=== PATIENT | female | born 1930 | race Caucasian/White ===

== ENCOUNTER 2016-12-14 23:16 | Emergency (ER) | payer OTHER ==
[2016-12-14] MEDS ORDERED: traMADol HCL 50 MG TABLET PO ONE (23:25)
[2016-12-14 23:26] VITALS: TEMP 97.5; BMI 17.7
[2016-12-14] MEDS ORDERED: traMADol HCL 50 MG TABLET ONE (23:29)
--- NOTE | 2016-12-14 23:52 | PDOC ---
History of Present Illness - General Chief Complaint: Blood Pressure Problem Stated Complaint: HIGH BP/BACK PAIN Time Seen by Provider: 12/14/16 23:23 History Source: Patient Exam Limitations: No Limitations - History of Present Illness Initial Comments: 12/14/16 23:30 This is an 86 her old female who is brought in by her granddaughter for evaluation of high blood pressure. Patient said that she injured her back approximately 2 days ago and has been in a lot of pain. Patient said that earlier her blood pressure was high and she took one half of a tramadol which helped with the pain and her blood pressure improved within the tramadol were often she is now on pain in her blood pressure is high again. Patient denies any chest pain, shortness of breath, nausea, diaphoresis. Patient denies any palpitations or lightheaded. Patient is just concerned because her blood pressure is high. Patient did not want to take any more medication because it was even though it did help. Patient has a history of back pain and isn 't been doing well up until 2 days ago when she lifted something and the pain got worse. Patient is complaining of some mild urinary complaints however patient said she did have a bladder procedure done and is on antibiotics since last week. Patient said her urinary complaints or getting better rather than worse. She denied any fevers or chills. PAST MEDICAL HISTORY: Hypertension, high cholesterol, back pain PAST SURGICAL HISTORY: no significant history FAMILY HISTORY: no pertinant history SOCIAL HISTORY: Pt lives with family and is employed. MEDICATIONS: reviewed ALLERGIES: As per nursing notes Review of Systems General: No fevers or chills, no weakness, no weight loss HEENT: No change in vision. No sore throat,. No ear pain CardioVascular: No chest pain or shortness of breath Respiratory:No cough, or wheezing. Gastrointestinal: no nausea, vomitting, diarrhea or constipation, No rectal bleeding Genitourinary: No dysuria, hematuria, or frequency Musculoskeletal: Back pain Neurologic: No headache, vertigo, dizziness or loss of consciousness Psychiatric: nor depression Skin: No rashes or easy bruising Endocrine: no increased thirst or abnormal weight change Allergic: no skin or latex allergy All other systems reviewed and normal Exam: General: Well-nourished well-developed individual, no acute distress HEENT: Throat: Normal, tonsils normal, no erythema or exudate Neck: Supple, no meningeal signs, no lymphadenopathy Eyes::Pupils equal reactive and round, extraocular motion intact Chest: Nontender to palpation Cardiac: S1-S2 normal, regular rate and rhythm, no murmurs rubs or gallops Respiratory: Lungs clear to auscultation bilateral Back: There is no tenderness on palpation of the cervical thoracic lumbar or cervical spine. There is some pain on palpation with spasm of the left paraspinal area approximately mid back. she is on antibiotics she had already for urinary Abdomen: Soft, nondistended, normal bowel sounds, nontender to palpation diffusely Extremities: Warm, dry, no cyanosis, clubbing, or edema Skin: No rashes Neuro: Alert and oriented x3, nonfocal exam, grossly intact, normal gait Psych: Normal mood and affect 12/15/16 00:06 Patient feels much better after taking the tramadol. Patient said back pain is nearly resolved. Blood pressure is improved but still elevated patient has no other symptoms at this time suggestive of any end organ damage. So I am going to discharge her home and have her follow-up with her primary care doctor tomorrow. Past History - Past Medical History Allergies/Adverse Reactions: Allergies Allergy/AdvReac Type Severity Reaction Status Date / Time ciprofloxacin [From Cipro] Allergy Unknown Verified 12/14/16 23:18 ciprofloxacin HCl Allergy Unknown Verified 12/14/16 23:18 [From Cipro] Home Medications: Ambulatory Orders Amlodipine Besylate [Norvasc -] 2.5 mg PO DAILY 12/14/16 Atorvastatin Ca [Lipitor] 80 mg PO HS 12/14/16 Ramipril 5 mg PO BID 12/14/16 Tramadol HCl 50 mg PO DAILY 12/14/16 Anemia: No Asthma: No Cancer: Yes Cardiac Disorders: No CVA: Yes COPD: Yes CHF: No Dementia: No Diabetes: No GI Disorders: Yes Disorders: No HTN: Yes Hypercholesterolemia: Yes Liver Disease: No Seizures: No Thyroid Disease: No - Surgical History Abdominal Surgery: No Appendectomy: No Cardiac Surgery: No Cholecystectomy: Yes Lung Surgery: No Neurologic Surgery: Yes Orthopedic Surgery: Yes (left knee meiscus tear repair) - Psycho/Social/Smoking Cessation Hx Anxiety: No Suicidal Ideation: No Smoking History: Former smoker Have you smoked in the past 12 months: No Information on smoking cessation initiated: No Hx Alcohol Use: No Drug/Substance Use Hx: No Substance Use Type: None Hx Substance Use Treatment: No *Physical Exam - Vital Signs Last Vital Signs Temp Pulse Resp BP Pulse Ox 97.5 F L 88 18 202/92 96 12/14/16 23:23 12/14/16 23:23 12/14/16 23:23 12/14/16 23:23 12/14/16 23:23 *DC/Admit/Observation/Transfer Diagnosis at time of Disposition: Essential hypertension Back pain Qualifiers: Back pain location: thoracic back pain Chronicity: chronic Back pain laterality : left Qualified Code(s): M54.6 - Pain in thoracic spine; G89.29 - Other chronic pain - Discharge Dispostion Disposition: HOME Condition at time of disposition: Stable - Patient Instructions Printed Discharge Instructions: DI for High Blood Pressure Additional Instructions: Return to the emergency department immediately with ANY new, persistent or worsening symptoms. Continue any medications as previously prescribed by your physician. You should follow up with your primary doctor as soon as possible regarding today's emergency department visit. . Please make sure your doctor reviews the results of your emergency evaluation. Thank you for coming to the Emergency Department today for your care. It was a pleasure to see you today. Please note that your evaluation is INCOMPLETE until you follow-up with your doctor.
[2016-12-15 00:08] VITALS: BP 196/85; PULSE 82
== END 2016-12-15 00:28 | disposition home or self-care (01) ==
LOC: FER 23:16
DX: I10 Essential (primary) hypertension (principal); M54.6 Pain in thoracic spine; G89.29 Other chronic pain; E78.00 Pure hypercholesterolemia, unspecified; Z85.9 Personal history of malignant neoplasm, unspecified
CPT/HCPCS: 99281-25

== ENCOUNTER 2016-12-27 15:34 | Emergency (ER) | payer OTHER ==
[2016-12-27 15:39] VITALS: TEMP 98; BMI 19.1
[2016-12-27] MEDS ORDERED: SODIUM CHLORIDE 0.9% 1000 ML INFUS.BAG IV ONE (16:39)
--- NOTE | 2016-12-27 16:39 | PDOC ---
History of Present Illness - General Chief Complaint: Nausea/Vomiting Stated Complaint: VOMITING Time Seen by Provider: 12/27/16 15:58 History Source: Patient Exam Limitations: No Limitations - History of Present Illness Initial Comments: CC: Acute onset of vomiting Patient is an 86 y.o. female with a PMH of diverticulosis, HTN and cystitis who presents to our ED today c/o a 1 day h/o of non-bloody, non-bilous yellow colored vomiting which has resolved by her time of presentation. Patient notes she started Elmiron for her cystitis yesterday and believes this is the cause of her vomiting. Patient denies any chest pain or shortness of breath but does c/o diarrhea and dysuria (though no increased urgency/frequency or hematuria) on review of systems. Timing/Duration: 24 hours Past History - Past Medical History Allergies/Adverse Reactions: Allergies Allergy/AdvReac Type Severity Reaction Status Date / Time ciprofloxacin [From Cipro] Allergy Unknown Verified 12/27/16 15:39 ciprofloxacin HCl Allergy Unknown Verified 12/27/16 15:39 [From Cipro] Home Medications: Ambulatory Orders Alprazolam [Xanax Xr] 0.5 mg PO TID PRN 12/27/16 Amitriptyline HCl [Elavil -] 10 mg PO DAILY 12/27/16 Amlodipine Besylate [Norvasc -] 2.5 mg PO DAILY 12/27/16 Atorvastatin Ca [Lipitor] 80 mg PO DAILY 12/27/16 Clopidogrel Bisulfate [Plavix -] 75 mg PO DAILY 12/27/16 Dicyclomine HCl 10 mg PO QID PRN 12/27/16 Esomeprazole Mag Trihydrate [NexIUM for SUSP] 40 mg PO DAILY 12/27/16 Nitrofurantoin Macrocrystal [Nitrofurantoin] 100 mg PO DAILY 12/27/16 Pentosan Polysulfate Sodium [Elmiron] 100 mg PO TID 12/27/16 Ramipril [Altace] 5 mg PO BID 12/27/16 Sulfamethoxazole/Trimethoprim [Bactrim Ds -] 1 tab PO BID #20 tablet 12/27/16 Tramadol HCl [Ultram] 50 mg PO Q6H 12/27/16 Anemia: No Asthma: No Cancer: Yes Cardiac Disorders: No CVA: Yes COPD: Yes CHF: No Dementia: No Diabetes: No GI Disorders: Yes Disorders: No HTN: Yes Hypercholesterolemia: Yes Liver Disease: No Seizures: No Thyroid Disease: No - Surgical History Abdominal Surgery: No Appendectomy: No Cardiac Surgery: No Cholecystectomy: Yes Lung Surgery: No Neurologic Surgery: Yes Orthopedic Surgery: Yes (left knee meiscus tear repair) - Psycho/Social/Smoking Cessation Hx Anxiety: No Suicidal Ideation: No Smoking History: Former smoker Have you smoked in the past 12 months: No If you are a former smoker, when did you quit?: 4 YRS AGO Information on smoking cessation initiated: No Hx Alcohol Use: No Drug/Substance Use Hx: No Substance Use Type: None Hx Substance Use Treatment: No Review of Systems - Review of Systems Constitutional: No: Chills, Diaphoresis, Malaise, Weakness HEENTM: No: Blurred Vision, Tinnitus, Hearing Loss, Throat Pain Respiratory: No: Cough, Orthopnea, SOB with Exertion, SOB at Rest, Wheezing Cardiac (ROS): No: Chest Pain, Edema, Palpitations, Syncope ABD/GI: Yes: Constipated, Nausea, Vomiting : Yes: Dysuria. No: Burning, Frequency, Urgency Musculoskeletal: No: Back Pain, Joint Swelling, Muscle Pain, Muscle Weakness Integumentary: No: Dryness, Erythema, Pruritus, Rash Neurological: No: Seizure, Tingling, Tremors, Weakness Psychiatric: No: Anxiety, Depression All Other Systems: Reviewed and Negative *Physical Exam - Vital Signs Last Vital Signs Temp Pulse Resp BP Pulse Ox 98.0 F 100 H 16 149/78 92 L 12/27/16 15:35 12/27/16 15:35 12/27/16 15:35 12/27/16 15:35 12/27/16 15:35 - Physical Exam General Appearance: Yes: Appropriately Dressed, Thin HEENT: positive: EOMI, GREGORIO Neck: positive: Trachea midline, Supple Respiratory/Chest: positive: Lungs Clear, Normal Breath Sounds Cardiovascular: positive: Regular Rhythm, Regular Rate, S1, S2 Gastrointestinal/Abdominal: positive: Normal Bowel Sounds, Soft Musculoskeletal: positive: Normal Inspection Integumentary: positive: Normal Color, Dry, Warm Neurologic: positive: design cell engineer II-XII NML intact, Fully Oriented, Alert, Normal Mood/ Affect ED Treatment Course - LABORATORY CBC & Chemistry Diagram: 12/27/16 17:01 12/27/16 17:01 Medical Decision Making - Medical Decision Making Patient is an 86 y.o. female who presents with a 1 day h/o of vomiting. Differential diagnosis includes dehydration vs. diverticulitis (patient c/o diarrhea) vs. UTI. As patient's vomiting had resolved by the time she reached the ED, patient was given IVNS and electrolytes were checked for hypokalemia given patient's h/o emesis. During course of admission patient tolerated PO challenge and was eating solid food without any discomfort. As patient expressed a belief that her Elmiron (started immediately prior to onset of her emesis) was the cause of her vomiting, patient's urologist, Dr. Low was contacted and suggested patient hold the Elmiron and follow-up in his office. UA (to r/o UTI) and CT Abdomen (r/o diverticulitis) was pending at time of sign out to Dr. Barreto (resident) and Dr. Graves (attending). *DC/Admit/Observation/Transfer Diagnosis at time of Disposition: UTI (urinary tract infection) - Discharge Dispostion Disposition: HOME - Prescriptions Prescriptions: Sulfamethoxazole/Trimethoprim [Bactrim Ds -] 1 tab PO BID #20 tablet - Referrals Referrals: Ravi Diaz MD [Staff Physician] - Handy Wheeler MD [Primary Care Provider] - - Patient Instructions Additional Instructions: You were seen for nausea and abdominal pain. This is most likely due to a urinary tract infection that hasn't been treated appropriately. We are changing your antibiotic to Bactrim twice a day for 10 days. Please see your primary care physician for better control of your blood pressure as this is most likely the reason for the increased size of your aneurysm. Please return if you have worsening pain, nausea, or vomiting.
[2016-12-27] MEDS ORDERED: ONDANSETRON 4 MG/2 ML VIAL IVPUSH ONE (16:47)
[2016-12-27] MEDS ORDERED: ONDANSETRON 4 MG/2 ML VIAL ONE (17:16)
[2016-12-27 17:36] LABS: MCH 28.6 pg (25.7-33.7); MEAN CELL VOLUME 86.5 fl (80-96); MEAN PLT VOLUME 9.1 fl (7.5-11.1); PLATELET COUNT 273 K/MM3 (134-434); RDW 13.2 % (11.6-15.6); WHITE BLOOD COUNT 9.4 K/mm3 (4.0-10.0)
[2016-12-27 17:57] LABS: ANION GAP 7 (8-16); CO2 28 mmol/L (21-32); CREATININE 1.3 mg/dL (0.55-1.02); GLUCOSE,RANDOM 95 mg/dL (74-106)
[2016-12-27 19:03] LABS: URINE APPEARANCE CLEAR; URINE BILIRUBIN NEGATIVE (NEGATIVE); URINE COLOR YELLOW; URINE GLUCOSE (UA) NEGATIVE (NEGATIVE); URINE KETONE NEGATIVE (NEGATIVE); URINE NITRITE NEGATIVE (NEGATIVE); URINE PROTEIN NEGATIVE (NEGATIVE); URINE UROBILINOGEN NEGATIVE mg/dL (0.2-1.0)
--- NOTE | 2016-12-27 19:03 | PDOC ---
Attending Attestation - Resident Resident Name: Mary Nash - ED Attending Attestation I have performed the following: I have examined & evaluated the patient, The case was reviewed & discussed with the resident - HPI HPI: 12/27/16 19:01 86 yo F wit h/o diveritciulitis, recent cystoscopy 1 week ago, on nitrofurantion for one week, here with 24 hours n/v. started last pm. has been c/o left lower quad pain x 2 weeks. no f/c no change to bm. pain worse with eating. no flank pain. no f/c no new urinary complaints. - Physicial Exam PE: 12/27/16 19:02 on exam pt awake alert lungs clear heart rRR nomrg abd soft LLQ ttp, no rebound no guarding. no cva tenderness. ext wwp. - Medical Decision Making 12/27/16 19:03 86 yo recent bladder procedure on abx with n/v . llq ttp on exam. differential cystitis, uti, abx side effect diverticulitis. plan labs ua ct a/p antiemetics. iv hydration
[2016-12-27 19:18] LABS: URINE BLOOD 1+ (NEGATIVE); URINE LEUK ESTERASE 1+ (NEGATIVE)
[2016-12-27 19:19] LABS: URINE MUCUS RARE; URINE RBC 1 /hpf (0-3); URINE WBC 14 /hpf (3-5)
--- NOTE | 2016-12-27 19:43 | PDOC ---
*Physical Exam - Vital Signs Last Vital Signs Temp Pulse Resp BP Pulse Ox 98.0 F 100 H 16 149/78 92 L 12/27/16 15:35 12/27/16 15:35 12/27/16 15:35 12/27/16 15:35 12/27/16 15:35 ED Treatment Course - LABORATORY CBC & Chemistry Diagram: 12/27/16 17:01 12/27/16 17:01 - ADDITIONAL ORDERS Additional order review: Laboratory Results 12/27/16 12/27/16 17:01 17:01 Sodium 138 Potassium 4.3 Chloride 103 Carbon Dioxide 28 Anion Gap 7 L BUN 25 H Creatinine 1.3 H Random Glucose 95 D Calcium 9.0 Urine Color Yellow Urine Appearance Clear Urine pH 5.0 Urine Protein Negative Urine Glucose (UA) Negative Urine Ketones Negative Urine Blood 1+ H Urine Nitrite Negative Urine Bilirubin Negative Urine Urobilinogen Negative Ur Leukocyte Esterase 1+ H 12/27/16 17:01 RBC 4.63 MCV 86.5 MCHC 33.0 RDW 13.2 MPV 9.1 - Medications Given in the ED: ED Medications Discontinued Medications Generic Name Dose Route Start Last Admin Trade Name Freq PRN Reason Stop Dose Admin Ondansetron HCl 4 mg 12/27/16 16:47 12/27/16 17:28 Zofran Injection IVPUSH 12/27/16 16:48 4 mg ONCE ONE Administration Sodium Chloride 1,000 ml 12/27/16 16:39 12/27/16 17:38 Normal Saline - IV 12/27/16 16:40 1,000 ml ONCE ONE Administration Medical Decision Making - Medical Decision Making Ct Abdomen pelvis not demonstrating diverticulitis but is showing interval increase from 4.2 CM back in June to 4.7 CM today. Spoke with Dr. Recinos of Vascular surgery and the patient is OK to go home and follow up with CT surgery to follow the aneurism as long as she is HD stable. Will have her follow up with her PCP to have tighter control of BP (sits at 140s-150s at home). Will change patient's nitrofurantoin to Bactrim on discharge because of failure of treatment with current 14 WBC and 1+ leuk esterase. 12/27/16 21:05 12/27/16 21:19 *DC/Admit/Observation/Transfer Diagnosis at time of Disposition: UTI (urinary tract infection) - Discharge Dispostion Disposition: HOME Condition at time of disposition: Improved Admit: No - Prescriptions Prescriptions: Sulfamethoxazole/Trimethoprim [Bactrim Ds -] 1 tab PO BID #20 tablet - Referrals Referrals: Handy Wheeler MD [Primary Care Provider] - Ravi Diaz MD [Staff Physician] - - Patient Instructions Additional Instructions: You were seen for nausea and abdominal pain. This is most likely due to a urinary tract infection that hasn't been treated appropriately. We are changing your antibiotic to Bactrim twice a day for 10 days. Please see your primary care physician for better control of your blood pressure as this is most likely the reason for the increased size of your aneurysm. Please return if you have worsening pain, nausea, or vomiting. - Post Discharge Activity Activity Comments: 12/27/16 21:34 12/27/16 21:34 - Attestations Physician Attestion: I, Dr. Ely Barreto, attest that this document has been prepared under my direction and personally reviewed by me in its entirety. I further attest, that it accurately reflects all work, treatment, procedures and medical decision -making performed by me. 12/27/16 21:23 12/27/16 21:34
[2016-12-27 21:09] VITALS: BP 157/75; PULSE 75
--- NOTE | 2016-12-28 16:51 | EKG ---
Test Reason : Blood Pressure : / mmHG Vent. Rate : 081 BPM Atrial Rate : 081 BPM P-R Int : 270 ms QRS Dur : 078 ms QT Int : 396 ms P-R-T Axes : 080 097 066 degrees QTc Int : 460 ms SINUS RHYTHM WITH 1ST DEGREE A-V BLOCK WITH PREMATURE SUPRAVENTRICULAR COMPLEXES RIGHTWARD AXIS ANTEROSEPTAL INFARCT , AGE UNDETERMINED ABNORMAL ECG NO PREVIOUS ECGS AVAILABLE BASE LINE ARTIFACT, CORELATE CLINICALLY Confirmed by IGOR DILLON MD ([id number]) on 12/28/2016 4:50:58 PM Referred By: Confirmed By:IGOR DILLON MD
== END 2016-12-27 21:41 | disposition home or self-care (01) ==
LOC: JER 15:34
PROC: 3E033GC Introduction of Other Therapeutic Substance into Peripheral Vein, Percutaneous Approach (ICD-10-PCS; principal; 2016-12-27)
DX: R11.2 Nausea with vomiting, unspecified (principal); I10 Essential (primary) hypertension; J44.9 Chronic obstructive pulmonary disease, unspecified; E78.00 Pure hypercholesterolemia, unspecified; I71.2 Thoracic aortic aneurysm, without rupture; Z86.73 Personal history of transient ischemic attack (TIA), and cerebral infarction without residual deficits
CPT/HCPCS: 36415; 74176-TC; 80048; 81003; 81015; 85027; 93005; 93010; 96374; 99283-25

== ENCOUNTER 2017-03-14 10:31 | Inpatient (IN) | payer OTHER ==
[2017-03-14] MEDS ORDERED: SODIUM CHLORIDE 500 ML IV STA ×3 (11:10→15:43)
[2017-03-14] MEDS ORDERED: ONDANSETRON 4 MG/2 ML VIAL IVPB ONE (11:10)
[2017-03-14] MEDS ORDERED: MAG HYDROX/AL HYDROX/SIMETH 355 ML ORAL.SUSP PO ONE (11:12)
[2017-03-14] MEDS ORDERED: LOPERAMIDE HCL 2 MG CAPSULE PO ONE (11:12)
[2017-03-14] MEDS ORDERED: morphine CARPU-JECT 2 MG/1 ML DISP.SYRIN IVPUSH ONE ×2 (11:19→12:51)
[2017-03-14] MEDS ORDERED: morphine CARPU-JECT 4 MG/1 ML DISP.SYRIN ONE ×2 (11:21→12:55)
[2017-03-14] MEDS ORDERED: MAG HYDROX/AL HYDROX/SIMETH 30 ML UNIT-DOSE CUP ONE (11:23)
[2017-03-14] MEDS ORDERED: ONDANSETRON 4 MG/2 ML VIAL ONE (11:23)
[2017-03-14] MEDS ORDERED: LOPERAMIDE HCL 2 MG CAPSULE ONE (11:25)
[2017-03-14 11:40] LABS: EOSINOPHIL 1.5 % (0-4.5); MCH 27.9 pg (25.7-33.7); MCHC 32.8 g/dl (32.0-36.0); MEAN CELL VOLUME 85.2 fl (80-96); NEUTROPHILS 83.4 % (42.8-82.8); PLATELET COUNT 419 K/MM3 (134-434); RDW 14.3 % (11.6-15.6); WHITE BLOOD COUNT 15.7 K/mm3 (4.0-10.0)
--- NOTE | 2017-03-14 11:40 | PDOC ---
History of Present Illness - General Chief Complaint: Vomiting/Diarrhea Stated Complaint: SICK Time Seen by Provider: 03/14/17 10:47 History Source: Patient Exam Limitations: No Limitations - History of Present Illness Initial Comments: 03/14/17 11:37 Patient is an 86F with history of CDiff (years ago by history), COPD, HTN, CVA, AAA, Diverticulitis and Pacemaker here today complaining of diarrhea and abdominal pain since yesterday evening. She denies blood and melena in the stool. She says she's had numerous episodes of diarrhea and feels very weak because of it. The abdominal pain is located in the suprapubic region and lower left quadrant. It radiates across her belly. She endorses nausea and dry heaving. She denies fevers, endorses chills. She denies chest pain. She endorses shortness of breath. She states that she fell and hit her left arm, but doesn't have any pain in her left arm. She denies hitting her head, LOC and headache. Past History - Past Medical History Allergies/Adverse Reactions: Allergies Allergy/AdvReac Type Severity Reaction Status Date / Time ciprofloxacin [From Cipro] Allergy Unknown Verified 03/14/17 10:38 ciprofloxacin HCl Allergy Unknown Verified 03/14/17 10:38 [From Cipro] Home Medications: Ambulatory Orders Alprazolam [Xanax Xr] 0.5 mg PO TID PRN 12/27/16 Amitriptyline HCl [Elavil -] 10 mg PO DAILY 12/27/16 Amlodipine Besylate [Norvasc -] 2.5 mg PO DAILY 12/27/16 Atorvastatin Ca [Lipitor] 80 mg PO DAILY 12/27/16 Clopidogrel Bisulfate [Plavix -] 75 mg PO DAILY 12/27/16 Dicyclomine HCl 10 mg PO QID PRN 12/27/16 Esomeprazole Mag Trihydrate [NexIUM for SUSP] 40 mg PO DAILY 12/27/16 Pentosan Polysulfate Sodium [Elmiron] 100 mg PO TID 12/27/16 Ramipril [Altace] 5 mg PO BID 12/27/16 Tramadol HCl [Ultram] 50 mg PO Q6H 12/27/16 Anemia: No Asthma: No Cancer: Yes Cardiac Disorders: No CVA: Yes COPD: Yes CHF: No Dementia: No Diabetes: No GI Disorders: Yes Disorders: No HTN: Yes Hypercholesterolemia: Yes Liver Disease: No Seizures: No Thyroid Disease: No - Surgical History Abdominal Surgery: No Appendectomy: No Cardiac Surgery: No Cholecystectomy: Yes Lung Surgery: No Neurologic Surgery: Yes Orthopedic Surgery: Yes (left knee meiscus tear repair) - Suicide/Smoking/Psychosocial Hx Smoking History: Former smoker Have you smoked in the past 12 months: No If you are a former smoker, when did you quit?: 4 YRS AGO Information on smoking cessation initiated: No Hx Alcohol Use: No Drug/Substance Use Hx: No Substance Use Type: None Hx Substance Use Treatment: No Review of Systems - Review of Systems Comments:: 03/14/17 11:40 GENERAL/CONSTITUTIONAL: Positive for chills and weakness. HEAD, EYES, EARS, NOSE AND THROAT: No change in vision. No sore throat. CARDIOVASCULAR: No chest pain. Positive for shortness of breath. RESPIRATORY: No cough, wheezing, or hemoptysis. GASTROINTESTINAL: Positive for nausea and diarrhea. GENITOURINARY: No dysuria, frequency, or change in urination. MUSCULOSKELETAL: No joint or muscle swelling or pain. Positive for back pain. SKIN: No rash NEUROLOGIC: No headache, vertigo, loss of consciousness, or change in strength/ sensation. ENDOCRINE: No increased thirst. No abnormal weight change ALLERGIC/IMMUNOLOGIC: No hives or skin allergy. *Physical Exam - Vital Signs Last Vital Signs Temp Pulse Resp BP Pulse Ox 97.5 F L 111 H 20 152/88 55 L 03/14/17 10:39 03/14/17 10:39 03/14/17 10:39 03/14/17 10:39 03/14/17 10:39 - Physical Exam Comments: 03/14/17 11:42 GENERAL: Awake, alert, and fully oriented, in acute distress HEAD: No signs of trauma, normocephalic, atraumatic EYES: PERRLA, EOMI, sclera anicteric, conjunctiva clear ENT: Auricles normal inspection, hearing grossly normal, nares patent, oropharynx clear without exudates. Dry mucosa LUNGS: No distress, speaks full sentences, clear to auscultation bilaterally HEART: Regular rate and rhythm, normal S1 and S2, no murmurs, rubs or gallops, peripheral pulses normal and equal bilaterally. ABDOMEN: Tender, normal bowel sounds. Voluntary guarding, no rebound. No masses EXTREMITIES: Normal inspection, Normal range of motion, no edema. No clubbing or cyanosis. NEUROLOGICAL: Cranial nerves II through XII grossly intact. Normal speech, no focal sensorimotor deficits SKIN: Warm, Dry, normal turgor, no rashes or lesions noted. ED Treatment Course - LABORATORY CBC & Chemistry Diagram: 03/14/17 11:30 03/14/17 11:30 - RADIOLOGY Radiology Studies Ordered: Category Date Time Status ABDOMEN & PELVIS CT WITH CONTR [CT] Stat CT Scan 03/14/17 11:26 Ordered CHEST X-RAY PORTABLE* [RAD] Stat Radiology 03/14/17 11:26 Ordered Medical Decision Making - Medical Decision Making 03/14/17 11:43 86F with history of cdiff, COPD, pacemaker placement, diverticulitis and AAA here today with abdominal pain. Tachy to 111. Vital signs otherwise stable. Will evaluate with abdominal and cardiac labs, chest x-ray, and abdominal ct. Will treat with mylanta, zofran, morphine and immodium. 03/14/17 11:52 EKG shows no p-waves, no signs of pacemaker on ekg, rate = 116. No st elevations , no t-wave abnormalities. QTc 489. 03/14/17 12:46 Laboratory Tests 03/14/17 03/14/17 03/14/17 11:30 11:30 11:30 WBC 15.7 H D Hgb 13.8 Hct 42.0 Plt Count 419 D Neutrophils % 83.4 H D Potassium 5.5 H D Creatinine 1.6 H D Lactic Acid 2.7 H* CBC shows leukocytosis with neutrophillic shift. Lactate positive to 2.7. Started on vanc, zosyn and flagyl. CT pending. Trop pending. Urine pending. 03/14/17 14:28 C diff negative. 03/14/17 14:[address] Marin, admitted to med/surg. *DC/Admit/Observation/Transfer Diagnosis at time of Disposition: Colitis - Discharge Dispostion Condition at time of disposition: Stable Admit: Yes
[2017-03-14 12:08] LABS: ALBUMIN 3.2 g/dl (3.4-5.0); ALK PHOS 148 U/L (45-117); ANION GAP 6 (8-16); BILIRUBIN,TOTAL 0.5 mg/dL (0.2-1.0); CALCIUM 9.4 mg/dL (8.5-10.1); CO2 28 mmol/L (21-32); CREATININE 1.6 mg/dL (0.55-1.02); GLUCOSE,RANDOM 157 mg/dL (74-106); SGPT/ALT 22 U/L (12-78); TOT PROT 7.9 g/dl (6.4-8.2)
[2017-03-14 12:11] LABS: SGOT/AST 54 U/L (15-37)
[2017-03-14] MEDS ORDERED: VANCOMYCIN 1,000 MG in DEXTROSE 5%-WATER - 250 ML IVPB ONE (12:41)
[2017-03-14] MEDS ORDERED: METRONIDAZOLE 500 MG PREMIXED 100 ML IVPB ONE ×2 (12:41→12:53)
[2017-03-14] MEDS ORDERED: PIPERACILLIN/TAZOB 3.375 GM/50 ML PRE-DOCKED IV ONE (12:41)
--- NOTE | 2017-03-14 12:44 | PDOC ---
Attending Attestation - HPI HPI: 03/14/17 12:44 Pt is a 86 yo F with a PMHx of COPD, HTN, CVA, HLD, Diverticulitis, IBS, C diff (5 years ago) who presents to the ED with multiple episodes of diarrhea and nausea since last night. Patient reports associated crampy abdominal pain and back pain, 10/10 in severity with generalized weakness. This morning, patient reports using the restroom however fell secondary to her fatigue. Patient denies any head trauma, LOC, injuries. She denies chest pain, headache or dizziness. She denies fever, chills, constipation. She denies dysuria, frequency, urgency or hematuria. PSHx: Cholecystectomy PCP: Handy Wheeler - Physicial Exam PE: 03/14/17 12:44 GENERAL: Awake, alert, and fully oriented, in no acute distress HEAD: No signs of trauma EYES: PERRLA, EOMI, sclera anicteric, conjunctiva clear ENT: Auricles normal inspection, hearing grossly normal, nares patent, oropharynx clear without exudates. +Dry mucous membranes. NECK: Normal ROM, supple, no lymphadenopathy, JVD, or masses LUNGS: Breath sounds equal, clear to auscultation bilaterally. No wheezes, and no crackles HEART: Regular rate and rhythm, normal S1 and S2, no murmurs, rubs or gallops ABDOMEN: +Diffuse abdominal tenderness. Soft, nontender, normoactive bowel sounds. No guarding, no rebound. No masses EXTREMITIES: Normal range of motion, no edema. No clubbing or cyanosis. No cords, erythema, or tenderness NEUROLOGICAL: Cranial nerves II through XII grossly intact. Normal speech, normal gait SKIN: Warm, Dry, normal turgor, no rashes or lesions noted. - Medical Decision Making 03/14/17 12:44 Documentation prepared by Yuliana Will, acting as medical doctor md/medical director for Jake Peres MD <Yuliana Will - Last Filed: 03/14/17 12:44> - Resident Resident Name: Ehsan Silva - ED Attending Attestation I have performed the following: I have examined & evaluated the patient, The case was reviewed & discussed with the resident, I agree w/resident's findings & plan, Exceptions are as noted - Medical Decision Making 03/14/17 12:59 A portion of this note was written by my scribe, under my supervision. Vital Signs Temp Pulse Resp BP Pulse Ox 97.5 F L 111 H 20 152/88 94 L 03/14/17 10:39 03/14/17 10:39 03/14/17 10:39 03/14/17 10:39 03/14/17 10:39 We'll need to rule out diverticulitis, colitis. There are some concerns for C. difficile. Sepsis protocol initiated and empiric antibiotics of vancomycin, Zosyn and Flagyl ordered. Patient admitted to the hospital for further evaluation. I agree with the resident's plan to obtain a CAT scan the abdomen pelvis. 03/14/17 14:35 CBC, BMP 03/14/17 11:30 03/14/17 11:30 CMP Sodium 137 mmol/L (136-145) 03/14/17 11:30 Potassium 5.5 mmol/L (3.5-5.1) H D 03/14/17 11:30 Chloride 103 mmol/L (98-107) 03/14/17 11:30 Carbon Dioxide 28 mmol/L (21-32) 03/14/17 11:30 Anion Gap 6 (8-16) L 03/14/17 11:30 BUN 24 mg/dL (7-18) H 03/14/17 11:30 Creatinine 1.6 mg/dL (0.55-1.02) H D 03/14/17 11:30 Creat Clearance w eGFR 30.56 (>60) 03/14/17 11:30 Random Glucose 157 mg/dL (74-106) H D 03/14/17 11:30 Lactic Acid 2.7 mmol/L (0.4-2.0) H* 03/14/17 11:30 Calcium 9.4 mg/dL (8.5-10.1) 03/14/17 11:30 Total Bilirubin 0.5 mg/dL (0.2-1.0) 03/14/17 11:30 AST 54 U/L (15-37) H D 03/14/17 11:30 ALT 22 U/L (12-78) D 03/14/17 11:30 Alkaline Phosphatase 148 U/L (45-117) H 03/14/17 11:30 Creatine Kinase 175 IU/L (26-192) 03/14/17 11:30 Creatine Kinase Index 0.5 % (0.0-5.0) 03/14/17 11:30 CK-MB (CK-2) < 1 ng/mL (0.5-3.6) 03/14/17 11:30 Troponin I < 0.02 ng/ml (0.00-0.05) 03/14/17 11:30 Total Protein 7.9 g/dl (6.4-8.2) 03/14/17 11:30 Albumin 3.2 g/dl (3.4-5.0) L 03/14/17 11:30 Lipase 87 U/L (73-393) 03/14/17 11:30 CT scan reviewed. IV antibiotics and admit <Jake Peres - Last Filed: 03/14/17 14:35> Heart Score/ECG Review #1 ECG reviewed & interpreted by me at: 11:40 03/14/17 12:59 accelerated junctional rhythm 116, no std/carlton, QTC 489 msec <Jake Peres - Last Filed: 03/14/17 14:35>
[2017-03-14] MEDS ORDERED: VANCOMYCIN 1 GRAM (PRE-DOCKED) 250 ML IVPB ONE (12:53)
[2017-03-14] MEDS ORDERED: PIPERACILLIN/TAZOB 3.375 GM 50 ML IVPB ONE (12:53)
[2017-03-14 12:55] LABS: TROPONIN I < 0.02 ng/ml (0.00-0.05)
[2017-03-14 12:57] LABS: CPK 175 IU/L (26-192)
--- NOTE | 2017-03-14 12:58 | PDOC ---
Attending Attestation - Resident Resident Name: Ehsan Silva - ED Attending Attestation I have performed the following: I have examined & evaluated the patient, The case was reviewed & discussed with the resident, I agree w/resident's findings & plan, Exceptions are as noted - Medical Decision Making 03/14/17 12:57 A portion of this note was written by my scribe, under my supervision. Vital Signs Temp Pulse Resp BP Pulse Ox 97.5 F L 111 H 20 152/88 94 L 03/14/17 10:39 03/14/17 10:39 03/14/17 10:39 03/14/17 10:39 03/14/17 10:39 We'll need to rule out diverticulitis, colitis. There are some concerns for C. difficile. Sepsis protocol initiated and empiric antibiotics of vancomycin, Zosyn and Flagyl ordered. Patient admitted to the hospital for further evaluation. I agree with the resident's plan to obtain a CAT scan the abdomen pelvis. Heart Score/ECG Review #1 ECG reviewed & interpreted by me at: 11:40 03/14/17 12:57 accelerated junctional rhythm 116, no std/carlton, normal axis, normal intervals, QTC 489 msec
[2017-03-14] MEDS ORDERED: ACETAMINOPHEN 325 MG TABLET (FP) PO ONE (14:27)
[2017-03-14] MEDS ORDERED: traMADol HCL 50 MG TABLET PO ONE (14:27)
[2017-03-14] MEDS ORDERED: ACETAMINOPHEN 325 MG TABLET (FP) ONE (14:48)
[2017-03-14] MEDS ORDERED: traMADol HCL 50 MG TABLET ONE (14:48)
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
[2017-03-14] MEDS ORDERED: morphine CARPU-JECT 2 MG/1 ML DISP.SYRIN IVPB PRN (15:43)
--- NOTE | 2017-03-14 15:53 | HP ---
CHIEF COMPLAINT: diarrhea PCP: Dr. Wheeler HISTORY OF PRESENT ILLNESS: 86 yr old woman with a hx of colitis, hx of c.diff(3yrs ago), presents with diarrhea >15 episodes since last night, did not check for blood/mucous. associated with progressive worsening abdominal pain 5/10 going to10/10 and worsening lower back pain. Has a hx of colitis, last episodes was >yr ago, follows with Dr. Holley at [facility] but has not been to see him in a while. 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, unchanged since 12/2016 hx of CVA x2, recently 3-4 yrs ago HTN - labile PAST SURGICAL HISTORY: hx of carotid endartectomy, cholecystectomy, PPM(unknown when) Social History: Smoking: former, quit 4 yrs ago, started age 18 Family History: Allergies ciprofloxacin [From Cipro] Allergy (Unknown, Verified 03/14/17 10:38) - HIVES and RASH HOME MEDICATIONS: Home Medications Medication Instructions Recorded Alprazolam [Xanax Xr] 0.5 mg PO TID PRN 12/27/16 Amitriptyline HCl [Elavil -] 10 mg PO DAILY 12/27/16 Amlodipine Besylate [Norvasc -] 2.5 mg PO DAILY 12/27/16 Atorvastatin Ca [Lipitor] 80 mg PO DAILY 12/27/16 Clopidogrel Bisulfate [Plavix -] 75 mg PO DAILY 12/27/16 Dicyclomine HCl 10 mg PO QID PRN 12/27/16 Esomeprazole Mag Trihydrate 40 mg PO DAILY 12/27/16 [NexIUM for SUSP] Pentosan Polysulfate Sodium 100 mg PO TID 12/27/16 [Elmiron] Ramipril [Altace] 5 mg PO BID 12/27/16 Tramadol HCl [Ultram] 50 mg PO Q6H 12/27/16 REVIEW OF SYSTEMS CONSTITUTIONAL: Present: chills, weight change - 25lbs loss in the past year Absent: fever, generalized weakness, malaise, loss of appetite HEENT: Absent: nasal congestion, visual changes CARDIOVASCULAR: Present: palpitations, Absent: chest pain, syncope, irregular heart rate, lightheadedness, peripheral edema RESPIRATORY: Present: occasional dyspnea with exertion, Absent:shortness of breath, orthopnea, cough GASTROINTESTINAL: Present: abdominal pain, nausea,diarrhea, Absent: abdominal distension, vomiting, constipation, GENITOURINARY: Present: flank pain, Absent: dysuria, frequency, urgency, hesitancy, hematuria, MUSCULOSKELETAL: Present: back pain, Absent: myalgia, arthralgia, joint swelling, neck pain SKIN: Absent: rash, itching, pallor NEUROLOGIC: Present: unsteady gait(chronic, at baseline uses walker) Absent: headache, dizziness, PHYSICAL EXAMINATION GENERAL: Awake, alert, and fully oriented, in no acute distress. HEAD: Normal with no signs of trauma. EYES: Pupils equal, round and reactive to light, extraocular movements intact, sclera anicteric, conjunctival pallor. No lid lag. EARS, NOSE, THROAT: Ears normal, nares patent, oropharynx clear without exudates. upper dentures in place. Moist mucous membranes. NECK: Normal range of motion, supple without lymphadenopathy, JVD, or masses. LUNGS: Breath sounds equal, clear to auscultation bilaterally. No wheezes, and no crackles. No accessory muscle use. HEART: regular rate and rhythm, normal S1 and S2 without murmur, rub or gallop. ABDOMEN: Soft, not distended, normoactive bowel sounds, no guarding, no rebound , no masses. MUSCULOSKELETAL: +left CVA tenderness. LOWER EXTREMITIES: 2+ dp pulses, warm, well-perfused. No calf tenderness. No peripheral edema. NEUROLOGICAL: facial symmetry, Normal rate/tone speech. PSYCHIATRIC: Cooperative. Good eye contact. Appropriate mood and affect. ASSESSMENT/PLAN: 86 yr old woman with vasculopathy, hx of colitis, hx of C.diff presents with abdominal pain and diarrhea since yesterday admitted for colitis. #Severe sepsis secondary to infectious colitis - continue zosyn IV, ID consult Dr. Fuller for ID - stool work-up - advance diet as tolerated - lactic acidosis resolved - IVF NS@ 75cc/hr until taking adequate PO - morphine for pain control #HTN - discussed with Dr. Gomez's office for last office note, pt's BP is labile ranging between 180's-200's sytolic to 110 systolic on home readings, pt's norvasc was increased to 5mg daily. she is to continue her plavix, statin and ramipril in addition and f/u in 3 weeks #DVT heparin BID subq #Diet: clears tonight at advance in the morning as tolerated @continue home medications Visit type - Emergency Visit Emergency Visit: Yes ED Registration Date: 03/14/17 Care time: The patient presented to the Emergency Department on the above date and was hospitalized for further evaluation of their emergent condition. - New Patient This patient is new to me today: Yes Date on this admission: 03/14/17 - Critical Care Critical Care patient: No
[2017-03-14 17:51] VITALS: BMI 17.2
[2017-03-14] MEDS ORDERED: FLU VACCINE QUAD 60 MCG/0.5 ML (MDV 17-18) IM ONE (17:51)
--- NOTE | 2017-03-14 17:56 | PN ---
Teaching Attending Note Name of Resident: Willi Cornelius ATTENDING PHYSICIAN STATEMENT I saw and evaluated the patient. I reviewed the resident's note and discussed the case with the resident. I agree with the resident's findings and plan as documented. SUBJECTIVE: This is an 86 year old woman with a history of COPD, HTN, CVA, AAA, IBS, pacemaker, diverticulitis, C. difficile colitis who comes to the ER complaining of abdominal pain and diarrhea since last night. The pain is located in the LLQ. Diarrhea is watery. She has had more than 15 episodes since last night. She has nausea and chills. OBJECTIVE: Vital Signs Period Temp Pulse Resp BP Sys/Grover Pulse Ox Last 24 Hr 97.5 F-98 F 105-111 18-20 126-152/68-88 94-97 HEART: S1S2, tachycardic LUNGS: Clear ABDOMEN: Soft, non-distended, (+) LLQ tenderness, normal BS EXTREMITIES: No edema ASSESSMENT AND PLAN: This is an 86 year old woman with a history of COPD, HTN, hyperlipidemia, CVA, AAA, IBS, pacemaker, diverticulitis, C. difficile colitis who presented to the ER with LLQ abdominal pain, nausea, diarrhea. 1. Severe sepsis secondary to infectious colitis - IV fluid - Clear liquid diet - Zosyn IV - Stool is negative for C. difficile - Stool culture, O&P, WBC 2. Hyperkalemia - IV fluid - Hold Altace - Monitor electrolytes 3. Acute kidney injury - IV fluid - Hold Altace - Monitor BUN, creatinine 4. HTN - Continue Norvasc - Hold Altace secondary to GRISELDA and hyperlipidemia 5. Hyperlipidemia - Continue Lipitor 6. COPD - Stable 7. History of CVA - Continue Plavix, Lipitor 8. IBS 9. Descending thoracic aortic aneurysm - CT shows possible mural thrombus - Start IV heparin - CTA when creatinine improves 10. Abdominal aortic aneurysm, unchanged
[2017-03-14] MEDS ORDERED: HEPARIN NA (PORCINE) 5,000 UNITS/ML 1ML VIAL SQ SCH ×2 (18:00→22:00)
[2017-03-14] MEDS ORDERED: PATIENT'S OWN MEDICATION (NON-FORMULARY) (Alprazolam [Xanax Xr] 0.5 MG) PO PRN (18:05)
[2017-03-14] MEDS ORDERED: DICYCLOMINE HCL 10 MG CAPSULE PO PRN (18:05)
[2017-03-14] MEDS ORDERED: amLODIPine BESYLATE 5 MG TABLET (FP) PO ONE (18:10)
[2017-03-14] MEDS ORDERED: ONDANSETRON 8 MG TABLET (FP) PO PRN (18:11)
[2017-03-14] MEDS: SODIUM CHLORIDE 1,000 ML IV SCH (18:27)
[2017-03-14] MEDS ORDERED: HEPARIN NA (PORCINE) 5,000 UNITS/ML 1ML VIAL IVPUSH PRN (19:42)
[2017-03-14] MEDS: HEPARIN INFUSION - 500 ML IVPB SCH (21:27)
[2017-03-14] MEDS: ATORVASTATIN CA 80 MG TABLET (FP) PO SCH (21:27)
[2017-03-14] MEDS ORDERED: PATIENT'S OWN MEDICATION (NON-FORMULARY) (Pentosan Polysulfate Sodium [Elmiron] 100 MG) PO SCH (22:00)
[2017-03-15 02:57] LABS: URINE APPEARANCE CLEAR; URINE BILIRUBIN NEGATIVE (NEGATIVE); URINE BLOOD 1+ (NEGATIVE); URINE COLOR LTYELLOW; URINE GLUCOSE (UA) NEGATIVE (NEGATIVE); URINE KETONE NEGATIVE (NEGATIVE); URINE LEUK ESTERASE TRACE (NEGATIVE); URINE NITRITE NEGATIVE (NEGATIVE); URINE PROTEIN NEGATIVE (NEGATIVE); URINE UROBILINOGEN NEGATIVE mg/dL (0.2-1.0)
[2017-03-15 03:15] LABS: URINE MUCUS RARE; URINE RBC <1 /hpf (0-3); URINE WBC 3 /hpf (3-5)
[2017-03-15 08:22] LABS: MCH 27.8 pg (25.7-33.7); MCHC 32.8 g/dl (32.0-36.0); MEAN CELL VOLUME 84.7 fl (80-96); MEAN PLT VOLUME 8.8 fl (7.5-11.1); PLATELET COUNT 229 K/MM3 (134-434); RDW 14.2 % (11.6-15.6); WHITE BLOOD COUNT 9.1 K/mm3 (4.0-10.0)
[2017-03-15 08:32] LABS: INR 1.17 (0.82-1.09); PROTHROMBIN TIME (PATIENT) 12.9 SEC (9.98-11.88)
[2017-03-15] MEDS ORDERED: traMADol HCL 50 MG TABLET PO ONE (08:45)
[2017-03-15] MEDS: ACETAMINOPHEN 325 MG TABLET (FP) PO PRN ×2 (08:53→17:34)
[2017-03-15 08:55] LABS: ACTIVATED PTT 142.2 SECONDS (26.9-34.4)
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
[2017-03-15 09:06] LABS: ANION GAP 6 (8-16); CO2 25 mmol/L (21-32); GLUCOSE,RANDOM 90 mg/dL (74-106)
[2017-03-15 09:08] LABS: CREATININE 1.1 mg/dL (0.55-1.02); PHOSPHOROUS 2.7 mg/dL (2.5-4.9)
--- NOTE | 2017-03-15 09:43 | EKG ---
Test Reason : Blood Pressure : / mmHG Vent. Rate : 116 BPM Atrial Rate : 115 BPM P-R Int : 000 ms QRS Dur : 076 ms QT Int : 352 ms P-R-T Axes : 000 089 067 degrees QTc Int : 489 ms ACCELERATED JUNCTIONAL RHYTHM WITH RETROGRADE CONDUCTION VS. SUPRAVENTRICULAR TACHYCARDIA ANTEROSEPTAL INFARCT (CITED ON OR BEFORE 27-DEC-2016) ABNORMAL ECG WHEN COMPARED WITH ECG OF 27-DEC-2016 17:11, NOTE RHYTHM CHANGE VENT. RATE HAS INCREASED CLINICAL CORRELATION IS RECOMMENDED Confirmed by DYAN ANAYA MD ([id number]) on 03/15/2017 9:42:36 AM Referred By: Confirmed By:DYAN ANAYA MD
--- NOTE | 2017-03-15 10:59 | EKG ---
Test Reason : Blood Pressure : / mmHG Vent. Rate : 076 BPM Atrial Rate : 076 BPM P-R Int : 324 ms QRS Dur : 080 ms QT Int : 380 ms P-R-T Axes : 077 072 042 degrees QTc Int : 427 ms SINUS RHYTHM WITHMARKED FIRST DEGREE AV BLOCK POOR R WAVE PROGRESSION IN V2-V3 COMPATIBLE WITH ASWMI OF INDETERMINATE AGE ABNORMAL ECG WHEN COMPARED WITH ECG OF 14-MAR-2017 11:38, VENT. RATE HAS DECREASED BY 40 BPM CLINICAL CORRELATION IS RECOMMENDED Confirmed by IGOR DILLON MD ([id number] on 03/15/2017 10:59:12 AM Referred By: Candi DANIELS Confirmed By:IGOR DILLON MD
[2017-03-15] MEDS ORDERED: PT OWN MED DRAWER 7, Y5N ONE (11:05)
[2017-03-15] MEDS: CLOPIDOGREL BISULFATE 75 MG TABLET (FP) PO SCH (11:10)
[2017-03-15] MEDS: amLODIPine BESYLATE 5 MG TABLET (FP) PO SCH (11:10)
[2017-03-15] MEDS: AMITRIPTYLINE HCL 10 MG TABLET (FP) PO SCH (11:12)
--- NOTE | 2017-03-15 11:31 | PN ---
Progress Note (short form) - Note Progress Note: ID consult dictated imp/reccd Diarrhea Back pain 86 year old female lives at home with her - reports abdominal cramps and frequent stools very one to two weeks usually takes imodium and it stops on bentyl as outpt linzess was recently added but she didnot start it per patient developed severe diarrhea -nonbloody with cramping yesterday and came to ED with severe abdominal pain ct scan negative for diverticulitis, reviewed with radiology, ?mild colitis versus underdistended bowel and liquid stool diarrhea has now stopped had leukocytosis in ED with GRISELDA and leukocytosis and lactic acidosis- was given vancomycin, zosyn and flagyl ?gastroenteritis with GRISELDA and lactic acidosis cipro allergy ?IBS rocephin for now pending blood cultures if negative cultures in am can d/c antibiotics Problem List - Problems (1) Gastroenteritis Code(s): K52.9 - NONINFECTIVE GASTROENTERITIS AND COLITIS, UNSPECIFIED (2) History of IBS Code(s): Z87.19 - PERSONAL HISTORY OF OTHER DISEASES OF THE DIGESTIVE SYSTEM (3) Drug allergy, antibiotic Code(s): Z88.1 - ALLERGY STATUS TO OTHER ANTIBIOTIC AGENTS STATUS
--- NOTE | 2017-03-15 13:49 | PN ---
Teaching Attending Note Name of Resident: Willi Cornelius ATTENDING PHYSICIAN STATEMENT I saw and evaluated the patient. I reviewed the resident's note and discussed the case with the resident. I agree with the resident's findings and plan as documented. SUBJECTIVE: She feels better toady. She is hungry. OBJECTIVE: Vital Signs Period Temp Pulse Resp BP Sys/Grover Pulse Ox Last 24 Hr 96.9 F-98.1 F 62-105 18-20 126-196/59-94 95-97 HEART: S1S2, RRR LUNGS: Clear ABDOMEN: Soft, non-distended, (+) LLQ tenderness, normal BS EXTREMITIES: No edema Current Medications Generic Name Dose Route Start Last Admin Trade Name Freq PRN Reason Stop Dose Admin Acetaminophen 650 mg 03/15/17 08:28 03/15/17 08:53 Tylenol - PO 650 mg Q6H PRN Administration FEVER OR PAIN Alprazolam 0.5 mg 03/14/17 18:12 Xanax - PO Q8H PRN Amitriptyline HCl 10 mg 03/15/17 10:00 03/15/17 11:12 Elavil - PO 10 mg DAILY DARIUS Administration Amlodipine Besylate 5 mg 03/15/17 10:00 03/15/17 11:10 Norvasc - PO 5 mg DAILY DARIUS Administration Atorvastatin Calcium 80 mg 03/14/17 22:00 03/14/17 21:27 Lipitor - PO 80 mg HS DARIUS Administration Clopidogrel Bisulfate 75 mg 03/15/17 10:00 03/15/17 11:10 Plavix - PO 75 mg DAILY DARIUS Administration Dicyclomine HCl 10 mg 03/14/17 18:05 Bentyl - PO QID PRN asdir Heparin Sodium (Porcine) 1,000 unit 03/14/17 19:42 Heparin - IVPUSH PRN PRN Heparin Sodium Chloride 1,000 mls @ 75 mls/hr 03/14/17 16:43 03/14/17 18:27 Normal Saline - IV 75 mls/hr ASDIR DARIUS Administration Heparin Sodium/Dextrose 500 mls @ 16 mls/hr 03/14/17 19:45 03/15/17 10:59 Heparin Infusion - IVPB 650 units/hr TITR DARIUS Titration Protocol 800 UNITS/HR Non-Formulary Medication 100 mg 03/14/17 22:00 Pentosan Polysulfate Sodium [Elmiron] PO TID DARIUS Ondansetron HCl 8 mg 03/14/17 18:11 Zofran - PO Q8H PRN NAUSEA AND/OR VOMITING Tramadol HCl 50 mg 03/15/17 12:42 Ultram - PO Q8H PRN PAIN ASSESSMENT AND PLAN: This is an 86 year old woman with a history of COPD, HTN, hyperlipidemia, CVA, AAA, IBS, pacemaker, diverticulitis, C. difficile colitis who presented to the ER with LLQ abdominal pain, nausea, diarrhea. 1. Severe sepsis secondary to infectious colitis - Afebrile, tachycardia and WBC improved - Continue IV fluid - Advance diet - ID consult appreciated - Zosyn changed to Rocephin - Stool is negative for C. difficile - Stool culture, O&P, WBC pending 2. Hyperkalemia - Improved 3. Acute kidney injury - Improved 4. HTN - Continue Norvasc - Restart Altace and monitor creatinine 5. Hyperlipidemia - Continue Lipitor 6. COPD - Stable 7. History of CVA - Continue Plavix, Lipitor 8. IBS 9. Descending thoracic aortic aneurysm - CT shows possible mural thrombus - Continue heparin IV - CTA now that creatinine has improved 10. Abdominal aortic aneurysm, unchanged
[2017-03-15] MEDS ORDERED: cefTRIAXone 1 GM/50 ML BAG (PRE-DOCKED) IVPB SCH (14:00)
[2017-03-15] MEDS ORDERED: cefTRIAXone SODIUM 1 GM VIAL ONE (16:15)
[2017-03-15] MEDS ORDERED: DEXTROSE 5%-WATER - 50 ML IVPB ONE (16:16)
[2017-03-15] MEDS: CEFTRIAXONE 1 GM in DEXTROSE 5%-WATER - 50 ML IVPB SCH (16:18)
[2017-03-15] MEDS: SODIUM CHLORIDE 1,000 ML IV SCH (16:45)
[2017-03-15] MEDS: traMADol HCL 50 MG TABLET PO PRN (17:33)
[2017-03-15] MEDS: HEPARIN INFUSION - 500 ML IVPB SCH ×2 (18:05→21:26)
[2017-03-15] MEDS: RAMIPRIL 5 MG CAPSULE (FP) PO SCH (21:26)
[2017-03-15] MEDS: ALPRAZolam 0.25 MG TABLET PO PRN (21:27)
[2017-03-15] MEDS: ATORVASTATIN CA 80 MG TABLET (FP) PO SCH (21:27)
[2017-03-16] MEDS: traMADol HCL 50 MG TABLET PO PRN (06:55)
[2017-03-16] MEDS: ACETAMINOPHEN 325 MG TABLET (FP) PO PRN (06:55)
[2017-03-16 08:10] LABS: MCHC 33.1 g/dl (32.0-36.0); MEAN CELL VOLUME 84.6 fl (80-96); MEAN PLT VOLUME 8.5 fl (7.5-11.1); PLATELET COUNT 239 K/MM3 (134-434); RDW 14.1 % (11.6-15.6); WHITE BLOOD COUNT 7.5 K/mm3 (4.0-10.0)
[2017-03-16 08:40] LABS: ANION GAP 6 (8-16); CALCIUM 8.2 mg/dL (8.5-10.1); CO2 26 mmol/L (21-32); CREATININE 0.9 mg/dL (0.55-1.02); GLUCOSE,RANDOM 82 mg/dL (74-106)
--- NOTE | 2017-03-16 09:18 | PN ---
Progress Note (short form) - Note Progress Note: feels well eating regular food, no diarrhea no abdominal cramps Vital Signs Period Temp Pulse Resp BP Sys/Grover Pulse Ox Last 24 Hr 97.5 F-98.7 F 80-91 18-20 151-197/78-98 92-94 cor-rrr lungs clear abd soft,nt +BS ext no edema CBC, BMP 03/16/17 06:45 03/16/17 08:08 Microbiology 03/14/17 12:42 Blood - Peripheral Venous Blood Culture - Preliminary NO GROWTH OBTAINED AFTER 24 HOURS, INCUBATION TO CONTINUE FOR 4 DAYS. 03/14/17 12:42 Blood - Peripheral Venous Blood Culture - Preliminary NO GROWTH OBTAINED AFTER 24 HOURS, INCUBATION TO CONTINUE FOR 4 DAYS. 03/14/17 11:15 Stool Clostridium difficile Antigen (DARIEL) - Final 03/14/17 11:15 Stool Clostridium difficile Toxin Assay - Final a/p gastroenteritis vs IBS- resolved, blood cultures negative, no diarrhea ?IBS can d/c rocephin Problem List - Problems (1) Gastroenteritis Code(s): K52.9 - NONINFECTIVE GASTROENTERITIS AND COLITIS, UNSPECIFIED (2) History of IBS Code(s): Z87.19 - PERSONAL HISTORY OF OTHER DISEASES OF THE DIGESTIVE SYSTEM (3) Drug allergy, antibiotic Code(s): Z88.1 - ALLERGY STATUS TO OTHER ANTIBIOTIC AGENTS STATUS
[2017-03-16] MEDS ORDERED: cefTRIAXone SODIUM 1 GM VIAL ONE (10:38)
[2017-03-16] MEDS ORDERED: DEXTROSE 5%-WATER - 50 ML IVPB ONE (10:38)
[2017-03-16] MEDS ORDERED: PT OWN MED DRAWER 7, Y5N ONE (10:38)
[2017-03-16] MEDS: amLODIPine BESYLATE 5 MG TABLET (FP) PO SCH (10:45)
[2017-03-16] MEDS: RAMIPRIL 5 MG CAPSULE (FP) PO SCH ×2 (10:45→21:20)
[2017-03-16] MEDS: CLOPIDOGREL BISULFATE 75 MG TABLET (FP) PO SCH (10:45)
[2017-03-16] MEDS: CEFTRIAXONE 1 GM in DEXTROSE 5%-WATER - 50 ML IVPB SCH (11:10)
[2017-03-16] MEDS: AMITRIPTYLINE HCL 10 MG TABLET (FP) PO SCH (13:33)
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
[2017-03-16] MEDS ORDERED: amLODIPine BESYLATE 5 MG TABLET (FP) PO ONE (14:47)
[2017-03-16] MEDS: ALPRAZolam 0.25 MG TABLET PO PRN (15:08)
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
[2017-03-16] MEDS: ATORVASTATIN CA 80 MG TABLET (FP) PO SCH (21:19)
[2017-03-16] MEDS: HEPARIN NA (PORCINE) 5,000 UNITS/ML 1ML VIAL SQ SCH (21:20)
[2017-03-17] MEDS: ACETAMINOPHEN 325 MG TABLET (FP) PO PRN ×3 (02:43→17:32)
[2017-03-17] MEDS: traMADol HCL 50 MG TABLET PO PRN ×3 (02:44→19:05)
[2017-03-17 07:31] LABS: MCHC 33.1 g/dl (32.0-36.0); MEAN CELL VOLUME 84.5 fl (80-96); MEAN PLT VOLUME 8.6 fl (7.5-11.1); PLATELET COUNT 285 K/MM3 (134-434); RDW 14.2 % (11.6-15.6)
[2017-03-17] MEDS ORDERED: PT OWN MED DRAWER 7, Y5N ONE (09:37)
[2017-03-17] MEDS: HEPARIN NA (PORCINE) 5,000 UNITS/ML 1ML VIAL SQ SCH ×2 (09:48→21:26)
[2017-03-17] MEDS: amLODIPine BESYLATE 10 MG TABLET (FP) PO SCH (09:50)
[2017-03-17] MEDS: CLOPIDOGREL BISULFATE 75 MG TABLET (FP) PO SCH (09:50)
[2017-03-17] MEDS: RAMIPRIL 5 MG CAPSULE (FP) PO SCH ×2 (09:50→22:24)
[2017-03-17] MEDS: AMITRIPTYLINE HCL 10 MG TABLET (FP) PO SCH (10:29)
--- NOTE | 2017-03-17 15:02 | PN ---
Teaching Attending Note Name of Resident: Willi Cornelius ATTENDING PHYSICIAN STATEMENT I saw and evaluated the patient. I reviewed the resident's note and discussed the case with the resident. I agree with the resident's findings and plan as documented. SUBJECTIVE:states pain is resolved. tolerating regular diet. no BM since arrival. denies CP, SOB, fever, chills, OBJECTIVE: Last Vital Signs Temp Pulse Resp BP Pulse Ox 97 F L 80 16 147/71 96 03/17/17 09:00 03/17/17 09:00 03/17/17 09:00 03/17/17 13:35 03/17/17 09:00 General NAD ASSESSMENT AND PLAN: 86 yo F with PMH COPD, HTN, hyperlipidemia, CVA, AAA, IBS, pacemaker, diverticulitis, C. difficile colitis who presented to the ER with LLQ abdominal pain, nausea, diarrhea. 1. Severe sepsis secondary to infectious colitis vs IBS. afebrile. leukocytosis resolved next day. moslt likely viral vs food poisoning. off all abx. tolerating diet. refused to take stool softener or miralax to regulate constipation. encouraged to follow up with GI specialist 2. Descending thoracic aortic aneurysm- 4,2cm. stable in size since 12/2016. emphasized need to f/u with routine surveillance 3. Hyperkalemia-resolved 4. Acute kidney injury-likely dehydration. resolved. 5. HTN- improved. ramipril increased to 10mg BID. on norvasc 10mg. encouraged to take BP daily and if develop any symptoms of hypotension/hypertension and to record it. should follow up with PMD on tuesday for BP evaluation. informed to bring BP recordings at home to PMD office. 6. Hyperlipidemia- Continue Lipitor 7. COPD- Stable 8. History of CVA- Continue Plavix, Lipitor 9. IBS-bentyl 10. Abdominal aortic aneurysm- 3.2cm. unchanged. cont routine surveillance. pt was aware of AAA 11. DVT ppx- will start hep sq as will be d/c hep ggt 12. DNR/DNI 13.d/c home. counseled pt in front of . all questions answered. verbalized understanding and agreement with plan.
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
--- NOTE | 2017-03-17 17:18 | HOSP ---
Subjective - Review of Symptoms Events since last encounter: Notified by resident that pt had significant BP difference SBP > 20mmHg pt is asymptomatic. denies BOSS, blurred vision, chest pain radiating to the back , or palpitations as pt has thoracic aneurysm and has high risk for dissection. CTA stat to r/o dissection will d/c discharge at this time Physical Examination Vital Signs: Vital Signs Temperature 98.1 F 03/17/17 14:59 Pulse Rate 74 03/17/17 14:59 Respiratory Rate 18 03/17/17 14:59 Blood Pressure 143/75 03/17/17 15:00 O2 Sat by Pulse Oximetry (%) 96 03/17/17 09:00 Labs: CBC, BMP 03/17/17 06:05 03/16/17 08:08
[2017-03-17] MEDS: ATORVASTATIN CA 80 MG TABLET (FP) PO SCH (21:27)
[2017-03-18 06:31] VITALS: BP 153/76; PULSE 80; TEMP 98.7
[2017-03-18] MEDS: traMADol HCL 50 MG TABLET PO PRN (07:12)
[2017-03-18 07:35] LABS: MCH 27.3 pg (25.7-33.7); MCHC 32.5 g/dl (32.0-36.0); MEAN CELL VOLUME 84.2 fl (80-96); MEAN PLT VOLUME 8.9 fl (7.5-11.1); PLATELET COUNT 270 K/MM3 (134-434); RDW 14.1 % (11.6-15.6); WHITE BLOOD COUNT 7.3 K/mm3 (4.0-10.0)
[2017-03-18 08:45] LABS: ANION GAP 6 (8-16); CO2 27 mmol/L (21-32); GLUCOSE,RANDOM 84 mg/dL (74-106)
[2017-03-18] MEDS ORDERED: METOPROLOL TARTRATE 25 MG TABLET (FP) PO SCH (10:00)
[2017-03-18] MEDS ORDERED: PT OWN MED DRAWER 7, Y5N ONE (10:49)
[2017-03-18] MEDS: ACETAMINOPHEN 325 MG TABLET (FP) PO PRN (11:01)
[2017-03-18] MEDS: CLOPIDOGREL BISULFATE 75 MG TABLET (FP) PO SCH (11:01)
[2017-03-18] MEDS: amLODIPine BESYLATE 10 MG TABLET (FP) PO SCH (11:01)
[2017-03-18] MEDS: HEPARIN NA (PORCINE) 5,000 UNITS/ML 1ML VIAL SQ SCH (11:03)
[2017-03-18] MEDS: AMITRIPTYLINE HCL 10 MG TABLET (FP) PO SCH (11:04)
--- NOTE | 2017-03-18 11:08 | PN ---
Progress Note (short form) - Note Progress Note: Vascular Surgery CTA reviewed Pt with descending thoracic aortic aneurysm -- 6.2 cm Has increased in size since last imaging. Need to get CT surgery on board for repair of aneurysm. Cut off to start to fix the aneurysm is 6.0. Pt can see CT surgery as outpt in tertiary care center upon DC so that they can work up pt. Azael Recinos DO
--- NOTE | 2017-03-18 11:45 | PN ---
Teaching Attending Note Name of Resident: Willi Cornelius ATTENDING PHYSICIAN STATEMENT I saw and evaluated the patient. I reviewed the resident's note and discussed the case with the resident. I agree with the resident's findings and plan as documented. SUBJECTIVE:asymptomatic. tolerating diet. denies CP, SOB, fever, chills, N/V/C/D , dizzyness OBJECTIVE: Last Vital Signs Temp Pulse Resp BP Pulse Ox 98.7 F 80 18 153/76 95 03/18/17 06:00 03/18/17 06:00 03/18/17 06:00 03/18/17 06:00 03/17/17 21:00 General NAD CV S1 S2 RRR no murmur/rub/gallop no bruit Lungs CTA B/L no wheezing/rales/rhonchi Abdomen soft NT/ND +abdominal bruit ASSESSMENT AND PLAN: 86 yo F with PMH COPD, HTN, hyperlipidemia, CVA, AAA, IBS, pacemaker, diverticulitis, C. difficile colitis who presented to the ER with LLQ abdominal pain, nausea, diarrhea. 1. Severe sepsis secondary to infectious colitis vs IBS. afebrile. leukocytosis resolved next day. moslt likely viral vs food poisoning. off all abx. tolerating diet. refused to take stool softener or miralax to regulate constipation. encouraged to follow up with GI specialist 2. Descending thoracic aortic aneurysm-stat CTA done showing increased sice to 6.2cm, pt remains asymptomatic. Referred to Dr Weinberg. d/w case and agrees for transfer to [facility] for further intervention. was 4.2cm on presentation. started on metoprolol. tight BP control. 3. Hyperkalemia-resolved 4. Acute kidney injury-likely dehydration. resolved. 5. HTN- improved. started on metoprolol. monitor for tight BP control. 6. Hyperlipidemia- Continue Lipitor 7. COPD- Stable 8. History of CVA- Continue Plavix, Lipitor 9. IBS-bentyl 10. Abdominal aortic aneurysm- 3.2cm. unchanged. cont routine surveillance. pt was aware of AAA 11. DVT ppx- hep sq 12. DNR/DNI 13.transfer to [facility] under Dr Lawson for further management of enlarging thoracic aneurysm
--- NOTE | 2017-03-18 11:59 | DS ---
Physical Exam: SUBJECTIVE: Patient seen and examined at bedside. she denies any abdominal pain , n/v/d/c , she denies any chest pin, SOB, palpitation , she denies headache, blurry vision, lightheadedness. Patient still have elevated blood pressure 180/ 110 in the right arm and 160/90 in the left. OBJECTIVE: Vital Signs Period Temp Pulse Resp BP Sys/Grover Pulse Ox Last 24 Hr 98.0 F-98.7 F 70-84 18-18 124-181/71-90 95 PHYSICAL EXAM GENERAL: The patient is awake, alert, and fully oriented, in no acute distress. HEAD: Normal with no signs of trauma. EYES: sclera anicteric, conjunctiva clear. ENT: moist mucous membranes. NECK: Trachea midline, full range of motion, supple. LUNGS: Breath sounds equal, clear to auscultation bilaterally, no wheezes, no crackles, no accessory muscle use. HEART: Regular rate and rhythm, S1, S2 without murmur, rub or gallop. ABDOMEN: Soft, nontender, nondistended, normoactive bowel sounds, no guarding, no rebound,+ bruit heard on both side 2 cm from th umbilical button EXTREMITIES: 2+ pulses, warm, well-perfused, no edema. NEUROLOGICAL: good mentation SKIN: Warm, dry,no rashes or lesions noted. LABS Laboratory Results - last 24 hr 03/18/17 03/18/17 03/18/17 06:20 06:20 06:20 WBC 7.3 RBC 4.35 Hgb 11.9 Hct 36.7 MCV 84.2 MCH 27.3 MCHC 32.5 RDW 14.1 Plt Count 270 MPV 8.9 PTT (Actin FS) 55.0 H D Sodium 142 Potassium 4.3 Chloride 109 H Carbon Dioxide 27 Anion Gap 6 L BUN 10 Creatinine 1.0 Random Glucose 84 Calcium 9.0 HOSPITAL COURSE: Date of Admission:03/14/17 Date of Discharge: 03/18/17 Ms. Roberts is an 86 yo F with PMH COPD, HTN, hyperlipidemia, CVA, AAA, IBS, pacemaker, diverticulitis, C. difficile colitis who presented to the ER with LLQ abdominal pain, nausea, diarrhea. She was found to have severe sepsis secondary to infectious colitis vs IBS. afebrile. leukocytosis resolved next day. moslt likely viral vs food poisoning. off all abx. tolerating diet. refused to take stool softener or miralax to regulate constipation. encouraged to follow up with GI specialist She was found to have enlargement in the descending thoracic aortic aneurysm on CTA done showing increased sine to 6.2cm, pt remains asymptomatic. Referred to Dr Weinberg. d/w case and agrees for transfer to [facility] for further intervention. was 4.2cm on presentation. started on metoprolol 25 mg BID and continue Amlodipine 10 mg daily . tight BP control needed Hyperkalemia resolved with fluids , acute kidney injury-likely dehydration resolved with fluids . HTN improved. started on metoprolol continue Amlodipine . monitor for tight BP control. Hyperlipidemia Continue Lipitor COPD Stable History of CVA- on Plavix, Lipitor IBS on bentyl Abdominal aortic aneurysm- 3.2cm. unchanged. cont routine surveillance. pt was aware of AAA She is DNR/DNI transfer to [facility] under Dr Lawson for further management of enlarging thoracic aneurysm Minutes to complete discharge: 40 Discharge Summary Reason For Visit: COLITIS Current Active Problems Abnormal findings on imaging of biliary tract (Acute) Biliary sepsis (Acute) Breast lesion (Acute) COPD (chronic obstructive pulmonary disease) (Acute) CVA (cerebral vascular accident) (Acute) Colitis (Acute) DVT prophylaxis (Acute) Dehydration (Acute) Diverticulitis (Acute) Drug allergy, antibiotic (Acute) Gastroenteritis (Acute) HTN (hypertension) (Acute) History of IBS (Acute) Lung nodule (Acute) Pacemaker (Acute) Transaminitis (Acute) Condition: Stable - Instructions Diet, Activity, Other Instructions: Please take your medicine as prescribed. your Aneurysm in the chest is 6.2 cm compared to 4 cm last November/2016. You will be transferred to another facility in [facility] for further evaluation . Your Ramipril has been stopped Your dose of Amlodipine has been increased to 10 mg daily You will be start using Lopressor 25 mg twice daily Please resume your other home meds Please follow with your primary care physician within a week Please monitor you blood pressure in both arms daily, record the number and bring it to your doctor If you feel any fever, chills , lightheadedness , sever back pain please come back to emergency department as soon as possible. Referrals: Vazquez Meyers MD [Staff Physician] - 1 Week (dr Willi [facility] on fridays afternoon ) Disposition: TRANSFER ACUTE CARE/OTHER HOSP - Home Medications Comprehensive Discharge Medication List: Ambulatory Orders Alprazolam [Xanax Xr] 0.5 mg PO TID PRN 12/27/16 Amitriptyline HCl [Elavil -] 10 mg PO DAILY 12/27/16 Atorvastatin Ca [Lipitor] 80 mg PO DAILY 12/27/16 Clopidogrel Bisulfate [Plavix -] 75 mg PO DAILY 12/27/16 Dicyclomine HCl 10 mg PO QID PRN 12/27/16 Esomeprazole Mag Trihydrate [Nexium Packets] 40 mg PO DAILY 12/27/16 Tramadol HCl [Ultram -] 50 mg PO Q6H 12/27/16 Acetaminophen [Tylenol .Regular Strength -] 650 mg PO Q6H PRN #30 tablet Amlodipine Besylate [Norvasc -] 10 mg PO DAILY #30 tab 03/18/17 Metoprolol Tartrate [Lopressor -] 25 mg PO BID #30 tablet 03/18/17 This patient is new to me today: No Emergency Visit: Yes ED Registration Date: 03/14/17 Care time: The patient presented to the Emergency Department on the above date and was hospitalized for further evaluation of their emergent condition. Critical Care patient: No - Discharge Referral Referred to [facility] Med P.C.: No
== END 2017-03-18 12:56 | disposition short-term general hospital (02) | DRG 872 ==
LOC: JER 10:31 → JERBED 14:37 → J5S 16:30
PROVIDERS: ADMIT Internal Medicine; ATTEND Internal Medicine
DX: A41.9 Sepsis, unspecified organism (principal); Z68.1 Body mass index [BMI] 19.9 or less, adult; N17.9 Acute kidney failure, unspecified; E87.2 Acidosis; K55.9 Vascular disorder of intestine, unspecified; R65.20 Severe sepsis without septic shock; R11.10 Vomiting, unspecified; J44.9 Chronic obstructive pulmonary disease, unspecified; Z86.73 Personal history of transient ischemic attack (TIA), and cerebral infarction without residual deficits; K57.30 Diverticulosis of large intestine without perforation or abscess without bleeding; E78.5 Hyperlipidemia, unspecified; Z87.891 Personal history of nicotine dependence; Z95.0 Presence of cardiac pacemaker; R63.4 Abnormal weight loss; E86.0 Dehydration; M54.9 Dorsalgia, unspecified; Z66 Do not resuscitate; I71.2 Thoracic aortic aneurysm, without rupture; E87.5 Hyperkalemia; D72.829 Elevated white blood cell count, unspecified; Z88.1 Allergy status to other antibiotic agents; A08.4 Viral intestinal infection, unspecified; K58.9 Irritable bowel syndrome, unspecified
CPT/HCPCS: 36415; 71010-TC; 71275-TC; 74176-TC; 80048; 80053; 81003; 81015; 82553; 83605; 83690; 83735; 84100; 84484; 85025; 85027; 85610; 85730; 87040; 87086; 87324; 87449; 93005; 93010; 97116-GP; 97161-GP; 99283-25; J1644

== ENCOUNTER 2017-03-29 14:41 | Inpatient (IN) | payer OTHER ==
[2017-03-29] MEDS ORDERED: SODIUM CHLORIDE 500 ML IV STA (15:18)
[2017-03-29 16:01] LABS: BASOPHIL 1.3 % (0-2.0); EOSINOPHIL 3.7 % (0-4.5); MCH 28.8 pg (25.7-33.7); MCHC 33.6 g/dl (32.0-36.0); MEAN CELL VOLUME 85.6 fl (80-96); MEAN PLT VOLUME 8.6 fl (7.5-11.1); NEUTROPHILS 64.5 % (42.8-82.8); PLATELET COUNT 313 K/MM3 (134-434); RDW 15.6 % (11.6-15.6); WHITE BLOOD COUNT 8.4 K/mm3 (4.0-10.0)
--- NOTE | 2017-03-29 16:15 | PDOC ---
History of Present Illness - General History Source: Patient, Care Provider Exam Limitations: No Limitations - History of Present Illness Initial Comments: 03/29/17 16:47 86 y/o F with a PMHx of COPD, HTN, CVA, AAA, diverticulitis, pacemaker, chronic back pain presents to the ED from home with [facility] for low BP today. Patient reports associated weakness and lightheadedness after taking her daily medications. PUG MACHINE OPERATOR took the patients BP after her complaints, which was 96/56. Patient also had an episode of diarrhea yesterday and some nausea. Patient was recently discharged a week ago from [place] and was put on new BP medications to control her HTN. She is now currently on 4 different BP meds and believes it is causing her hypotension. She denies chest pain, SOB, vomiting. Denies numbness, tingling. Denies fever, chills. <Mary Mclean - Last Filed: 03/29/17 16:47> <Prince Christianson - Last Filed: 03/29/17 17:54> - General Chief Complaint: Weakness Stated Complaint: SENT BY PCP Time Seen by Provider: 03/29/17 15:16 Past History <Mary Mclean - Last Filed: 03/29/17 16:47> - Past Medical History Anemia: No Asthma: No Cancer: Yes (SKIN.) Cardiac Disorders: No CVA: Yes (X 2.) COPD: Yes CHF: No Dementia: No Diabetes: No GI Disorders: Yes Disorders: No HTN: Yes Hypercholesterolemia: Yes Liver Disease: No Seizures: No Thyroid Disease: No - Surgical History Abdominal Surgery: Yes Appendectomy: No Cardiac Surgery: No Cholecystectomy: Yes Lung Surgery: No Neurologic Surgery: Yes Orthopedic Surgery: Yes (left knee meiscus tear repair) - Suicide/Smoking/Psychosocial Hx Smoking History: Never smoked Have you smoked in the past 12 months: No If you are a former smoker, when did you quit?: 4 YRS AGO Hx Alcohol Use: No Drug/Substance Use Hx: No Substance Use Type: None Hx Substance Use Treatment: No <Prince Christianson - Last Filed: 03/29/17 17:54> - Past Medical History Allergies/Adverse Reactions: Allergies Allergy/AdvReac Type Severity Reaction Status Date / Time ciprofloxacin [From Cipro] Allergy Unknown Verified 03/29/17 14:43 ciprofloxacin HCl Allergy Unknown Verified 03/29/17 14:43 [From Cipro] Home Medications: Ambulatory Orders Amitriptyline HCl [Elavil -] 10 mg PO DAILY 12/27/16 Atorvastatin Ca [Lipitor] 80 mg PO DAILY 12/27/16 Tramadol HCl [Ultram -] 50 mg PO Q6H 12/27/16 Metoprolol Tartrate [Lopressor -] 25 mg PO BID #30 tablet 03/18/17 Amlodipine Besylate [Norvasc -] 2.5 mg PO DAILY 03/29/17 Lisinopril 10 mg PO HS 03/29/17 Losartan Potassium 50 mg PO DAILY 03/29/17 Review of Systems - Review of Systems Constitutional: No: Chills, Fever, Night Sweats Respiratory: No: Cough, Shortness of Breath Cardiac (ROS): Yes: Lightheadedness. No: Chest Pain, Edema, Syncope ABD/GI: Yes: Diarrhea. No: Constipated, Nausea, Vomiting : No: Dysuria, Frequency Neurological: No: Headache All Other Systems: Reviewed and Negative <Prince Christianson - Last Filed: 03/29/17 17:54> *Physical Exam - Vital Signs Last Vital Signs Temp Pulse Resp BP Pulse Ox 97.1 F L 100 H 18 154/68 99 03/29/17 14:42 03/29/17 16:41 03/29/17 16:41 03/29/17 16:41 03/29/17 16:41 - Physical Exam Comments: 03/29/17 16:47 GENERAL: The patient is awake, alert, and fully oriented, in no acute distress. Well-appearing elderly woman speaking full sentences, subtle dysarthria. HEAD: Normal with no signs of trauma. EYES: Pupils equal, round and reactive to light, extraocular movements intact, sclera anicteric, conjunctiva clear with no pallor. ENT: Ears normal, nares patent, oropharynx clear without exudates. Moist mucous membranes. NECK: Normal range of motion, supple without lymphadenopathy, JVD, or masses. LUNGS: Breath sounds equal, clear to auscultation bilaterally. No wheeze/ crackles. HEART: Regular rate and rhythm, II/ right upper sternal border systolic ejection murmur. Left chest wall pacemaker. ABDOMEN: Soft/nontender/nondistended. BS wnl. No guarding or rebound. No palpable masses. No hepatosplenomegaly. EXTREMITIES: Normal range of motion, no edema. No clubbing or cyanosis. No cords, erythema, or tenderness. NEUROLOGICAL: Cranial nerves II through XII grossly intact. Normal speech, normal gait. PSYCH: Normal mood, normal affect. SKIN: Warm, Dry, normal turgor, no rashes or lesions noted. <Mary Mclean - Last Filed: 03/29/17 16:47> - Vital Signs Last Vital Signs Temp Pulse Resp BP Pulse Ox 97.1 F L 60 20 97/79 99 03/29/17 14:42 03/29/17 15:33 03/29/17 15:33 03/29/17 15:33 03/29/17 15:33 <Prince Christianson - Last Filed: 03/29/17 17:54> Heart Score/ECG Review #1 ECG reviewed & interpreted by me at: 15:24 03/29/17 16:41 AV paced at 60. No acute ischemia. <Prince Christianson - Last Filed: 03/29/17 17:54> ED Treatment Course - LABORATORY CBC & Chemistry Diagram: 03/29/17 15:30 03/29/17 15:30 - ADDITIONAL ORDERS Additional order review: Laboratory Results 03/29/17 15:30 PT with INR 11.30 INR 1.00 03/29/17 15:30 RBC 4.41 MCV 85.6 MCHC 33.6 RDW 15.6 D MPV 8.6 Neutrophils % 64.5 D Lymphocytes % 22.6 D Monocytes % 7.9 D Eosinophils % 3.7 D Basophils % 1.3 - Medications Given in the ED: ED Medications Discontinued Medications Generic Name Dose Route Start Last Admin Trade Name Freq PRN Reason Stop Dose Admin Sodium Chloride 500 mls @ 500 mls/hr 03/29/17 15:18 03/29/17 15:31 Normal Saline - IV 03/29/17 16:17 500 mls/hr ASDIR STA Administration <Mary Mclean - Last Filed: 03/29/17 16:47> - LABORATORY CBC & Chemistry Diagram: 03/29/17 15:30 03/29/17 15:30 - ADDITIONAL ORDERS Additional order review: 03/29/17 15:30 RBC 4.41 MCV 85.6 MCHC 33.6 RDW 15.6 D MPV 8.6 Neutrophils % 64.5 D Lymphocytes % 22.6 D Monocytes % 7.9 D Eosinophils % 3.7 D Basophils % 1.3 - RADIOLOGY Radiology Studies Ordered: Category Date Time Status CHEST X-RAY PORTABLE* [RAD] Stat Radiology 03/29/17 15:19 Completed <Prince Christianson - Last Filed: 03/29/17 17:54> Medical Decision Making - Medical Decision Making 03/29/17 16:42 A portion of this note was documented by scribe services under my direction. I have reviewed the details of the note, within reason, and agree with the documentation with the following case summary and management plan written by me. 86-year-old female with history of COPD, CVA, multiple medical problems including recent admission from 03/14 to 03/18 for severe sepsis secondary to colitis, treated with antibiotics and then transferred to [place] for further evaluation of descending thoracic aneurysm but deemed not an operative candidate. In the setting of these admissions, patient had her blood pressure medications changed, is currently on 4 total antihypertensives as directed by her discharging physicians from the 2 hospitals. Her blood pressure at the clinic 2 days ago was within normal limits, but today became intermittently light-headed and fatigued and this afternoon blood pressure per aide was persistently 90 systolic, so referred to ED by clinic. Other than the above complaints of generalized weakness/lightheadedness, patient has no focal complaints whatsoever Pressure here is labile, ranges from 90-150 systolic. Exam as noted and nonfocal 86-year-old female with multiple medical problems and recently readjusted blood pressure medications presents with generalized lightheadedness/weakness in the setting of baseline decreased by mouth intake and episode of diarrhea yesterday. Question hypovolemia/dehydration, though polypharmacy could be an issue here as well. Patient is paced. Will check labs, urinalysis Chest x-ray IV fluids Given symptomatic relative hypotension in an elderly woman, recommend admission for blood pressure monitoring and medication adjustment. Patient is initially very resistant, we'll discuss with Dr. Gomez, her hospital monitor, and reassess. 03/29/17 17:03 CBC wnl. Chem notable for VIKAS with Cr 1.5, BUN 32. Trop negative. CXR without acute pathology. Likely combination of dehydration and BP meds? Will start hydration, discuss dispo with Dr. Gomez, who was paged. 03/29/17 17:13 Accepted for tele obs by Dr. Ambrocio, signout given to Dr. Marin Discussed with Dr. Gomez, agrees and will see the patient. <Prince Christianson - Last Filed: 03/29/17 17:54> *DC/Admit/Observation/Transfer - Attestations Scribe Attestion: 03/29/17 16:48 Documentation prepared by Mary Mclean, acting as medical insurance clerk for Prince Christianson MD. <Mary Mclean - Last Filed: 03/29/17 16:47> - Discharge Dispostion Admit: Yes <Pricne Christianson - Last Filed: 03/29/17 17:54> Diagnosis at time of Disposition: Labile blood pressure, Light headed, Acute renal insufficiency - Discharge Dispostion Condition at time of disposition: Fair - Referrals Referrals: Handy Wheeler MD [Primary Care Provider] -
[2017-03-29 16:37] LABS: PROTHROMBIN TIME (PATIENT) 11.3 SEC (9.98-11.88)
[2017-03-29 16:38] LABS: ALBUMIN 3.4 g/dl (3.4-5.0); ANION GAP 7 (8-16); CALCIUM 8.8 mg/dL (8.5-10.1); CO2 28 mmol/L (21-32); CREATININE 1.5 mg/dL (0.55-1.02); GLUCOSE,RANDOM 91 mg/dL (74-106); MAGNESIUM 2.1 mg/dL (1.8-2.4); SGOT/AST 103 U/L (15-37); SGPT/ALT 82 U/L (12-78)
[2017-03-29 16:43] LABS: ALK PHOS 331 U/L (45-117); BILIRUBIN,TOTAL 0.3 mg/dL (0.2-1.0); CPK 43 IU/L (26-192); TOT PROT 7.2 g/dl (6.4-8.2); TROPONIN I < 0.02 ng/ml (0.00-0.05)
[2017-03-29] MEDS ORDERED: SODIUM CHLORIDE 1,000 ML IV ONE ×2 (17:07→18:24)
[2017-03-29] MEDS ORDERED: traMADol HCL 50 MG TABLET PO ONE (17:32)
[2017-03-29] MEDS ORDERED: traMADol HCL 50 MG TABLET ONE (17:38)
[2017-03-29] MEDS ORDERED: ACETAMINOPHEN 500 MG TABLET (FP) PO ONE ×2 (17:41)
[2017-03-29] MEDS ORDERED: ACETAMINOPHEN 325 MG TABLET (FP) ONE (17:42)
[2017-03-29 18:02] LABS: URINE APPEARANCE SLCLOUDY; URINE BILIRUBIN NEGATIVE (NEGATIVE); URINE BLOOD 1+ (NEGATIVE); URINE COLOR LTYELLOW; URINE GLUCOSE (UA) NEGATIVE (NEGATIVE); URINE KETONE NEGATIVE (NEGATIVE); URINE NITRITE NEGATIVE (NEGATIVE); URINE PROTEIN NEGATIVE (NEGATIVE); URINE UROBILINOGEN NEGATIVE mg/dL (0.2-1.0)
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
[2017-03-29 18:15] LABS: URINE BACTERIA RARE /hpf (NONE SEEN); URINE HYALINE CAST 3 /lpf; URINE MUCUS RARE; URINE RBC 3 /hpf (0-3); URINE WBC 2 /hpf (3-5)
[2017-03-29] MEDS: traMADol HCL 50 MG TABLET PO PRN ×2 (18:49→23:54)
[2017-03-29 20:40] LABS: URINE LEUK ESTERASE 3+ (NEGATIVE)
[2017-03-29] MEDS ORDERED: FLU VACCINE QUAD 60 MCG/0.5 ML (MDV 17-18) IM ONE (21:11)
[2017-03-29 21:12] VITALS: BMI 17.7
--- NOTE | 2017-03-29 21:52 | EKG ---
Test Reason : Blood Pressure : / mmHG Vent. Rate : 060 BPM Atrial Rate : 060 BPM P-R Int : 000 ms QRS Dur : 082 ms QT Int : 406 ms P-R-T Axes : 000 -18 047 degrees QTc Int : 406 ms AV dual-paced rhythm with prolonged AV conduction ABNORMAL ECG WHEN COMPARED WITH ECG OF 15-MAR-2017 10:49, VENT. RATE HAS DECREASED BY 16 BPM PACEMKER RHYTHM IS NOW PRESENT Confirmed by IGOR DILLON MD ([id number]) on 03/29/2017 9:52:20 PM Referred By: Confirmed By:IGOR DILLON MD
[2017-03-29] MEDS ORDERED: ATORVASTATIN CA 80 MG TABLET (FP) PO SCH (22:00)
[2017-03-29] MEDS ORDERED: METOPROLOL TARTRATE 25 MG TABLET (FP) PO SCH (22:00)
[2017-03-29] MEDS: ACETAMINOPHEN 325 MG TABLET (FP) PO PRN (22:20)
[2017-03-30 07:22] LABS: BASOPHIL 1.4 % (0-2.0); EOSINOPHIL 5.3 % (0-4.5); MCHC 32.9 g/dl (32.0-36.0); MEAN CELL VOLUME 85.1 fl (80-96); MEAN PLT VOLUME 8.8 fl (7.5-11.1); NEUTROPHILS 55.3 % (42.8-82.8); PLATELET COUNT 272 K/MM3 (134-434); RDW 15.4 % (11.6-15.6); WHITE BLOOD COUNT 7.2 K/mm3 (4.0-10.0)
[2017-03-30] MEDS: traMADol HCL 50 MG TABLET PO PRN ×3 (07:32→22:32)
[2017-03-30 07:57] LABS: ALBUMIN 2.9 g/dl (3.4-5.0); ANION GAP 9 (8-16); CALCIUM 8.4 mg/dL (8.5-10.1); CO2 25 mmol/L (21-32); CREATININE 1.1 mg/dL (0.55-1.02); GLUCOSE,RANDOM 80 mg/dL (74-106); MAGNESIUM 1.9 mg/dL (1.8-2.4); PHOSPHOROUS 3.9 mg/dL (2.5-4.9); SGOT/AST 191 U/L (15-37); SGPT/ALT 106 U/L (12-78)
[2017-03-30 07:59] LABS: ALK PHOS 395 U/L (45-117); BILIRUBIN,TOTAL 0.8 mg/dL (0.2-1.0); TOT PROT 6.1 g/dl (6.4-8.2)
[2017-03-30] MEDS: METOPROLOL TARTRATE 50 MG TABLET (FP) PO SCH ×2 (09:01→21:40)
[2017-03-30] MEDS ORDERED: PT OWN MED DRAWER 7, Y5N ONE ×2 (09:01→10:09)
[2017-03-30] MEDS: amLODIPine BESYLATE 2.5 MG TABLET (FP) PO SCH (10:15)
--- NOTE | 2017-03-30 10:43 | CON.CARD ---
Cardiology Consult (text) - Consultation Consultation Note: cc: weak, low bp hpi: 86 f hx copd, htn, ppm, cva, descd thoracic aortic aneurysm, here with weakness, low bp. Recent admit for colitis. 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 No cp, sob, palps, loc, pnd, orthopnea, le edema. Labs showed lico, got ivfs overnight and now feeling better. Sees dr molina for cardio. pmh: per hpi psh: ppm, knee social: no tob fam: no premature cad ros: per hpi; no fever, n/v, gib, hematuria, dysuria, cordoba, vision changes, muscle pains, nasal congestion meds: Home Medications Medication Instructions Recorded Amitriptyline HCl [Elavil -] 10 mg PO DAILY 12/27/16 Atorvastatin Ca [Lipitor] 80 mg PO DAILY 12/27/16 Tramadol HCl [Ultram -] 50 mg PO Q6H 12/27/16 Metoprolol Tartrate [Lopressor -] 25 mg PO BID #30 tablet 03/18/17 Amlodipine Besylate [Norvasc -] 2.5 mg PO DAILY 03/29/17 Lisinopril 10 mg PO HS 03/29/17 Losartan Potassium 50 mg PO DAILY 03/29/17 pe: Vital Signs Period Temp Pulse Resp BP Sys/Grover Pulse Ox Last 24 Hr 97.1 F-98 F 60-100 18-20 97-180/49-80 97-99 nad no jvd rrr s1s2 no mrg cta bl nl eff aaox3 no le e/c/c abd nt nd pos bs no jaundice diaphoresis pos dp pt no carotid bruits Laboratory Last Values WBC 7.2 K/mm3 (4.0-10.0) 03/30/17 05:18 RBC 4.18 M/mm3 (3.60-5.2) 03/30/17 05:18 Hgb 11.7 GM/dL (10.7-15.3) 03/30/17 05:18 Hct 35.6 % (32.4-45.2) 03/30/17 05:18 MCV 85.1 fl (80-96) 03/30/17 05:18 MCH 28.0 pg (25.7-33.7) 03/30/17 05:18 MCHC 32.9 g/dl (32.0-36.0) 03/30/17 05:18 RDW 15.4 % (11.6-15.6) 03/30/17 05:18 Plt Count 272 K/MM3 (134-434) 03/30/17 05:18 MPV 8.8 fl (7.5-11.1) 03/30/17 05:18 Neutrophils % 55.3 % (42.8-82.8) 03/30/17 05:18 Lymphocytes % 29.0 % (8-40) D 03/30/17 05:18 Monocytes % 9.0 % (3.8-10.2) 03/30/17 05:18 Eosinophils % 5.3 % (0-4.5) H 03/30/17 05:18 Basophils % 1.4 % (0-2.0) 03/30/17 05:18 PT with INR 11.30 SEC (9.98-11.88) 03/29/17 15:30 INR 1.00 (0.82-1.09) 03/29/17 15:30 Sodium 143 mmol/L (136-145) 03/30/17 05:18 Potassium 4.5 mmol/L (3.5-5.1) 03/30/17 05:18 Chloride 109 mmol/L (98-107) H 03/30/17 05:18 Carbon Dioxide 25 mmol/L (21-32) 03/30/17 05:18 Anion Gap 9 (8-16) 03/30/17 05:18 BUN 24 mg/dL (7-18) H D 03/30/17 05:18 Creatinine 1.1 mg/dL (0.55-1.02) H D 03/30/17 05:18 Creat Clearance w eGFR 47.09 (>60) 03/30/17 05:18 Random Glucose 80 mg/dL (74-106) 03/30/17 05:18 Calcium 8.4 mg/dL (8.5-10.1) L 03/30/17 05:18 Phosphorus 3.9 mg/dL (2.5-4.9) D 03/30/17 05:18 Magnesium 1.9 mg/dL (1.8-2.4) 03/30/17 05:18 Total Bilirubin 0.8 mg/dL (0.2-1.0) D 03/30/17 05:18 AST 191 U/L (15-37) H D 03/30/17 05:18 ALT 106 U/L (12-78) H D 03/30/17 05:18 Alkaline Phosphatase 395 U/L (45-117) H 03/30/17 05:18 Creatine Kinase 43 IU/L (26-192) 03/29/17 15:30 Troponin I < 0.02 ng/ml (0.00-0.05) 03/29/17 15:30 B-Natriuretic Peptide 730.29 pg/ml (5-450) H 03/29/17 15:30 Total Protein 6.1 g/dl (6.4-8.2) L 03/30/17 05:18 Albumin 2.9 g/dl (3.4-5.0) L 03/30/17 05:18 Lipase 214 U/L (73-393) 03/29/17 15:30 Urine Color Ltyellow 03/29/17 17:50 Urine Appearance Slcloudy 03/29/17 17:50 Urine pH 5.0 (5.0-8.0) 03/29/17 17:50 Ur Specific [place] <= 1.005 (1.005-1.025) 03/29/17 17:50 Urine Protein Negative (NEGATIVE) 03/29/17 17:50 Urine Glucose (UA) Negative (NEGATIVE) 03/29/17 17:50 Urine Ketones Negative (NEGATIVE) 03/29/17 17:50 Urine Blood 1+ (NEGATIVE) H 03/29/17 17:50 Urine Nitrite Negative (NEGATIVE) 03/29/17 17:50 Urine Bilirubin Negative (NEGATIVE) 03/29/17 17:50 Urine Urobilinogen Negative mg/dL (0.2-1.0) 03/29/17 17:50 Ur Leukocyte Esterase 3+ (NEGATIVE) H D 03/29/17 17:50 Urine RBC 3 /hpf (0-3) 03/29/17 17:50 Urine WBC 2 /hpf (3-5) 03/29/17 17:50 Ur Epithelial Cells Few /hpf (FEW) 03/29/17 17:50 Urine Bacteria Rare /hpf (NONE SEEN) 03/29/17 17:50 Hyaline Casts 3 /lpf 03/29/17 17:50 Urine Mucus Rare 03/29/17 17:50 Blood Type A POSITIVE 03/29/17 15:30 Antibody Screen Negative 03/29/17 15:30 tele: av paced ecg 03/29/17: av paced cxr: clear lungs a/p: 86 f hx copd, htn, ppm, cva, descd thoracic aortic aneurysm, here with weakness, low bp. weakness, hypotension: -likely related to vol depletion/lico combined with multiple htn meds -after ivfs lico improved -sxs now improved as well -now bp high again so will cont bb and will add norvasc 2.5 as well, monitor bp response htn: -as above ppm: -nl fcn on tele/ecg. cont routine outpt monitoring descd TAA: -found to be 6.2 cm on cta here earlier this month. She was sent to [facility] and evaluated and deemed not a candidate for repair. Continue bp control as above, cont bb. lico: -improved after ivfs
--- NOTE | 2017-03-30 10:52 | PN ---
Physical Exam: SUBJECTIVE: Patient seen and examined OBJECTIVE: Vital Signs Period Temp Pulse Resp BP Sys/Grover Pulse Ox Last 24 Hr 97.4 F-98 F 61-87 18-20 138-180/57-80 97-99 GENERAL: The patient is awake, alert, and fully oriented, in no acute distress. HEAD: Normal with no signs of trauma. EYES: PERRL, extraocular movements intact, sclera anicteric, conjunctiva clear. No ptosis. ENT: Ears normal, nares patent, oropharynx clear without exudates, moist mucous membranes. NECK: Trachea midline, full range of motion, supple. LUNGS: Breath sounds equal, clear to auscultation bilaterally, no wheezes, no crackles, no accessory muscle use. HEART: Regular rate and rhythm, S1, S2 without murmur, rub or gallop. ABDOMEN: Soft, nontender, nondistended, normoactive bowel sounds, no guarding, no rebound, no hepatosplenomegaly, no masses. EXTREMITIES: 2+ pulses, warm, well-perfused, no edema. NEUROLOGICAL: Cranial nerves II through XII grossly intact. Normal speech, gait not observed. PSYCH: Normal mood, normal affect. SKIN: Warm, dry, normal turgor, no rashes or lesions noted Laboratory Results - last 24 hr 03/29/17 03/30/17 03/30/17 17:50 05:18 05:18 WBC 7.2 RBC 4.18 Hgb 11.7 Hct 35.6 MCV 85.1 MCH 28.0 MCHC 32.9 RDW 15.4 Plt Count 272 MPV 8.8 Neutrophils % 55.3 Lymphocytes % 29.0 D Monocytes % 9.0 Eosinophils % 5.3 H Basophils % 1.4 Sodium 143 Potassium 4.5 Chloride 109 H Carbon Dioxide 25 Anion Gap 9 BUN 24 H D Creatinine 1.1 H D Creat Clearance w eGFR 47.09 Random Glucose 80 Calcium 8.4 L Phosphorus 3.9 D Magnesium 1.9 Total Bilirubin 0.8 D AST 191 H D ALT 106 H D Alkaline Phosphatase 395 H Total Protein 6.1 L Albumin 2.9 L Urine Color Ltyellow Urine Appearance Slcloudy Urine pH 5.0 Ur Specific [place] <= 1.005 Urine Protein Negative Urine Glucose (UA) Negative Urine Ketones Negative Urine Blood 1+ H Urine Nitrite Negative Urine Bilirubin Negative Urine Urobilinogen Negative Ur Leukocyte Esterase 3+ H D Urine RBC 3 Urine WBC 2 Ur Epithelial Cells Few Urine Bacteria Rare Hyaline Casts 3 Urine Mucus Rare Active Medications Generic Name Dose Route Start Last Admin Trade Name Krystal PRN Reason Stop Dose Admin Acetaminophen 650 mg 03/29/17 18:23 03/29/17 22:20 Tylenol - PO 650 mg Q4H PRN Administration FEVER OR PAIN Amitriptyline HCl 10 mg 03/30/17 10:00 Elavil - PO DAILY DARIUS Amlodipine Besylate 2.5 mg 03/30/17 10:00 03/30/17 10:15 Norvasc - PO 2.5 mg DAILY DARIUS Administration Metoprolol Tartrate 50 mg 03/30/17 10:00 03/30/17 09:01 Lopressor - PO 50 mg BID DARIUS Administration Tramadol HCl 50 mg 03/29/17 18:30 03/30/17 07:32 Ultram - PO 50 mg Q6H PRN Administration ASSESSMENT/PLAN: A: 86yo woman with AAA and resolved hypotension P: hypotension - resolved with IVF - re-introduce antihypertensives slowly - Cards following transaminitis - no leukocytosis - afebrile - u/s without evidence of worsening CBD dilation- likely chronic - monitor GRISELDA - resolving - hold IVF - hold nephrotoxic meds - daily bmp -renal following HTN - increase Motoprolol to 50mg bid - restart Norvasc h/o PPM F/E/N - hold IVF - low Na diet - replete prn PPX - OOB Dispo- requires continued observation of acute medical conditions Visit type - Emergency Visit Emergency Visit: Yes ED Registration Date: 03/29/17 Care time: The patient presented to the Emergency Department on the above date and was hospitalized for further evaluation of their emergent condition. - New Patient This patient is new to me today: Yes Date on this admission: 03/30/17 - Critical Care Critical Care patient: No
[2017-03-30] MEDS: AMITRIPTYLINE HCL 10 MG TABLET (FP) PO SCH (12:14)
--- NOTE | 2017-03-30 13:33 | CONSULT ---
Consult Consult Specialty:: Nephrology Reason for Consultation:: GRISELDA - History of Present Illness Chief Complaint: hypotension History of Present Illness: Pt is an 86 year old female with pmhx of COPD, HTN, CVA, AAA, and chronic back pain who presents to the ER with low blood pressure. She also complains of weakness. She was found to be in renal failure and I was called to evaluate her. She denies shortness of breath. She denies dysuria or hematuria. She did have nausea and an episode of diarrhea. She was found to be hypotensive. Her renal function did improve with hydration. She occasionally takes ibuprofen for pain. She was on several BP meds. 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 DIff colitis 2013) - Past Surgical History Past Surgical History: Yes: Permanent Pacemaker - Alcohol/Substance Use Hx Alcohol Use: No History of Substance Use: reports: None - Smoking History Smoking history: Never smoked Have you smoked in the past 12 months: No If you are a former smoker, when did you quit?: 4 YRS AGO - Social History Usual Living Arrangement: With Spouse ADL: Independent History of Recent Travel: No Home Medications - Allergies Allergies/Adverse Reactions: Allergies Allergy/AdvReac Type Severity Reaction Status Date / Time ciprofloxacin [From Cipro] Allergy Unknown Verified 03/29/17 14:43 ciprofloxacin HCl Allergy Unknown Verified 03/29/17 14:43 [From Cipro] - Home Medications Home Medications: Ambulatory Orders Amitriptyline HCl [Elavil -] 10 mg PO DAILY 12/27/16 Atorvastatin Ca [Lipitor] 80 mg PO DAILY 12/27/16 Tramadol HCl [Ultram -] 50 mg PO Q6H 12/27/16 Metoprolol Tartrate [Lopressor -] 25 mg PO BID #30 tablet 03/18/17 Amlodipine Besylate [Norvasc -] 2.5 mg PO DAILY 03/29/17 Lisinopril 10 mg PO HS 03/29/17 Losartan Potassium 50 mg PO DAILY 03/29/17 Family Disease History - Family Disease History Family History: Denies Review of Systems - Review of Systems Constitutional: reports: Malaise Eyes: reports: No Symptoms HENT: reports: No Symptoms Neck: reports: No Symptoms Cardiovascular: denies: Edema, Shortness of Breath Respiratory: reports: No Symptoms Gastrointestinal: reports: Diarrhea, Nausea Genitourinary: reports: No Symptoms Musculoskeletal: reports: No Symptoms Neurological: reports: No Symptoms Endocrine: reports: No Symptoms Hematology/Lymphatic: reports: No Symptoms Psychiatric: reports: No Symptoms Physical Exam Vital Signs: Vital Signs Temperature 98 F 03/30/17 08:59 Pulse Rate 64 03/30/17 08:59 Respiratory Rate 18 03/30/17 08:59 Blood Pressure 180/80 03/30/17 08:59 O2 Sat by Pulse Oximetry (%) 97 03/29/17 20:35 Constitutional: Yes: Calm Eyes: Yes: Conjunctiva Clear HENT: Yes: Atraumatic Neck: Yes: Supple Cardiovascular: Yes: S1, S2 Respiratory: Yes: CTA Bilaterally Gastrointestinal: Yes: Soft Renal/: Yes: WNL Musculoskeletal: Yes: WNL Edema: No Neurological: Yes: Oriented Psychiatric: Yes: Oriented Labs: CBC, BMP 03/30/17 05:18 03/30/17 05:18 Laboratory Tests 03/16/17 03/18/17 03/29/17 08:08 06:20 15:30 WBC Hgb 12.7 Sodium Potassium Chloride Carbon Dioxide Anion Gap BUN Creatinine 0.9 1.0 Creat Clearance w eGFR AST ALT Alkaline Phosphatase B-Natriuretic Peptide Urine Protein Urine Blood 03/29/17 03/29/17 03/30/17 15:30 17:50 05:18 WBC 7.2 Hgb 11.7 Sodium 138 Potassium 4.5 Chloride 103 Carbon Dioxide 28 Anion Gap 7 L BUN 32 H D Creatinine 1.5 H D Creat Clearance w eGFR 32.92 AST 103 H D ALT 82 H D Alkaline Phosphatase 331 H D B-Natriuretic Peptide 730.29 H Urine Protein Negative Urine Blood 1+ H 03/30/17 05:18 WBC Hgb Sodium 143 Potassium 4.5 Chloride 109 H Carbon Dioxide 25 Anion Gap 9 BUN 24 H D Creatinine 1.1 H D Creat Clearance w eGFR 47.09 AST 191 H D ALT 106 H D Alkaline Phosphatase 395 H B-Natriuretic Peptide Urine Protein Urine Blood Imaging - Results Chest X-ray: Report Reviewed Problem List - Problems (1) Acute renal insufficiency Code(s): N28.9 - DISORDER OF KIDNEY AND URETER, UNSPECIFIED (2) COPD (chronic obstructive pulmonary disease) Code(s): J44.9 - CHRONIC OBSTRUCTIVE PULMONARY DISEASE, UNSPECIFIED (3) CVA (cerebral vascular accident) Code(s): I63.9 - CEREBRAL INFARCTION, UNSPECIFIED (4) Dehydration Code(s): E86.0 - DEHYDRATION Assessment/Plan Current Medications Generic Name Dose Route Start Last Admin Trade Name Freq PRN Reason Stop Dose Admin Acetaminophen 650 mg 03/29/17 18:23 03/29/17 22:20 Tylenol - PO 650 mg Q4H PRN Administration FEVER OR PAIN Amitriptyline HCl 10 mg 03/30/17 10:00 03/30/17 12:14 Elavil - PO 10 mg DAILY DARIUS Administration Amlodipine Besylate 2.5 mg 03/30/17 10:00 03/30/17 10:15 Norvasc - PO 2.5 mg DAILY DARIUS Administration Metoprolol Tartrate 50 mg 03/30/17 10:00 03/30/17 09:01 Lopressor - PO 50 mg BID DARIUS Administration Tramadol HCl 50 mg 03/29/17 18:30 03/30/17 07:32 Ultram - PO 50 mg Q6H PRN Administration Impression 1. Dehydration 2. HTN 3. CVA 4. AAA 5. diarrhea Plan - repeat ua with clean catch - unclear why pt was on both an charleen and an arb - BP is rising, can start to re-introdiuce meds - can stop fluids - GI symptoms have improved - repeat labs in am Dr Carson
[2017-03-30] MEDS: ACETAMINOPHEN 325 MG TABLET (FP) PO PRN ×2 (16:20→22:33)
[2017-03-31] MEDS: ACETAMINOPHEN 325 MG TABLET (FP) PO PRN ×3 (04:14→21:47)
[2017-03-31] MEDS: traMADol HCL 50 MG TABLET PO PRN ×3 (04:15→21:47)
[2017-03-31 07:54] LABS: BASOPHIL 1.5 % (0-2.0); EOSINOPHIL 4.3 % (0-4.5); MCH 28.2 pg (25.7-33.7); MCHC 33.3 g/dl (32.0-36.0); MEAN CELL VOLUME 84.7 fl (80-96); MEAN PLT VOLUME 8.8 fl (7.5-11.1); NEUTROPHILS 59.1 % (42.8-82.8); PLATELET COUNT 273 K/MM3 (134-434); RDW 15.3 % (11.6-15.6); WHITE BLOOD COUNT 7.7 K/mm3 (4.0-10.0)
[2017-03-31 08:27] LABS: ALBUMIN 2.9 g/dl (3.4-5.0); ALK PHOS 343 U/L (45-117); ANION GAP 8 (8-16); BILIRUBIN,TOTAL 0.4 mg/dL (0.2-1.0); CALCIUM 8.7 mg/dL (8.5-10.1); CO2 25 mmol/L (21-32); GLUCOSE,RANDOM 79 mg/dL (74-106); SGOT/AST 73 U/L (15-37); SGPT/ALT 73 U/L (12-78); TOT PROT 6.4 g/dl (6.4-8.2)
[2017-03-31] MEDS ORDERED: PT OWN MED DRAWER 7, Y5N ONE (08:41)
[2017-03-31] MEDS: AMITRIPTYLINE HCL 10 MG TABLET (FP) PO SCH ×2 (08:48→10:18)
[2017-03-31] MEDS: METOPROLOL TARTRATE 50 MG TABLET (FP) PO SCH ×3 (08:48→21:46)
[2017-03-31] MEDS: amLODIPine BESYLATE 2.5 MG TABLET (FP) PO SCH (08:49)
[2017-03-31 09:16] LABS: URINE APPEARANCE CLEAR; URINE BILIRUBIN NEGATIVE (NEGATIVE); URINE BLOOD 2+ (NEGATIVE); URINE COLOR STRAW; URINE GLUCOSE (UA) NEGATIVE (NEGATIVE); URINE KETONE NEGATIVE (NEGATIVE); URINE NITRITE NEGATIVE (NEGATIVE); URINE PROTEIN NEGATIVE (NEGATIVE); URINE UROBILINOGEN NEGATIVE mg/dL (0.2-1.0)
[2017-03-31 09:47] LABS: URINE BACTERIA RARE /hpf (NONE SEEN); URINE RBC 5 /hpf (0-3); URINE WBC 1 /hpf (3-5)
[2017-03-31] MEDS: amLODIPine BESYLATE 5 MG TABLET (FP) PO SCH (10:21)
--- NOTE | 2017-03-31 10:53 | PN ---
Progress Note (short form) - Note Progress Note: s: no cp sob palps dizzy o: Vital Signs Period Temp Pulse Resp BP Sys/Grover Pulse Ox Last 24 Hr 97.8 F-98.2 F 60-65 18-20 140-188/65-90 96-96 nad no jvd rrr s1s2 no mrg cta bl nl eff aaox3 no le e/c/c abd nt nd pos bs no jaundice diaphoresis Current Medications Generic Name Dose Route Start Last Admin Trade Name Freq PRN Reason Stop Dose Admin Acetaminophen 650 mg 03/29/17 18:23 03/31/17 10:19 Tylenol - PO 650 mg Q4H PRN Administration FEVER OR PAIN Amitriptyline HCl 10 mg 03/30/17 10:00 03/31/17 10:18 Elavil - PO Not Given DAILY DARIUS Amlodipine Besylate 5 mg 03/31/17 10:00 03/31/17 10:21 Norvasc - PO 5 mg DAILY DARIUS Administration Metoprolol Tartrate 50 mg 03/30/17 10:00 03/31/17 10:18 Lopressor - PO Not Given BID DARIUS Tramadol HCl 50 mg 03/29/17 18:30 03/31/17 10:20 Ultram - PO 50 mg Q6H PRN Administration CBC, BMP 03/31/17 05:25 03/31/17 05:25 tele: av paced ecg 03/29/17: av paced cxr: clear lungs echo 09/2016: tds; nl lv/rv, mild-mod tr, nl rvsp mibi 09/2016: no ischemia a/p: 86 f hx copd, htn, ppm, cva, descd thoracic aortic aneurysm, here with weakness, low bp. weakness, hypotension: -likely related to vol depletion/lico combined with multiple htn meds -after ivfs lico improved -sxs now improved as well -now bp high again so will cont to re-introduce htn meds. cont bb and will increase norvasc to 5 now, monitor bp response htn: -as above ppm: -nl fcn on tele/ecg. cont routine outpt monitoring descd TAA: -found to be 6.2 cm on cta here earlier this month. She was sent to hospital for special care and evaluated and deemed not a candidate for repair. Continue bp control as above, cont bb. lico: -improved after ivfs
--- NOTE | 2017-03-31 14:55 | PN ---
Progress Note, Physician History of Present Illness: Pt seen and examined at bedside. She is awake and alert. She denies shortness of breath. - Current Medication List Current Medications: Active Medications Acetaminophen (Tylenol -) 650 mg PO Q4H PRN PRN Reason: FEVER OR PAIN Last Admin: 03/31/17 10:19 Dose: 650 mg Amitriptyline HCl (Elavil -) 10 mg PO DAILY [facility] Last Admin: 03/31/17 10:18 Dose: Not Given Amlodipine Besylate (Norvasc -) 5 mg PO DAILY [facility] Last Admin: 03/31/17 10:21 Dose: 5 mg Metoprolol Tartrate (Lopressor -) 50 mg PO BID [facility] Last Admin: 03/31/17 10:18 Dose: Not Given Tramadol HCl (Ultram -) 50 mg PO Q6H PRN Last Admin: 03/31/17 10:20 Dose: 50 mg - Objective Vital Signs: Vital Signs Temperature 97.9 F 03/31/17 14:00 Pulse Rate 62 03/31/17 14:00 Respiratory Rate 20 03/31/17 14:00 Blood Pressure 145/66 03/31/17 14:00 O2 Sat by Pulse Oximetry (%) 96 03/31/17 11:00 Constitutional: Yes: Calm Eyes: Yes: Conjunctiva Clear HENT: Yes: Atraumatic Cardiovascular: Yes: S1, S2 Respiratory: Yes: CTA Bilaterally Gastrointestinal: Yes: Soft Genitourinary: Yes: WNL Musculoskeletal: Yes: WNL Edema: No Neurological: Yes: Oriented Psychiatric: Yes: Oriented Labs: CBC, BMP 03/31/17 05:25 03/31/17 05:25 INR, PTT INR 1.00 (0.82-1.09) 03/29/17 15:30 Problem List - Problems (1) Acute renal insufficiency Code(s): N28.9 - DISORDER OF KIDNEY AND URETER, UNSPECIFIED (2) COPD (chronic obstructive pulmonary disease) Code(s): J44.9 - CHRONIC OBSTRUCTIVE PULMONARY DISEASE, UNSPECIFIED (3) CVA (cerebral vascular accident) Code(s): I63.9 - CEREBRAL INFARCTION, UNSPECIFIED (4) Dehydration Code(s): E86.0 - DEHYDRATION Assessment/Plan Current Medications Generic Name Dose Route Start Last Admin Trade Name Freq PRN Reason Stop Dose Admin Acetaminophen 650 mg 03/29/17 18:23 03/31/17 10:19 Tylenol - PO 650 mg Q4H PRN Administration FEVER OR PAIN Amitriptyline HCl 10 mg 03/30/17 10:00 03/31/17 10:18 Elavil - PO Not Given DAILY DARIUS Amlodipine Besylate 5 mg 03/31/17 10:00 03/31/17 10:21 Norvasc - PO 5 mg DAILY DARIUS Administration Metoprolol Tartrate 50 mg 03/30/17 10:00 03/31/17 10:18 Lopressor - PO Not Given BID DARIUS Tramadol HCl 50 mg 03/29/17 18:30 03/31/17 10:20 Ultram - PO 50 mg Q6H PRN Administration Impression 1. Dehydration 2. HTN 3. CVA 4. AAA 5. diarrhea Plan - bp is improving - can restart low dose charleen or arb in am, asked family to bring in medications for clarification - follow up repeat ua - unclear why pt was on both an charleen and an arb - GI symptoms have improved Dr Carson
[2017-03-31 15:16] LABS: URINE LEUK ESTERASE Negative (NEGATIVE)
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
[2017-04-01] MEDS: ACETAMINOPHEN 325 MG TABLET (FP) PO PRN ×3 (04:37→16:55)
[2017-04-01] MEDS: traMADol HCL 50 MG TABLET PO PRN ×3 (04:38→18:04)
[2017-04-01 07:12] LABS: EOSINOPHIL 4.7 % (0-4.5); MCH 27.9 pg (25.7-33.7); MCHC 32.9 g/dl (32.0-36.0); MEAN CELL VOLUME 84.6 fl (80-96); MEAN PLT VOLUME 8.8 fl (7.5-11.1); NEUTROPHILS 57.4 % (42.8-82.8); PLATELET COUNT 287 K/MM3 (134-434); RDW 15.3 % (11.6-15.6); WHITE BLOOD COUNT 8.6 K/mm3 (4.0-10.0)
[2017-04-01 07:41] LABS: ALBUMIN 3.1 g/dl (3.4-5.0); ANION GAP 7 (8-16); CALCIUM 8.9 mg/dL (8.5-10.1); CO2 25 mmol/L (21-32); GLUCOSE,RANDOM 88 mg/dL (74-106); SGOT/AST 47 U/L (15-37); SGPT/ALT 58 U/L (12-78)
[2017-04-01 07:43] LABS: ALK PHOS 315 U/L (45-117); BILIRUBIN,TOTAL 0.3 mg/dL (0.2-1.0); CREATININE 1.1 mg/dL (0.55-1.02); TOT PROT 6.9 g/dl (6.4-8.2)
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
[2017-04-01] MEDS ORDERED: PT OWN MED DRAWER 7, Y5N ONE (09:39)
[2017-04-01] MEDS: AMITRIPTYLINE HCL 10 MG TABLET (FP) PO SCH (09:42)
[2017-04-01] MEDS: METOPROLOL TARTRATE 50 MG TABLET (FP) PO SCH ×2 (09:42→21:56)
[2017-04-01] MEDS: amLODIPine BESYLATE 5 MG TABLET (FP) PO SCH (09:42)
--- NOTE | 2017-04-01 09:49 | PN ---
Progress Note (short form) - Note Progress Note: s: no cp sob palps dizzy o: Vital Signs Period Temp Pulse Resp BP Sys/Grover Pulse Ox Last 24 Hr 97.8 F-98.3 F 60-65 18-29 131-168/64-90 96-97 nad no jvd rrr s1s2 no mrg cta bl nl eff aaox3 no le e/c/c abd nt nd pos bs no jaundice diaphoresis Current Medications Generic Name Dose Route Start Last Admin Trade Name Freq PRN Reason Stop Dose Admin Acetaminophen 650 mg 03/29/17 18:23 04/01/17 04:37 Tylenol - PO 650 mg Q4H PRN Administration FEVER OR PAIN Amitriptyline HCl 10 mg 03/30/17 10:00 04/01/17 09:42 Elavil - PO 10 mg DAILY DARIUS Administration Amlodipine Besylate 5 mg 03/31/17 10:00 04/01/17 09:42 Norvasc - PO 5 mg DAILY DARIUS Administration Lisinopril 5 mg 04/01/17 10:00 Prinivil PO DAILY DARIUS Metoprolol Tartrate 50 mg 03/30/17 10:00 04/01/17 09:42 Lopressor - PO 50 mg BID DARIUS Administration Tramadol HCl 50 mg 03/29/17 18:30 04/01/17 04:38 Ultram - PO 50 mg Q6H PRN Administration CBC, BMP 04/01/17 06:45 04/01/17 06:45 tele: av paced ecg 03/29/17: av paced cxr: clear lungs echo 09/2016: tds; nl lv/rv, mild-mod tr, nl rvsp mibi 09/2016: no ischemia a/p: 86 f hx copd, htn, ppm, cva, descd thoracic aortic aneurysm, here with weakness, low bp. weakness, hypotension: -likely related to vol depletion/lico combined with multiple htn meds -after ivfs lico improved -sxs now improved as well -now bp high again so will cont to re-introduce htn meds. htn: -have been re-introducing home meds, bp better but still high at times. Will cont bb, norvasc, and start lisinopril 5 qd now. ppm: -nl fcn on tele/ecg. cont routine outpt monitoring descd TAA: -found to be 6.2 cm on cta here earlier this month. [facility] and evaluated and deemed not a candidate for repair. Continue bp control as above, cont bb. lico: -improved after ivfs
[2017-04-01] MEDS: LISINOPRIL 5 MG TABLET (FP) PO SCH (12:03)
--- NOTE | 2017-04-01 14:22 | PN ---
Progress Note, Physician History of Present Illness: Pt seen and examined at bedside. She is awake and alert. She feels that her appetite improved. - Current Medication List Current Medications: Active Medications Acetaminophen (Tylenol -) 650 mg PO Q4H PRN PRN Reason: FEVER OR PAIN Last Admin: 04/01/17 12:10 Dose: 650 mg Amitriptyline HCl (Elavil -) 10 mg PO DAILY [facility] Last Admin: 04/01/17 09:42 Dose: 10 mg Amlodipine Besylate (Norvasc -) 5 mg PO DAILY [facility] Last Admin: 04/01/17 09:42 Dose: 5 mg Lisinopril (Prinivil) 5 mg PO DAILY [facility] Last Admin: 04/01/17 12:03 Dose: 5 mg Metoprolol Tartrate (Lopressor -) 50 mg PO BID [facility] Last Admin: 04/01/17 09:42 Dose: 50 mg Tramadol HCl (Ultram -) 50 mg PO Q6H PRN Last Admin: 04/01/17 12:06 Dose: 50 mg - Objective Vital Signs: Vital Signs Temperature 98.2 F 04/01/17 10:00 Pulse Rate 62 04/01/17 10:00 Respiratory Rate 20 04/01/17 10:00 Blood Pressure 164/71 04/01/17 10:00 O2 Sat by Pulse Oximetry (%) 96 04/01/17 09:00 Constitutional: Yes: Calm Eyes: Yes: Conjunctiva Clear HENT: Yes: Atraumatic Cardiovascular: Yes: S1, S2 Respiratory: Yes: CTA Bilaterally Gastrointestinal: Yes: Soft Musculoskeletal: Yes: WNL Edema: No Neurological: Yes: Oriented Psychiatric: Yes: Oriented Labs: CBC, BMP 04/01/17 06:45 04/01/17 06:45 INR, PTT INR 1.00 (0.82-1.09) 03/29/17 15:30 Problem List - Problems (1) Acute renal insufficiency Code(s): N28.9 - DISORDER OF KIDNEY AND URETER, UNSPECIFIED (2) COPD (chronic obstructive pulmonary disease) Code(s): J44.9 - CHRONIC OBSTRUCTIVE PULMONARY DISEASE, UNSPECIFIED (3) CVA (cerebral vascular accident) Code(s): I63.9 - CEREBRAL INFARCTION, UNSPECIFIED (4) Dehydration Code(s): E86.0 - DEHYDRATION Assessment/Plan Current Medications Generic Name Dose Route Start Last Admin Trade Name Freq PRN Reason Stop Dose Admin Acetaminophen 650 mg 03/29/17 18:23 04/01/17 12:10 Tylenol - PO 650 mg Q4H PRN Administration FEVER OR PAIN Amitriptyline HCl 10 mg 03/30/17 10:00 04/01/17 09:42 Elavil - PO 10 mg DAILY DARIUS Administration Amlodipine Besylate 5 mg 03/31/17 10:00 04/01/17 09:42 Norvasc - PO 5 mg DAILY DARIUS Administration Lisinopril 5 mg 04/01/17 10:00 04/01/17 12:03 Prinivil PO 5 mg DAILY DARIUS Administration Metoprolol Tartrate 50 mg 03/30/17 10:00 04/01/17 09:42 Lopressor - PO 50 mg BID DARIUS Administration Tramadol HCl 50 mg 03/29/17 18:30 04/01/17 12:06 Ultram - PO 50 mg Q6H PRN Administration Impression 1. Dehydration 2. HTN 3. CVA 4. AAA 5. diarrhea Plan - lisinopril started, monitor lytes and bp - pt has a list which showed that she was on ramipril at home however she isnt sure - cont to monitor renal function - cont to monitor bp - GI symptoms have improved Dr Carson
[2017-04-02] MEDS ORDERED: traMADol HCL 50 MG TABLET PO ONE (06:01)
[2017-04-02] MEDS: ACETAMINOPHEN 325 MG TABLET (FP) PO PRN (06:21)
[2017-04-02 07:43] LABS: BASOPHIL 1.2 % (0-2.0); EOSINOPHIL 4.6 % (0-4.5); MCHC 32.7 g/dl (32.0-36.0); MEAN CELL VOLUME 85.6 fl (80-96); MEAN PLT VOLUME 9.1 fl (7.5-11.1); NEUTROPHILS 54.6 % (42.8-82.8); PLATELET COUNT 298 K/MM3 (134-434); RDW 15.3 % (11.6-15.6); WHITE BLOOD COUNT 8.9 K/mm3 (4.0-10.0)
[2017-04-02 08:32] LABS: ALK PHOS 261 U/L (45-117); ANION GAP 7 (8-16); BILIRUBIN,TOTAL 0.5 mg/dL (0.2-1.0); CALCIUM 9.1 mg/dL (8.5-10.1); CO2 27 mmol/L (21-32); CREATININE 1.2 mg/dL (0.55-1.02); GLUCOSE,RANDOM 68 mg/dL (74-106); SGOT/AST 30 U/L (15-37); SGPT/ALT 43 U/L (12-78); TOT PROT 6.6 g/dl (6.4-8.2)
--- NOTE | 2017-04-02 11:04 | PN ---
Progress Note, Physician History of Present Illness: Seen and examined No CV complaints this AM, some constipation Tele: No alarms - Current Medication List Current Medications: Active Medications Acetaminophen (Tylenol -) 650 mg PO Q4H PRN PRN Reason: FEVER OR PAIN Last Admin: 04/02/17 06:21 Dose: 650 mg Amitriptyline HCl (Elavil -) 10 mg PO DAILY [facility] Last Admin: 04/01/17 09:42 Dose: 10 mg Amlodipine Besylate (Norvasc -) 5 mg PO DAILY [facility] Last Admin: 04/01/17 09:42 Dose: 5 mg Lisinopril (Prinivil) 5 mg PO DAILY [facility] Last Admin: 04/01/17 12:03 Dose: 5 mg Metoprolol Tartrate (Lopressor -) 50 mg PO BID [facility] Last Admin: 04/01/17 21:56 Dose: 50 mg - Objective Vital Signs: Vital Signs Temperature 98 F 04/02/17 10:00 Pulse Rate 68 04/02/17 10:00 Respiratory Rate 14 04/02/17 10:00 Blood Pressure 150/70 04/02/17 10:00 O2 Sat by Pulse Oximetry (%) 94 L 04/01/17 20:21 Constitutional: Yes: No Distress, Calm Eyes: Yes: WNL, Conjunctiva Clear HENT: Yes: WNL Neck: Yes: WNL Cardiovascular: Yes: Regular Rate and Rhythm Respiratory: Yes: Regular, CTA Bilaterally Gastrointestinal: Yes: WNL Extremities: Yes: WNL Edema: No Labs: CBC, BMP 04/02/17 05:35 04/02/17 05:35 INR, PTT INR 1.00 (0.82-1.09) 03/29/17 15:30 Assessment/Plan a/p: 86 f hx copd, htn, ppm, cva, descd thoracic aortic aneurysm, here with weakness, low bp. weakness, hypotension: -likely related to vol depletion/lico combined with multiple htn meds -after ivfs lico improved -sxs now improved as well -now bp high again so will cont to re-introduce htn meds. -Will increase Lisinopril to 10mg today htn: -have been re-introducing home meds, bp better but still high at times. Will cont bb, norvasc, and increase lisinopril to 10 qd now. Will watch Cr and K on titrating ACEi dose ppm: -nl fcn on tele/ecg. cont routine outpt monitoring descd TAA: -found to be 6.2 cm on cta here earlier this month. [facility] and evaluated and deemed not a candidate for repair. Continue bp control as above, cont bb. lico: -improved after ivfs
[2017-04-02] MEDS: LISINOPRIL 5 MG TABLET (FP) PO SCH (11:29)
[2017-04-02] MEDS: METOPROLOL TARTRATE 50 MG TABLET (FP) PO SCH ×2 (11:29→23:15)
[2017-04-02] MEDS: amLODIPine BESYLATE 5 MG TABLET (FP) PO SCH (11:29)
[2017-04-02] MEDS: LISINOPRIL 10 MG TABLET (FP) PO SCH (11:29)
[2017-04-02] MEDS ORDERED: PT OWN MED DRAWER 7, Y5N ONE (11:30)
[2017-04-02] MEDS: AMITRIPTYLINE HCL 10 MG TABLET (FP) PO SCH (11:35)
--- NOTE | 2017-04-02 12:22 | PN ---
Progress Note (short form) - Note Progress Note: c/o chronic back pain. states she had compression fracture last year which is controlled with tramadol and tylenol. also c/o anxiety which she is fearing driving her BP up. has taken xanx in the past. denies CP, SOB< fever, chills, N/ V/C/D Current Medications Generic Name Dose Route Start Last Admin Trade Name Freq PRN Reason Stop Dose Admin Acetaminophen 650 mg 03/29/17 18:23 04/02/17 06:21 Tylenol - PO 650 mg Q4H PRN Administration FEVER OR PAIN Amitriptyline HCl 10 mg 03/30/17 10:00 04/02/17 11:35 Elavil - PO 10 mg DAILY DARIUS Administration Amlodipine Besylate 5 mg 03/31/17 10:00 04/02/17 11:29 Norvasc - PO 5 mg DAILY DARIUS Administration Lisinopril 10 mg 04/02/17 11:30 04/02/17 11:29 Prinivil PO 10 mg DAILY DARIUS Administration Metoprolol Tartrate 50 mg 03/30/17 10:00 04/02/17 11:29 Lopressor - PO 50 mg BID DARIUS Administration Last Vital Signs Temp Pulse Resp BP Pulse Ox 98 F 68 14 150/70 94 L 04/02/17 10:00 04/02/17 10:00 04/02/17 10:00 04/02/17 10:00 04/01/17 20:21 General NAD, mildly anxious CV S1 S2 RRR no murmur, rub, gallop Lungs CTA B/L no wheezing/rales/rhonchi Abdomen soft NT/ND Extremities no pedal edema CBCD WBC 8.9 K/mm3 (4.0-10.0) 04/02/17 05:35 RBC 4.61 M/mm3 (3.60-5.2) 04/02/17 05:35 Hgb 12.9 GM/dL (10.7-15.3) 04/02/17 05:35 Hct 39.5 % (32.4-45.2) 04/02/17 05:35 MCV 85.6 fl (80-96) 04/02/17 05:35 MCHC 32.7 g/dl (32.0-36.0) 04/02/17 05:35 RDW 15.3 % (11.6-15.6) 04/02/17 05:35 Plt Count 298 K/MM3 (134-434) 04/02/17 05:35 MPV 9.1 fl (7.5-11.1) 04/02/17 05:35 CMP Sodium 141 mmol/L (136-145) 04/02/17 05:35 Potassium 5.1 mmol/L (3.5-5.1) 04/02/17 05:35 Chloride 107 mmol/L (98-107) 04/02/17 05:35 Carbon Dioxide 27 mmol/L (21-32) 04/02/17 05:35 Anion Gap 7 (8-16) L 04/02/17 05:35 BUN 25 mg/dL (7-18) H D 04/02/17 05:35 Creatinine 1.2 mg/dL (0.55-1.02) H 04/02/17 05:35 Creat Clearance w eGFR 42.60 (>60) 04/02/17 05:35 Calcium 9.1 mg/dL (8.5-10.1) 04/02/17 05:35 Total Bilirubin 0.5 mg/dL (0.2-1.0) D 04/02/17 05:35 AST 30 U/L (15-37) D 04/02/17 05:35 ALT 43 U/L (12-78) D 04/02/17 05:35 Alkaline Phosphatase 261 U/L (45-117) H 04/02/17 05:35 Total Protein 6.6 g/dl (6.4-8.2) 04/02/17 05:35 Albumin 3.0 g/dl (3.4-5.0) L 04/02/17 05:35 Assessment and plan: 86 year old female with a significant past medical history of C.diff, HTN, HLD, CVA, AAA, diverticulitis, IBS and pacemaker. She presented to the ED with hypotension and dehydration. 1. Hypotension- due to dehydration and possible over medication. now resolved and is hypertensive. Goal SBP <130. pt has enlarged thoracic aneurysm with high risk of rupture. will need to cont BP closely. slowly adjust medications to optimize control. lisinopril increased to 10mg this AM. cont current management. Cardio on board 2. GRISELDA- possible due to dehydration vs Medication induced. cont to monitor. Renal on board 3. Chronic back pain- due to compression fracture last year. will re-start tramadol and tylenol around the clock. 4. Anxiety- resume xanax prn 5. IBS- currently constipated. re-start dicylcomine prn. start colace HS. monitor for BM 6. AAA- medical management for now. will need repeat imaging in [address] surgery follow up outpatient 7. DVT ppx- re-start hep sq, SCD Visit type - Emergency Visit Emergency Visit: Yes ED Registration Date: 04/01/17 Care time: The patient presented to the Emergency Department on the above date and was hospitalized for further evaluation of their emergent condition. - New Patient This patient is new to me today: Yes Date on this admission: 04/02/17 - Critical Care Critical Care patient: No - Discharge Referral Referred to [facility] No
--- NOTE | 2017-04-02 12:53 | PN ---
Progress Note (short form) - Note Progress Note: RENAL Pt is awake and alert denies complaints by bedside Last Vital Signs Temp Pulse Resp BP Pulse Ox 98 F 68 14 150/70 94 L 04/02/17 10:00 04/02/17 10:00 04/02/17 10:00 04/02/17 10:00 04/02/17 09:00 lungs clear cvs s1s2 rr abd soft, tympanitic in lower quadrants ext no edema neuro a+ox3 CBC, BMP 04/02/17 05:35 04/02/17 05:35 Current Medications Generic Name Dose Route Start Last Admin Trade Name Freq PRN Reason Stop Dose Admin Acetaminophen 650 mg 03/29/17 18:23 04/02/17 06:21 Tylenol - PO 650 mg Q4H PRN Administration FEVER OR PAIN Amitriptyline HCl 10 mg 03/30/17 10:00 04/02/17 11:35 Elavil - PO 10 mg DAILY DARIUS Administration Amlodipine Besylate 5 mg 03/31/17 10:00 04/02/17 11:29 Norvasc - PO 5 mg DAILY DARIUS Administration Lisinopril 10 mg 04/02/17 11:30 04/02/17 11:29 Prinivil PO 10 mg DAILY DARIUS Administration Metoprolol Tartrate 50 mg 03/30/17 10:00 04/02/17 11:29 Lopressor - PO 50 mg BID DARIUS Administration Impression 1. Dehydration 2. HTN 3. CVA 4. AAA 5. diarrhea 6.pelvic kidney Plan - cont to monitor renal function- creat is better - cont to monitor bp - GI symptoms have improved MV
[2017-04-02] MEDS ORDERED: ALPRAZolam 0.25 MG TABLET PO PRN ×2 (12:59→13:20)
[2017-04-02] MEDS ORDERED: DICYCLOMINE HCL 10 MG CAPSULE PO PRN (13:19)
[2017-04-02] MEDS: traMADol HCL 50 MG TABLET PO SCH ×2 (13:48→18:25)
[2017-04-02] MEDS: ACETAMINOPHEN 325 MG TABLET (FP) PO SCH ×2 (13:48→18:24)
[2017-04-02] MEDS: DOCUSATE SODIUM 100 MG CAPSULE (FP) PO SCH (23:11)
[2017-04-02] MEDS: HEPARIN NA (PORCINE) 5,000 UNITS/ML 1ML VIAL SQ SCH (23:11)
[2017-04-03] MEDS: traMADol HCL 50 MG TABLET PO SCH ×4 (00:09→18:25)
[2017-04-03] MEDS: ACETAMINOPHEN 325 MG TABLET (FP) PO SCH ×4 (00:15→18:24)
[2017-04-03 07:50] LABS: ANION GAP 10 (8-16); CALCIUM 8.8 mg/dL (8.5-10.1); CO2 23 mmol/L (21-32); CREATININE 1.5 mg/dL (0.55-1.02); GLUCOSE,RANDOM 77 mg/dL (74-106)
[2017-04-03] MEDS ORDERED: PT OWN MED DRAWER 7, Y5N ONE (09:53)
[2017-04-03] MEDS: AMITRIPTYLINE HCL 10 MG TABLET (FP) PO SCH (09:55)
[2017-04-03] MEDS: HEPARIN NA (PORCINE) 5,000 UNITS/ML 1ML VIAL SQ SCH ×2 (09:55→21:52)
[2017-04-03] MEDS: LISINOPRIL 10 MG TABLET (FP) PO SCH (09:55)
[2017-04-03] MEDS: METOPROLOL TARTRATE 50 MG TABLET (FP) PO SCH ×3 (09:55→21:52)
[2017-04-03] MEDS: amLODIPine BESYLATE 5 MG TABLET (FP) PO SCH (09:55)
--- NOTE | 2017-04-03 10:58 | PN ---
Progress Note (short form) - Note Progress Note: RENAL Pt is awake and alert has been constipated. Does not want enemas by bedside Last Vital Signs Temp Pulse Resp BP Pulse Ox 98.2 F 62 14 118/64 95 04/03/17 08:10 04/03/17 08:10 04/03/17 08:10 04/03/17 08:10 04/02/17 20:27 lungs clear cvs s1s2 rr abd soft, less tympanitic in lower quadrants ext no edema neuro a+ox3 CBC, BMP 04/02/17 05:35 04/03/17 05:35 Current Medications Generic Name Dose Route Start Last Admin Trade Name Freq PRN Reason Stop Dose Admin Acetaminophen 650 mg 03/29/17 18:23 04/02/17 06:21 Tylenol - PO 650 mg Q4H PRN Administration FEVER OR PAIN Acetaminophen 650 mg 04/02/17 13:00 04/03/17 06:10 Tylenol - PO 650 mg Q6H DARIUS Administration Alprazolam 0.25 mg 04/02/17 13:20 04/02/17 13:46 Xanax - PO 0.25 mg TID PRN Administration ANXIETY Amitriptyline HCl 10 mg 03/30/17 10:00 04/03/17 09:55 Elavil - PO 10 mg DAILY [facility] Administration Amlodipine Besylate 5 mg 03/31/17 10:00 04/03/17 09:55 Norvasc - PO 5 mg DAILY D[facility]US Administration Docusate Sodium 300 mg 04/02/17 22:00 04/02/17 23:11 Colace - PO 300 mg HS DARIUS Administration Heparin Sodium (Porcine) 5,000 unit 04/02/17 22:00 04/03/17 09:55 Heparin - SQ 5,000 unit BID DARIUS Administration Lisinopril 10 mg 04/02/17 11:30 04/03/17 09:55 Prinivil PO 10 mg DAILY D[facility]US Administration Metoprolol Tartrate 50 mg 03/30/17 10:00 04/03/17 09:55 Lopressor - PO 50 mg BID DARIUS Administration Tramadol HCl 50 mg 04/02/17 13:00 04/03/17 06:09 Ultram - PO 50 mg Q6H DARIUS Administration Impression 1. Dehydration 2. HTN 3. CVA 4. AAA and descending aorta aneurysm 5. diarrhea 6.pelvic right kidney. Normal left kidney with nephrolithiasis 7.chronic back pain from compression fracture 8. pancreatic calcifications Plan hold lisinopril given rise in creatinine can probably give higher dose of beta sujit since she has a pacemaker bladder scan MV
--- NOTE | 2017-04-03 11:11 | PN ---
Progress Note, Physician History of Present Illness: No Events or complaints No chest pain or dyspena Tele: None - Current Medication List Current Medications: Active Medications Acetaminophen (Tylenol -) 650 mg PO Q4H PRN PRN Reason: FEVER OR PAIN Last Admin: 04/02/17 06:21 Dose: 650 mg Acetaminophen (Tylenol -) 650 mg PO Q6H [facility] Last Admin: 04/03/17 06:10 Dose: 650 mg Alprazolam (Xanax -) 0.25 mg PO TID PRN PRN Reason: ANXIETY Last Admin: 04/02/17 13:46 Dose: 0.25 mg Amitriptyline HCl (Elavil -) 10 mg PO DAILY [facility] Last Admin: 04/03/17 09:55 Dose: 10 mg Amlodipine Besylate (Norvasc -) 5 mg PO DAILY [facility] Last Admin: 04/03/17 09:55 Dose: 5 mg Docusate Sodium (Colace -) 300 mg PO HS [facility] Last Admin: 04/02/17 23:11 Dose: 300 mg Heparin Sodium (Porcine) (Heparin -) 5,000 unit SQ BID [facility] Last Admin: 04/03/17 09:55 Dose: 5,000 unit Lisinopril (Prinivil) 10 mg PO DAILY [facility] Last Admin: 04/03/17 09:55 Dose: 10 mg Metoprolol Tartrate (Lopressor -) 50 mg PO BID [facility] Last Admin: 04/03/17 09:55 Dose: 50 mg Tramadol HCl (Ultram -) 50 mg PO Q6H [facility] Last Admin: 04/03/17 06:09 Dose: 50 mg - Objective Vital Signs: Vital Signs Temperature 98.2 F 04/03/17 08:10 Pulse Rate 62 04/03/17 08:10 Respiratory Rate 14 04/03/17 08:10 Blood Pressure 118/64 04/03/17 08:10 O2 Sat by Pulse Oximetry (%) 95 04/02/17 20:27 Constitutional: Yes: No Distress, Calm Eyes: Yes: WNL HENT: Yes: WNL Neck: Yes: WNL Cardiovascular: Yes: WNL, Regular Rate and Rhythm Respiratory: Yes: Regular, CTA Bilaterally Extremities: Yes: WNL Edema: No Labs: CBC, BMP 04/02/17 05:35 04/03/17 05:35 INR, PTT INR 1.00 (0.82-1.09) 03/29/17 15:30 Assessment/Plan a/p: 86 f hx copd, htn, ppm, cva, descd thoracic aortic aneurysm, here with weakness, low bp. weakness, hypotension: -likely related to vol depletion/lico combined with multiple htn meds -after ivfs lico improved -sxs now improved as well -Bp much improved on Lisinopril 10mg, there is an interval rise in sCr but would tolerate and recheck in AM. htn: -have been re-introducing home meds, bp better but still high at times. Will cont bb, norvasc, and increase lisinopril to 10 qd now. Will watch Cr and K on titrating ACEi dose ppm: -nl fcn on tele/ecg. cont routine outpt monitoring descd TAA: -found to be 6.2 cm on cta here earlier this month. She was sent to the [facility] and evaluated and deemed not a candidate for repair. Continue bp control as above, cont bb. lico: -improved after ivfs
--- NOTE | 2017-04-03 12:10 | PN ---
Progress Note (short form) - Note Progress Note: intermittent dizzyness on exertion. denies CP, SOB< fever, chills, N/V/C/D Current Medications Generic Name Dose Route Start Last Admin Trade Name Candidoq PRN Reason Stop Dose Admin Acetaminophen 650 mg 03/29/17 18:23 04/02/17 06:21 Tylenol - PO 650 mg Q4H PRN Administration FEVER OR PAIN Acetaminophen 650 mg 04/02/17 13:00 04/03/17 06:10 Tylenol - PO 650 mg Q6H DARIUS Administration Alprazolam 0.25 mg 04/02/17 13:20 04/02/17 13:46 Xanax - PO 0.25 mg TID PRN Administration ANXIETY Amitriptyline HCl 10 mg 03/30/17 10:00 04/03/17 09:55 Elavil - PO 10 mg DAILY DARIUS Administration Amlodipine Besylate 5 mg 03/31/17 10:00 04/03/17 09:55 Norvasc - PO 5 mg DAILY DARIUS Administration Docusate Sodium 300 mg 04/02/17 22:00 04/02/17 23:11 Colace - PO 300 mg HS DARIUS Administration Heparin Sodium (Porcine) 5,000 unit 04/02/17 22:00 04/03/17 09:55 Heparin - SQ 5,000 unit BID DARIUS Administration Lisinopril 10 mg 04/02/17 11:30 04/03/17 09:55 Prinivil PO 10 mg DAILY DARIUS Administration Metoprolol Tartrate 50 mg 03/30/17 10:00 04/03/17 09:55 Lopressor - PO 50 mg BID DARIUS Administration Tramadol HCl 50 mg 04/02/17 13:00 04/03/17 06:09 Ultram - PO 50 mg Q6H DARIUS Administration Last Vital Signs Temp Pulse Resp BP Pulse Ox 98.2 F 62 14 118/64 95 04/03/17 08:10 04/03/17 08:10 04/03/17 08:10 04/03/17 08:10 04/02/17 20:27 General NAD, CV S1 S2 RRR no murmur, rub, gallop Lungs CTA B/L no wheezing/rales/rhonchi Abdomen soft NT/ND Extremities no pedal edema CMP Sodium 139 mmol/L (136-145) 04/03/17 05:35 Potassium 4.6 mmol/L (3.5-5.1) 04/03/17 05:35 Chloride 106 mmol/L (98-107) 04/03/17 05:35 Carbon Dioxide 23 mmol/L (21-32) 04/03/17 05:35 Anion Gap 10 (8-16) 04/03/17 05:35 BUN 36 mg/dL (7-18) H D 04/03/17 05:35 Creatinine 1.5 mg/dL (0.55-1.02) H D 04/03/17 05:35 Creat Clearance w eGFR 42.60 (>60) 04/02/17 05:35 Calcium 8.8 mg/dL (8.5-10.1) 04/03/17 05:35 Total Bilirubin 0.5 mg/dL (0.2-1.0) D 04/02/17 05:35 AST 30 U/L (15-37) D 04/02/17 05:35 ALT 43 U/L (12-78) D 04/02/17 05:35 Alkaline Phosphatase 261 U/L (45-117) H 04/02/17 05:35 Total Protein 6.6 g/dl (6.4-8.2) 04/02/17 05:35 Albumin 3.0 g/dl (3.4-5.0) L 04/02/17 05:35 Assessment and plan: 86 year old female with a significant past medical history of C.diff, HTN, HLD, CVA, AAA, diverticulitis, IBS and pacemaker. She presented to the ED with hypotension and dehydration. 1. Hypotension- due to dehydration and possible over medication. now resolved and is hypertensive. Goal SBP <130. pt has enlarged thoracic aneurysm with high risk of rupture. will need to cont BP closely. will need to d/c lisinopril in setting of worsening GRISELDA. will increase lopressor to 50mg TID. Cardio on board. cont tele monitoring 2. GRISELDA- possible due to dehydration vs Medication induced. d/c ACEI. cont to monitor. Renal on board 3. Dizzyness- likley symptomatic hypotension as pt typically has a lot higher BP. will check orthostatics 4. Chronic back pain- due to compression fracture last year. now improved. cont tramadol and tylenol around the clock. 5. Anxiety- controlled. xanax prn 6. IBS- had 1 BM yesterday. cont stool softeners. 7. AAA- medical management for now. will need repeat imaging in [address] surgery follow up outpatient 8. DVT ppx- hep sq, SCD 9. pt was d/c on norvasc 2.5mg, lisinopril 5mg and metoprolol XL 100mg from [facility] Visit type - Emergency Visit Emergency Visit: Yes ED Registration Date: 04/01/17 Care time: The patient presented to the Emergency Department on the above date and was hospitalized for further evaluation of their emergent condition. - New Patient This patient is new to me today: No - Critical Care Critical Care patient: No - Discharge Referral Referred to [facility] Med P.C.: No
[2017-04-03] MEDS: DOCUSATE SODIUM 100 MG CAPSULE (FP) PO SCH (21:52)
[2017-04-03] MEDS ORDERED: CARVEDILOL 6.25 MG TABLET (FP) PO SCH (22:00)
[2017-04-04] MEDS: ACETAMINOPHEN 325 MG TABLET (FP) PO SCH ×4 (00:31→19:06)
[2017-04-04] MEDS: traMADol HCL 50 MG TABLET PO SCH ×4 (00:32→19:07)
[2017-04-04] MEDS: METOPROLOL TARTRATE 50 MG TABLET (FP) PO SCH ×3 (05:50→21:31)
[2017-04-04 07:15] LABS: ANION GAP 11 (8-16); CO2 23 mmol/L (21-32); GLUCOSE,RANDOM 87 mg/dL (74-106)
[2017-04-04 07:17] LABS: CREATININE 1.2 mg/dL (0.55-1.02)
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
--- NOTE | 2017-04-04 09:23 | PN ---
Progress Note, Physician Chief Complaint: weakness/dehydration History of Present Illness: energy back to normal no presyncope no cp, sob, palpitations ex cigs - Current Medication List Current Medications: Active Medications Acetaminophen (Tylenol -) 650 mg PO Q4H PRN PRN Reason: FEVER OR PAIN Last Admin: 04/02/17 06:21 Dose: 650 mg Acetaminophen (Tylenol -) 650 mg PO Q6H [facility] Last Admin: 04/04/17 06:02 Dose: 650 mg Alprazolam (Xanax -) 0.25 mg PO TID PRN PRN Reason: ANXIETY Last Admin: 04/02/17 13:46 Dose: 0.25 mg Amitriptyline HCl (Elavil -) 10 mg PO DAILY [facility] Last Admin: 04/03/17 09:55 Dose: 10 mg Amlodipine Besylate (Norvasc -) 5 mg PO DAILY [facility] Last Admin: 04/03/17 09:55 Dose: 5 mg Docusate Sodium (Colace -) 300 mg PO HS [facility] Last Admin: 04/03/17 21:52 Dose: 300 mg Heparin Sodium (Porcine) (Heparin -) 5,000 unit SQ BID [facility] Last Admin: 04/03/17 21:52 Dose: Not Given Metoprolol Tartrate (Lopressor -) 50 mg PO TID [facility] Last Admin: 04/04/17 05:50 Dose: 50 mg Tramadol HCl (Ultram -) 50 mg PO Q6H [facility] Last Admin: 04/04/17 06:02 Dose: 50 mg - Objective Vital Signs: Vital Signs Temperature 98.4 F 04/04/17 06:00 Pulse Rate 61 04/04/17 06:00 Respiratory Rate 20 04/04/17 06:00 Blood Pressure 161/77 04/04/17 06:00 O2 Sat by Pulse Oximetry (%) 93 L 04/03/17 20:25 Constitutional: Yes: No Distress, Calm Eyes: No: Sclera Icterus HENT: No: Nasal Congestion Cardiovascular: Yes: Regular Rate and Rhythm, S1, S2, Other (PMI non diplaced). No: Gallop, Murmur Respiratory: Yes: Regular, CTA Bilaterally. No: Accessory Muscle Use, Rales, Wheezes Gastrointestinal: Yes: Normal Bowel Sounds, Soft. No: Tenderness Musculoskeletal: Yes: Other (No kyphosis) Extremities: No: Cold Edema: No Integumentary: No: Jaundice Neurological: Yes: Alert, Oriented (x3) Psychiatric: No: Agitated Labs: CBC, BMP 04/02/17 05:35 04/04/17 06:25 INR, PTT INR 1.00 (0.82-1.09) 03/29/17 15:30 Assessment/Plan ecg 03/29/17: av paced cxr: clear lungs echo 09/2016: tds; nl lv/rv, mild-mod tr, nl rvsp mibi 09/2016: no ischemia a/p: 86 f hx copd, htn, ppm, cva, descd thoracic aortic aneurysm, here with weakness, low bp. weakness, hypotension: -likely related to vol depletion/griselda combined with multiple htn meds -after ivfs griselda improved -sxs now improved as well -now bp high again so will cont to re-introduce htn meds. GRISELDA on CKD: -has h/o fluctuating creatinines (to mid 1 range) as outpt -was 1.5 initially here, likely due to hypovolemia +/- on combo JOHANNA and ARB at home (due to confusion when meds changed during [facility] admit) -renal fxn improved, transiently bumped to 1.5 again after lisinopril 10mg x 1 dose--med d/c'd by renal -of note, her recent outpt CTA reviewed by me last week. 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 -cont amlodipine 5mg -cont high dose metopr (50 tid)--watch for wheezing given extensive copd findings on prior CT chest -bp running 110s-160s currently -tight bp control going to be very challening in this pt, given wide fluctuations in bp's at home in past and labile creatinine -will try clonidine patch 0.1mg (protected from sandra's by PM) -consider low dose hydralazine later though suspect she may have symptomatic bp drops with potent vasodilators ppm: -nl fcn on tele/ecg. cont routine outpt monitoring descending TAA: -found to be 6.2 cm on cta here earlier this month, incidental with no attributable sx's then -transferred to dr almonte thoracic surgery who felt she was prohibitive risk for intervention. -i d/w'd him--EVAR was considered but felt to be high risk due to narrow, very calcified iliac arteries. offered to pt but she deferred for now, wishing to f/ u with him in 2 mo and rpt imaging at that time -continue bp control as above, incl bb. OK FOR D/C HOME FROM [facility]I WILL MONITOR BP OUTPT AND TITRATE MEDS ACCORDINGLY
[2017-04-04] MEDS ORDERED: cloNIDine-TTS 0.1 MG/24 HRS PATCH.TDWK TD SCH (10:00)
[2017-04-04] MEDS ORDERED: PT OWN MED DRAWER 7, Y5N ONE (10:00)
[2017-04-04] MEDS: AMITRIPTYLINE HCL 10 MG TABLET (FP) PO SCH (10:02)
[2017-04-04] MEDS: HEPARIN NA (PORCINE) 5,000 UNITS/ML 1ML VIAL SQ SCH ×3 (10:02→21:31)
[2017-04-04] MEDS: amLODIPine BESYLATE 5 MG TABLET (FP) PO SCH (10:05)
--- NOTE | 2017-04-04 11:20 | PN ---
Progress Note, Physician History of Present Illness: Pt seen and examined at bedside. She is awake and alert. - Current Medication List Current Medications: Active Medications Acetaminophen (Tylenol -) 650 mg PO Q4H PRN PRN Reason: FEVER OR PAIN Last Admin: 04/02/17 06:21 Dose: 650 mg Acetaminophen (Tylenol -) 650 mg PO Q6H REPLACED BY [facility] Last Admin: 04/04/17 06:02 Dose: 650 mg Alprazolam (Xanax -) 0.25 mg PO TID PRN PRN Reason: ANXIETY Last Admin: 04/02/17 13:46 Dose: 0.25 mg Amitriptyline HCl (Elavil -) 10 mg PO DAILY [facility]PL[facility] BY [facility] Last Admin: 04/04/17 10:02 Dose: 10 mg Amlodipine Besylate (Norvasc -) 5 mg PO DAILY [facility]PL[facility] BY [facility] Last Admin: 04/04/17 10:05 Dose: 5 mg Clonidine HCl (Catapres Tts Patch -) 0.1 mg TD Q7D@1000 REPLACED BY [facility] Docusate Sodium (Colace -) 300 mg PO HS REPLACED BY [facility] Last Admin: 04/03/17 21:52 Dose: 300 mg Heparin Sodium (Porcine) (Heparin -) 5,000 unit SQ BID REPLACED BY [facility] Last Admin: 04/04/17 10:12 Dose: Not Given Metoprolol Tartrate (Lopressor -) 50 mg PO TID REPLACED BY [facility] Last Admin: 04/04/17 05:50 Dose: 50 mg Tramadol HCl (Ultram -) 50 mg PO Q6H REPLACED BY [facility] Last Admin: 04/04/17 06:02 Dose: 50 mg - Objective Vital Signs: Vital Signs Temperature 98.4 F 04/04/17 06:00 Pulse Rate 61 04/04/17 06:00 Respiratory Rate 20 04/04/17 06:00 Blood Pressure 161/77 04/04/17 06:00 O2 Sat by Pulse Oximetry (%) 93 L 04/03/17 20:25 Constitutional: Yes: Calm Eyes: Yes: Conjunctiva Clear HENT: Yes: Atraumatic Neck: Yes: Supple Cardiovascular: Yes: S1, S2 Respiratory: Yes: CTA Bilaterally Gastrointestinal: Yes: Soft Genitourinary: Yes: WNL Edema: No Neurological: Yes: Oriented Psychiatric: Yes: Oriented Labs: CBC, BMP 04/02/17 05:35 04/04/17 06:25 INR, PTT INR 1.00 (0.82-1.09) 03/29/17 15:30 Problem List - Problems (1) Acute renal insufficiency Code(s): N28.9 - DISORDER OF KIDNEY AND URETER, UNSPECIFIED (2) COPD (chronic obstructive pulmonary disease) Code(s): J44.9 - CHRONIC OBSTRUCTIVE PULMONARY DISEASE, UNSPECIFIED (3) CVA (cerebral vascular accident) Code(s): I63.9 - CEREBRAL INFARCTION, UNSPECIFIED (4) Dehydration Code(s): E86.0 - DEHYDRATION Assessment/Plan Current Medications Generic Name Dose Route Start Last Admin Trade Name Freq PRN Reason Stop Dose Admin Acetaminophen 650 mg 03/29/17 18:23 04/02/17 06:21 Tylenol - PO 650 mg Q4H PRN Administration FEVER OR PAIN Acetaminophen 650 mg 04/02/17 13:00 04/04/17 06:02 Tylenol - PO 650 mg Q6H DARIUS Administration Alprazolam 0.25 mg 04/02/17 13:20 04/02/17 13:46 Xanax - PO 0.25 mg TID PRN Administration ANXIETY Amitriptyline HCl 10 mg 03/30/17 10:00 04/04/17 10:02 Elavil - PO 10 mg DAILY DARIUS Administration Amlodipine Besylate 5 mg 03/31/17 10:00 04/04/17 10:05 Norvasc - PO 5 mg DAILY DARIUS Administration Clonidine HCl 0.1 mg 04/04/17 10:00 Catapres Tts Patch - TD Q7D@1000 DARIUS Docusate Sodium 300 mg 04/02/17 22:00 04/03/17 21:52 Colace - PO 300 mg HS DARIUS Administration Heparin Sodium (Porcine) 5,000 unit 04/02/17 22:00 04/04/17 10:12 Heparin - SQ Not Given BID DARIUS Metoprolol Tartrate 50 mg 04/03/17 14:00 04/04/17 05:50 Lopressor - PO 50 mg TID DARIUS Administration Tramadol HCl 50 mg 04/02/17 13:00 04/04/17 06:02 Ultram - PO 50 mg Q6H DARIUS Administration Impression 1. Dehydration 2. HTN 3. CVA 4. AAA 5. diarrhea Plan - charleen held secondary to elevated creatinine - cardiology input appreciated - claims account specialist is improving - pt can see me in office - cont to monitor bp - GI symptoms have improved Dr Carson
[2017-04-04] MEDS ORDERED: SODIUM CHLORIDE 500 ML IV STA (12:49)
--- NOTE | 2017-04-04 12:51 | PN ---
Teaching Attending Note Name of Resident: Jaimee Dick ATTENDING PHYSICIAN STATEMENT I saw and evaluated the patient. I reviewed the resident's note and discussed the case with the resident. I agree with the resident's findings and plan as documented. SUBJECTIVE:states she feels less dizzy than yesterday. very anxious about going on a patch. denies Cp, SOB, fever, chills, N/V/C/D OBJECTIVE: Last Vital Signs Temp Pulse Resp BP Pulse Ox 98.4 F 61 20 161/77 93 L 04/04/17 06:00 04/04/17 06:00 04/04/17 06:00 04/04/17 06:00 04/03/17 20:25 General NAD, mildly anxious CV s1 S2 RRR no murmur/rub/gallop ASSESSMENT AND PLAN: 86 year old female with a significant past medical history of C.diff, HTN, HLD, CVA, AAA, diverticulitis, IBS and pacemaker. She presented to the ED with hypotension and dehydration. 1. Hypotension- due to dehydration and possible over medication. now resolved and is hypertensive. Goal SBP <130. pt has enlarged thoracic aneurysm with high risk of rupture. will need to cont BP closely. overall improved but not at goal. started on clonidine patch this AM. will monitor BP. Cardio on board. cont tele monitoring 2. GRISELDA- possible due to dehydration vs Medication induced. slight improvement. cont to monitor. Renal on board. hold ACEI 3. Dizzyness-+orthostatics. likely dehydration. will give NS 500cc 4. Chronic back pain- due to compression fracture last year. now improved. cont tramadol and tylenol around the clock. 5. Anxiety- controlled. xanax prn 6. IBS- had 1 BM. cont stool softeners. 7. AAA- medical management for now. will need repeat imaging in [address] surgery follow up outpatient 8. DVT ppx- hep sq, SCD 9. option to go home today with new BP managmeent. pt expressed much anxiety about leaving and monitoring BP. VIDEO CONFERENCE SPECIALIST can not be there today. agrees with d/c home tomorrow after 24H surveillance of BP on new management. at bedside and agrees
[2017-04-04] MEDS: DOCUSATE SODIUM 100 MG CAPSULE (FP) PO SCH (21:31)
[2017-04-05] MEDS: ACETAMINOPHEN 325 MG TABLET (FP) PO SCH ×4 (01:07→18:14)
[2017-04-05] MEDS: traMADol HCL 50 MG TABLET PO SCH ×4 (01:07→18:15)
[2017-04-05] MEDS: METOPROLOL TARTRATE 50 MG TABLET (FP) PO SCH (06:38)
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
[2017-04-05 08:06] LABS: ANION GAP 6 (8-16); CALCIUM 9.2 mg/dL (8.5-10.1); CO2 27 mmol/L (21-32); CREATININE 1.2 mg/dL (0.55-1.02); GLUCOSE,RANDOM 79 mg/dL (74-106)
[2017-04-05] MEDS ORDERED: PT OWN MED DRAWER 7, Y5N ONE (10:00)
[2017-04-05] MEDS: amLODIPine BESYLATE 5 MG TABLET (FP) PO SCH (10:01)
[2017-04-05] MEDS: HEPARIN NA (PORCINE) 5,000 UNITS/ML 1ML VIAL SQ SCH ×2 (10:01→21:29)
[2017-04-05] MEDS: AMITRIPTYLINE HCL 10 MG TABLET (FP) PO SCH (10:01)
--- NOTE | 2017-04-05 12:05 | PN ---
Progress Note (short form) - Note Progress Note: Chief Complaint: weakness/dehydration History of Present Illness: no presyncope no cp, sob, palpitations started on clonidine patch yesterday, but bp increased. also s/p IVF last night , ? etiology. patient also states she is anxious to go home. Pain currently controlled. ex cigs Current Medications Acetaminophen (Tylenol -) 650 mg PO Q4H PRN PRN Reason: FEVER OR PAIN Last Admin: 04/02/17 06:21 Dose: 650 mg Acetaminophen (Tylenol -) 650 mg PO Q6H [facility] Last Admin: 04/05/17 06:38 Dose: 650 mg Alprazolam (Xanax -) 0.25 mg PO TID PRN PRN Reason: ANXIETY Last Admin: 04/02/17 13:46 Dose: 0.25 mg Amitriptyline HCl (Elavil -) 10 mg PO DAILY [facility] Last Admin: 04/05/17 10:01 Dose: 10 mg Amlodipine Besylate (Norvasc -) 5 mg PO DAILY [facility] Last Admin: 04/05/17 10:01 Dose: 5 mg Clonidine HCl (Catapres Tts Patch -) 0.1 mg TD Q7D@1000 [facility] Last Admin: 04/04/17 12:29 Dose: 0.1 mg Docusate Sodium (Colace -) 300 mg PO HS [facility] Last Admin: 04/04/17 21:31 Dose: 300 mg Heparin Sodium (Porcine) (Heparin -) 5,000 unit SQ BID [facility] Last Admin: 04/05/17 10:01 Dose: Not Given Metoprolol Tartrate (Lopressor -) 50 mg PO TID [facility] Last Admin: 04/05/17 06:38 Dose: 50 mg Tramadol HCl (Ultram -) 50 mg PO Q6H [facility] Last Admin: 04/05/17 06:38 Dose: 50 mg Vital Signs - 24 hr 04/04/17 04/04/17 04/04/17 14:00 15:18 17:00 Temperature 97.5 F L 98.0 F Pulse Rate 60 61 60 Respiratory 18 18 Rate Blood Pressure 138/59 164/58 156/74 O2 Sat by Pulse Oximetry (%) 04/04/17 04/05/17 04/05/17 21:00 05:00 09:00 Temperature 97.8 F 98.2 F 97.5 F L Pulse Rate 60 60 60 Respiratory 18 18 18 Rate Blood Pressure 162/75 151/84 174/74 O2 Sat by Pulse 95 95 Oximetry (%) Intake & Output 04/03/17 04/04/17 04/05/17 04/06/17 07:59 07:59 07:59 07:59 Intake Total [phone] Balance [phone] Constitutional: Yes: No Distress, Calm Eyes: No: Sclera Icterus HENT: No: Nasal Congestion Cardiovascular: Yes: Regular Rate and Rhythm, S1, S2, Other (PMI non diplaced). No: Gallop, Murmur Respiratory: Yes: Regular, CTA Bilaterally. No: Accessory Muscle Use, Rales, Wheezes Gastrointestinal: Yes: Normal Bowel Sounds, Soft. No: Tenderness Musculoskeletal: Yes: Other (No kyphosis) Extremities: No: Cold Edema: No Integumentary: No: Jaundice Neurological: Yes: Alert, Oriented (x3) Psychiatric: No: Agitated Labs: BMP 04/05/17 05:35 Assessment/Plan ecg 03/29/17: av paced cxr: clear lungs echo 09/2016: tds; nl lv/rv, mild-mod tr, nl rvsp mibi 09/2016: no ischemia a/p: 86 f hx copd, htn, ppm, cva, descd thoracic aortic aneurysm, here with weakness, low bp. weakness, hypotension: resolved --> bp now high on anti-hypertensives, see htn plan below. -likely related to vol depletion/griselda combined with multiple htn meds -after ivfs griselda and sx's improved htn: -have been re-introducing home meds, bp better but still high at times. -cont amlodipine 5mg, cr riske with aceI. - 04/05: tried clonidine patch 04/04 but bp increased further --> will try switching from lopressor to coreg for increased bp effect (no wheezing on lopressor, but monitor for wheezing on high dose coreg - noted to have extensive copd findings on prior CT chest) -tight bp control going to be very challening in this pt, per dr. molina --> wide fluctuations in bp's at home in past and labile creatinine. If bp still elevated tomorrow can try low dose hydralazine later though suspect she may have symptomatic bp drops with potent vasodilators GRISELDA on CKD: -has h/o fluctuating creatinines (to mid 1 range) as outpt -was 1.5 initially here, likely due to hypovolemia +/- on combo JOHANNA and ARB at home (due to confusion when meds changed during [facility] admit) -renal fxn improved, transiently bumped to 1.5 again after lisinopril 10mg x 1 dose--med d/c'd by renal -of note, her recent outpt CTA reviewed by me last week. 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 cont routine outpt monitoring descending TAA: -found to be 6.2 cm on cta here earlier this month, incidental with no attributable sx's then -transferred to dr almonte thoracic surgery who felt she was prohibitive risk for intervention. -i d/w'd him--EVAR was considered but felt to be high risk due to narrow, very calcified iliac arteries. offered to pt but she deferred for now, wishing to f/ u with him in 2 mo and rpt imaging at that time -continue bp control as above, incl bb. plan for d/c tomorrow if bp improves.
--- NOTE | 2017-04-05 12:58 | PN ---
Teaching Attending Note Name of Resident: Jaimee Dick ATTENDING PHYSICIAN STATEMENT I saw and evaluated the patient. I reviewed the resident's note and discussed the case with the resident. I agree with the resident's findings and plan as documented. SUBJECTIVE:anxious about leaving. denies CP, SOB, fever, chills, dizzyness, N/V/ C/D OBJECTIVE: Last Vital Signs Temp Pulse Resp BP Pulse Ox 97.5 F L 60 18 174/74 95 04/05/17 09:00 04/05/17 09:00 04/05/17 09:00 04/05/17 09:00 04/05/17 09:00 General NAD, mildly anxious CV s1 S2 RRR no murmur/rub/gallop Lungs Crackles L base no wheezing ASSESSMENT AND PLAN: 86 year old female with a significant past medical history of C.diff, HTN, HLD, CVA, AAA, diverticulitis, IBS and pacemaker. She presented to the ED with hypotension and dehydration. 1. Hypotension- due to dehydration and possible over medication. now resolved and is hypertensive. Goal SBP <130. pt has enlarged thoracic aneurysm with high risk of rupture. will need to cont BP closely. overall improved but not at goal. started on clonidine patch yesterday which made her very anxious. now BP higher than yesterday. ranging SBP 150-160. will d/c patch. switch metoprolol to coreg 25mg BID. consider initiation of hydralazine if remains above goal. Cardio on board. cont tele monitoring 2. GRISELDA- possible due to dehydration vs Medication induced. slight improvement. cont to monitor. Renal on board. hold ACEI 3. Dizzyness-now resolved. received IVF yesterday. will d/c as minor crackles appreciated on exam 4. Chronic back pain- due to compression fracture last year. now improved. cont tramadol and tylenol around the clock. 5. Anxiety- mildly anxious, likely contributing to elevated bp. cont xanax prn 6. IBS- had 1 BM. cont stool softeners. 7. AAA- medical management for now. will need repeat imaging in [address] surgery follow up outpatient 8. DVT ppx- hep sq, SCD 9. expressed anxiety about having to stay. reassured pt that she will be d/c when BP is better controlled. that initiating new regimen should stay 24H to monitor response. pt agreed to stay another day. case d/w at bedside. verbalized understanding and agreement
--- NOTE | 2017-04-05 17:16 | PN ---
Progress Note, Physician History of Present Illness: Pt seen and examined at bedside. She is awake and alert. She denies chest pain. - Current Medication List Current Medications: Active Medications Acetaminophen (Tylenol -) 650 mg PO Q4H PRN PRN Reason: FEVER OR PAIN Last Admin: 04/02/17 06:21 Dose: 650 mg Acetaminophen (Tylenol -) 650 mg PO Q6H [facility] Last Admin: 04/05/17 13:05 Dose: 650 mg Amitriptyline HCl (Elavil -) 10 mg PO DAILY [facility] Last Admin: 04/05/17 10:01 Dose: 10 mg Amlodipine Besylate (Norvasc -) 5 mg PO DAILY [facility] Last Admin: 04/05/17 10:01 Dose: 5 mg Carvedilol (Coreg -) 25 mg PO BID [facility] Docusate Sodium (Colace -) 300 mg PO HS [facility] Last Admin: 04/04/17 21:31 Dose: 300 mg Heparin Sodium (Porcine) (Heparin -) 5,000 unit SQ BID [facility] Last Admin: 04/05/17 10:01 Dose: Not Given Tramadol HCl (Ultram -) 50 mg PO Q6H [facility] Last Admin: 04/05/17 13:06 Dose: 50 mg - Objective Vital Signs: Vital Signs Temperature 97.7 F 04/05/17 14:00 Pulse Rate 60 04/05/17 14:00 Respiratory Rate 18 04/05/17 09:00 Blood Pressure 138/49 04/05/17 14:00 O2 Sat by Pulse Oximetry (%) 95 04/05/17 09:00 Constitutional: Yes: Calm Eyes: Yes: Conjunctiva Clear HENT: Yes: Atraumatic Neck: Yes: Supple Cardiovascular: Yes: S1, S2 Respiratory: Yes: CTA Bilaterally Gastrointestinal: Yes: Soft Musculoskeletal: Yes: WNL Edema: No Neurological: Yes: Oriented Psychiatric: Yes: Oriented Labs: CBC, BMP 04/02/17 05:35 04/05/17 05:35 INR, PTT INR 1.00 (0.82-1.09) 03/29/17 15:30 Problem List - Problems (1) Acute renal insufficiency Code(s): N28.9 - DISORDER OF KIDNEY AND URETER, UNSPECIFIED (2) COPD (chronic obstructive pulmonary disease) Code(s): J44.9 - CHRONIC OBSTRUCTIVE PULMONARY DISEASE, UNSPECIFIED (3) CVA (cerebral vascular accident) Code(s): I63.9 - CEREBRAL INFARCTION, UNSPECIFIED (4) Dehydration Code(s): E86.0 - DEHYDRATION Assessment/Plan Current Medications Generic Name Dose Route Start Last Admin Trade Name Freq PRN Reason Stop Dose Admin Acetaminophen 650 mg 03/29/17 18:23 04/02/17 06:21 Tylenol - PO 650 mg Q4H PRN Administration FEVER OR PAIN Acetaminophen 650 mg 04/02/17 13:00 04/05/17 13:05 Tylenol - PO 650 mg Q6H [facility]US Administration Amitriptyline HCl 10 mg 03/30/17 10:00 04/05/17 10:01 Elavil - PO 10 mg DAILY [facility] Administration Amlodipine Besylate 5 mg 03/31/17 10:00 04/05/17 10:01 Norvasc - PO 5 mg DAILY [facility] Administration Carvedilol 25 mg 04/05/17 22:00 Coreg - PO BID [facility]US Docusate Sodium 300 mg 04/02/17 22:00 04/04/17 21:31 Colace - PO 300 mg HS [facility]US Administration Heparin Sodium (Porcine) 5,000 unit 04/02/17 22:00 04/05/17 10:01 Heparin - SQ Not Given BID DARIUS Tramadol HCl 50 mg 04/02/17 13:00 04/05/17 13:06 Ultram - PO 50 mg Q6H [facility] Administration Impression 1. Dehydration 2. HTN 3. CVA 4. AAA 5. diarrhea Plan - renal function stabilizing - cardio input appreciated, bp meds adjusted - monitor blood pressure - repeat labs in am - GI symptoms have improved Dr Carson
[2017-04-05] MEDS: DOCUSATE SODIUM 100 MG CAPSULE (FP) PO SCH (21:27)
[2017-04-05] MEDS ORDERED: CARVEDILOL 12.5 MG TABLET (FP) PO SCH (22:00)
[2017-04-05] MEDS ORDERED: CARVEDILOL 25 MG TABLET (FP) PO SCH (22:00)
[2017-04-06] MEDS: ACETAMINOPHEN 325 MG TABLET (FP) PO SCH ×4 (02:17→18:56)
[2017-04-06] MEDS: traMADol HCL 50 MG TABLET PO SCH ×4 (02:18→18:57)
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
[2017-04-06] MEDS ORDERED: CARVEDILOL 25 MG TABLET (FP) PO ONE (08:41)
[2017-04-06 08:51] LABS: ANION GAP 6 (8-16); CALCIUM 9.1 mg/dL (8.5-10.1); CO2 27 mmol/L (21-32); CREATININE 1.1 mg/dL (0.55-1.02); GLUCOSE,RANDOM 90 mg/dL (74-106)
[2017-04-06] MEDS ORDERED: PT OWN MED DRAWER 7, Y5N ONE (10:51)
[2017-04-06] MEDS: amLODIPine BESYLATE 5 MG TABLET (FP) PO SCH (10:54)
[2017-04-06] MEDS: CARVEDILOL 12.5 MG TABLET (FP) PO SCH ×2 (10:54→21:17)
[2017-04-06] MEDS: AMITRIPTYLINE HCL 10 MG TABLET (FP) PO SCH (10:54)
[2017-04-06] MEDS: HEPARIN NA (PORCINE) 5,000 UNITS/ML 1ML VIAL SQ SCH ×4 (10:54→21:18)
--- NOTE | 2017-04-06 11:10 | PN ---
Progress Note (short form) - Note Progress Note: s: no cp sob palps dizzy o: Vital Signs Period Temp Pulse Resp BP Sys/Grover Pulse Ox Last 24 Hr 97.4 F-98.0 F 60-61 18-18 138-156/49-93 95 nad no jvd rrr s1s2 no mrg cta bl nl eff aaox3 no le e/c/c abd nt nd pos bs no jaundice diaphoresis Current Medications Generic Name Dose Route Start Last Admin Trade Name Freq PRN Reason Stop Dose Admin Acetaminophen 650 mg 03/29/17 18:23 04/02/17 06:21 Tylenol - PO 650 mg Q4H PRN Administration FEVER OR PAIN Acetaminophen 650 mg 04/02/17 13:00 04/06/17 07:02 Tylenol - PO 650 mg Q6H [facility]US Administration Amitriptyline HCl 10 mg 03/30/17 10:00 04/06/17 10:54 Elavil - PO 10 mg DAILY [facility] Administration Amlodipine Besylate 5 mg 03/31/17 10:00 04/06/17 10:54 Norvasc - PO 5 mg DAILY [facility] Administration Carvedilol 25 mg 04/06/17 08:41 04/06/17 10:54 Coreg - PO 25 mg BID D[facility]IUS Administration Docusate Sodium 300 mg 04/02/17 22:00 04/05/17 21:27 Colace - PO 300 mg HS [facility]IUS Administration Heparin Sodium (Porcine) 5,000 unit 04/02/17 22:00 04/06/17 10:59 Heparin - SQ Not Given BID [facility]IUS Tramadol HCl 50 mg 04/02/17 13:00 04/06/17 07:02 Ultram - PO 50 mg Q6H [facility] Administration CBC, BMP 04/02/17 05:35 04/06/17 07:50 ecg 03/29/17: av paced cxr: clear lungs echo 09/2016: tds; nl lv/rv, mild-mod tr, nl rvsp mibi 09/2016: no ischemia a/p: 86 f hx copd, htn, ppm, cva, descd thoracic aortic aneurysm, here with weakness, low bp. weakness, hypotension: resolved -likely related to vol depletion/griselda combined with multiple htn meds -after ivfs griselda and sx's improved htn: - 04/05: tried clonidine patch 04/04 but bp increased further --> will try switching from lopressor to coreg for increased bp effect (no wheezing on lopressor, but monitor for wheezing on high dose coreg - noted to have extensive copd findings on prior CT chest) -tight bp control going to be very challening in this pt, per dr. molina --> wide fluctuations in bp's at home in past and labile creatinine. -04/06: bp improved on current coreg and norvasc, cont same GRISELDA on CKD: -has h/o fluctuating creatinines (to mid 1 range) as outpt -was 1.5 initially here, likely due to hypovolemia +/- on combo JOHANNA and ARB at home (due to confusion when meds changed during [facility] admit) -renal fxn improved, transiently bumped to 1.5 again after lisinopril 10mg x 1 dose--med d/c'd by renal -cont holding JOHANNA for now ppm: -nl fcn on tele/ecg. cont routine outpt monitoring descending TAA: -found to be 6.2 cm on cta here earlier this month, incidental with no attributable sx's then -transferred to dr almonte thoracic surgery who felt she was prohibitive risk for intervention. -EVAR was considered but felt to be high risk due to narrow, very calcified iliac arteries. offered to pt but she deferred for now, wishing to f/u with him in 2 mo and rpt imaging at that time -continue bp control as above, incl bb. cardiac hart stable for dc
--- NOTE | 2017-04-06 11:38 | PN ---
Progress Note, Physician History of Present Illness: Pt seen and examined at bedside. She is awake and alert. She is eager to go home and seems anxious today. - Current Medication List Current Medications: Active Medications Acetaminophen (Tylenol -) 650 mg PO Q4H PRN PRN Reason: FEVER OR PAIN Last Admin: 04/02/17 06:21 Dose: 650 mg Acetaminophen (Tylenol -) 650 mg PO Q6H [facility] Last Admin: 04/06/17 07:02 Dose: 650 mg Amitriptyline HCl (Elavil -) 10 mg PO DAILY [facility] Last Admin: 04/06/17 10:54 Dose: 10 mg Amlodipine Besylate (Norvasc -) 5 mg PO DAILY [facility] Last Admin: 04/06/17 10:54 Dose: 5 mg Carvedilol (Coreg -) 25 mg PO BID [facility] Last Admin: 04/06/17 10:54 Dose: 25 mg Docusate Sodium (Colace -) 300 mg PO HS [facility] Last Admin: 04/05/17 21:27 Dose: 300 mg Heparin Sodium (Porcine) (Heparin -) 5,000 unit SQ BID [facility] Last Admin: 04/06/17 10:59 Dose: Not Given Tramadol HCl (Ultram -) 50 mg PO Q6H [facility] Last Admin: 04/06/17 07:02 Dose: 50 mg - Objective Vital Signs: Vital Signs Temperature 97.7 F 04/06/17 06:00 Pulse Rate 61 04/06/17 06:00 Respiratory Rate 18 04/06/17 06:00 Blood Pressure 146/76 04/06/17 06:00 O2 Sat by Pulse Oximetry (%) 95 04/05/17 21:00 Constitutional: Yes: Anxious Eyes: Yes: Conjunctiva Clear HENT: Yes: Atraumatic Cardiovascular: Yes: S1, S2 Respiratory: Yes: CTA Bilaterally Gastrointestinal: Yes: Soft Genitourinary: Yes: WNL Musculoskeletal: Yes: WNL Extremities: Yes: WNL Edema: No Neurological: Yes: Oriented Psychiatric: Yes: Oriented Labs: CBC, BMP 04/02/17 05:35 04/06/17 07:50 INR, PTT INR 1.00 (0.82-1.09) 03/29/17 15:30 Problem List - Problems (1) Acute renal insufficiency Code(s): N28.9 - DISORDER OF KIDNEY AND URETER, UNSPECIFIED (2) COPD (chronic obstructive pulmonary disease) Code(s): J44.9 - CHRONIC OBSTRUCTIVE PULMONARY DISEASE, UNSPECIFIED (3) CVA (cerebral vascular accident) Code(s): I63.9 - CEREBRAL INFARCTION, UNSPECIFIED (4) Dehydration Code(s): E86.0 - DEHYDRATION Assessment/Plan Current Medications Generic Name Dose Route Start Last Admin Trade Name Freq PRN Reason Stop Dose Admin Acetaminophen 650 mg 03/29/17 18:23 04/02/17 06:21 Tylenol - PO 650 mg Q4H PRN Administration FEVER OR PAIN Acetaminophen 650 mg 04/02/17 13:00 04/06/17 07:02 Tylenol - PO 650 mg Q6H [facility]US Administration Amitriptyline HCl 10 mg 03/30/17 10:00 04/06/17 10:54 Elavil - PO 10 mg DAILY [facility] Administration Amlodipine Besylate 5 mg 03/31/17 10:00 04/06/17 10:54 Norvasc - PO 5 mg DAILY [facility] Administration Carvedilol 25 mg 04/06/17 08:41 04/06/17 10:54 Coreg - PO 25 mg BID [facility] Administration Docusate Sodium 300 mg 04/02/17 22:00 04/05/17 21:27 Colace - PO 300 mg HS [facility]US Administration Heparin Sodium (Porcine) 5,000 unit 04/02/17 22:00 04/06/17 10:59 Heparin - SQ Not Given BID [facility]US Tramadol HCl 50 mg 04/02/17 13:00 04/06/17 07:02 Ultram - PO 50 mg Q6H D[facility]IUS Administration Impression 1. Dehydration 2. HTN 3. CVA 4. AAA 5. diarrhea 6. CKD Plan - cont coreg - blood pressure improving - can see pt in office next week on Tuesday - can increase dose of norvasc if needed - charleen on hold for now - discussed with medical team - will follow Dr Carson
--- NOTE | 2017-04-06 17:55 | PN ---
Teaching Attending Note Name of Resident: Jaimee Dick ATTENDING PHYSICIAN STATEMENT I saw and evaluated the patient. I reviewed the resident's note and discussed the case with the resident. I agree with the resident's findings and plan as documented. SUBJECTIVE: Patient seen and examined. no complaints. Overall feels better OBJECTIVE: Vital Signs Period Temp Pulse Resp BP Sys/Grover Pulse Ox Last 24 Hr 97.4 F-97.7 F 60-61 16-18 125-158/64-93 95-96 CVS -S1S2 regular Chest - CTAB, no rales or wheezing Abdomen - soft, NT, ND extremities - no edema Active Medications Acetaminophen (Tylenol -) 650 mg PO Q4H PRN PRN Reason: FEVER OR PAIN Last Admin: 04/02/17 06:21 Dose: 650 mg Acetaminophen (Tylenol -) 650 mg PO Q6H [facility] Last Admin: 04/06/17 13:37 Dose: 650 mg Amitriptyline HCl (Elavil -) 10 mg PO DAILY [facility] Last Admin: 04/06/17 10:54 Dose: 10 mg Amlodipine Besylate (Norvasc -) 5 mg PO DAILY [facility] Last Admin: 04/06/17 10:54 Dose: 5 mg Carvedilol (Coreg -) 25 mg PO BID [facility] Last Admin: 04/06/17 10:54 Dose: 25 mg Docusate Sodium (Colace -) 300 mg PO HS [facility] Last Admin: 04/05/17 21:27 Dose: 300 mg Heparin Sodium (Porcine) (Heparin -) 5,000 unit SQ BID [facility] Last Admin: 04/06/17 10:59 Dose: Not Given Tramadol HCl (Ultram -) 50 mg PO Q6H [facility] Last Admin: 04/06/17 13:38 Dose: 50 mg Laboratory Results - last 24 hr 04/06/17 07:50 Sodium 138 Potassium 4.8 Chloride 105 Carbon Dioxide 27 Anion Gap 6 L BUN 27 H Creatinine 1.1 H Random Glucose 90 Calcium 9.1 ASSESSMENT AND PLAN: 86 yof with 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 -HTN - goal SBP < 130, BP has improved. Increased coreg to 25 mg 2xD. IF persistently elevated will increase amlodipine to 10 mg daily before considering hydralazine. Discuss with patient, will need outpatient BP monitoring and close follow up. -GRISELDA resolved, likely ACEi induced. -CHronic low back pain - controlled on tramadol/tylenol Agree with further plan as detailed by Dr. Dick. Plan for d/c in 24 hours as BP improves.
[2017-04-06] MEDS ORDERED: amLODIPine BESYLATE 5 MG TABLET (FP) PO SCH (19:11)
[2017-04-06] MEDS: DOCUSATE SODIUM 100 MG CAPSULE (FP) PO SCH (21:17)
[2017-04-07] MEDS: ACETAMINOPHEN 325 MG TABLET (FP) PO SCH ×2 (00:50→06:25)
[2017-04-07] MEDS: traMADol HCL 50 MG TABLET PO SCH ×2 (00:50→06:26)
[2017-04-07] MEDS ORDERED: ALPRAZolam 0.25 MG TABLET PO PRN (06:37)
[2017-04-07] MEDS ORDERED: amLODIPine BESYLATE 5 MG TABLET (FP) PO ONE (07:00)
[2017-04-07 08:14] VITALS: BP 129/65; PULSE 62; TEMP 97.5
[2017-04-07] MEDS ORDERED: PT OWN MED DRAWER 7, Y5N ONE (09:04)
[2017-04-07] MEDS: AMITRIPTYLINE HCL 10 MG TABLET (FP) PO SCH (09:15)
[2017-04-07] MEDS: CARVEDILOL 12.5 MG TABLET (FP) PO SCH (09:15)
[2017-04-07] MEDS: HEPARIN NA (PORCINE) 5,000 UNITS/ML 1ML VIAL SQ SCH (09:25)
--- NOTE | 2017-04-07 10:22 | PN ---
Progress Note (short form) - Note Progress Note: s: no cp sob palps dizzy o: Vital Signs Period Temp Pulse Resp BP Sys/Grover Pulse Ox Last 24 Hr 97.5 F-98.7 F 60-62 16-20 125-155/61-96 96-97 nad no jvd rrr s1s2 no mrg cta bl nl eff aaox3 no le e/c/c abd nt nd pos bs no jaundice diaphoresis Current Medications Generic Name Dose Route Start Last Admin Trade Name Freq PRN Reason Stop Dose Admin Acetaminophen 650 mg 03/29/17 18:23 04/02/17 06:21 Tylenol - PO 650 mg Q4H PRN Administration FEVER OR PAIN Acetaminophen 650 mg 04/02/17 13:00 04/07/17 06:25 Tylenol - PO 650 mg Q6H [facility]US Administration Alprazolam 0.25 mg 04/07/17 06:37 04/07/17 07:04 Xanax - PO 0.25 mg Q8H PRN Administration ANXIETY Amitriptyline HCl 10 mg 03/30/17 10:00 04/07/17 09:15 Elavil - PO 10 mg DAILY [facility] Administration Amlodipine Besylate 5 mg 04/06/17 19:11 04/07/17 06:25 Norvasc - PO 5 mg DAILY [facility] Administration Carvedilol 25 mg 04/06/17 08:41 04/07/17 09:15 Coreg - PO 25 mg BID [facility] Administration Docusate Sodium 300 mg 04/02/17 22:00 04/06/17 21:17 Colace - PO 300 mg HS [facility]US Administration Heparin Sodium (Porcine) 5,000 unit 04/02/17 22:00 04/07/17 09:25 Heparin - SQ Not Given BID [facility] Tramadol HCl 50 mg 04/02/17 13:00 04/07/17 06:26 Ultram - PO 50 mg Q6H [facility] Administration CBC, BMP 04/02/17 05:35 04/06/17 07:50 ecg 03/29/17: av paced cxr: clear lungs echo 09/2016: tds; nl lv/rv, mild-mod tr, nl rvsp mibi 09/2016: no ischemia a/p: 86 f hx copd, htn, ppm, cva, descd thoracic aortic aneurysm, here with weakness, low bp. weakness, hypotension: resolved -likely related to vol depletion/griselda combined with multiple htn meds -after ivfs griselda and sx's improved htn: - 04/05: tried clonidine patch 04/04 but bp increased further --> will try switching from lopressor to coreg for increased bp effect (no wheezing on lopressor, but monitor for wheezing on high dose coreg - noted to have extensive copd findings on prior CT chest) -tight bp control going to be very challening in this pt, per dr. molina --> wide fluctuations in bp's at home in past and labile creatinine. -04/06-: bp improved on current coreg and norvasc, cont same GRISELDA on CKD: -has h/o fluctuating creatinines (to mid 1 range) as outpt -was 1.5 initially here, likely due to hypovolemia +/- on combo JOHANNA and ARB at home (due to confusion when meds changed during O.H. admit) -renal fxn improved, transiently bumped to 1.5 again after lisinopril 10mg x 1 dose--med d/c'd by renal -cont holding JOHANNA for now ppm: -nl fcn on tele/ecg. cont routine outpt monitoring descending TAA: -found to be 6.2 cm on cta here earlier this month, incidental with no attributable sx's then -transferred to dr almonte thoracic surgery who felt she was prohibitive risk for intervention. -EVAR was considered but felt to be high risk due to narrow, very calcified iliac arteries. offered to pt but she deferred for now, wishing to f/u with him in 2 mo and rpt imaging at that time -continue bp control as above, incl bb. cardiac hart stable for dc with outpt f/u with dr molina
--- NOTE | 2017-04-07 14:55 | PN ---
Teaching Attending Note Name of Resident: Jaimee Dick ATTENDING PHYSICIAN STATEMENT I saw and evaluated the patient. I reviewed the resident's note and discussed the case with the resident. I agree with the resident's findings and plan as documented. SUBJECTIVE: patient seen and examined prior to dc, no complaints, eager to home OBJECTIVE: Vital Signs Period Temp Pulse Resp BP Sys/Grover Pulse Ox Last 24 Hr 97.5 F-98.7 F 60-62 16-20 125-155/61-96 96-97 General sitting in bed in no acute distress CVS -S1S2 regular chest CTAB, no rales or wheezing abdomen soft, NT, ND positive bowel sounds ASSESSMENT AND PLAN: Blood pressure improved, continue coreg/norvasc, close outpatient follow up with Cardiology/Renal. D/c home today.
== END 2017-04-07 10:45 | disposition home health service (06) | DRG 682 ==
LOC: JER 14:41 → JERBED 17:31 → J4W 20:39 → OBSVTOIN 04-01 14:26 → J6S 04-05 19:45
PROVIDERS: ADMIT Internal Medicine; ATTEND Hospitalist
DX: N17.9 Acute kidney failure, unspecified (principal); E43 Unspecified severe protein-calorie malnutrition; Z68.1 Body mass index [BMI] 19.9 or less, adult; J44.9 Chronic obstructive pulmonary disease, unspecified; E78.5 Hyperlipidemia, unspecified; E86.0 Dehydration; K58.8 Other irritable bowel syndrome; I25.10 Atherosclerotic heart disease of native coronary artery without angina pectoris; K57.90 Diverticulosis of intestine, part unspecified, without perforation or abscess without bleeding; R09.89 Other specified symptoms and signs involving the circulatory and respiratory systems; F41.8 Other specified anxiety disorders; I95.89 Other hypotension; M54.89 Other dorsalgia; I71.2 Thoracic aortic aneurysm, without rupture; R74.0 Nonspecific elevation of levels of transaminase and lactic acid dehydrogenase [LDH]; A08.8 Other specified intestinal infections; N20.0 Calculus of kidney; K86.89 Other specified diseases of pancreas; I71.4 Abdominal aortic aneurysm, without rupture; I12.9 Hypertensive chronic kidney disease with stage 1 through stage 4 chronic kidney disease, or unspecified chronic kidney disease; N18.9 Chronic kidney disease, unspecified; Z95.0 Presence of cardiac pacemaker; Z85.828 Personal history of other malignant neoplasm of skin; Z86.73 Personal history of transient ischemic attack (TIA), and cerebral infarction without residual deficits
CPT/HCPCS: 36415; 71010-TC; 76705-TC; 80048; 80053; 81003; 81015; 82550; 83690; 83735; 83880; 84100; 84484; 85025; 85610; 86850; 86900; 86901; 93005; 93010; 97116-GP; 97161-GP; 99283-25; G0378; J1644

== ENCOUNTER 2017-05-12 17:38 | Observation (INO) | payer OTHER ==
--- NOTE | 2017-05-12 20:02 | PDOC ---
History of Present Illness - General History Source: Patient, Family Exam Limitations: No Limitations - History of Present Illness Initial Comments: 05/12/17 20:32 The patient is a 86 year old female with a significant PMH of COPD, HTN, CVA, AAA, diverticulitis, pacemaker, chronic back pain who presents to the emergency department with low BP today via EMS. The patient reports associated dizziness and weakness after taking her meds. As per the family, she is also having hallucinations. The patient notes that she went to see her special education teaching assistant this morning and her blood pressure was 86/56 at which point the doctor suggested she stop taking amlodipine. At home at approximately 4:30pm, the patient reports that her blood pressure was 76/40. The patient notes that her symptoms have alleviated since earlier today. The patients most recent blood pressure was 142/58. The patient denies chest pain, shortness of breath, and headache. Denies tingling and numbness. Denies fever, chills, nausea, vomit, diarrhea and constipation. Allergies: Ciprofloxacin Social history: Former smoker (quit 4 years ago). No reported drug or cigarette use. PCP: Dr. Wheeler <Emilia Gotti - Last Filed: 05/12/17 21:54> - General History Source: Patient <Davis Veloz - Last Filed: 05/12/17 22:07> - General Chief Complaint: Blood Pressure Problem Stated Complaint: Blood Pressure Problem Time Seen by Provider: 05/12/17 20:01 Past History <Emilia Gotti - Last Filed: 05/12/17 21:54> - Past Medical History Anemia: No Asthma: No Cancer: Yes (SKIN.) Cardiac Disorders: No CVA: Yes (X 2.) COPD: Yes CHF: No Dementia: No Diabetes: No GI Disorders: Yes Disorders: No HTN: Yes Hypercholesterolemia: Yes Liver Disease: No Seizures: No Thyroid Disease: No - Surgical History Abdominal Surgery: Yes Appendectomy: No Cardiac Surgery: Yes (pacemaker) Cholecystectomy: Yes Lung Surgery: No Neurologic Surgery: Yes Orthopedic Surgery: Yes (left knee meiscus tear repair) - Immunization History Immunization Up to Date: Yes - Suicide/Smoking/Psychosocial Hx Smoking History: Former smoker Have you smoked in the past 12 months: No If you are a former smoker, when did you quit?: 4 YRS AGO Information on smoking cessation initiated: Yes 'Breaking Loose' booklet given: 05/12/17 Hx Alcohol Use: No Drug/Substance Use Hx: No Substance Use Type: None Hx Substance Use Treatment: No <Davis Veloz - Last Filed: 05/12/17 22:07> - Past Medical History Allergies/Adverse Reactions: Allergies Allergy/AdvReac Type Severity Reaction Status Date / Time ciprofloxacin [From Cipro] Allergy Unknown Verified 05/12/17 18:33 ciprofloxacin HCl Allergy Unknown Verified 05/12/17 18:33 [From Cipro] Home Medications: Ambulatory Orders Amitriptyline HCl [Elavil -] 10 mg PO DAILY 12/27/16 Atorvastatin Ca [Lipitor] 80 mg PO DAILY 12/27/16 Tramadol HCl [Ultram -] 50 mg PO Q6H 12/27/16 Amlodipine Besylate [Norvasc -] 5 mg PO DAILY #30 tablet 04/06/17 Alprazolam [Xanax] 0.25 mg PO TID PRN #30 tablet MDD 0.75 04/07/17 Carvedilol [Coreg -] 25 mg PO BID #60 tablet 04/07/17 Clopidogrel Bisulfate [Plavix -] 75 mg PO DAILY 05/12/17 Review of Systems - Review of Systems Comments:: 05/12/17 20:34 CONSTITUTIONAL: Absent: fever, no chills Present: weakness EYES: Absent: visual changes ENT: Absent: ear pain, no sore throat CARDIOVASCULAR: Absent: chest pain, no palpitations RESPIRATORY: Absent: cough, no SOB GI: Absent: abdominal pain, no nausea, no vomiting, no constipation, no diarrhea GENITOURINARY: Absent: dysuria, no frequency, no hematuria MUSKULOSKELETAL: Absent: back pain, no arthralgia SKIN: Absent: rash NEURO: Absent: headache Present: dizziness <Emilia Gotti - Last Filed: 05/12/17 21:54> *Physical Exam - Vital Signs Last Vital Signs Temp Pulse Resp BP Pulse Ox 98.5 F 63 14 142/58 92 L 05/12/17 18:25 05/12/17 18:38 05/12/17 18:38 05/12/17 19:29 05/12/17 18:38 - Physical Exam Comments: 05/12/17 20:38 GENERAL: Alert, awake, and appropriate. Well-appearing, well-nourished. No apparent distress. HEENT: Normocephalic, atraumatic. PERRL, EOM intact. CARDIOVASCULAR: Normal S1, S2. Regular rate and rhythm. PULMONARY: (+) Diminished breath sounds throughout all lung guzman. (+) Scattered wheezing and crackles at the posterior lung bases. (+) Mild dyspnea. ABDOMEN: Soft, non-distended, non-tender. EXTREMITIES: Normal ROM in all four extremities. No gross deformities. SKIN: Warm, dry. No rash NEUROLOGICAL: Cranial nerves 2-12 intact. No gross or motor deficits in the in face, upper extremities and lower extremities. <Emilia Gotti - Last Filed: 05/12/17 21:54> - Vital Signs Last Vital Signs Temp Pulse Resp BP Pulse Ox 98.5 F 63 14 142/58 92 L 05/12/17 18:25 05/12/17 18:38 05/12/17 18:38 05/12/17 19:29 05/12/17 18:38 <Davis Veloz - Last Filed: 05/12/17 22:07> Heart Score/ECG Review #1 05/12/17 21:42 EKG performed at [20:56] demonstrates rate of [64], Sinus rhythm with 1st degree AV block, Rightward axis, Anteroseptal infarct, age undetermined, Abnormal ECG. <Emilia Gotti - Last Filed: 05/12/17 21:54> ED Treatment Course - LABORATORY CBC & Chemistry Diagram: 05/12/17 20:23 05/12/17 20:23 <Emilia Gotti - Last Filed: 05/12/17 21:54> - LABORATORY CBC & Chemistry Diagram: 05/12/17 20:23 05/12/17 20:23 <Davis Veloz - Last Filed: 05/12/17 22:07> Medical Decision Making - Medical Decision Making 6:50pm Consulted with Dr. Burnette, special education teaching assistant <Emilia Gotti - Last Filed: 05/12/17 21:54> - Medical Decision Making 05/12/17 20:48 Dr. Veloz: The scribe's documentation has been prepared under my direction and personally reviewed by me in its entirery. I confirm that the note above accurately reflects all work, treatment, procedures, and medical decision making performed by me. Pt presenting with labile blood pressure. Sent on by her special education teaching assistant for evaluation. Labs, chest xray, EKG ordered. 05/12/17 22:05 Spoke to covering Milking System Installer Dr. Bay. Advise that pt be admitted for diuresis and further cardiac evaluation. Will admit to hospitalist service. <Daivs Veloz - Last Filed: 05/12/17 22:07> *DC/Admit/Observation/Transfer - Attestations Scribe Attestion: 05/12/17 20:43 Documentation prepared by Emilia Gotti, acting as medical clinic manager for Davis Veloz DO. <Emilia Gotti - Last Filed: 05/12/17 21:54> - Discharge Dispostion Admit: Yes <Davis Veloz - Last Filed: 05/12/17 22:07> Diagnosis at time of Disposition: Light headed, Hypotension, CHF (congestive heart failure) - Discharge Dispostion Condition at time of disposition: Stable - Referrals Referrals: Handy Wheeler MD [Primary Care Provider] - - Patient Instructions - Post Discharge Activity
[2017-05-12] MEDS ORDERED: SODIUM CHLORIDE 1,000 ML IV STA ×2 (20:17→20:18)
[2017-05-12] MEDS ORDERED: ALBUTEROL SO4 2.5/IPRATROPIUM 0.5 INH SOL 3 ML VIAL.NEB. NEB STA (20:18)
[2017-05-12 20:34] LABS: BASOPHIL 0.2 % (0-2.0); EOSINOPHIL 0.2 % (0-4.5); MCH 28.2 pg (25.7-33.7); MCHC 33.2 g/dl (32.0-36.0); MEAN PLT VOLUME 8.6 fl (7.5-11.1); NEUTROPHILS 85.3 % (42.8-82.8); PLATELET COUNT 192 K/MM3 (134-434); RDW 15.3 % (11.6-15.6); WHITE BLOOD COUNT 14.7 K/mm3 (4.0-10.0)
[2017-05-12 20:58] LABS: INR 1.15 (0.82-1.09)
[2017-05-12 21:04] LABS: ALBUMIN 2.9 g/dl (3.4-5.0); ANION GAP 7 (8-16); BILIRUBIN,TOTAL 0.8 mg/dL (0.2-1.0); CALCIUM 7.6 mg/dL (8.5-10.1); CO2 24 mmol/L (21-32); CREATININE 1.4 mg/dL (0.55-1.02); GLUCOSE,RANDOM 124 mg/dL (74-106); MAGNESIUM 1.9 mg/dL (1.8-2.4); SGOT/AST 21 U/L (15-37); SGPT/ALT 30 U/L (12-78); TOT PROT 6.4 g/dl (6.4-8.2)
[2017-05-12 21:07] LABS: ALK PHOS 220 U/L (45-117); CPK 43 IU/L (26-192); TROPONIN I < 0.02 ng/ml (0.00-0.05)
[2017-05-12] MEDS ORDERED: ALBUTEROL SO4 2.5/IPRATROPIUM 0.5 INH SOL 3 ML VIAL.NEB. NEB ONE (21:27)
[2017-05-12] MEDS ORDERED: traMADol HCL 50 MG TABLET PO ONE (22:15)
[2017-05-12] MEDS ORDERED: ACETAMINOPHEN 500 MG TABLET (FP) PO ONE (22:15)
[2017-05-12 22:20] LABS: URINE APPEARANCE SLCLOUDY; URINE BILIRUBIN NEGATIVE (NEGATIVE); URINE BLOOD 2+ (NEGATIVE); URINE COLOR YELLOW; URINE GLUCOSE (UA) NEGATIVE (NEGATIVE); URINE KETONE NEGATIVE (NEGATIVE); URINE NITRITE NEGATIVE (NEGATIVE); URINE UROBILINOGEN NEGATIVE mg/dL (0.2-1.0)
[2017-05-12 22:21] LABS: URINE PROTEIN 1+ (NEGATIVE)
[2017-05-12] MEDS ORDERED: ACETAMINOPHEN 325 MG TABLET (FP) ONE (22:26)
[2017-05-12] MEDS ORDERED: traMADol HCL 50 MG TABLET ONE (22:26)
[2017-05-12 22:39] LABS: GRANULAR CASTS 2 /lpf; URINE HYALINE CAST 5 /lpf; URINE RBC 9 /hpf (0-3); URINE WBC 1 /hpf (3-5)
[2017-05-12] MEDS ORDERED: ALPRAZolam 0.25 MG TABLET PO PRN (23:48)
--- NOTE | 2017-05-13 00:10 | HP ---
CHIEF COMPLAINT: Hypotension, Lightheadedness PCP: Dr. Flower HISTORY OF PRESENT ILLNESS: 86yo F with significant history of diastolic CHF, AAA, Thoracic AA, COPD ( not on home O2) and HTN amongst other problems who presented to the ED with family due to feeling lightheaded today. Pt took her BP at home revealing 72/50 at 16:00h with repeat at 16:50h showing 87/48. Pt reports Clonidine patch was recently increased from 0.1mg to 0.2mg for which pt started on Tuesday. Pt has home office claims examiner which helps her with medications and reports that she has been compliant with all of her BP meds. Pt complains she does not feel stable with walking more-so than usual. She normally ambulates with a walker and usually has no problem with ADLs. Pt currently denies dizziness and lightheadedness, visual disturbances, CP/discomfort, SOB and n/v/d/c. ER course was notable for: (1) Gentle hydration with appropriate BP response (2) CXR - No signs of acute pathology; pulmonary vasculature congestion Recent Travel: Denies PAST MEDICAL HISTORY: HTN COPD (Not on home O2) CHF (last echo 09/[address] Carrera's office; chart shows: "tds; normal LV /RV, mild-mod TR, nl RV size/pressure") CAD s/p PPD Prior CVA AAA (On 12/27/16 showing 4.7cm increased from 6 months prior at 4.2cm) Thoracic Abdominal Aneurysm (On 03/17/17 6.2cm Type III Fusiform aneurysm of 6.2cm increased from 4cm 4 months prior) Chronic Back Pain Diverticulosis PAST SURGICAL HISTORY: Pacemaker placement Social History: Smoking: Former smoker for "many years;" quit smoking currently Alcohol: Denies Drugs: Denies Family History: Deferred Allergies ciprofloxacin [From Cipro] Allergy (Unknown, Verified 05/12/17 18:33) --RASH when taken HOME MEDICATIONS: Home Medications Medication Instructions Recorded Amitriptyline HCl [Elavil -] 10 mg PO DAILY 12/27/16 Atorvastatin Ca [Lipitor] 80 mg PO DAILY 12/27/16 Tramadol HCl [Ultram -] 50 mg PO Q6H 12/27/16 Amlodipine Besylate [Norvasc -] 5 mg PO DAILY #30 tablet 10/25/17 Alprazolam [Xanax] 0.25 mg PO TID PRN #30 tablet MDD 04/07/17 0.75 Carvedilol [Coreg -] 25 mg PO BID #60 tablet 04/07/17 Clopidogrel Bisulfate [Plavix -] 75 mg PO DAILY 05/12/17 REVIEW OF SYSTEMS CONSTITUTIONAL: Present: Loss of appetite Absent: fever, chills, diaphoresis, generalized weakness, malaise, HEENT: Absent: rhinorrhea, nasal congestion, throat pain, throat swelling, difficulty swallowing, mouth swelling, ear pain, eye pain, visual changes CARDIOVASCULAR: Present: lightheadedness Absent: chest pain, syncope, palpitations, irregular heart rate, peripheral edema RESPIRATORY: Present: Chronic cough Absent: shortness of breath, dyspnea with exertion, orthopnea, wheezing, stridor , hemoptysis GASTROINTESTINAL: Absent: abdominal pain, abdominal distension, nausea, vomiting, diarrhea, constipation, melena, hematochezia GENITOURINARY: Absent: dysuria, frequency, urgency, hesitancy, hematuria, flank pain, genital pain MUSCULOSKELETAL: Absent: myalgia, arthralgia, joint swelling, back pain, neck pain SKIN: Absent: rash, itching, pallor HEMATOLOGIC/IMMUNOLOGIC: Absent: easy bleeding, easy bruising, lymphadenopathy, frequent infections ENDOCRINE: Absent: unexplained weight gain, heat intolerance, cold intolerance NEUROLOGIC: Present: Unsteady gait Absent: headache, focal weakness or paresthesias, dizziness, seizure, mental status changes, bladder or bowel incontinence PSYCHIATRIC: Absent: anxiety, depression, suicidal or homicidal ideation, hallucinations. PHYSICAL EXAMINATION Vital Signs - 24 hr 05/12/17 05/12/17 05/12/17 18:25 18:38 19:29 Temperature 98.5 F Pulse Rate 62 Pulse Rate [ 63 Apical] Respiratory 18 14 Rate Blood Pressure 117/62 Blood Pressure 127/82 142/58 [Right Arm] O2 Sat by Pulse 92 L 92 L Oximetry (%) 05/12/17 05/12/17 21:50 23:18 Temperature Pulse Rate Pulse Rate [ 64 Apical] Respiratory 16 Rate Blood Pressure Blood Pressure 139/52 112/57 [Right Arm] O2 Sat by Pulse Oximetry (%) GENERAL: NAD, awake sitting in chair, alert HEENT: Atraumatic, EOMI without nystagmus, OLIVE, Slightly dry mucous membranes. No erythema or exudates in posterior oropharanyx with normal structures of mouth. LUNGS: Trace bibasillar rales bilaterally. No wheezes or rhonchi. No accessory muscle use. HEART: RRR, normal S1 and S2 with 2/6 systolic murmur heard at LLSB ABDOMEN: Soft, nontender, nondistended, normoactive bowel sounds, no guarding. No hepatomegaly. MUSCULOSKELETAL: Normal range of motion at all joints. No bony deformities or tenderness. No CVA tenderness. EXTREMITIES: 2+ DP pulses, No edema, no calf tenderness. NEUROLOGICAL: Cranial nerves II-XII intact. Gaze normal to midline, EOMI without nystagmus. Strength 5/5 throughout including hip flexion, leg ext/flex, dorsal flex, and plantar flex. Sensation 5/5 throughout. Gait hesitant and wide- based. Normal speech. PSYCHIATRIC: Cooperative. Good eye contact. Appropriate mood and affect. SKIN: Warm, no rashes or lesions noted Laboratory Results - last 24 hr 05/12/17 05/12/17 05/12/17 20:23 20:23 20:23 WBC 14.7 H D RBC 4.07 Hgb 11.5 D Hct 34.6 MCV 85.0 MCH 28.2 MCHC 33.2 RDW 15.3 Plt Count 192 D MPV 8.6 Neutrophils % 85.3 H D Lymphocytes % 6.6 L D Monocytes % 7.7 Eosinophils % 0.2 D Basophils % 0.2 PT with INR 13.00 H INR 1.15 H Sodium 136 Potassium 4.1 Chloride 105 Carbon Dioxide 24 Anion Gap 7 L BUN 20 H D Creatinine 1.4 H D Creat Clearance w eGFR 35.65 Random Glucose 124 H D Calcium 7.6 L Magnesium 1.9 Total Bilirubin 0.8 D AST 21 D ALT 30 D Alkaline Phosphatase 220 H Creatine Kinase 43 Troponin I < 0.02 B-Natriuretic Peptide 2735.37 H Total Protein 6.4 Albumin 2.9 L Lipase 62 L Urine Color Urine Appearance Urine pH Ur Specific Frontier Urine Protein Urine Glucose (UA) Urine Ketones Urine Blood Urine Nitrite Urine Bilirubin Urine Urobilinogen Urine WBC (Auto) Urine RBC (Auto) Ur Epithelial Cells Hyaline Casts Granular Casts 05/12/17 21:39 WBC RBC Hgb Hct MCV MCH MCHC RDW Plt Count MPV Neutrophils % Lymphocytes % Monocytes % Eosinophils % Basophils % PT with INR INR Sodium Potassium Chloride Carbon Dioxide Anion Gap BUN Creatinine Creat Clearance w eGFR Random Glucose Calcium Magnesium Total Bilirubin AST ALT Alkaline Phosphatase Creatine Kinase Troponin I B-Natriuretic Peptide Total Protein Albumin Lipase Urine Color Yellow Urine Appearance Slcloudy Urine pH 5.0 Ur Specific Frontier 1.009 Urine Protein 1+ H Urine Glucose (UA) Negative Urine Ketones Negative Urine Blood 2+ H Urine Nitrite Negative Urine Bilirubin Negative Urine Urobilinogen Negative Urine WBC (Auto) 1 Urine RBC (Auto) 9 Ur Epithelial Cells Rare Hyaline Casts 5 Granular Casts 2 ASSESSMENT/PLAN: 86yo F with history of COPD, CHF, pror CVA, AAA and thoracic aortic aneurysm amongst other problems who was seen by ED for hypotension and dizziness. Pt recently used Clonidine transdermal 0.2mg patch which is an increase from her usual .1mg patch. 1) Hypotension --2/2 to decrease in fluid intake and recent increase in Clonidine patch dosage --Fluids given in ED; currently pt blood pressure stable --Dr. Carrera consulted --Will remove current 0.2mg Clonidine patch and transition to 0.1mg transdermal patch in morning on 05/13 --Labetolol PRN IVP if needed for inbetween coverage and will d/c Labetolol after BP is stable on 0.1mg patch. --Hold home Norvasc --Continue Coreg 25mg BID PO --Strict BP control important in patient due to oversized thoracic aneurysm --Currently BP is stable at 139/52 2) Leukocystosis --Can be due to increased stress reaction --No clear signs of infection present --UA negative for infection --No viral symptoms currently --CXR with pulmonary vasculature congestion without any opacities/ infiltrates --No skin lesions noted 3) Thoracic Aneurism --6.2 cm currently --Pt not a candidate for surgery --Strict BP control 4) GRISELDA --Most likely 2/2 to prerenal azotemia/poor recent PO intake --Will trend BMP FEN: Fluids: Given fluids in ED, pt has hx of CHF; if need be can gently hydrate for hypotension reoccurrance with monitoring of pulmonary exam Electrolyte abnormalities: None currently Nutrition: Sodium controlled diet PPX: DVT - SCDs GI - Not indicated Deconditioning - Phys therapy; pt normally uses walker at home Case discussed with Dr. Shawn Agustin Corti - Internal Medicine PGY-1 Visit type - Emergency Visit Emergency Visit: Yes ED Registration Date: 05/12/17 Care time: The patient presented to the Emergency Department on the above date and was hospitalized for further evaluation of their emergent condition. - New Patient This patient is new to me today: Yes Date on this admission: 05/13/17 - Critical Care Critical Care patient: No
--- NOTE | 2017-05-13 00:19 | MSN ---
Admitting History and Physical - Admission Chief Complaint: Unsteady gait History of Present Illness: Ivanna Roberts is an 86 year old female with pmhx of COPD, HTN, CVA, AAA, pacemaker, diverticulitis, and chronic back pain who presents with unsteady gait and low blood pressure. Patient states that she has an Aid that monitors her BP twice a day and her BP reading was 72/50 at 4:30pm and 87/45 at 4:50 pm today. Patient states that her Clonidine patch dose was recently increased from 0.1mg to 0.2mg. She first took the increased dose of 0.2mg on Tuesday. Patient states that she has been compliant with her medications and took her blood pressure medications this morning at 10am. Patient also reports unsteady gait and states she feels off balance. She states she was dizzy and lightheaded earlier today but currently denies dizziness and lightheadedness. Patient reports leg pain that's characterized as burning due to chronic back pain. Patient states that at baseline she ambulates with a walker at home. Patient states she's not on home O2. Patient denies SOB, orthopnea or leg swelling. ER course was notable for: 1. WBC count of 14.7 2. BNP of 2,735, CXR begative for CHF 3. BP of 117/62, on clonidine patch 0.2mg History Source: Patient, Family Member Limitations to Obtaining History: No Limitations - Past Medical History [employer]: Yes: CVA Cardiovascular: Yes: CAD, HTN, Other (AAA) Pulmonary: Yes: COPD Gastrointestinal: Yes: Diverticulitis, Diverticulosis, Other (C. DIff colitis 2013) Musculoskeletal: Yes: Chronic low back pain - Past Surgical History Past Surgical History: Yes: Permanent Pacemaker - Smoking History Smoking history: Former smoker Have you smoked in the past 12 months: No If you are a former smoker, when did you quit?: 4 YRS AGO - Alcohol/Substance Use Hx Alcohol Use: No History of Substance Use: reports: None - Social History ADL: Independent History of Recent Travel: No Home Medications - Allergies Allergies/Adverse Reactions: Allergies Allergy/AdvReac Type Severity Reaction Status Date / Time ciprofloxacin [From Cipro] Allergy Unknown Verified 05/12/17 18:33 ciprofloxacin HCl Allergy Unknown Verified 05/12/17 18:33 [From Cipro] - Home Medications Home Medications: Ambulatory Orders Amitriptyline HCl [Elavil -] 10 mg PO DAILY 12/27/16 Atorvastatin Ca [Lipitor] 80 mg PO DAILY 12/27/16 Tramadol HCl [Ultram -] 50 mg PO Q6H 12/27/16 Amlodipine Besylate [Norvasc -] 5 mg PO DAILY #30 tablet 04/06/17 Alprazolam [Xanax] 0.25 mg PO TID PRN #30 tablet MDD 0.75 04/07/17 Carvedilol [Coreg -] 25 mg PO BID #60 tablet 04/07/17 Clopidogrel Bisulfate [Plavix -] 75 mg PO DAILY 05/12/17 Review of Systems - Review of Systems Constitutional: reports: No Symptoms Eyes: reports: No Symptoms HENT: reports: No Symptoms Neck: reports: No Symptoms Cardiovascular: reports: No Symptoms Respiratory: reports: No Symptoms Gastrointestinal: reports: No Symptoms Genitourinary: reports: No Symptoms Musculoskeletal: reports: Back Pain Integumentary: reports: No Symptoms Neurological: reports: Unsteady Gait Endocrine: reports: No Symptoms Hematology/Lymphatic: reports: No Symptoms Physical Examination Vital Signs: Vital Signs Temperature 98.5 F 05/12/17 18:25 Pulse Rate 64 05/12/17 23:18 Respiratory Rate 16 05/12/17 23:18 Blood Pressure 112/57 05/12/17 23:18 O2 Sat by Pulse Oximetry (%) 92 L 05/12/17 18:38 Constitutional: Yes: No Distress, Calm Eyes: Yes: Conjunctiva Clear, EOM Intact HENT: Yes: Atraumatic, Normocephalic Neck: Yes: Supple, Trachea Midline Cardiovascular: Yes: Regular Rate and Rhythm Respiratory: Yes: Regular, CTA Bilaterally Gastrointestinal: Yes: Normal Bowel Sounds, Soft Extremities: Yes: Other (5/5 strength in upper and lower extremities bilaterally ) Edema: No Neurological: Yes: Alert, Oriented, Cran Nerves II-XII Intact, Unsteady Gait ...Motor Strength: WNL (5/5 strength in upper and lower extremities bilaterally) Labs: CBC, BMP 05/12/17 20:23 05/12/17 20:23 Assessment/Plan Ivanna Roberts is an 86 year old female with pmhx of COPD, HTN, CVA, AAA, pacemaker, diverticulitis, and chronic back pain, who presented with unsteady gait and low blood pressure. 1. Unsteady gait likely due to hypotension with hx of HTN - Hypotension likely due to recent medication dose adjustment - Carvedilol 25mg PO BID, Labetalol 10mg IVPUSH PRN - Discontinue Amlodipine, lower Clonidine patch dose to 0.1mg - Monitor BP, repeat again - Tight BP control - Dr. Carrera consulted 2. Leukocytosis likely due to stress reaction - Afebrile - UA negative - CXR negative for pna, no crackles auscultated on exam 3. AAA - Currently 6.2cm as per last CTA - Patient is not a candidate for surgery - Tight BP control 4. DVT proph - SCD Dispo: Admit to telemetry.
--- NOTE | 2017-05-13 00:22 | PN ---
Teaching Attending Note Name of Resident: Agustin Molina ATTENDING PHYSICIAN STATEMENT I saw and evaluated the patient. I reviewed the resident's note and discussed the case with the resident. I agree with the resident's findings and plan as documented. SUBJECTIVE: 86 year old female that came accompanied by family members due to two measurements of blood pressure that was low ( 72/ 50: 87/45) around 4 PM . This was associated with dizziness and generalized weakness as well as loss of balance. There was no syncope , no fall, no chest pain . Her clonidine patch was recently increased to 0.2 and she had it applied yesterday PMH TAA - 6 cm managed conservatively HTN OBJECTIVE: Vital Signs Temperature 98.5 F 05/12/17 18:25 Pulse Rate 64 05/12/17 23:18 Respiratory Rate 16 05/12/17 23:18 Blood Pressure 112/57 05/12/17 23:18 O2 Sat by Pulse Oximetry (%) 92 L 05/12/17 18:38 HEART: RRR, normal S1 and S2 with 2/6 systolic murmur heard at LLSB ABDOMEN: Soft, nontender, nondistended, normoactive bowel sounds, no guarding. No hepatomegaly. MUSCULOSKELETAL: Normal range of motion at all joints. No bony deformities or tenderness. No CVA tenderness. EXTREMITIES: 2+ DP pulses, No edema, no calf tenderness. CBC, BMP 05/12/17 20:23 05/12/17 20:23 ASSESSMENT AND PLAN: 1. Hypotension - likely iatrogenic - recently incresed dose of clonidine . - d/c clonidine patch - change to PO clonidine to avoid rebound hypertension - telemetry - frequent vitals - encourage PO intake 2. History of labile Hypertension - needs to be optimally controlled due to aortic aneurism - c/w coreg and clonidine - measure BP and adjust meds 3. Thoracic Aneurism - 6 cm - not a candidate for surgery - BP control 4 . Acute on chronic renal insufficiency - pre renal, poor po intake/ dehydration
[2017-05-13 01:00] VITALS: BMI 18.3
[2017-05-13] MEDS ORDERED: LABETALOL HCL 5 MG/1 ML (100MG/20 ML VIAL) IVPUSH PRN (01:06)
[2017-05-13] MEDS ORDERED: HEPARIN NA (PORCINE) 5,000 UNITS/ML 1ML VIAL SQ SCH (02:00)
[2017-05-13 07:01] LABS: MCHC 33.1 g/dl (32.0-36.0); MEAN CELL VOLUME 84.8 fl (80-96); MEAN PLT VOLUME 9.3 fl (7.5-11.1); PLATELET COUNT 177 K/MM3 (134-434); RDW 15.6 % (11.6-15.6)
[2017-05-13 07:05] LABS: ANION GAP 7 (8-16); CO2 25 mmol/L (21-32); CREATININE 1.2 mg/dL (0.55-1.02); GLUCOSE,RANDOM 79 mg/dL (74-106)
--- NOTE | 2017-05-13 08:49 | PN ---
Physical Exam: SUBJECTIVE: Patient seen and examined by me this AM - No major overnight events. Denies fever/chills, SOB, CP, palpitations, any further episodes of lightheadness/dizziness, fatigue, N/V, dysuria, diarrhea/ constipation, LE - Able to ambulate to bathroom without further episodes of lightheadness - Feels well. No major complaints. at bedside. OBJECTIVE: Vital Signs Intake & Output 05/10/17 05/11/17 05/12/17 05/13/17 23:59 23:59 23:59 23:59 Output Total 2 Balance -2 Weight 43.998 kg Period Temp Pulse Resp BP Sys/Groevr Pulse Ox Last 24 Hr 98.0 F-98.9 F 62-76 14-20 112-143/52-82 92-92 GENERAL: The patient is awake, alert, and fully oriented, in no acute distress. Frail, elderly woman HEAD: Normal with no signs of trauma. EYES: PERRL, extraocular movements intact, sclera anicteric, conjunctiva clear. No ptosis. ENT: Ears normal, nares patent, oropharynx clear without exudates, moist mucous membranes. NECK: Trachea midline, full range of motion, supple. LUNGS: Breath sounds equal, clear to auscultation bilaterally, no wheezes, no crackles, no accessory muscle use. HEART: Distant heart sounds. Regular rate and rhythm, S1, S2 without murmur, rub or gallop. ABDOMEN: Soft, nontender, nondistended, normoactive bowel sounds, no guarding, no rebound, no hepatosplenomegaly, no masses. EXTREMITIES: 2+ pulses in upper extremities, 1+ DP, PT in lower extremities, warm, well-perfused, no edema. NEUROLOGICAL: Cranial nerves II through XII grossly intact. Normal speech, gait not observed. 5/5 strength in all extremities. Preserved sensation to light touch across all dermatomes PSYCH: Normal mood, normal affect. SKIN: Warm, dry, normal turgor, no rashes or lesions noted Laboratory Results - last 24 hr CBC, BMP 05/13/17 06:25 05/13/17 06:25 05/12/17 05/12/17 05/12/17 20:23 20:23 20:23 WBC 14.7 H D RBC 4.07 Hgb 11.5 D Hct 34.6 MCV 85.0 MCH 28.2 MCHC 33.2 RDW 15.3 Plt Count 192 D MPV 8.6 Neutrophils % 85.3 H D Lymphocytes % 6.6 L D Monocytes % 7.7 Eosinophils % 0.2 D Basophils % 0.2 PT with INR 13.00 H INR 1.15 H Sodium 136 Potassium 4.1 Chloride 105 Carbon Dioxide 24 Anion Gap 7 L BUN 20 H D Creatinine 1.4 H D Creat Clearance w eGFR 35.65 Random Glucose 124 H D Calcium 7.6 L Magnesium 1.9 Total Bilirubin 0.8 D AST 21 D ALT 30 D Alkaline Phosphatase 220 H Creatine Kinase 43 Troponin I < 0.02 B-Natriuretic Peptide 2735.37 H Total Protein 6.4 Albumin 2.9 L Lipase 62 L Urine Color Urine Appearance Urine pH Ur Specific Fay Urine Protein Urine Glucose (UA) Urine Ketones Urine Blood Urine Nitrite Urine Bilirubin Urine Urobilinogen Urine WBC (Auto) Urine RBC (Auto) Ur Epithelial Cells Hyaline Casts Granular Casts 05/12/17 05/13/17 05/13/17 21:39 06:25 06:25 WBC 9.0 D RBC 3.96 Hgb 11.1 Hct 33.6 MCV 84.8 MCH 28.0 MCHC 33.1 RDW 15.6 Plt Count 177 MPV 9.3 Neutrophils % Lymphocytes % Monocytes % Eosinophils % Basophils % PT with INR INR Sodium 140 Potassium 4.0 Chloride 108 H Carbon Dioxide 25 Anion Gap 7 L BUN 17 Creatinine 1.2 H Creat Clearance w eGFR Random Glucose 79 D Calcium 8.0 L Magnesium Total Bilirubin AST ALT Alkaline Phosphatase Creatine Kinase Troponin I B-Natriuretic Peptide Total Protein Albumin Lipase Urine Color Yellow Urine Appearance Slcloudy Urine pH 5.0 Ur Specific [place]ay 1.009 Urine Protein 1+ H Urine Glucose (UA) Negative Urine Ketones Negative Urine Blood 2+ H Urine Nitrite Negative Urine Bilirubin Negative Urine Urobilinogen Negative Urine WBC (Auto) 1 Urine RBC (Auto) 9 Ur Epithelial Cells Rare Hyaline Casts 5 Granular Casts 2 Active Medications Generic Name Dose Route Start Last Admin Trade Name Freq PRN Reason Stop Dose Admin Alprazolam 0.25 mg 05/12/17 23:48 Xanax - PO TID PRN ANXIETY Amitriptyline HCl 10 mg 05/13/17 22:00 Elavil - PO HS DARIUS Atorvastatin Calcium 80 mg 05/13/17 22:00 Lipitor - PO HS DARIUS Carvedilol 25 mg 05/13/17 10:00 Coreg - PO BID DARIUS Clonidine HCl 0.1 mg 05/13/17 10:00 Catapres Tts Patch - TD Q7D@1000 DARIUS Clopidogrel Bisulfate 75 mg 05/13/17 10:00 Plavix - PO DAILY DARIUS Labetalol HCl 10 mg 05/13/17 01:06 Normodyne Injection - IVPUSH PRN PRN HYPERTENSION Tramadol HCl 50 mg 05/12/17 23:48 Ultram - PO Q6H PRN PAIN No micro tele: rate in 60s, 1st degree heart block CXR: Impression: 1. Hyperinflated lungs with coarsened bronchovascular markings representing COPD/emphysema. No focal opacity to suggest pneumonia. Please correlate clinically. 2. Grossly unchanged retrocardiac opacity which corresponds to aneurysm of the descending thoracic aorta, seen to better advantage on 03/17/[address] 3. A 7 mm right mid lung nodule, similar in size to the immediate prior chest x-ray. Please correlate with most recent chest CT. ASSESSMENT/PLAN: 86 yo woman with pmh of diastolic CHF, AAA, thoracic AA, COPD and HTN who presented to the ED due to lightheadness after increasing home clonidine patch 0.1mg to 0.2mg, found to be hypotensive to 72/50, but recovered with fluid resuscitation. Pt now with normal BP, no other complaints with no other bouts of dizziness #Hypotension - Resolved with fluid, switch back to 0.1mg patch clonidine, norvasc held. Systolics 110-140s overnight. - Clonidine 0.1 mg patch - D/c norvasc 5mg. Per Dr. Gomez, outpt spray stainer, pt was seen in clinic yesterday and norvasc was d/c'ed. - Coreg 25 BID - Monitor for further signs of hypotension - Off fluids - Cardiology consulted. Recs appreciated - F/u with Dr. Gomez as outpt #thoracic AA - 6.2cm currently. 4cm at 12/11/2015 - F/u as outpt - Strict BP control - Seen at [facility] [place] for surgical consult. Elected for medical management #GRISELDA - Likely prerenal, due to dehydration/hypotension - Trend Cr - Daily BMPs #HTN - D/c norvasc - Coreg 2.5 BID - f/u w/ Dr. Gomez for further managment #CHF - BNP 2735 - Diuresis not clinically indicated - Echo #CAD - s/p PPD - Lipitor 80mg - plavix 75mg #Anxiety - Xanax 0.25 TID PPX DVT- SCDs FEN: Fluids: PO hydration Electrolytes: Nutrition: Cardiac diet Dispo: Discharge tonight giving improvement in BP and no other symptoms. Plan discussed with attending, Dr. Eri Ac, PGY1 Visit type - Emergency Visit Emergency Visit: Yes ED Registration Date: 05/12/17 Care time: The patient presented to the Emergency Department on the above date and was hospitalized for further evaluation of their emergent condition. - New Patient This patient is new to me today: Yes Date on this admission: 05/13/17 - Critical Care Critical Care patient: No
[2017-05-13] MEDS: CARVEDILOL 25 MG TABLET (FP) PO SCH ×2 (09:47→21:31)
[2017-05-13] MEDS: CLOPIDOGREL BISULFATE 75 MG TABLET (FP) PO SCH (09:47)
[2017-05-13] MEDS: traMADol HCL 50 MG TABLET PO PRN ×2 (09:54→21:36)
[2017-05-13] MEDS ORDERED: cloNIDine-TTS 0.1 MG/24 HRS PATCH.TDWK TD SCH (10:00)
--- NOTE | 2017-05-13 10:05 | EKG ---
Test Reason : Blood Pressure : / mmHG Vent. Rate : 064 BPM Atrial Rate : 064 BPM P-R Int : 294 ms QRS Dur : 074 ms QT Int : 422 ms P-R-T Axes : 081 102 047 degrees QTc Int : 435 ms POOR DATA QUALITY, INTERPRETATION MAY BE ADVERSELY AFFECTED SINUS RHYTHM WITH 1ST DEGREE A-V BLOCK RIGHTWARD AXIS ANTEROSEPTAL INFARCT , AGE UNDETERMINED ABNORMAL ECG WHEN COMPARED WITH ECG OF 29-MAR-2017 15:24, SINUS RHYTHM HAS REPLACED ELECTRONIC VENTRICULAR PACEMAKER Confirmed by RED WELLS MD [id number]) on 05/13/2017 10:05:17 AM Referred By: Confirmed By:RED WELLS MD
[2017-05-13] MEDS ORDERED: amLODIPine BESYLATE 5 MG TABLET (FP) PO SCH (11:00)
[2017-05-13] MEDS ORDERED: NITROGLYCERIN SUBLINGUAL 1/200 0.3 MG BTL SL PRN (11:06)
--- NOTE | 2017-05-13 11:07 | CON.CARD ---
Cardiology Consult (text) - Consultation Consultation Note: cc: dizzy, low bp hpi: 86 f hx copd, htn, ppm, cva, descd thoracic aortic aneurysm, here with dizzy, low bp. Recently had bp meds increased as outpt and then developed low bp and dizzy so came to ER. After holding/reducing meds bp improved and today she feels better. No cp, sob, palps, loc, pnd, orthopnea, le edema. Sees dr molina for cardio. pmh: per hpi psh: ppm, knee social: no tob fam: no premature cad ros: per hpi; no fever, n/v, gib, hematuria, dysuria, cordoba, vision changes, muscle pains, nasal congestion meds: Home Medications Medication Instructions Recorded Amitriptyline HCl [Elavil -] 10 mg PO DAILY 12/27/16 Atorvastatin Ca [Lipitor] 80 mg PO DAILY 12/27/16 Tramadol HCl [Ultram -] 50 mg PO Q6H 12/27/16 Amlodipine Besylate [Norvasc -] 5 mg PO DAILY #30 tablet 04/06/17 Alprazolam [Xanax] 0.25 mg PO TID PRN #30 tablet MDD 04/07/17 0.75 Carvedilol [Coreg -] 25 mg PO BID #60 tablet 04/07/17 Clopidogrel Bisulfate [Plavix -] 75 mg PO DAILY 05/12/17 pe: Vital Signs Period Temp Pulse Resp BP Sys/Grover Pulse Ox Last 24 Hr 98 F-98.9 F 62-76 14-20 112-143/52-82 92-92 nad no jvd rrr s1s2 no mrg cta bl nl eff aaox3 no le e/c/c abd nt nd pos bs no jaundice diaphoresis pos dp pt no carotid bruits Laboratory Last Values WBC 9.0 K/mm3 (4.0-10.0) D 05/13/17 06:25 RBC 3.96 M/mm3 (3.60-5.2) 05/13/17 06:25 Hgb 11.1 GM/dL (10.7-15.3) 05/13/17 06:25 Hct 33.6 % (32.4-45.2) 05/13/17 06:25 MCV 84.8 fl (80-96) 05/13/17 06:25 MCH 28.0 pg (25.7-33.7) 05/13/17 06:25 MCHC 33.1 g/dl (32.0-36.0) 05/13/17 06:25 RDW 15.6 % (11.6-15.6) 05/13/17 06:25 Plt Count 177 K/MM3 (134-434) 05/13/17 06:25 MPV 9.3 fl (7.5-11.1) 05/13/17 06:25 Neutrophils % 85.3 % (42.8-82.8) H D 05/12/17 20:23 Lymphocytes % 6.6 % (8-40) L D 05/12/17 20:23 Monocytes % 7.7 % (3.8-10.2) 05/12/17 20:23 Eosinophils % 0.2 % (0-4.5) D 05/12/17 20:23 Basophils % 0.2 % (0-2.0) 05/12/17 20:23 PT with INR 13.00 SEC (9.98-11.88) H 05/12/17 20:23 INR 1.15 (0.82-1.09) H 05/12/17 20:23 Sodium 140 mmol/L (136-145) 05/13/17 06:25 Potassium 4.0 mmol/L (3.5-5.1) 05/13/17 06:25 Chloride 108 mmol/L (98-107) H 05/13/17 06:25 Carbon Dioxide 25 mmol/L (21-32) 05/13/17 06:25 Anion Gap 7 (8-16) L 05/13/17 06:25 BUN 17 mg/dL (7-18) 05/13/17 06:25 Creatinine 1.2 mg/dL (0.55-1.02) H 05/13/17 06:25 Creat Clearance w eGFR 35.65 (>60) 05/12/17 20:23 Random Glucose 79 mg/dL (74-106) D 05/13/17 06:25 Calcium 8.0 mg/dL (8.5-10.1) L 05/13/17 06:25 Magnesium 1.9 mg/dL (1.8-2.4) 05/12/17 20:23 Total Bilirubin 0.8 mg/dL (0.2-1.0) D 05/12/17 20:23 AST 21 U/L (15-37) D 05/12/17 20:23 ALT 30 U/L (12-78) D 05/12/17 20:23 Alkaline Phosphatase 220 U/L (45-117) H 05/12/17 20:23 Creatine Kinase 43 IU/L (26-192) 05/12/17 20:23 Troponin I < 0.02 ng/ml (0.00-0.05) 05/12/17 20:23 B-Natriuretic Peptide 2735.37 pg/ml (5-450) H 05/12/17 20:23 Total Protein 6.4 g/dl (6.4-8.2) 05/12/17 20:23 Albumin 2.9 g/dl (3.4-5.0) L 05/12/17 20:23 Lipase 62 U/L (73-393) L 05/12/17 20:23 Urine Color Yellow 05/12/17 21:39 Urine Appearance Slcloudy 05/12/17 21:39 Urine pH 5.0 (5.0-8.0) 05/12/17 21:39 Ur Specific [place] 1.009 (1.001-1.035) 05/12/17 21:39 Urine Protein 1+ (NEGATIVE) H 05/12/17 21:39 Urine Glucose (UA) Negative (NEGATIVE) 05/12/17 21:39 Urine Ketones Negative (NEGATIVE) 05/12/17 21:39 Urine Blood 2+ (NEGATIVE) H 05/12/17 21:39 Urine Nitrite Negative (NEGATIVE) 05/12/17 21:39 Urine Bilirubin Negative (NEGATIVE) 05/12/17 21:39 Urine Urobilinogen Negative mg/dL (0.2-1.0) 05/12/17 21:39 Urine WBC (Auto) 1 /hpf (3-5) 05/12/17 21:39 Urine RBC (Auto) 9 /hpf (0-3) 05/12/17 21:39 Ur Epithelial Cells Rare /HPF (FEW) 05/12/17 21:39 Hyaline Casts 5 /lpf 05/12/17 21:39 Granular Casts 2 /lpf 05/12/17 21:39 tele: sr, occ av paced ecg 05/12/17: sr, 1st avb, nl qtc, no ischemic changes cxr: clear lungs a/p: 86 f hx copd, htn, ppm, cva, descd thoracic aortic aneurysm, here with dizzy, low bp dizzy, hypotension: -likely related to htn meds (recently increased clonidine 0.1 to 0.2) -after holding norvasc and decreasing clonidine, bp better and sxs better -cont coreg 25 bid and clonidine patch at 0.1 mg htn: -as above ppm: -nl fcn on tele. cont routine outpt monitoring descd TAA: -found to be 6.2 cm on cta here earlier this month. She was sent to hospital for special care and evaluated and deemed not a candidate for repair. Continue bp control as above, cont bb. cardiac hart stable for dc later today if sxs remain resolved.
[2017-05-13 12:06] LABS: URINE LEUK ESTERASE Negative (NEGATIVE)
[2017-05-13] MEDS ORDERED: ACETAMINOPHEN 325 MG TABLET (FP) PO PRN (13:01)
--- NOTE | 2017-05-13 15:40 | PN ---
Teaching Attending Note Name of Resident: Rommel Ac ATTENDING PHYSICIAN STATEMENT I saw and evaluated the patient. I reviewed the resident's note and discussed the case with the resident. I agree with the resident's findings and plan as documented. SUBJECTIVE: No fever , or chills, has no CP or SOB OBJECTIVE: NAD CV : RRR Lungs: CTAB Ext: no edema PLan: 86 y/o lady with h/o HTN, thoracic aortic aneurysm , D CHF , and COPD who presented with fatigue and hypotension . 1- Hypotension , due to increasing clonidine patch cont reduced dose of clonidine patch cont coreg . pt thinks norvasc was d/c as otu pt , but not sure, will confirm with Dr. Carrera's office 2- Thoracic aortic aneurysm: cont to montor as out p t 3- h/o COPD , stable possible dc this afternoon PT
[2017-05-13] MEDS ORDERED: AMITRIPTYLINE HCL 10 MG TABLET (FP) PO SCH (22:00)
[2017-05-13] MEDS ORDERED: ATORVASTATIN CA 80 MG TABLET (FP) PO SCH (22:00)
[2017-05-14 05:49] VITALS: PULSE 72
[2017-05-14] MEDS: CLOPIDOGREL BISULFATE 75 MG TABLET (FP) PO SCH (09:18)
[2017-05-14] MEDS: CARVEDILOL 25 MG TABLET (FP) PO SCH (09:18)
--- NOTE | 2017-05-14 09:28 | PN ---
Physical Exam: SUBJECTIVE: Patient seen and examined by me this AM - Going home this AM. No transportation yesterday. - No major complaints. No fatigue or lightheadness or any other symptoms. - Concerned about BP on follow-up. Instructed to f/u with primary and Dr. miramontes about BP meds. All new instructions for med changes repeated and referenced in discharge plan. OBJECTIVE: Vital Signs Intake & Output 05/11/17 05/12/17 05/13/17 05/14/17 23:59 23:59 23:59 23:59 Intake Total 760 100 Output Total 2 Balance 758 100 Weight 43.998 kg Period Temp Pulse Resp BP Sys/Grover Pulse Ox Last 24 Hr 98.6 F-99.8 F 60-84 18-20 117-149/64-83 92 ENERAL: The patient is awake, alert, and fully oriented, in no acute distress. Frail, elderly woman HEAD: Normal with no signs of trauma. EYES: PERRL, extraocular movements intact, sclera anicteric, conjunctiva clear. No ptosis. ENT: Ears normal, nares patent, oropharynx clear without exudates, moist mucous membranes. NECK: Trachea midline, full range of motion, supple. LUNGS:CTABL, no wheezes, no crackles, no accessory muscle use. HEART: Distant heart sounds. Regular rate and rhythm, S1, S2 without murmur, rub or gallop. ABDOMEN: Soft, nontender, nondistended, normoactive bowel sounds, no guarding, no rebound, no hepatosplenomegaly, no masses. EXTREMITIES: 2+ pulses in upper extremities, 1+ DP, PT in lower extremities, warm, well-perfused, no edema. NEUROLOGICAL: Cranial nerves II through XII grossly intact. Normal speech, gait not observed. PSYCH: Normal mood, normal affect. SKIN: Warm, dry, normal turgor, no rashes or lesions noted Laboratory Results - last 24 hr 05/12/17 21:39 Ur Leukocyte Esterase Negative Active Medications Generic Name Dose Route Start Last Admin Trade Name Freq PRN Reason Stop Dose Admin Acetaminophen 650 mg 05/13/17 13:01 Tylenol - PO Q6H PRN FEVER OR PAIN Alprazolam 0.25 mg 05/12/17 23:48 Xanax - PO TID PRN ANXIETY Amitriptyline HCl 10 mg 05/13/17 22:00 05/13/17 21:31 Elavil - PO 10 mg HS DARIUS Administration Atorvastatin Calcium 80 mg 05/13/17 22:00 05/13/17 21:31 Lipitor - PO 80 mg HS DARIUS Administration Carvedilol 25 mg 05/13/17 10:00 05/14/17 09:18 Coreg - PO 25 mg BID DARIUS Administration Clonidine HCl 0.1 mg 05/13/17 10:00 05/13/17 10:35 Catapres Tts Patch - TD 0.1 mg Q7D@1000 DARIUS Administration Clopidogrel Bisulfate 75 mg 05/13/17 10:00 05/14/17 09:18 Plavix - PO 75 mg DAILY DARIUS Administration Tramadol HCl 50 mg 05/12/17 23:48 05/13/17 21:36 Ultram - PO 50 mg Q6H PRN Administration PAIN No micro CXR: Impression: 1. Hyperinflated lungs with coarsened bronchovascular markings representing COPD/emphysema. No focal opacity to suggest pneumonia. Please correlate clinically. 2. Grossly unchanged retrocardiac opacity which corresponds to aneurysm of the descending thoracic aorta, seen to better advantage on 03/17/[address] 3. A 7 mm right mid lung nodule, similar in size to the immediate prior chest x-ray. Please correlate with most recent chest CT. ASSESSMENT/PLAN: 86 yo woman with pmh of diastolic CHF, AAA, thoracic AA, COPD and HTN who presented to the ED due to lightheadness after increasing home clonidine patch 0.1mg to 0.2mg, found to be hypotensive to 72/50, but recovered with fluid resuscitation. Pt now with normal BP, no other complaints with no other bouts of dizziness. D/c this AM home with with f/u with cardiology and PCP. #Hypotension - Resolved with fluid, switch back to 0.1mg patch clonidine, norvasc held. Systolics 110-140s overnight. - Clonidine 0.1 mg patch - D/c norvasc 5mg. Per Dr. Gomez, outpt independent jeweler, pt was seen in clinic yesterday and norvasc was d/c'ed. - Coreg 25 BID - F/u with Dr. Gomez as outpt #thoracic AA - 6.2cm currently. 4cm at 12/11/2015 - F/u as outpt - Strict BP control - Seen at [facility] for surgical consult. Elected for medical management #HTN - D/c norvasc as outpt. Pt advised not to continue per independent jeweler recs. - Coreg 2.5 BID - f/u w/ Dr. Gomez for further managment #CHF - BNP 2735 - Diuresis not clinically indicated - Echo #CAD - s/p PPD - Lipitor 80mg - plavix 75mg #Anxiety - Xanax 0.25 TID FEN: Fluids: PO hydration Electrolytes: none Nutrition: Cardiac diet Dispo: Discharge this AM to home. Stable. Plan discussed with attending, Dr. Eri Ac, PGY1 Visit type - Emergency Visit Emergency Visit: Yes ED Registration Date: 05/12/17 Care time: The patient presented to the Emergency Department on the above date and was hospitalized for further evaluation of their emergent condition. - New Patient This patient is new to me today: No - Critical Care Critical Care patient: No
--- NOTE | 2017-05-14 11:01 | PN ---
Progress Note (short form) - Note Progress Note: s: pt feeling well after reducing bp meds, no cp sob palps dizzy o: Vital Signs Period Temp Pulse Resp BP Sys/Grover Pulse Ox Last 24 Hr 98.6 F-99.8 F 60-84 18-20 117-149/64-83 92 nad no jvd rrr s1s2 no mrg cta bl nl eff aaox3 no le e/c/c abd nt nd pos bs no jaundice diaphoresis Current Medications Generic Name Dose Route Start Last Admin Trade Name Freq PRN Reason Stop Dose Admin Acetaminophen 650 mg 05/13/17 13:01 Tylenol - PO Q6H PRN FEVER OR PAIN Alprazolam 0.25 mg 05/12/17 23:48 Xanax - PO TID PRN ANXIETY Amitriptyline HCl 10 mg 05/13/17 22:00 05/13/17 21:31 Elavil - PO 10 mg HS DARIUS Administration Atorvastatin Calcium 80 mg 05/13/17 22:00 05/13/17 21:31 Lipitor - PO 80 mg HS DARIUS Administration Carvedilol 25 mg 05/13/17 10:00 05/14/17 09:18 Coreg - PO 25 mg BID DARIUS Administration Clonidine HCl 0.1 mg 05/13/17 10:00 05/13/17 10:35 Catapres Tts Patch - TD 0.1 mg Q7D@1000 DARIUS Administration Clopidogrel Bisulfate 75 mg 05/13/17 10:00 05/14/17 09:18 Plavix - PO 75 mg DAILY DARIUS Administration Tramadol HCl 50 mg 05/12/17 23:48 05/13/17 21:36 Ultram - PO 50 mg Q6H PRN Administration PAIN CBC, BMP 05/13/17 06:25 05/13/17 06:25 tele: sr ecg 05/12/17: sr, 1st avb, nl qtc, no ischemic changes cxr: clear lungs a/p: 86 f hx copd, htn, ppm, cva, descd thoracic aortic aneurysm, here with dizzy, low bp dizzy, hypotension: -likely related to htn meds (recently increased clonidine 0.1 to 0.2) -after holding norvasc and decreasing clonidine, bp better and sxs better -cont coreg 25 bid and clonidine patch at 0.1 mg htn: -as above ppm: -nl fcn on tele. cont routine outpt monitoring descd TAA: -found to be 6.2 cm on cta here earlier this month. She was sent to [facility] and evaluated and deemed not a candidate for repair. Continue bp control as above, cont bb. cardiac hart stable for dc
[2017-05-14 11:59] VITALS: BP 153/51
[2017-05-14 15:46] VITALS: TEMP 98.7
--- NOTE | 2017-05-14 20:38 | DS ---
Physical Exam: SUBJECTIVE: Patient seen and examined - Going home this AM. No transportation yesterday. - No major complaints. No fatigue or lightheadness or any other symptoms. A& Ox3. Conversant with normal mentation. - Concerned about BP on follow-up. Instructed to f/u with primary and Dr. miramontes about BP meds. All new instructions for med changes repeated and referenced in discharge plan. OBJECTIVE: Vital Signs Period Temp Pulse Resp BP Sys/Grover Pulse Ox Last 24 Hr 98.7 F-99.8 F 63-84 18-20 142-153/51-83 92-93 PHYSICAL EXAM GENERAL: The patient is awake, alert, and fully oriented, in no acute distress. Frail, elderly woman HEAD: Normal with no signs of trauma. EYES: PERRL, extraocular movements intact, sclera anicteric, conjunctiva clear. No ptosis. ENT: Ears normal, nares patent, oropharynx clear without exudates, moist mucous membranes. NECK: Trachea midline, full range of motion, supple. LUNGS:CTABL, no wheezes, no crackles, no accessory muscle use. HEART: Distant heart sounds. Regular rate and rhythm, S1, S2 without murmur, rub or gallop. ABDOMEN: Soft, nontender, nondistended, normoactive bowel sounds, no guarding, no rebound, no hepatosplenomegaly, no masses. EXTREMITIES: 2+ pulses in upper extremities, 1+ DP, PT in lower extremities, warm, well-perfused, no edema. NEUROLOGICAL: Cranial nerves II through XII grossly intact. Normal speech, gait not observed. PSYCH: Normal mood, normal affect. SKIN: Warm, dry, normal turgor, no rashes or lesions noted LABS Laboratory Last Values WBC 9.0 K/mm3 (4.0-10.0) D 05/13/17 06:25 RBC 3.96 M/mm3 (3.60-5.2) 05/13/17 06:25 Hgb 11.1 GM/dL (10.7-15.3) 05/13/17 06:25 Hct 33.6 % (32.4-45.2) 05/13/17 06:25 MCV 84.8 fl (80-96) 05/13/17 06:25 MCH 28.0 pg (25.7-33.7) 05/13/17 06:25 MCHC 33.1 g/dl (32.0-36.0) 05/13/17 06:25 RDW 15.6 % (11.6-15.6) 05/13/17 06:25 Plt Count 177 K/MM3 (134-434) 05/13/17 06:25 MPV 9.3 fl (7.5-11.1) 05/13/17 06:25 Neutrophils % 85.3 % (42.8-82.8) H D 05/12/17 20:23 Lymphocytes % 6.6 % (8-40) L D 05/12/17 20:23 Monocytes % 7.7 % (3.8-10.2) 05/12/17 20:23 Eosinophils % 0.2 % (0-4.5) D 05/12/17 20:23 Basophils % 0.2 % (0-2.0) 05/12/17 20:23 PT with INR 13.00 SEC (9.98-11.88) H 05/12/17 20:23 INR 1.15 (0.82-1.09) H 05/12/17 20:23 Sodium 140 mmol/L (136-145) 05/13/17 06:25 Potassium 4.0 mmol/L (3.5-5.1) 05/13/17 06:25 Chloride 108 mmol/L (98-107) H 05/13/17 06:25 Carbon Dioxide 25 mmol/L (21-32) 05/13/17 06:25 Anion Gap 7 (8-16) L 05/13/17 06:25 BUN 17 mg/dL (7-18) 05/13/17 06:25 Creatinine 1.2 mg/dL (0.55-1.02) H 05/13/17 06:25 Creat Clearance w eGFR 35.65 (>60) 05/12/17 20:23 Random Glucose 79 mg/dL (74-106) D 05/13/17 06:25 Calcium 8.0 mg/dL (8.5-10.1) L 05/13/17 06:25 Magnesium 1.9 mg/dL (1.8-2.4) 05/12/17 20:23 Total Bilirubin 0.8 mg/dL (0.2-1.0) D 05/12/17 20:23 AST 21 U/L (15-37) D 05/12/17 20:23 ALT 30 U/L (12-78) D 05/12/17 20:23 Alkaline Phosphatase 220 U/L (45-117) H 05/12/17 20:23 Creatine Kinase 43 IU/L (26-192) 05/12/17 20:23 Troponin I < 0.02 ng/ml (0.00-0.05) 05/12/17 20:23 B-Natriuretic Peptide 2735.37 pg/ml (5-450) H 05/12/17 20:23 Total Protein 6.4 g/dl (6.4-8.2) 05/12/17 20:23 Albumin 2.9 g/dl (3.4-5.0) L 05/12/17 20:23 Lipase 62 U/L (73-393) L 05/12/17 20:23 Urine Color Yellow 05/12/17 21:39 Urine Appearance Slcloudy 05/12/17 21:39 Urine pH 5.0 (5.0-8.0) 05/12/17 21:39 Ur Specific [place] 1.009 (1.001-1.035) 05/12/17 21:39 Urine Protein 1+ (NEGATIVE) H 05/12/17 21:39 Urine Glucose (UA) Negative (NEGATIVE) 05/12/17 21:39 Urine Ketones Negative (NEGATIVE) 05/12/17 21:39 Urine Blood 2+ (NEGATIVE) H 05/12/17 21:39 Urine Nitrite Negative (NEGATIVE) 05/12/17 21:39 Urine Bilirubin Negative (NEGATIVE) 05/12/17 21:39 Urine Urobilinogen Negative mg/dL (0.2-1.0) 05/12/17 21:39 Ur Leukocyte Esterase Negative (NEGATIVE) 05/12/17 21:39 Urine WBC (Auto) 1 /hpf (3-5) 05/12/17 21:39 Urine RBC (Auto) 9 /hpf (0-3) 05/12/17 21:39 Ur Epithelial Cells Rare /HPF (FEW) 05/12/17 21:39 Hyaline Casts 5 /lpf 05/12/17 21:39 Granular Casts 2 /lpf 05/12/17 21:39 HOSPITAL COURSE: Date of Admission:05/12/17 Date of Discharge: 05/14/17 86 yo woman with pmh of diastolic CHF, AAA, thoracic AA, COPD and HTN who presented to the ED due to lightheadness after increasing home clonidine patch 0.1mg to 0.2mg, found to be hypotensive to 72/50, but recovered with fluid resuscitation. CXR and EKG on admission were unremarkable. Clonidine patch dose was decreased from 0.2mg to 0.1mg and home norvasc was held. Pt BP stabilized and Cardiology was consulted. Pt normal cardiology is Dr. Gomez and pt was seen by Dr. Carrera, who agreed with the management plan. Pt with stable BP during stay (systolic 140-150s) and no further complaints of dizziness/lightheadness, CP, palpitations, fevers/coughs. F/u with Dr. Gomez's clinic indicated pt was actually d/c'ed from her norvasc the day prior to admission. Pt was able to ambulate without assistance with no further episodes of lightheadness, w/ normal MS (A&oX3) and no further complaints. She was discharged home on the morning of 05/14 with follow-up with her gerontology aide, Dr. Gomez, for further management of her BP meds. Pt w/ mild leukocytosis to 14.7 on admission, but resolved to 9 the following day and no complaints of active infectious symptoms (fevers/chills, dysuria, diarrhea, rashes, cough). EKG 05/12: NSR, 1st degree AV block, normal QTc, no ischemic changes Imaging : CXR 05/12: Impression: 1. Hyperinflated lungs with coarsened bronchovascular markings representing COPD/emphysema. No focal opacity to suggest pneumonia. Please correlate clinically. 2. Grossly unchanged retrocardiac opacity which corresponds to aneurysm of the descending thoracic aorta, seen to better advantage on 03/17/[address] 3. A 7 mm right mid lung nodule, similar in size to the immediate prior chest x-ray. Please correlate with most recent chest CT. Micro: No recent micro Consults: Cardiology - Seen by Dr. Carrera, covering for Dr. Gomez Plan per cardiology team: -likely related to htn meds (recently increased clonidine 0.1 to 0.2) -after holding norvasc and decreasing clonidine, bp better and sxs better -cont coreg 25 bid and clonidine patch at 0.1 mg Pt cleared for discharge given stable BPs and no further episodes of lightheadness and no active complaints. She will follow-up with Dr. Gomez in clinic for further management of BP meds. Pt norvasc D/c'ed and catapres reduced to prior dose (0.1 mg). Minutes to complete discharge: 35 Discharge Summary Reason For Visit: LIGHTHEADEDNESS Condition: Stable - Instructions Diet, Activity, Other Instructions: During your admission at [facility] you were treated for low blood pressure Please do not continue taking the following medications: Norvasc 5mg The following changes were made to your medications: Catapres patch 0.2 mg was decreased -> Catapres patch 0.1 mg Continue all other home medications as previously prescribed. Follow-up: Please follow-up with your gerontology aide, Dr. Gomez, in one week. Please call his office to schedule an appointment. His contact information has been provided in this packet. Please follow-up with a primary care provider, in one week. Contact information for Dr. Meyers at the [facility] and Dr. Cunningham have been proved. Please call the office to schedule an appointment. Diet: resume as tolerated Activity: Walking with home walker use as needed. If you experience any persistent lightheadedness, dizziness, changes in vision, palpitations, shortness of breath or chest pain, or any new symptoms please return to the hospital. Referrals: Vazquez Meyers MD [Staff Physician] - Glen Yusuf MD [Staff Physician] - José Manuel Gomez MD [Staff Physician] - Disposition: HOME - Home Medications Comprehensive Discharge Medication List: Ambulatory Orders Amitriptyline HCl [Elavil -] 10 mg PO DAILY 12/27/16 Atorvastatin Ca [Lipitor] 80 mg PO DAILY 12/27/16 Tramadol HCl [Ultram -] 50 mg PO Q6H 12/27/16 Alprazolam [Xanax] 0.25 mg PO TID PRN #30 tablet MDD 0.75 04/07/17 Carvedilol [Coreg -] 25 mg PO BID #60 tablet 04/07/17 Clopidogrel Bisulfate [Plavix -] 75 mg PO DAILY 05/12/17 Clonidine Patch [Catapres Tts Patch -] 0.1 mg TD Q7D@1000 #4 patch.tdwk This patient is new to me today: No Emergency Visit: Yes ED Registration Date: 05/12/17 Care time: The patient presented to the Emergency Department on the above date and was hospitalized for further evaluation of their emergent condition. Critical Care patient: No - Discharge Referral Referred to [facility] Med P.C.: No
--- NOTE | 2017-05-15 14:54 | HOSP ---
Subjective - Review of Symptoms Events since last encounter: yesterday the daughter called reporting that her mother was hallucinating and confused after reaching home from the hospital. Her SBP at arrival to home was 150 systolic. she was asked to repeat BP and bring her to ER for an evaluation . Physical Examination Vital Signs: Vital Signs Temperature 98.7 F 05/14/17 10:00 Pulse Rate 72 05/14/17 10:00 Respiratory Rate 20 05/14/17 10:00 Blood Pressure 153/51 05/14/17 10:00 O2 Sat by Pulse Oximetry (%) 93 L 05/14/17 10:00 Labs: CBC, BMP 05/13/17 06:25 05/13/17 06:25
== END 2017-05-14 11:54 | disposition home or self-care (01) ==
LOC: JER 17:38 → INTOOBSV 21:59 → JERBED 21:59 → J4W 05-13 00:24
PROVIDERS: ADMIT Internal Medicine; ATTEND Internal Medicine
PROC: 3E0F7GC Introduction of Other Therapeutic Substance into Respiratory Tract, Via Natural or Artificial Opening (ICD-10-PCS; principal; 2017-05-12)
PROC: 3E0337Z Introduction of Electrolytic and Water Balance Substance into Peripheral Vein, Percutaneous Approach (ICD-10-PCS; 2017-05-12)
DX: I10 Essential (primary) hypertension (principal); I11.0 Hypertensive heart disease with heart failure; I50.30 Unspecified diastolic (congestive) heart failure; Z95.0 Presence of cardiac pacemaker; J44.9 Chronic obstructive pulmonary disease, unspecified; I71.2 Thoracic aortic aneurysm, without rupture; M54.89 Other dorsalgia; G89.29 Other chronic pain; K57.90 Diverticulosis of intestine, part unspecified, without perforation or abscess without bleeding; R26.89 Other abnormalities of gait and mobility; Z99.89 Dependence on other enabling machines and devices; Z86.73 Personal history of transient ischemic attack (TIA), and cerebral infarction without residual deficits; Z87.891 Personal history of nicotine dependence
CPT/HCPCS: 36415; 71010-TC; 80048; 80053; 81003; 81015; 82550; 83690; 83735; 83880; 84484; 85025; 85027; 85610; 93005; 93010; 94640; 96360; 96361; 97116-GP; 97161-GP; 99284-25; G0378

== ENCOUNTER 2017-05-15 01:03 | Emergency (ER) | payer OTHER ==
--- NOTE | 2017-05-15 01:11 | PDOC ---
Attending Attestation - Resident Resident Name: Karina Lange - ED Attending Attestation I have performed the following: I have examined & evaluated the patient, The case was reviewed & discussed with the resident, I agree w/resident's findings & plan - HPI HPI: 05/16/17 03:53 Agree with resident exam. Pt has CHF exacerbation. Her BNP is higher than what it was in the hospital. She had just been discharged hours before her arrival to the ER. Pt was diuresed in the ER and she is feeling better. SHe will be dicharged home with her - Physicial Exam PE: 05/16/17 03:58 Agree with resident exam. - Medical Decision Making 05/15/17 04:05 Patient Name: RAMONITA ORTEGA THIS IS A PRELIMINARY REPORT FROM [facility] DATE OF SERVICE: 2017-05-15 03:31:07 IMAGES: 139 EXAM: CT HEAD HISTORY: Patient fell COMPARISON: None. FINDINGS: No hemorrhage. Involutional changes. Chronic microvascular changes in the cerebral white matter. 5 mm left thalamic small vessel infarct of indeterminate age. Osseous structures are intact.
[2017-05-15 01:18] VITALS: BMI 18.3
--- NOTE | 2017-05-15 01:37 | PDOC ---
History of Present Illness <Paramjit Vasquez - Last Filed: 05/15/17 04:06> - History of Present Illness Initial Comments: 05/15/17 01:35 86yo woman with PMH of diastolic CHF, AAA, Thoracic AA, COPD (not on home O2) and HTN who was BIBEMS after falling at home ~9pm and subsequent SOB. She was getting out of bed to use the bathroom, and reports "legs giving under" while bracing herself against her walker. She fell on her L side, and reports hitting her head. Denies dizziness/lightheadedness prior to falling. Denies LOC. She was on the floor for approximately 5 minutes. After the event, she reports difficulty breathing. Her daughter called EMS. On arrival, EMS found her BP to be 180's/80's. She was given 2x nitroglycerin. On arrival to the ED BP 92/74, pSaO2 90% on RA. Denies current BOSS, dizziness, or changes in vision. PMHx: HTN COPD (Not on home O2) CHF (last echo 09/[address] 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 Flower <Karina Lange - Last Filed: 05/15/17 07:01> - General Chief Complaint: Shortness of Breath Stated Complaint: DIFFICULTY BREATHING Time Seen by Provider: 05/15/17 01:11 Past History <Paramjit Vasquez - Last Filed: 05/15/17 04:06> - Travel Traveled outside of the country in the last 30 days: No Close contact w/someone who was outside of country & ill: No - Past Medical History Anemia: No Asthma: No Cancer: Yes (SKIN.) Cardiac Disorders: No CVA: Yes (X 2.) COPD: Yes CHF: No DVT: No Dementia: No Diabetes: No Dialysis: No GI Disorders: Yes Disorders: No HTN: Yes Hypercholesterolemia: Yes Kidney Stones: No Liver Disease: No Psychiatric Problems: No Seizures: No Thyroid Disease: No Lung CA: No - Surgical History Abdominal Surgery: Yes Appendectomy: No Cardiac Surgery: Yes (pacemaker) Cholecystectomy: Yes Lung Surgery: No Neurologic Surgery: Yes Orthopedic Surgery: Yes (left knee meiscus tear repair) - Immunization History Immunization Up to Date: Yes - Suicide/Smoking/Psychosocial Hx Smoking History: Unknown if ever smoked Have you smoked in the past 12 months: No If you are a former smoker, when did you quit?: 4 years ago Information on smoking cessation initiated: No 'Breaking Loose' booklet given: 05/12/17 Hx Alcohol Use: No Drug/Substance Use Hx: No Substance Use Type: None Hx Substance Use Treatment: No <Karina Lange - Last Filed: 05/15/17 07:01> - Past Medical History Allergies/Adverse Reactions: Allergies Allergy/AdvReac Type Severity Reaction Status Date / Time ciprofloxacin [From Cipro] Allergy Unknown Verified 05/15/17 01:18 ciprofloxacin HCl Allergy Unknown Verified 05/15/17 01:18 [From Cipro] Home Medications: Ambulatory Orders Amitriptyline HCl [Elavil -] 10 mg PO DAILY 12/27/16 Atorvastatin Ca [Lipitor] 80 mg PO DAILY 12/27/16 Tramadol HCl [Ultram -] 50 mg PO Q6H 12/27/16 Alprazolam [Xanax] 0.25 mg PO TID PRN #30 tablet MDD 0.75 04/07/17 Carvedilol [Coreg -] 25 mg PO BID #60 tablet 04/07/17 Clopidogrel Bisulfate [Plavix -] 75 mg PO DAILY 05/12/17 Clonidine Patch [Catapres Tts Patch -] 0.1 mg TD Q7D@1000 #4 patch.tdwk Carvedilol [Coreg] 25 mg PO BID #60 tablet 05/15/17 Review of Systems - Review of Systems Respiratory: Yes: Shortness of Breath, SOB at Rest <Karina Lange - Last Filed: 05/15/17 07:01> *Physical Exam - Vital Signs Last Vital Signs Temp Pulse Resp BP Pulse Ox 99.5 F 75 17 182/83 98 05/15/17 01:17 05/15/17 03:13 05/15/17 03:13 05/15/17 03:13 05/15/17 03:13 <Paramjit Vasquez - Last Filed: 05/15/17 04:06> - Vital Signs Last Vital Signs Temp Pulse Resp BP Pulse Ox 99.5 F 80 26 H 92/74 93 L 05/15/17 01:17 05/15/17 01:26 05/15/17 01:17 05/15/17 01:17 05/15/17 01:26 - Physical Exam General Appearance: Yes: Appropriately Dressed, Thin HEENT: positive: Other (dry mucous membranes) Neck: positive: Supple Respiratory/Chest: negative: Accessory Muscle Use (L basilar rales, R CTA) Cardiovascular: positive: Regular Rhythm, Regular Rate, S1, S2 Gastrointestinal/Abdominal: positive: Soft. negative: Tenderness Musculoskeletal: positive: Normal Inspection Extremity: positive: Normal Range of Motion. 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 NML intact, Fully Oriented, Alert <Karina Lange - Last Filed: 05/15/17 07:01> ED Treatment Course - LABORATORY CBC & Chemistry Diagram: 05/15/17 01:55 05/15/17 01:55 - ADDITIONAL ORDERS Additional order review: Laboratory Results 05/15/17 05/15/17 01:55 01:55 Sodium 139 Potassium 4.1 Chloride 104 Carbon Dioxide 27 Anion Gap 8 BUN 13 D Creatinine 0.9 D Creat Clearance w eGFR 59.37 Random Glucose 111 H D Calcium 8.6 Total Bilirubin 0.6 D AST 18 ALT 22 D Alkaline Phosphatase 183 H B-Natriuretic Peptide 4516.06 H Total Protein 6.5 Albumin 3.0 L 05/15/17 01:55 RBC 3.94 MCV 84.5 MCHC 33.7 RDW 15.0 MPV 9.0 Neutrophils % 72.1 Lymphocytes % 13.5 D Monocytes % 13.0 H Eosinophils % 1.1 D Basophils % 0.3 - Medications Given in the ED: ED Medications Discontinued Medications Generic Name Dose Route Start Last Admin Trade Name Freq PRN Reason Stop Dose Admin Furosemide 40 mg 05/15/17 02:52 05/15/17 03:13 Lasix Injection - IVPUSH 05/15/17 02:53 40 mg ONCE ONE Administration <Paramjit Vasquez - Last Filed: 05/15/17 04:06> - LABORATORY CBC & Chemistry Diagram: 05/15/17 01:55 05/15/17 01:55 <Karina Lange - Last Filed: 05/15/17 07:01> Medical Decision Making - Medical Decision Making 05/15/17 04:06 EXAM: CT HEAD FINDINGS: No hemorrhage. Involutional changes. Chronic microvascular changes in the cerebral white matter. 5 mm left thalamic small vessel infarct of indeterminate age. Osseous structures are intact. Read by: Dr. Artemio Mccallum <Paramjit Vasquez - Last Filed: 05/15/17 04:06> - Medical Decision Making 05/15/17 01:56 86yo woman with difficult to control BP, discharged yesterday (05/14) who now presents s/p fall and dyspnea. Patient's elevated BP at home likely due to confusion over change in medication on discharge. Patient reports not taking any medications this morning, specifically including the Coreg, because she was told to stop taking it. DSumm clearly states to continue taking Coreg BID. Patient is wearing clonidine 0.1mg patch placed 05/13 (to be changed q7days). Physical exam notable for L basilar crackles. Lung exam on day of discharge noted to be CTAB. Although patient has no focal neurological deficits or c/o BOSS , will order noncon Head CT to rule out any acute intracranial hemorrhage. -BNP -CBC, CMP -CXR EKG: unchanged from prior on 05/12/17 NSR, rate 73, rightward axis deviation, normal intervals, 1st degree AV block, anteroseptal infarct (old), QTc 405 05/15/17 05:01 Laboratory Tests 03/29/17 05/12/17 05/15/17 15:30 20:23 01:55 B-Natriuretic Peptide 730.29 H 2735.37 H 4516.06 H Vital Signs Temperature 99.5 F 05/15/17 01:17 Pulse Rate 75 05/15/17 03:13 Respiratory Rate 17 05/15/17 03:13 Blood Pressure 187/93 05/15/17 04:41 O2 Sat by Pulse Oximetry (%) 98 05/15/17 03:13 Interval elevation in the patient's BNP. Received 40mg IVP lasix, then 20mg IVP lasix. Head CT negative for acute pathology, including intracranial hemorrhage. Serial BP checks have revealed rising systolic back to 180's. Diovan ordered, and will reassess BP. 05/15/17 06:11 Repeat BP: -R arm 164/74 -L arm 167/82 Satting at 90% on RA. Patient's blood pressure has responded appropriately to the Diovan. Patient has remained asymptomatic. <Karina Lange - Last Filed: 05/15/17 07:01> *DC/Admit/Observation/Transfer - Attestations Scribe Attestion: 05/15/17 04:07 Documentation prepared by Paramjit Vasquez, acting as senior medical director for Lisbet Moody MD. <Paramjit Vasquez - Last Filed: 05/15/17 04:06> <Karina Lange - Last Filed: 05/15/17 07:01> Diagnosis at time of Disposition: Labile blood pressure - Prescriptions Prescriptions: Carvedilol [Coreg] 25 mg PO BID #60 tablet - Referrals Referrals: Handy Wheeler MD [Primary Care Provider] - - Patient Instructions Printed Discharge Instructions: DI for High Blood Pressure, How to Prevent Falls Additional Instructions: Your blood pressure was found to be high. Please make an appointment with your cat scan tech (Dr. Gomez) in the next 2-3 days. You should continue to wear the 0.1mg Clonidine patch (placed on 05/13/17) until 05/19/17. You should place a new patch every 7 days. Take 1 tablet of Coreg twice per day. Please return to the Emergency Department if you develop a severe headache, persistent dizziness, changes in vision, palpitations, shortness of breath, or new, worsening, or concerning symptoms.
[2017-05-15 02:03] LABS: BASOPHIL 0.3 % (0-2.0); EOSINOPHIL 1.1 % (0-4.5); MCH 28.5 pg (25.7-33.7); MCHC 33.7 g/dl (32.0-36.0); MEAN CELL VOLUME 84.5 fl (80-96); NEUTROPHILS 72.1 % (42.8-82.8); PLATELET COUNT 201 K/MM3 (134-434)
[2017-05-15 02:41] LABS: ANION GAP 8 (8-16); BILIRUBIN,TOTAL 0.6 mg/dL (0.2-1.0); CALCIUM 8.6 mg/dL (8.5-10.1); CO2 27 mmol/L (21-32); CREATININE 0.9 mg/dL (0.55-1.02); GLUCOSE,RANDOM 111 mg/dL (74-106); SGOT/AST 18 U/L (15-37); SGPT/ALT 22 U/L (12-78); TOT PROT 6.5 g/dl (6.4-8.2)
[2017-05-15 02:42] LABS: ALK PHOS 183 U/L (45-117)
[2017-05-15] MEDS ORDERED: FUROSEMIDE 40 MG/4 ML INJECTABLE VIAL IVPUSH ONE ×2 (02:52→04:19)
[2017-05-15] MEDS ORDERED: FUROSEMIDE 40 MG/4 ML INJECTABLE VIAL ONE ×2 (03:02→04:25)
[2017-05-15] MEDS ORDERED: VALSARTAN 40 MG TABLET (FP) PO ONE (04:37)
[2017-05-15] MEDS ORDERED: VALSARTAN 80 MG TABLET (UD) ONE (04:44)
[2017-05-15 06:12] VITALS: BP 164/74; PULSE 74
[2017-05-15 06:26] VITALS: TEMP 98.3
--- NOTE | 2017-05-15 08:40 | EKG ---
Test Reason : Blood Pressure : / mmHG Vent. Rate : 073 BPM Atrial Rate : 073 BPM P-R Int : 258 ms QRS Dur : 078 ms QT Int : 368 ms P-R-T Axes : 082 086 041 degrees QTc Int : 405 ms POOR DATA QUALITY, INTERPRETATION MAY BE ADVERSELY AFFECTED SINUS RHYTHM WITH 1ST DEGREE A-V BLOCK ANTEROSEPTAL INFARCT (CITED ON OR BEFORE 12-MAY-2017) ABNORMAL ECG WHEN COMPARED WITH ECG OF 12-MAY-2017 20:56, NO SIGNIFICANT CHANGE WAS FOUND Confirmed by ANA CASTELLANOS, MATT ([id number]) on 05/15/2017 8:40:15 AM Referred By: Confirmed By:MATT PEREZ MD
== END 2017-05-15 07:00 | disposition home or self-care (01) ==
LOC: JER 01:03
PROC: 3E033GC Introduction of Other Therapeutic Substance into Peripheral Vein, Percutaneous Approach (ICD-10-PCS; principal; 2017-05-15)
DX: R09.89 Other specified symptoms and signs involving the circulatory and respiratory systems (principal); I50.9 Heart failure, unspecified; J44.9 Chronic obstructive pulmonary disease, unspecified; I71.4 Abdominal aortic aneurysm, without rupture
CPT/HCPCS: 36415; 70450-TC; 71010-TC; 80053; 83880; 85025; 93005; 93010; 99284-25

== ENCOUNTER 2017-06-15 14:02 | Inpatient (IN) | payer OTHER ==
--- NOTE | 2017-06-15 15:30 | PDOC ---
Attending Attestation - Resident Resident Name: Suman Cao - ED Attending Attestation I have performed the following: I have examined & evaluated the patient, The case was reviewed & discussed with the resident, I agree w/resident's findings & plan, Exceptions are as noted - HPI HPI: 06/15/17 15:23 This is an 86 yo F who presents to the ER s/p syncopal event Pt was in the Cardiologists office She is currently undergoing adjustment of anti hypertensives - Physicial Exam PE: 06/15/17 15:24 Examination: GENERAL: The patient is in no acute distress. HEAD: Normal EYES: PERRLA, EOMI, ENT: Ears normal, nares patent, oropharynx clear without exudates. Moist mucous membranes. NECK: Normal range of motion, supple LUNGS: Breath sounds equal, clear to auscultation bilaterally. HEART:Regular rate and rhythm, normal S1 and S2 without murmur, rub or gallop. ABDOMEN: Soft, nontender, normoactive bowel sounds. EXTREMITIES: Normal range of motion, no edema. NEUROLOGICAL: Cranial nerves II through XII grossly intact. Normal speech. No focal neurological deficits. MUSCULOSKELETAL: Back non-tender to palpation SKIN: Warm, Dry, normal turgor, no rashes or lesions noted. - Medical Decision Making 06/15/17 15:26 86-year-old female presenting to the emergency department status post syncopal event today. Will do: Labs, ekg, Head CT EKG: SR rate of 60bpm, axis nml, 1st degree av block No ST elevations or depression Will place on observation
--- NOTE | 2017-06-15 15:35 | PDOC ---
History of Present Illness - General Chief Complaint: Lightheaded Stated Complaint: SYNCOPY Time Seen by Provider: 06/15/17 14:57 - History of Present Illness Initial Comments: 06/15/17 16:28 The patient is an 86 year old female with a history of COPD, HTN, and a cardiac pacemaker who presents for evaluation following a pre-syncopal episode. The patient reports that she was at her cardiologists office to have her BP medications adjusted when she experienced lightheadedness and weak. She was lowered to a chair and did not lose consciousness. She denies any chest pain, SOB, or palpitations. She denies fevers, chills, headache, nausea, vomiting, abdominal pain, or changes with urination or bowel movements. Past History - Past Medical History Allergies/Adverse Reactions: Allergies Allergy/AdvReac Type Severity Reaction Status Date / Time ciprofloxacin [From Cipro] Allergy Unknown Verified 05/15/17 01:18 ciprofloxacin HCl Allergy Unknown Verified 05/15/17 01:18 [From Cipro] Home Medications: Ambulatory Orders Amitriptyline HCl [Elavil -] 10 mg PO DAILY 12/27/16 Atorvastatin Ca [Lipitor] 80 mg PO DAILY 12/27/16 Clonidine Patch [Catapres Tts Patch -] 0.1 mg TD Q7D@1000 #4 patch.tdwk Carvedilol [Coreg -] 12.5 mg PO HS 06/15/17 Carvedilol [Coreg] 6.25 mg PO AM 06/15/17 Tramadol HCl [Ultram] 50 mg PO Q6H 06/15/17 Anemia: No Asthma: No Cancer: Yes (SKIN.) Cardiac Disorders: No CVA: Yes (X 2.) COPD: Yes CHF: No DVT: No Dementia: No Diabetes: No Dialysis: No GI Disorders: Yes Disorders: No HTN: Yes Hypercholesterolemia: Yes Kidney Stones: No Liver Disease: No Psychiatric Problems: No Seizures: No Thyroid Disease: No Lung CA: No - Surgical History Abdominal Surgery: Yes Appendectomy: No Cardiac Surgery: Yes (pacemaker) Cholecystectomy: Yes Lung Surgery: No Neurologic Surgery: Yes Orthopedic Surgery: Yes (left knee meiscus tear repair) - Immunization History Immunization Up to Date: Yes - Suicide/Smoking/Psychosocial Hx Smoking History: Former smoker Have you smoked in the past 12 months: No If you are a former smoker, when did you quit?: 2013 Information on smoking cessation initiated: No 'Breaking Loose' booklet given: 05/12/17 Hx Alcohol Use: No Drug/Substance Use Hx: No Substance Use Type: None Hx Substance Use Treatment: No Review of Systems - Review of Systems Comments:: 06/15/17 16:37 Constitutional: No fevers, chills, fatigue, malaise HEENT: No Rhinorrhea, nasal congestion, visual changes Cardiovascular: Syncope. No chest pain, palpitations, lightheadedness Respiratory: No Cough, SOB, Hemoptysis, Gastrointestinal: No Abdominal pain, Nausea, Vomiting, Constipation, Diarrhea, Melena Genitourinary: No Dysuria, Frequency, Urgency, Hesitancy, Hematuria, Flank pain Musculoskeletal: No Myalgia, arthralgia Skin: No rashes, bruising, pallor Neurologic: No Headache, Dizziness, Numbness, Weakness, or Tingling Psychiatric: No Hallucinations. No SI or HI *Physical Exam - Vital Signs Last Vital Signs Temp Pulse Resp BP Pulse Ox 97.1 F L 62 20 112/68 94 L 06/15/17 15:09 06/15/17 15:09 06/15/17 15:09 06/15/17 15:09 06/15/17 15:09 - Physical Exam Comments: 06/15/17 16:37 General Appearance: Nourished. No Apparent Distress HEENT: EOMI, GREGORIO. No Pharyngeal Erythema, Tonsillar Exudate, Tonsillar Erythema Neck: No Cervical Lymphadenopathy Respiratory/Chest: Lungs Clear, Normal Breath Sounds. No Crackles, Rales, Rhonchi, Wheezing Cardiovascular: Regular Rhythm, Regular Rate. No Murmur, Gallops, Rubs Gastrointestinal/Abdominal: Normal Bowel Sounds, Soft. No Guarding, Rebound, Tenderness Musculoskeletal: No CVA Tenderness Extremity: Normal Capillary Refill Integumentary: Normal Color, Dry, Warm Neurologic: refractory mixer II-XII NML intact, Fully Oriented, Alert, Normal Mood/Affect, Normal Response, Motor Strength 5/5. Normal Finger to Nose and Heel to [place] ED Treatment Course - LABORATORY CBC & Chemistry Diagram: 06/16/17 07:30 06/16/17 07:30 Medical Decision Making - Medical Decision Making 06/15/17 16:38 The patient is an 86 year old female with a history of COPD, HTN, and a cardiac pacemaker who presents for evaluation following a pre-syncopal episode. Differential includes but is not limited to: ACS, arrhythmia, infectious, metabolic derangement, vasovagal syncope. Given the patient's history and physical exam, it is likely her symptoms were vaso-vagal in nature. However we will obtain a cbc, cmp, troponin, and ekg to evaluate for other etiologies. She will likely require observation admission given her comorbities and pre- syncopal episode. We will continue to monitor and reassess. 06/15/17 18:13 CBC, cmp, troponin, ekg are unremarkable. We have discussed the case with the hospitalist team who have accepted the patient for tele obs admission. *DC/Admit/Observation/Transfer Diagnosis at time of Disposition: Pre-syncope - Discharge Dispostion Condition at time of disposition: Stable Admit: Yes - Referrals - Patient Instructions - Post Discharge Activity
[2017-06-15 15:48] LABS: BASO % 0.7 % (0-2.0); EOS % 2.4 % (0-4.5); HEMATOCRIT 39.7 % (32.4-45.2); HEMOGLOBIN 12.7 GM/dL (10.7-15.3); LYMPH % 22.5 % (8-40); MCH 26.8 pg (25.7-33.7); MEAN CELL VOLUME 83.7 fl (80-96); MEAN PLT VOLUME 8.4 fl (7.5-11.1); MONO % 13.8 % (3.8-10.2); NEUT % 60.6 % (42.8-82.8); PLATELET COUNT 163 K/MM3 (134-434); RBC 4.75 M/mm3 (3.60-5.2); RDW 15.9 % (11.6-15.6); WHITE BLOOD COUNT 7.2 K/mm3 (4.0-10.0)
[2017-06-15 16:15] LABS: ALBUMIN 2.9 g/dl (3.4-5.0); ANION GAP 9 (8-16); BLOOD UREA NITROGEN 20 mg/dL (7-18); CALCIUM 8.8 mg/dL (8.5-10.1); CHLORIDE 103 mmol/L (98-107); CO2 26 mmol/L (21-32); CREATININE 1.3 mg/dL (0.55-1.02); GLUCOSE,RANDOM 95 mg/dL (74-106); POTASSIUM 4.2 mmol/L (3.5-5.1); SGOT/AST 18 U/L (15-37); SGPT/ALT 13 U/L (12-78); SODIUM 138 mmol/L (136-145)
[2017-06-15 16:19] LABS: ALK PHOS 95 U/L (45-117); BILIRUBIN,TOTAL 0.4 mg/dL (0.2-1.0); TOT PROT 6.4 g/dl (6.4-8.2)
--- NOTE | 2017-06-15 18:56 | HP ---
CHIEF COMPLAINT: Pre-Syncope PCP: Dr. Wheeler HISTORY OF PRESENT ILLNESS: Patient is an 86 year old female with a PMHx of diastolic CHF, AAA, Thoracic AA , COPD on no 02, HTN, CAD s/p pacemaker, CVA, and chronic Back pain who presented today after a syncopal episode at the cardiologists office. Patient reports around 1pm today she went to her cardiologists office and when she reached to the secretaries window she felt dizzy. She then went to the bathroom with her aid and she felt lightheaded and "blacked out." She reports not remembering anything after that until she regained consciousness, which she reports they told her a minute later. Patient states her systolic blood pressure at the cage cashier office was in the 80's but does not remember the exact number. Patient reports feeling short of breath before she lost consciousness but states this is a chronic and intermittent problem. Patient normally ambulates on her own when she is out with the help of her aid and she uses a walker at home with no difficulties. Patient otherwise denies any chest pain, palpitations, abdominal pain, headache, dysuria, hematuria, frequency, nausea, vomiting, diarrhea, constipation, diaphoresis. Patient denies being around sick patients Patient reports getting her Flu shot this year Patient reports having a cough last week which her PCP gave her prednisone and antibiotics. She reports having no symptoms currently Recent Travel: Denies PAST MEDICAL HISTORY: HTN, COPD, DIASTOLIC CHF, PRIOR CVA, AAA (On 12/27/16 showing 4.7cm increased from 6 months prior at 4.2cm), Thoracic Abdominal Aneurysm (On 03/17/17 6.2cm Type III Fusiform aneurysm of 6.2cm increased from 4cm 4 months prior), CAD, CHRONIC BACK PAIN PAST SURGICAL HISTORY: Pacemaker placement Social History: Smoking: Former smoker. Quit years ago Alcohol: Denies Drugs: Denies Family History: Non-contributory Allergies: ciprofloxacin [From Cipro] Allergy (Unknown, Verified 05/15/17 01:18) ciprofloxacin HCl [From Cipro] Allergy (Unknown, Verified 05/15/17 01:18) HOME MEDICATIONS: Home Medications Medication Instructions Recorded Amitriptyline HCl [Elavil -] 10 mg PO DAILY 12/27/16 Atorvastatin Ca [Lipitor] 80 mg PO DAILY 12/27/16 Clopidogrel Bisulfate [Plavix -] 75 mg PO DAILY 05/12/17 Clonidine Patch [Catapres Tts 0.1 mg TD Q7D@1000 #4 patch.tdwk 05/13/17 Patch -] Carvedilol [Coreg -] 12.5 mg PO BID 06/15/17 REVIEW OF SYSTEMS CONSTITUTIONAL: Absent: fever, chills, diaphoresis, generalized weakness, malaise, loss of appetite, weight change HEENT: Absent: rhinorrhea, nasal congestion, throat pain, throat swelling, difficulty swallowing, mouth swelling, ear pain, eye pain, visual changes CARDIOVASCULAR: syncope Absent: chest pain, palpitations, irregular heart rate, lightheadedness, peripheral edema RESPIRATORY: shortness of breath (chronic), dry cough Absent: dyspnea with exertion, orthopnea, wheezing, stridor, hemoptysis GASTROINTESTINAL: Absent: abdominal pain, abdominal distension, nausea, vomiting, diarrhea, constipation, melena, hematochezia GENITOURINARY: Absent: dysuria, frequency, urgency, hesitancy, hematuria, flank pain, genital pain MUSCULOSKELETAL: Back pain (chronic) Absent: myalgia, arthralgia, joint swelling, neck pain SKIN: Absent: rash, itching, pallor HEMATOLOGIC/IMMUNOLOGIC: Absent: easy bleeding, easy bruising, lymphadenopathy, frequent infections ENDOCRINE: Absent: unexplained weight gain, unexplained weight loss, heat intolerance, cold intolerance NEUROLOGIC: Absent: headache, focal weakness or paresthesias, dizziness, unsteady gait, seizure, mental status changes, bladder or bowel incontinence PSYCHIATRIC: Absent: anxiety, depression, suicidal or homicidal ideation, hallucinations. PHYSICAL EXAMINATION Vital Signs - 24 hr 06/15/17 06/15/17 06/15/17 15:09 15:51 16:13 Temperature 97.1 F L Pulse Rate 62 Pulse Rate [ 80 Apical] Respiratory 20 18 Rate Blood Pressure 112/68 Blood Pressure 129/60 [Right Arm] O2 Sat by Pulse 94 L 98 98 Oximetry (%) GENERAL: Awake, alert, and fully oriented, in no acute distress. HEAD: Normal with no signs of trauma. EYES: Pupils equal, round and reactive to light, extraocular movements intact, sclera anicteric, conjunctiva clear. No lid lag. EARS, NOSE, THROAT: Oropharynx clear without exudates. Dry mucous membranes. NECK: Normal range of motion, supple without lymphadenopathy, JVD, or masses. LUNGS: Left lower base crackles with no wheezing or accessory muscle use. HEART: Regular rate and rhythm, normal S1 and S2 without murmur, rub or gallop. ABDOMEN: Soft, nontender, not distended, normoactive bowel sounds, no guarding, no rebound, no masses. MUSCULOSKELETAL: No CVA tenderness. UPPER EXTREMITIES: 2+ pulses, warm, well-perfused. No cyanosis. No clubbing. No peripheral edema. LOWER EXTREMITIES: 2+ pulses, warm, well-perfused. No calf tenderness. No peripheral edema. NEUROLOGICAL: Cranial nerves II-XII intact. Normal speech. Motor strength 5/5 bilaterally with sensory intact. dp pulses 2+ bilaterally, knee reflexes 2+ bilaterally. No facial asymmetry PSYCHIATRIC: Cooperative. Good eye contact. Appropriate mood and affect. SKIN: Warm, dry, normal turgor, no rashes or lesions noted, normal capillary refill. Laboratory Results - last 24 hr 06/15/17 06/15/17 15:40 15:40 WBC 7.2 RBC 4.75 D Hgb 12.7 D Hct 39.7 D MCV 83.7 MCH 26.8 MCHC 32.0 RDW 15.9 H Plt Count 163 MPV 8.4 Neutrophils % 60.6 Lymphocytes % 22.5 D Monocytes % 13.8 H Eosinophils % 2.4 D Basophils % 0.7 Sodium 138 Potassium 4.2 Chloride 103 Carbon Dioxide 26 Anion Gap 9 BUN 20 H D Creatinine 1.3 H D Creat Clearance w eGFR 38.84 Random Glucose 95 Calcium 8.8 Total Bilirubin 0.4 D AST 18 ALT 13 D Alkaline Phosphatase 95 D Creatine Kinase 22 L Troponin I < 0.02 Total Protein 6.4 Albumin 2.9 L ASSESSMENT/PLAN: Patient is an 86 year old female who was sent here from her cage cashier office for a syncopal episode. Patient admitted for further monitoring and management. Syncopal Episode -Possibly secondary to hypotension vs cardiac etiology vs Neurological etiology -ECHO ordered -TSH wnl 5 months ago -First set of troponins negative. Repeat trops ordered -Orthostatics ordered -IV NS @73mls/hr one liter only -Urinalysis ordered -Phosphorous and magnesium ordered in the morning -Cardiology consult placed -Will lower dose of Coreg due to borderline hypotension. -Continuous cardiac monitoring in telemetry to rule out any arrythmias. GRISELDA on CKD -Cretnine of 1.3 with a creatinine of 0.9 two months ago -Urine electrolytes ordered -Avoid nephrotoxic medications -Continue to trend BMP HTN -Borderline hypotension but has history of uncontrolled BP -Will lower BP medication coreg and continue Clonidine patch COPD -In no acute exacerbation -Continue to monitor 02 sat CAD s/p CVA and pacemaker placement -Confirmed medications from pharmacy and patient is not on Plavix -Continue tele monitoring DIASTOLIC CHF -ECHO ordered -Cardiology consult placed F/E/N -iv ns @75mls/hr -Electrolytes wnl -Sodium controlled diet Prophylaxis -Moderate risk. SCD's for DVT -No GI required Disposition -Full code -ECHO pending and will require overnight observation Visit type - Emergency Visit Emergency Visit: Yes ED Registration Date: 06/15/17 Care time: The patient presented to the Emergency Department on the above date and was hospitalized for further evaluation of their emergent condition. - New Patient This patient is new to me today: Yes Date on this admission: 06/15/17 - Critical Care Critical Care patient: No
[2017-06-15] MEDS ORDERED: SODIUM CHLORIDE 1,000 ML IV SCH (19:45)
[2017-06-15 20:22] LABS: URINE APPEARANCE CLEAR; URINE BILIRUBIN NEGATIVE (NEGATIVE); URINE BLOOD 1+ (NEGATIVE); URINE COLOR YELLOW; URINE GLUCOSE (UA) NEGATIVE (NEGATIVE); URINE KETONE NEGATIVE (NEGATIVE); URINE LEUK ESTERASE NEGATIVE (NEGATIVE); URINE NITRITE NEGATIVE (NEGATIVE); URINE PROTEIN NEGATIVE (NEGATIVE); URINE UROBILINOGEN NEGATIVE mg/dL (0.2-1.0)
[2017-06-15 20:31] LABS: URINE HYALINE CAST 4 /lpf; URINE MUCUS RARE
--- NOTE | 2017-06-15 21:34 | PN ---
Teaching Attending Note Name of Resident: Bina House ATTENDING PHYSICIAN STATEMENT I saw and evaluated the patient. I reviewed the resident's note and discussed the case with the resident. I agree with the resident's findings and plan as documented. SUBJECTIVE:86 year old female with a PMHx of diastolic CHF, AAA, Thoracic AA, COPD on no 02, HTN, CAD s/p pacemaker, CVA, and chronic Back pain who presented today after a syncopal episode at the cardiologists office. she does not recall the episode but knows that she felt dizzy ewhile in the office and had to go to the bathroom. Next thing she recalls is being on the floor and awoke by staff. as per chart was out for <1min. assoc with dyspnea. states she took her medication this AM. no recent changes to medications other than what was done on previous hospitalization. currently pt is asymptomatic. denies CP, SOB, fever , chills, N/V/C/D, blurred vision, tonic/clonic movements, bowel incontinence. denies worsening weight loss. OBJECTIVE: Last Vital Signs Temp Pulse Resp BP Pulse Ox 97.1 F L 80 18 129/60 98 06/15/17 15:09 06/15/17 16:13 06/15/17 16:13 06/15/17 16:13 06/15/17 16:13 General NAD, thin and frail elderly woman, bitemporal wasting, prominent clavicles CV S1 S2 RRR no murmur/rub/gallop no carotid bruit Lungs CTA B/L no wheezing/rales/rhonchi Abdomen Soft NT/ND Extremities no pedal edema ASSESSMENT AND PLAN: 86 year old female with a PMHx of diastolic CHF, AAA, Thoracic AA, COPD on no 02 , HTN, CAD s/p pacemaker, CVA, and chronic Back pain who presented today after a syncopal episode at the cardiologists office 1. Syncope- tele observation for continuous cardiac monitoring. likely due to labile blood pressure. although can not r/o from tramadol which she did take this Am ( side effects of orthostatic hypotension and dizzyness). was told SBP 80's a the district fire management officer office. orthostatics negative. trend cardiac enzymes x3 with EKG. check echo and carotid doppler. cardio consulted. discussed tramadol can be possibility. pt adamant that she needs her tramadol and not willing to try reduced dose. states she only takes 2x/day. recent TSH WNL. 2. HTN- currently normotensive. known from pt history that BP is very labile. will give reduced dose of coreg. cont clonidine patch. cardiology consulted 3. Acute on CKD- possible dehydration. received IVF in the ER. will trend. avoid nephrotoxic agents 4. Severe malnutrition- denies more weight loss, (weight is down 2kg from march per dietary documented weight). dietary eval. order ensure compact. 5. DVT ppx- EAM
[2017-06-15] MEDS ORDERED: traMADol HCL 50 MG TABLET ONE (22:19)
[2017-06-15] MEDS ORDERED: ATORVASTATIN CA 80 MG TABLET (FP) ONE (22:20)
[2017-06-15] MEDS ORDERED: CARVEDILOL 3.125 MG TABLET (FP) ONE (22:20)
[2017-06-15] MEDS: CARVEDILOL 3.125 MG TABLET (FP) PO SCH (22:25)
[2017-06-15] MEDS: traMADol HCL 50 MG TABLET PO SCH ×2 (22:25→23:48)
[2017-06-15] MEDS: AMITRIPTYLINE HCL 10 MG TABLET (FP) PO SCH (22:26)
[2017-06-15] MEDS: ATORVASTATIN CA 80 MG TABLET (FP) PO SCH (22:26)
[2017-06-15] MEDS ORDERED: CARVEDILOL 3.125 MG TABLET (FP) PO ONE (23:45)
[2017-06-16 01:05] VITALS: BMI 17.5
[2017-06-16 03:08] LABS: URINE CREATININE 42.4 mg/dL (20-320)
[2017-06-16] MEDS ORDERED: CARVEDILOL 3.125 MG TABLET (FP) PO ONE (05:22)
[2017-06-16] MEDS: traMADol HCL 50 MG TABLET PO PRN ×2 (08:00→21:42)
[2017-06-16 08:15] LABS: BASO % 0.7 % (0-2.0); EOS % 6.6 % (0-4.5); HEMATOCRIT 36.7 % (32.4-45.2); HEMOGLOBIN 11.9 GM/dL (10.7-15.3); LYMPH % 35.7 % (8-40); MCH 27.1 pg (25.7-33.7); MCHC 32.5 g/dl (32.0-36.0); MEAN CELL VOLUME 83.3 fl (80-96); MEAN PLT VOLUME 8.9 fl (7.5-11.1); MONO % 13.5 % (3.8-10.2); NEUT % 43.5 % (42.8-82.8); PLATELET COUNT 138 K/MM3 (134-434); RDW 15.7 % (11.6-15.6)
[2017-06-16 08:56] LABS: ANION GAP 6 (8-16); BLOOD UREA NITROGEN 19 mg/dL (7-18); CALCIUM 8.5 mg/dL (8.5-10.1); CHLORIDE 107 mmol/L (98-107); CO2 28 mmol/L (21-32); CREATININE 1.1 mg/dL (0.55-1.02); GLUCOSE,RANDOM 83 mg/dL (74-106); MAGNESIUM 1.9 mg/dL (1.8-2.4); PHOSPHOROUS 2.8 mg/dL (2.5-4.9); SODIUM 141 mmol/L (136-145)
[2017-06-16] MEDS: CARVEDILOL 3.125 MG TABLET (FP) PO SCH (09:28)
--- NOTE | 2017-06-16 10:54 | CON.CARD ---
Consult Consult Specialty:: cardio Referred by:: hospitalist - History of Present Illness Chief Complaint: syncope History of Present Illness: 86 yo female here for near-syncope. was in my office yesterday for bp f/u. have been trying to stabilize her bp fluctuations given her large (and recently progressed) TAA which is non-operable. recently (following the last hospitalization), she had been on carvedilol 12.5 bid and clonidine patch 0.1mg. her bp's had been signif improved, ranging mostly 120s-160s, typically rising later in afternoon/evening. 2-3 wks ago i increased am carvedilol to 18.75mg, remaining regimen unchanged. she came yest and felt woozy on standing up. orthostatic bp check showed 140 seated, 100 standing. advised her to reduce am carvedilol back to 12.5 and move the pm dose from 11pm to 3pm. she went to the bathroom for a bowel movement and on her way out became very dizzy and weak, leaned on the doorpost, and then lost postural tone and was caught by my RESEARCH GENETICIST and myself. she may have lost consciousness for a few seconds when was silent but resumed speaking (at first not fully coherently, partially) immediately after that. sat in a chair and sx's resolved after 5-10 min. bp dropped to 80s when measured about 2 min after the epidose. EMS called--at that time bp was 140, dropping to 110 on standing. she had no c/o palpitations or cp, and no seizure activity noted last night orthostatics documented as 197 mmHg supine, 174 standing. bp this am 180/83 she has been receiving coreg 3.125 bid here PMH: labile HTN CKD (prone to volume depletion) PPM nonobstructive CAD diffuse PAD TAA copd HPL - Past Medical History Cardio/Vascular: Yes: CAD, HTN, Other (AAA) Pulmonary: Yes: COPD Gastrointestinal: Yes: Diverticulitis, Diverticulosis, Other (C. DIff colitis 2013) Musculoskeletal: Yes: Chronic low back pain - Past Surgical History Past Surgical History: Yes: Permanent Pacemaker - Alcohol/Substance Use Hx Alcohol Use: No History of Substance Use: reports: None - Smoking History Smoking history: Former smoker Have you smoked in the past 12 months: No If you are a former smoker, when did you quit?: 2014 - Social History Usual Living Arrangement: With Spouse ADL: Independent History of Recent Travel: No Home Medications - Allergies Allergies/Adverse Reactions: Allergies Allergy/AdvReac Type Severity Reaction Status Date / Time ciprofloxacin [From Cipro] Allergy Unknown Verified 05/15/17 01:18 ciprofloxacin HCl Allergy Unknown Verified 05/15/17 01:18 [From Cipro] - Home Medications Home Medications: Ambulatory Orders Amitriptyline HCl [Elavil -] 10 mg PO DAILY 12/27/16 Atorvastatin Ca [Lipitor] 80 mg PO DAILY 12/27/16 Clonidine Patch [Catapres Tts Patch -] 0.1 mg TD Q7D@1000 #4 patch.tdwk Carvedilol [Coreg -] 12.5 mg PO HS 06/15/17 Carvedilol [Coreg] 6.25 mg PO AM 06/15/17 Tramadol HCl [Ultram] 50 mg PO Q6H 06/15/17 Family Disease History - Family Disease History Family History: Denies (no known cmp) Review of Systems - Review of Systems Constitutional: denies: Chills, Fever Eyes: denies: Eye Pain HENT: denies: Nasal Congestion Neck: denies: Stiffness Cardiovascular: denies: Palpitations Respiratory: denies: Orthopnea, PND Gastrointestinal: denies: Diarrhea, Rectal Bleeding Genitourinary: denies: Burning, Hematuria Musculoskeletal: denies: Muscle Pain Integumentary: denies: Rash Neurological: denies: Numbness, Seizure Endocrine: denies: Excessive Sweating Hematology/Lymphatic: denies: Excessive Bleeding Vital Signs: Vital Signs Temperature 97.7 F 06/16/17 08:30 Pulse Rate 83 06/16/17 08:30 Respiratory Rate 18 06/16/17 08:30 Blood Pressure 180/83 06/16/17 08:30 O2 Sat by Pulse Oximetry (%) 94 L 06/15/17 23:00 - Other Data Labs, Other Data: CBC, BMP 06/16/17 07:30 06/16/17 07:30 Troponin, BNP 06/15/17 06/15/17 15:40 21:42 Troponin I < 0.02 < 0.02 Troponin, BNP 06/15/17 06/15/17 15:40 21:42 Troponin I < 0.02 < 0.02 Laboratory Tests 06/15/17 06/15/17 06/15/17 15:40 18:51 21:42 WBC Hgb Plt Count Sodium 138 Potassium 4.2 Carbon Dioxide 26 BUN 20 H D Creatinine 1.3 H D AST 18 ALT 13 D Troponin I < 0.02 < 0.02 TSH 0.82 D 06/16/17 06/16/17 07:30 07:30 WBC 7.0 Hgb 11.9 Plt Count 138 Sodium 141 Potassium 4.0 Carbon Dioxide 28 BUN 19 H Creatinine 1.1 H AST ALT Troponin I TSH Assessment/Plan ECG 06/15: a-paced, long A-V delay; ? old ASMI; nonspecific TWI's v1/v2--no signif change vs prior carotids 06/15: nonobstr plaque echo 09/2016: tds; nl lv/rv, mild-mod tr, nl rvsp mibi 09/2016: no ischemia a/p: 86 f hx copd, htn, ppm, cva, descd thoracic aortic aneurysm, here with weakness, low bp. syncope, known labile HTN with orthostatic hypotension tendencies: -chronic problem -yesterday's event was due to orthostatic hypotension which was documented prior to the event, probably acutely exacerbated by vasovagal response from having a BM (pt with known IBS). troponin neg x 2, ecg non-ischemic, no clinical concern for acute arrhythmia (protected from sandra by PM which is known to be normally functioning on recent office check), CVA or siezure. -bp runs up to 200s at times when meds are reduced--pt high risk for acute aorta catastrophe from known 6cm TAA that has enlarged on serial imaging if bp is consistently left in 170-200 range. -recently tolerated carvedilol 12.5 bid plus clonidine patch 0.1mg (intolerant of 0.2mg dose--excessive dry/pasty mouth). bp's reasonably controlled on that regimen without excessive highs or lows and no orthostatic sx's. -no choice but to accept a degree of orthostatic bp drop here as long as bp does not dip <90-100 often and cause sx's. -resume above carvedilol and clonidine regimen (moving pm clonidine dose earlier --to 3pm--will help control pm higher bp readings) -can be followed up as outpt. CKD: -has h/o fluctuating creatinines (to mid 1 range) as outpt, related to volume status. -creat bumps with low dose JOHANNA in past so was d/c'd by renal -currently renal fxn at her baseline -? renal artery stenosis on recent outside imaging--will review images as outpt and consider intervention to try to help bp control and minimize med regimen ppm: -nl fxn on outpt routine interrogations in office descending TAA: -found to be 6.2 cm on cta here recently, incidental with no attributable sx's then -transferred to dr almonte cardio-thoracic surgery as inpatient--evaluation revealed she was high risk for vascular complication from EVAR approach (small, calcified peripheral vessels) and high risk for open repair. pt declined intervention. -routine outpt f/u with surgery as scheduled HPL: -continue home statin
[2017-06-16] MEDS ORDERED: CARVEDILOL 12.5 MG TABLET (FP) PO SCH (11:00)
--- NOTE | 2017-06-16 11:30 | CON.CARD ---
Cardiology Consult (text) - Consultation Consultation Note: - History of Present Illness Chief Complaint: syncope History of Present Illness: 86 yo female here for near-syncope. was in cardiology office yesterday with dr molina for bp f/u. 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 recently (following the last hospitalization), she had been on carvedilol 12.5 bid and clonidine patch 0.1mg. her bp's had been signif improved, ranging mostly 120s-160s, typically rising later in afternoon/evening. 2-3 wks ago her coreg was increased with am carvedilol to 18.75mg, remaining regimen unchanged. she came yest to office and felt woozy on standing up. orthostatic bp check then showed 140 seated, 100 standing. advised her to reduce am carvedilol back to 12.5 and move the pm dose from 11pm to 3pm. she went to the bathroom for a bowel movement and on her way out became very dizzy and weak, leaned on the doorpost, and then lost postural tone and was caught by office staff she may have lost consciousness for a few seconds when was silent but resumed speaking (at first not fully coherently, partially) immediately after that. sat in a chair and sx's resolved after 5-10 min. bp dropped to 80s when measured about 2 min after the epidose. EMS called--at that time bp was 140, dropping to 110 on standing. she had no c/o palpitations or cp, and no seizure activity noted last night orthostatics documented as 197 mmHg supine, 174 standing. bp this am 180/83 she has been receiving coreg 3.125 bid here currently feels well. no cp, sob, palps, dizzy, pnd, orthopnea, le edema PMH: labile HTN CKD (prone to volume depletion) PPM nonobstructive CAD diffuse PAD TAA copd HPL - Past Medical History Cardio/Vascular: Yes: CAD, HTN, Other (AAA) Pulmonary: Yes: COPD Gastrointestinal: Yes: Diverticulitis, Diverticulosis, Other (C. DIff colitis 2013) Musculoskeletal: Yes: Chronic low back pain - Past Surgical History Past Surgical History: Yes: Permanent Pacemaker - Alcohol/Substance Use Hx Alcohol Use: No History of Substance Use: reports: None - Smoking History Smoking history: Former smoker Have you smoked in the past 12 months: No If you are a former smoker, when did you quit?: 2013 - Social History Usual Living Arrangement: With Spouse ADL: Independent History of Recent Travel: No Home Medications - Allergies Allergies/Adverse Reactions: Allergies Allergy/AdvReac Type Severity Reaction Status Date / Time ciprofloxacin [From Cipro] Allergy Unknown Verified 05/15/17 01:18 ciprofloxacin HCl Allergy Unknown Verified 05/15/17 01:18 [From Cipro] - Home Medications Home Medications: Ambulatory Orders Amitriptyline HCl [Elavil -] 10 mg PO DAILY 12/27/16 Atorvastatin Ca [Lipitor] 80 mg PO DAILY 12/27/16 Clonidine Patch [Catapres Tts Patch -] 0.1 mg TD Q7D@1000 #4 patch.tdwk Carvedilol [Coreg -] 12.5 mg PO HS 06/15/17 Carvedilol [Coreg] 6.25 mg PO AM 06/15/17 Tramadol HCl [Ultram] 50 mg PO Q6H 06/15/17 Family Disease History - Family Disease History Family History: Denies (no known cmp) Review of Systems - Review of Systems Constitutional: denies: Chills, Fever Eyes: denies: Eye Pain HENT: denies: Nasal Congestion Neck: denies: Stiffness Cardiovascular: denies: Palpitations Respiratory: denies: Orthopnea, PND Gastrointestinal: denies: Diarrhea, Rectal Bleeding Genitourinary: denies: Burning, Hematuria Musculoskeletal: denies: Muscle Pain Integumentary: denies: Rash Neurological: denies: Numbness, Seizure Endocrine: denies: Excessive Sweating Hematology/Lymphatic: denies: Excessive Bleeding Vital Signs: Vital Signs Temperature 97.7 F 06/16/17 08:30 Pulse Rate 83 06/16/17 08:30 Respiratory Rate 18 06/16/17 08:30 Blood Pressure 180/83 06/16/17 08:30 O2 Sat by Pulse Oximetry (%) 94 L 06/15/17 23:00 - Other Data Labs, Other Data: CBC, BMP 06/16/17 07:30 06/16/17 07:30 Troponin, BNP 06/15/17 06/15/17 15:40 21:42 Troponin I < 0.02 < 0.02 Troponin, BNP 06/15/17 06/15/17 15:40 21:42 Troponin I < 0.02 < 0.02 Laboratory Tests 06/15/17 06/15/17 06/15/17 15:40 18:51 21:42 WBC Hgb Plt Count Sodium 138 Potassium 4.2 Carbon Dioxide 26 BUN 20 H D Creatinine 1.3 H D AST 18 ALT 13 D Troponin I < 0.02 < 0.02 TSH 0.82 D 06/16/17 06/16/17 07:30 07:30 WBC 7.0 Hgb 11.9 Plt Count 138 Sodium 141 Potassium 4.0 Carbon Dioxide 28 BUN 19 H Creatinine 1.1 H AST ALT Troponin I TSH ECG 06/15/17: a-paced, long A-V delay; no ischemic changes carotids 06/15/17: nonobstr plaque echo 09/2016: tds; nl lv/rv, mild-mod tr, nl rvsp mibi 09/2016: no ischemia tele: sr, apaced a/p: 86 f hx copd, htn, ppm, cva, descd thoracic aortic aneurysm, here with weakness, low bp. syncope, known labile HTN with orthostatic hypotension tendencies: -chronic problem -yesterday's event was due to orthostatic hypotension which was documented prior to the event, probably acutely exacerbated by vasovagal response from having a BM (pt with known IBS). troponin neg x 2, ecg non-ischemic, no clinical concern for acute arrhythmia (protected from sandra by PM which is known to be normally functioning on recent office check), CVA or seizure. -bp runs up to 200s at times when meds are reduced--pt high risk for acute aorta catastrophe from known 6cm TAA that has enlarged on serial imaging if bp is consistently left in 170-200 range. -recently tolerated carvedilol 12.5 bid plus clonidine patch 0.1mg (intolerant of 0.2mg dose--excessive dry/pasty mouth). bp's reasonably controlled on that regimen without excessive highs or lows and no orthostatic sx's. -no choice but to accept a degree of orthostatic bp drop here as long as bp does not dip <90-100 often and cause sx's. -resume above carvedilol and clonidine regimen (moving pm clonidine dose earlier --to 3pm--will help control pm higher bp readings) -can be followed up as outpt. CKD: -has h/o fluctuating creatinines (to mid 1 range) as outpt, related to volume status. -creat bumps with low dose JOHANNA in past so was d/c'd by renal -currently renal fxn at her baseline -? renal artery stenosis on recent outside imaging--will review images as outpt and consider intervention to try to help bp control and minimize med regimen ppm: -nl fxn on outpt routine interrogations in office descending TAA: -found to be 6.2 cm on cta here recently, incidental with no attributable sx's then -transferred to dr almonte cardio-thoracic surgery as inpatient--evaluation revealed she was high risk for vascular complication from EVAR approach (small, calcified peripheral vessels) and high risk for open repair. pt declined intervention. -routine outpt f/u with surgery as scheduled HPL: -continue home statin
[2017-06-16] MEDS ORDERED: CARVEDILOL 6.25 MG TABLET (FP) PO ONE (12:00)
--- NOTE | 2017-06-16 12:30 | EKG ---
Test Reason : Blood Pressure : / mmHG Vent. Rate : 060 BPM Atrial Rate : 060 BPM P-R Int : 000 ms QRS Dur : 078 ms QT Int : 422 ms P-R-T Axes : 053 082 057 degrees QTc Int : 422 ms Atrial-paced rhythm with prolonged AV conduction ANTEROSEPTAL INFARCT (CITED ON OR BEFORE 12-MAY-2017) ABNORMAL ECG WHEN COMPARED WITH ECG OF 15-MAY-2017 01:16, ELECTRONIC ATRIAL PACEMAKER HAS REPLACED SINUS RHYTHM Confirmed by MICHELLE OJEDA MD ([id number]) on 06/16/2017 12:30:12 PM Referred By: Confirmed By:MICHELLE OJEDA MD
[2017-06-16] MEDS: CARVEDILOL 12.5 MG TABLET (FP) PO SCH (14:42)
--- NOTE | 2017-06-16 15:28 | PN ---
Teaching Attending Note Name of Resident: Ferny Soto ATTENDING PHYSICIAN STATEMENT I saw and evaluated the patient. I reviewed the resident's note and discussed the case with the resident. I agree with the resident's findings and plan as documented. SUBJECTIVE: Events noted. chart reviewed. Patient is feeling better, no further syncopal episode. No shortness breath, no nausea or vomiting. States that she sees and she has a labile BP and is trying to adjust her medication and her blood pressure. at bedside. OBJECTIVE: Vital Signs Temperature 97.3 F L 06/16/17 13:05 Pulse Rate 64 06/16/17 13:05 Respiratory Rate 16 06/16/17 13:05 Blood Pressure 137/61 06/16/17 13:05 O2 Sat by Pulse Oximetry (%) 94 L 06/16/17 10:00 CBCD WBC 7.0 K/mm3 (4.0-10.0) 06/16/17 07:30 RBC 4.40 M/mm3 (3.60-5.2) 06/16/17 07:30 Hgb 11.9 GM/dL (10.7-15.3) 06/16/17 07:30 Hct 36.7 % (32.4-45.2) 06/16/17 07:30 MCV 83.3 fl (80-96) 06/16/17 07:30 MCHC 32.5 g/dl (32.0-36.0) 06/16/17 07:30 RDW 15.7 % (11.6-15.6) H 06/16/17 07:30 Plt Count 138 K/MM3 (134-434) 06/16/17 07:30 MPV 8.9 fl (7.5-11.1) 06/16/17 07:30 CMP Sodium 141 mmol/L (136-145) 06/16/17 07:30 Potassium 4.0 mmol/L (3.5-5.1) 06/16/17 07:30 Chloride 107 mmol/L (98-107) 06/16/17 07:30 Carbon Dioxide 28 mmol/L (21-32) 06/16/17 07:30 Anion Gap 6 (8-16) L 06/16/17 07:30 BUN 19 mg/dL (7-18) H 06/16/17 07:30 Creatinine 1.1 mg/dL (0.55-1.02) H 06/16/17 07:30 Creat Clearance w eGFR 38.84 (>60) 06/15/17 15:40 Random Glucose 83 mg/dL (74-106) 06/16/17 07:30 Calcium 8.5 mg/dL (8.5-10.1) 06/16/17 07:30 Total Bilirubin 0.4 mg/dL (0.2-1.0) D 06/15/17 15:40 AST 18 U/L (15-37) 06/15/17 15:40 ALT 13 U/L (12-78) D 06/15/17 15:40 Alkaline Phosphatase 95 U/L (45-117) D 06/15/17 15:40 Total Protein 6.4 g/dl (6.4-8.2) 06/15/17 15:40 Albumin 2.9 g/dl (3.4-5.0) L 06/15/17 15:40 CARDIAC ENZYMES Creatine Kinase 22 IU/L (26-192) L 06/15/17 15:40 Troponin I < 0.02 ng/ml (0.00-0.05) 06/15/17 21:42 Current Medications Generic Name Dose Route Start Last Admin Trade Name Freq PRN Reason Stop Dose Admin Amitriptyline HCl 10 mg 06/15/17 22:00 06/15/17 22:26 Elavil - PO Not Given HS [facility] Atorvastatin Calcium 80 mg 06/15/17 22:00 06/15/17 22:26 Lipitor - PO 80 mg HS [facility] Administration Carvedilol 12.5 mg 06/16/17 15:00 06/16/17 14:42 Coreg - PO 12.5 mg DAILY@1500 [facility] Administration Carvedilol 12.5 mg 06/17/17 06:00 Coreg - PO DAILY@0600 [facility] Clonidine HCl 0.1 mg 06/22/17 10:00 Catapres Tts Patch - TD Q7D@1000 [facility] Tramadol HCl 50 mg 06/16/17 05:23 06/16/17 08:00 Ultram - PO 50 mg Q6H PRN Administration PAIN PE: CVS: S1S2 positive, JENIFFER 2/ Abdomen: soft, NT CHEST:CTA bl ext: pulses are positive Neuro:AAOX3 ECG 06/15/2017: a-paced rhythem , No ST changes r carotids 06/15/2017: nonobstructive plaque echo 09/2016: nl lv/rv, mild-mod tr mibi 09/2016: no ischemia ASSESSMENT AND PLAN: Patient is a 86 female with PMhx of copd, HTN, ppm, cva, Descending TAA, presented with having weakness, and was found to have low blood peressure. Was send from Dr's office for further care. # Acute LOC; syncope most likely due to Vasovagal due to having bm, with Hx of labile HTN / orthostatic hypotension. As per maintenance coordinator , paitent has been adjusted with BP meds for finer tunning. which is a chronic problem. Troponin neg x 2. As per cardio. BP runs up to 200s at times when meds are reduced as per maintenance coordinator ; Patient has 6cm TAA that has enlarged on serial imaging from before. Close monitoring is required. per cardio: On carvedilol 12.5 bid plus clonidine patch 0.1mg (intolerant of 0.2mg dose--excessive dry/pasty mouth). bp's reasonably controlled on that regimen without excessive highs or lows and no orthostatic sx's. As per cardio : there is no choice but to accept a degree of orthostatic bp drop here as long as bp does not dip <90-100. #Descending TAA: 6.2 cm was found on CTA here recently, which was incidental findings. As per cardio. patient was transferred to dr Martines cardio- thoracic surgery as inpatient--evaluation revealed she was high risk for vascular complication from EVAR approach (small, calcified peripheral vessels) and high risk for open repair. pt declined intervention. routine outpt f/u with surgery as scheduled ppm: nl fxn on outpt routine interrogations in office HPL:continue home stati DVT px; SCDs
--- NOTE | 2017-06-16 16:56 | PN ---
Physical Exam: SUBJECTIVE: Patient seen and examined OBJECTIVE: Vital Signs Period Temp Pulse Resp BP Sys/Grover Pulse Ox Last 24 Hr 97.3 F-97.8 F 61-83 16-18 116-199/61-97 94-96 GENERAL: The patient is awake, alert, and fully oriented, in no acute distress. HEAD: Normal with no signs of trauma. EYES: PERRL, extraocular movements intact, sclera anicteric, conjunctiva clear. No ptosis. ENT: Ears normal, nares patent, oropharynx clear without exudates, moist mucous membranes. NECK: Trachea midline, full range of motion, supple. LUNGS: Breath sounds equal, clear to auscultation bilaterally, no wheezes, no crackles, no accessory muscle use. HEART: Regular rate and rhythm, S1, S2 without murmur, rub or gallop. ABDOMEN: Soft, nontender, nondistended, normoactive bowel sounds, no guarding, no rebound, no hepatosplenomegaly, no masses. EXTREMITIES: 2+ pulses, warm, well-perfused, no edema. NEUROLOGICAL: Cranial nerves II through XII grossly intact. Normal speech, gait not observed. PSYCH: Normal mood, normal affect. SKIN: Warm, dry, normal turgor, no rashes or lesions noted Laboratory Results - last 24 hr 06/15/17 06/15/17 06/15/17 18:51 20:05 21:42 WBC RBC Hgb Hct MCV MCH MCHC RDW Plt Count MPV Neutrophils % Lymphocytes % Monocytes % Eosinophils % Basophils % Sodium Potassium Chloride Carbon Dioxide Anion Gap BUN Creatinine Random Glucose Calcium Phosphorus Magnesium Troponin I < 0.02 TSH 0.82 D Urine Color Yellow Urine Appearance Clear Urine pH 5.0 Ur Specific [place] 1.014 Urine Protein Negative Urine Glucose (UA) Negative Urine Ketones Negative Urine Blood 1+ H Urine Nitrite Negative Urine Bilirubin Negative Urine Urobilinogen Negative Ur Leukocyte Esterase Negative Urine WBC (Auto) <1 Urine RBC (Auto) 2 Hyaline Casts 4 Urine Mucus Rare Ur Random Sodium Ur Random Potassium Ur Random Chloride Urine Creatinine 06/16/17 06/16/17 06/16/17 02:00 07:30 07:30 WBC 7.0 RBC 4.40 Hgb 11.9 Hct 36.7 MCV 83.3 MCH 27.1 MCHC 32.5 RDW 15.7 H Plt Count 138 MPV 8.9 Neutrophils % 43.5 D Lymphocytes % 35.7 D Monocytes % 13.5 H Eosinophils % 6.6 H D Basophils % 0.7 Sodium 141 Potassium 4.0 Chloride 107 Carbon Dioxide 28 Anion Gap 6 L BUN 19 H Creatinine 1.1 H Random Glucose 83 Calcium 8.5 Phosphorus 2.8 D Magnesium 1.9 Troponin I TSH Urine Color Urine Appearance Urine pH Ur Specific [place] Urine Protein Urine Glucose (UA) Urine Ketones Urine Blood Urine Nitrite Urine Bilirubin Urine Urobilinogen Ur Leukocyte Esterase Urine WBC (Auto) Urine RBC (Auto) Hyaline Casts Urine Mucus Ur Random Sodium 65 Ur Random Potassium 13.3 Ur Random Chloride 59 Urine Creatinine 42.4 Active Medications Generic Name Dose Route Start Last Admin Trade Name Freq PRN Reason Stop Dose Admin Amitriptyline HCl 10 mg 06/15/17 22:00 06/15/17 22:26 Elavil - PO Not Given HS [facility] Atorvastatin Calcium 80 mg 06/15/17 22:00 06/15/17 22:26 Lipitor - PO 80 mg HS [facility] Administration Carvedilol 12.5 mg 06/16/17 15:00 06/16/17 14:42 Coreg - PO 12.5 mg DAILY@1500 [facility] Administration Carvedilol 12.5 mg 06/17/17 06:00 Coreg - PO DAILY@0600 [facility] Clonidine HCl 0.1 mg 06/22/17 10:00 Catapres Tts Patch - TD Q7D@1000 [facility] Tramadol HCl 50 mg 06/16/17 05:23 06/16/17 08:00 Ultram - PO 50 mg Q6H PRN Administration PAIN ASSESSMENT/PLAN: Patient is an 86 year old female who 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 pt has had similar episodes in the past, and is known to have labile HTN and 6cm TAA. -ECHO: normal -2 sets of trops negative -Orthostatics: negative -IV NS @75 -UA: negative -Cardiology consulted, recs appreciated. restarted on home clonidine 0.1mg and coreg 12.5mg BID -monitor BP #GRISELDA on CKD -Creatinine of 1.1, baseline -Avoid nephrotoxic medications -Continue to trend BMP #COPD -In no acute exacerbation -Continue to monitor 02 sat #CAD s/p CVA and pacemaker placement -Confirmed medications from pharmacy and patient is not on Plavix -Continue tele monitoring #DIASTOLIC CHF -ECHO: normal -Cards recs appreciated #F/E/N -iv ns @75mls/hr -Electrolytes wnl -Sodium controlled diet #Prophylaxis -heparin -No GI required Case discussed with attending, Dr. Bland. -Ferny Soto MD PGY1 Visit type - Emergency Visit Emergency Visit: Yes ED Registration Date: 06/15/17 Care time: The patient presented to the Emergency Department on the above date and was hospitalized for further evaluation of their emergent condition. - New Patient This patient is new to me today: Yes Date on this admission: 06/16/17 - Critical Care Critical Care patient: No
[2017-06-16] MEDS ORDERED: PT OWN MED DRAWER 7, Y5N ONE (21:34)
[2017-06-16] MEDS: ATORVASTATIN CA 80 MG TABLET (FP) PO SCH (21:42)
[2017-06-16] MEDS: HEPARIN NA (PORCINE) 5,000 UNITS/ML 1ML VIAL SQ SCH (21:46)
[2017-06-16] MEDS: AMITRIPTYLINE HCL 10 MG TABLET (FP) PO SCH (22:36)
[2017-06-17] MEDS ORDERED: CARVEDILOL 6.25 MG TABLET (FP) PO ONE (01:27)
[2017-06-17] MEDS: HEPARIN NA (PORCINE) 5,000 UNITS/ML 1ML VIAL SQ SCH ×2 (05:43→13:40)
[2017-06-17] MEDS ORDERED: CARVEDILOL 12.5 MG TABLET (FP) PO SCH (06:00)
[2017-06-17 07:30] LABS: ALBUMIN 2.7 g/dl (3.4-5.0); ANION GAP 7 (8-16); BLOOD UREA NITROGEN 20 mg/dL (7-18); CALCIUM 8.9 mg/dL (8.5-10.1); CHLORIDE 105 mmol/L (98-107); CO2 29 mmol/L (21-32); CREATININE 1.1 mg/dL (0.55-1.02); GLUCOSE,RANDOM 82 mg/dL (74-106); POTASSIUM 4.6 mmol/L (3.5-5.1); SGOT/AST 16 U/L (15-37); SGPT/ALT 12 U/L (12-78); SODIUM 141 mmol/L (136-145)
[2017-06-17 07:31] LABS: ALK PHOS 85 U/L (45-117); BILIRUBIN,TOTAL 0.4 mg/dL (0.2-1.0)
[2017-06-17 07:33] LABS: BASO % 0.5 % (0-2.0); HEMATOCRIT 38.3 % (32.4-45.2); HEMOGLOBIN 12.3 GM/dL (10.7-15.3); LYMPH % 33.2 % (8-40); MCH 26.8 pg (25.7-33.7); MCHC 32.1 g/dl (32.0-36.0); MEAN CELL VOLUME 83.4 fl (80-96); MEAN PLT VOLUME 8.9 fl (7.5-11.1); MONO % 10.9 % (3.8-10.2); NEUT % 48.4 % (42.8-82.8); PLATELET COUNT 145 K/MM3 (134-434); RBC 4.59 M/mm3 (3.60-5.2); RDW 15.9 % (11.6-15.6); WHITE BLOOD COUNT 7.7 K/mm3 (4.0-10.0)
[2017-06-17] MEDS ORDERED: CARVEDILOL 3.125 MG TABLET (FP) PO ONE (11:12)
--- NOTE | 2017-06-17 11:39 | PN ---
Progress Note (short form) - Note Progress Note: s: no cp sob palps loc o: Vital Signs Period Temp Pulse Resp BP Sys/Grover Pulse Ox Last 24 Hr 97.3 F-97.9 F 60-67 16-18 137-196/61-98 93-94 nad no jvd rrr s1s2 no mrg cta bl nl eff aaox3 no le e/c/c abd nt nd pos bs CBC, BMP 06/17/17 06:00 06/17/17 06:00 Current Medications Generic Name Dose Route Start Last Admin Trade Name Freq PRN Reason Stop Dose Admin Amitriptyline HCl 10 mg 06/15/17 22:00 06/16/17 22:36 Elavil - PO 10 mg HS [facility] Administration Atorvastatin Calcium 80 mg 06/15/17 22:00 06/16/17 21:42 Lipitor - PO 80 mg HS [facility] Administration Carvedilol 12.5 mg 06/16/17 15:00 06/16/17 14:42 Coreg - PO 12.5 mg DAILY@1500 [facility] Administration Carvedilol 12.5 mg 06/17/17 06:00 06/17/17 06:11 Coreg - PO 12.5 mg DAILY@0600 [facility] Administration Clonidine HCl 0.1 mg 06/22/17 10:00 Catapres Tts Patch - TD Q7D@1000 [facility] Heparin Sodium (Porcine) 5,000 unit 06/16/17 22:00 06/17/17 05:43 Heparin - SQ Not Given TID [facility] Tramadol HCl 50 mg 06/16/17 05:23 06/16/17 21:42 Ultram - PO 50 mg Q6H PRN Administration PAIN ECG 06/15/17: a-paced, long A-V delay; no ischemic changes carotids 06/15/17: nonobstr plaque echo 09/2016: tds; nl lv/rv, mild-mod tr, nl rvsp echo 06/2017: nl lv/rv, no sig valve path, nl rvsp mibi 09/2016: no ischemia tele: sr, apaced a/p: 86 f hx copd, htn, ppm, cva, descd thoracic aortic aneurysm, here with weakness, low bp. syncope, known labile HTN with orthostatic hypotension tendencies: -chronic problem -yesterday's event was due to orthostatic hypotension which was documented prior to the event, probably acutely exacerbated by vasovagal response from having a BM (pt with known IBS). troponin neg x 2, ecg non-ischemic, no clinical concern for acute arrhythmia (protected from sandra by PM which is known to be normally functioning on recent office check), CVA or seizure. -bp runs up to 200s at times when meds are reduced--pt high risk for acute aorta catastrophe from known 6cm TAA that has enlarged on serial imaging if bp is consistently left in 170-200 range. -recently tolerated carvedilol 12.5 bid plus clonidine patch 0.1mg (intolerant of 0.2mg dose--excessive dry/pasty mouth). bp's reasonably controlled on that regimen without excessive highs or lows and no orthostatic sx's. -no choice but to accept a degree of orthostatic bp drop here as long as bp does not dip <90-100 often and cause sx's. -continue above carvedilol and clonidine regimen (moving pm clonidine dose earlier--to 3pm--will help control pm higher bp readings) -can be followed up as outpt. CKD: -has h/o fluctuating creatinines (to mid 1 range) as outpt, related to volume status. -creat bumps with low dose JOHANNA in past so was d/c'd by renal -currently renal fxn at her baseline -? renal artery stenosis on recent outside imaging--will review images as outpt and consider intervention to try to help bp control and minimize med regimen ppm: -nl fxn on outpt routine interrogations in office descending TAA: -found to be 6.2 cm on cta here recently, incidental with no attributable sx's then -transferred to dr almonte cardio-thoracic surgery as inpatient--evaluation revealed she was high risk for vascular complication from EVAR approach (small, calcified peripheral vessels) and high risk for open repair. pt declined intervention. -routine outpt f/u with surgery as scheduled HPL: -continue home statin ok for dc
[2017-06-17] MEDS ORDERED: CLOPIDOGREL BISULFATE 75 MG TABLET (FP) PO SCH (11:45)
--- NOTE | 2017-06-17 13:59 | PN ---
Physical Exam: SUBJECTIVE: Patient seen and examined No acute events overnight. Pt denies headache, blurry vision, chest pain, SOB, abdominal pain, n/v/d/c, and dysuria. She states that she feels better than yesterday. OBJECTIVE: Vital Signs Period Temp Pulse Resp BP Sys/Grover Pulse Ox Last 24 Hr 97.6 F-97.9 F 60-67 18-18 142-196/63-98 93-94 GENERAL: The patient is awake, alert, and fully oriented, in no acute distress. HEENT: EOMI, PEARRLA NECK: Trachea midline, full range of motion, supple. LUNGS: Breath sounds equal, clear to auscultation bilaterally, no wheezes, no crackles, no accessory muscle use. HEART: Regular rate and rhythm, S1, S2 without murmur, rub or gallop. ABDOMEN: Soft, nontender, nondistended, normoactive bowel sounds, no guarding, no rebound, no hepatosplenomegaly, no masses. EXTREMITIES: 2+ pulses, warm, well-perfused, no edema. NEUROLOGICAL: Cranial nerves II through XII grossly intact. Normal speech, gait not observed. Laboratory Results - last 24 hr 06/17/17 06/17/17 06:00 06:00 WBC 7.7 RBC 4.59 Hgb 12.3 Hct 38.3 MCV 83.4 MCH 26.8 MCHC 32.1 RDW 15.9 H Plt Count 145 MPV 8.9 Neutrophils % 48.4 Lymphocytes % 33.2 Monocytes % 10.9 H Eosinophils % 7.0 H Basophils % 0.5 Sodium 141 Potassium 4.6 Chloride 105 Carbon Dioxide 29 Anion Gap 7 L BUN 20 H Creatinine 1.1 H Creat Clearance w eGFR 47.09 Random Glucose 82 Calcium 8.9 Total Bilirubin 0.4 AST 16 ALT 12 Alkaline Phosphatase 85 Total Protein 6.0 L Albumin 2.7 L Active Medications Generic Name Dose Route Start Last Admin Trade Name Freq PRN Reason Stop Dose Admin Amitriptyline HCl 10 mg 06/15/17 22:00 06/16/17 22:36 Elavil - PO 10 mg HS [facility] Administration Atorvastatin Calcium 80 mg 06/15/17 22:00 06/16/17 21:42 Lipitor - PO 80 mg HS [facility] Administration Carvedilol 12.5 mg 06/16/17 15:00 06/16/17 14:42 Coreg - PO 12.5 mg DAILY@1500 [facility] Administration Carvedilol 12.5 mg 06/17/17 06:00 06/17/17 06:11 Coreg - PO 12.5 mg DAILY@0600 [facility] Administration Clonidine HCl 0.1 mg 06/22/17 10:00 Catapres Tts Patch - TD Q7D@1000 [facility] Clopidogrel Bisulfate 75 mg 06/17/17 11:45 06/17/17 12:15 Plavix - PO 75 mg DAILY [facility] Administration Heparin Sodium (Porcine) 5,000 unit 06/16/17 22:00 06/17/17 13:40 Heparin - SQ Not Given TID [facility] Tramadol HCl 50 mg 06/16/17 05:23 06/16/17 21:42 Ultram - PO 50 mg Q6H PRN Administration PAIN ASSESSMENT/PLAN: Patient is an 86 year old female with a PMHx of diastolic CHF, AAA, Thoracic AA , COPD on no 02, HTN, CAD s/p pacemaker, CVA, and chronic Back pain 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 #Syncopal Episode -2/2 orthostatic hypotension with vasovagal component. pt has had similar episodes in the past, and is known to have labile HTN and 6cm TAA. -ECHO: normal -2 sets of trops negative -Orthostatics: negative -IV NS @75 -UA: negative -Cardiology consulted, recs appreciated. restarted on home clonidine 0.1mg and coreg 12.5mg BID -BP 150-195/80-100 overnight -continue to monitor #GRISELDA on CKD -Creatinine of 1.1, baseline -Avoid nephrotoxic medications -Continue to trend BMP #COPD -In no acute exacerbation -Continue to monitor 02 sat #CAD s/p CVA and pacemaker placement -Confirmed medications from pharmacy and patient is not on Plavix -Continue tele monitoring #DIASTOLIC CHF -ECHO: normal -Cards recs appreciated #F/E/N -po fluids -Electrolytes wnl -Sodium controlled diet #Prophylaxis -heparin -No GI required #Dispo -D/C home once BP back to normal range Case discussed with attending, Dr. Bland. -Ferny Soto MD PGY1 Visit type - Emergency Visit Emergency Visit: Yes ED Registration Date: 01/05/18 Care time: The patient presented to the Emergency Department on the above date and was hospitalized for further evaluation of their emergent condition. - New Patient This patient is new to me today: No - Critical Care Critical Care patient: No
[2017-06-17 14:08] VITALS: TEMP 97.7
--- NOTE | 2017-06-17 14:40 | DS ---
Physical Exam: SUBJECTIVE: Patient seen and examined No acute events overnight. Pt denies headache, blurry vision, chest pain, SOB, abdominal pain, n/v/d/c, and dysuria. She states that she feels better than yesterday. OBJECTIVE: Vital Signs Period Temp Pulse Resp BP Sys/Grover Pulse Ox Last 24 Hr 97.6 F-97.9 F 60-67 18-18 142-196/63-98 93-94 PHYSICAL EXAM GENERAL: The patient is awake, alert, and fully oriented, in no acute distress. HEENT: EOMI, [place]ARRLA NECK: Trachea midline, full range of motion, supple. LUNGS: Breath sounds equal, clear to auscultation bilaterally, no wheezes, no crackles, no accessory muscle use. HEART: Regular rate and rhythm, S1, S2 without murmur, rub or gallop. ABDOMEN: Soft, nontender, nondistended, normoactive bowel sounds, no guarding, no rebound, no hepatosplenomegaly, no masses. EXTREMITIES: 2+ pulses, warm, well-perfused, no edema. NEUROLOGICAL: Cranial nerves II through XII grossly intact. Normal speech, gait not observed. LABS Laboratory Results - last 24 hr 06/17/17 06/17/17 06:00 06:00 WBC 7.7 RBC 4.59 Hgb 12.3 Hct 38.3 MCV 83.4 MCH 26.8 MCHC 32.1 RDW 15.9 H Plt Count 145 MPV 8.9 Neutrophils % 48.4 Lymphocytes % 33.2 Monocytes % 10.9 H Eosinophils % 7.0 H Basophils % 0.5 Sodium 141 Potassium 4.6 Chloride 105 Carbon Dioxide 29 Anion Gap 7 L BUN 20 H Creatinine 1.1 H Creat Clearance w eGFR 47.09 Random Glucose 82 Calcium 8.9 Total Bilirubin 0.4 AST 16 ALT 12 Alkaline Phosphatase 85 Total Protein 6.0 L Albumin 2.7 L HOSPITAL COURSE: Date of Admission:06/17/17 Date of Discharge: 06/17/17 Patient is an 86 year old female with a PMHx of diastolic CHF, AAA, Thoracic AA , COPD on no 02, HTN, CAD s/p pacemaker, CVA, and chronic back pain who 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 The syncopal episode was believed to be 2/2 orthostatic hypotension with a vasovagal component. The pt has had similar episodes in the past, and is known to have labile HTN and a 6cm TAA. Workup for her syncope revealed a normal echo, EKG without ischemic changes, negative trops, negative orthostatics, and negative UA. Pt was seen by her cd mixer who stated that pt should be placed on clonidine 0.1mg daily and carvedilol 12.5mg BID, and that given pt's hx of labile BP and her large TAA, a level of orthostatic BP is acceptable and inevitable. Per cardiology, pt cleared for discharge with close f/u in his office on the above specified regimen of BP meds. Today, pt has no subjective complaints, a benign exam, and is ready for discharge home per cardiology. Pt instructed to f/u with cardiology on Tuesday. -Ferny Soto MD PGY1 Minutes to complete discharge: 39 <Ferny Soto - Last Filed: 06/17/17 14:41> Physical Exam: SUBJECTIVE: Patient seen and examined with the resident. Agree as per resident' s note above. <[place] Bland - Last Filed: 06/17/17 18:50> Discharge Summary Reason For Visit: PRE-SYNCOPE Current Active Problems Hypotension (Acute) Light headed (Acute) Syncope (Acute) Labile blood pressure (Chronic) - Home Medications Comprehensive Discharge Medication List: Ambulatory Orders Amitriptyline HCl [Elavil -] 10 mg PO DAILY 12/27/16 Atorvastatin Ca [Lipitor] 80 mg PO DAILY 12/27/16 Clonidine Patch [Catapres Tts Patch -] 0.1 mg TD Q7D@1000 #4 patch.tdwk Carvedilol [Coreg -] 12.5 mg PO HS 06/15/17 Tramadol HCl [Ultram] 50 mg PO Q6H 06/15/17 Carvedilol [Coreg -] 12.5 mg PO DAILY@0600 tablet 06/17/17 <Ferny Soto - Last Filed: 06/17/17 14:41> - Home Medications Comprehensive Discharge Medication List: Ambulatory Orders Amitriptyline HCl [Elavil -] 10 mg PO DAILY 12/27/16 Atorvastatin Ca [Lipitor] 80 mg PO DAILY 12/27/16 Clonidine Patch [Catapres Tts Patch -] 0.1 mg TD Q7D@1000 #4 patch.tdwk Carvedilol [Coreg -] 12.5 mg PO HS 06/15/17 Tramadol HCl [Ultram] 50 mg PO Q6H 06/15/17 Carvedilol [Coreg -] 12.5 mg PO DAILY@0600 tablet 06/17/17 <[place] - Last Filed: 06/17/17 18:50> Condition: Stable - Instructions Diet, Activity, Other Instructions: You presented with syncope and were found to have low blood pressure. Your blood pressure medications were decreased, and while in the hospital, your blood pressure became elevated. You were seen by your cd mixer who stated that you should be placed on a regimen of clonidine 0.1mg patch once daily and carvedilol 12.5mg twice a day. Medications: Continue taking all the same medications as before. Follow-ups: 1. Follow up with your PCP within one week. 2. Follow up with your cd mixer on Tuesday. Make sure to sit up and stand up very slowly and to hold on to something while you do so in order to help prevent another syncopal episode in the future. If you develop any chest pain, shortness of breath, severe headache, or any other concerning symptom, return to the ED. Referrals: José Manuel Gomez MD [Staff Physician] - Handy Wheeler MD [Staff Physician] - Disposition: HOME This patient is new to me today: No Emergency Visit: Yes ED Registration Date: 06/17/17 Care time: The patient presented to the Emergency Department on the above date and was hospitalized for further evaluation of their emergent condition. Critical Care patient: No - Discharge Referral Referred to [facility] No <Ferny Soto - Last Filed: 06/17/17 14:41>
[2017-06-17] MEDS: CARVEDILOL 12.5 MG TABLET (FP) PO SCH (15:31)
[2017-06-17] MEDS ORDERED: cloNIDine-TTS 0.1 MG/24 HRS PATCH.TDWK TD SCH ×2 (15:45→16:00)
[2017-06-17 16:49] VITALS: BP 171/86; PULSE 71
[2017-06-22] MEDS ORDERED: cloNIDine-TTS 0.1 MG/24 HRS PATCH.TDWK TD SCH (10:00)
== END 2017-06-17 17:28 | disposition home or self-care (01) | DRG 312 ==
LOC: JER 14:02 → JERBED 18:24 → J4S 23:22 → OBSVTOIN 06-17 11:33
PROVIDERS: ADMIT Internal Medicine; ATTEND Internal Medicine
DX: I95.1 Orthostatic hypotension (principal); E43 Unspecified severe protein-calorie malnutrition; I50.30 Unspecified diastolic (congestive) heart failure; N17.9 Acute kidney failure, unspecified; I13.0 Hypertensive heart and chronic kidney disease with heart failure and stage 1 through stage 4 chronic kidney disease, or unspecified chronic kidney disease; Z68.1 Body mass index [BMI] 19.9 or less, adult; I25.10 Atherosclerotic heart disease of native coronary artery without angina pectoris; Z95.0 Presence of cardiac pacemaker; R55 Syncope and collapse; N18.9 Chronic kidney disease, unspecified; Z86.73 Personal history of transient ischemic attack (TIA), and cerebral infarction without residual deficits; J44.9 Chronic obstructive pulmonary disease, unspecified; E78.5 Hyperlipidemia, unspecified; M54.9 Dorsalgia, unspecified; Z87.891 Personal history of nicotine dependence; I71.6 Thoracoabdominal aortic aneurysm, without rupture
CPT/HCPCS: 36415; 80048; 80053; 81003; 81015; 82436; 82550; 82570; 83735; 84100; 84133; 84300; 84443; 84484; 85025; 93005; 93010; 93306-TC; 93880-TC; 99284-25; G0378

== ENCOUNTER 2018-07-11 11:33 | Emergency (ER) | payer OTHER ==
[2018-07-11 11:44] VITALS: BMI 20.5
[2018-07-11] MEDS ORDERED: SODIUM CHLORIDE 0.9% 500 ML INFUS.BAG IV ONE ×2 (12:38→17:26)
[2018-07-11] MEDS ORDERED: ACETAMINOPHEN 1000 MG/100 ML VIAL (NON FORMULARY) IVPB ONE (12:39)
--- NOTE | 2018-07-11 12:39 | PDOC ---
History of Present Illness - General Chief Complaint: Injury Stated Complaint: Back Pain Time Seen by Provider: 07/11/18 12:30 History Source: Patient Exam Limitations: No Limitations - History of Present Illness Initial Comments: 07/11/18 12:41 87YOF with h/o descending thoracic aortic aneurysm (dx by CTA 08/2017 showing 6.5 cm maximum diameter, refused intervention in past), CVAx3, CAD, on Plavix but no other blood thinner or ASA, pacemaker use, PVD, HTN, COPD, diverticulitis /osis, C. diff colitis in 2013, and chronic low back pain who presents from her apartment c/o GLF she suffered last night. She denies any preceding symptoms, states that she was walking from her bed to the bathroom, got assisted across the floor and realized the night light was not turned on. She tripped and fell onto her left hip and low back when she tried to turn around to turn on the light. She states that she did not hit her head, hurt her neck, or lose consciousness, but she has had significant left lateral posterior hip and left low back pain since the incident. She was on the floor for about 20 minutes and states she was able to get herself back in bed, then went back to sleep almost immediately. She took a tramadol with partial relief. She has been walking on the leg a small amount since that time with increased pain. Denies hematuria, n/ t, or focal weakness. Past History - Past Medical History Allergies/Adverse Reactions: Allergies Allergy/AdvReac Type Severity Reaction Status Date / Time ciprofloxacin [From Cipro] Allergy Unknown Hives Verified 07/11/18 11:40 Home Medications: Ambulatory Orders Amitriptyline HCl [Elavil -] 5 mg PO HS 12/27/16 Atorvastatin Ca [Lipitor] 80 mg PO DAILY 12/27/16 Clonidine Patch [Catapres Tts Patch -] 0.1 mg TD Q7D@1000 #4 patch.tdwk Tramadol HCl [Ultram] 50 mg PO Q6H PRN 06/15/17 Clopidogrel Bisulfate [Plavix] 75 mg PO DAILY 08/23/17 Carvedilol [Coreg -] 12.5 mg PO BID 12/12/17 Esomeprazole Magnesium [Nexium 24Hr] 20 mg PO DAILY 11/12/18 Tiotropium [place] [Spiriva] 18 mcg IH DAILY 06/20/18 Anemia: No Asthma: No Cancer: Yes (SKIN.) Cardiac Disorders: No CVA: Yes (X 2.) COPD: Yes CHF: No DVT: No Dementia: No Diabetes: No Dialysis: No GI Disorders: Yes Disorders: No HTN: Yes Hypercholesterolemia: Yes Kidney Stones: No Liver Disease: No Psychiatric Problems: No Seizures: No Thyroid Disease: No Lung CA: No - Surgical History Abdominal Surgery: Yes Appendectomy: No Cardiac Surgery: Yes (pacemaker) Cholecystectomy: Yes Lung Surgery: No Neurologic Surgery: Yes Orthopedic Surgery: Yes (left knee meiscus tear repair) - Immunization History Immunization Up to Date: Yes - Suicide/Smoking/Psychosocial Hx Smoking History: Former smoker Have you smoked in the past 12 months: No If you are a former smoker, when did you quit?: 2013 Cigars Per Day: 0 Information on smoking cessation initiated: No 'Breaking Loose' booklet given: 05/12/17 Hx Alcohol Use: No Drug/Substance Use Hx: No Substance Use Type: None Hx Substance Use Treatment: No Review of Systems - Review of Systems Able to Perform ROS?: Yes Comments:: 07/11/18 12:48 GEN: no fever, chills, generalized weakness, or malaise HEENT: no ear pain, eye pain, throat pain, throat swelling, nosebleed, vision change, or loose teeth SKIN: no cuts, abrasions, bruises, rashes, or jaundice CV: no chest pain, palpitations, or LOC RESP: no cough or SOB GI: no abdominal pain, nausea, vomiting, or black/bloody stool : no hematuria or flank pain/bruising MSK: left hip and left low back pain, otherwise no muscle weakness, muscle pain , joint pain, or joint swelling NEURO: no headache, seizure, numbness, tingling, or focal weakness PSYCH: no suicidality, homicidality, or substance use *Physical Exam - Vital Signs Last Vital Signs Temp Pulse Resp BP Pulse Ox 98.6 F 70 20 161/92 90 L 07/11/18 11:41 07/11/18 11:41 07/11/18 11:41 07/11/18 11:41 07/11/18 11:41 - Physical Exam Comments: 07/11/18 12:49 GENERAL: awake, alert, oriented, appropriate answers, not on backboard, not in C -collar A:protecting airway B: equal bilateral breath sounds C: extremities wwp x4, 2+ radial and DP pulses bilaterally D: GCS 15, A/Ox4, moving all extremities HEENT: no obvious facial deformity, no cephalohematoma, no scalp laceration, no raccoon eyes, no proptosis, PERRLA, EOMI without pain, no nasal septal hematoma , no obvious CSF rhinorrhea, no epistaxis, no jaw malocclusion, no loose teeth, no sellers sign, no hemotympanum, no obvious CSF otorrhea CHEST WALL: no flail chest, no costal stepoff or deformity, no bruises or lesions CARDIOVASCULAR: regular rhythm, normal S1S2, no MGR, capillary refill <2 seconds RESPIRATORY: symmetric chest expansion on inspiration, no increased WOB, no cyanosis ABDOMEN: abdomen soft, nondistendedd, nontender, pelvis stable EXTREMITIES: LLE shortening by about 2 cm, no rotation NECK&BACK: no neck or back hematoma, no midline vertebral tenderness C/T/L spine , no spinal step-off or deformity, no paraspinous ttp CTL spine except mild left inferior lumbar ttp without overlying ecchymosis, contusion, abrasion, or other e/o trauma NEURO: CN II-XII grossly intact, 5/5 strength and intact sensation throughout : no CVA tenderness SKIN: warm and dry, no pallor, no additional lacerations except as noted in Extremity section, no abrasions Moderate Sedation - Procedure Monitoring Vital Signs: Procedure Monitoring Vital Signs Temperature 98.6 F 07/11/18 11:41 Pulse Rate 70 07/11/18 11:41 Respiratory Rate 20 07/11/18 11:41 Blood Pressure 161/92 07/11/18 11:41 O2 Sat by Pulse Oximetry (%) 90 L 07/11/18 11:41 ED Treatment Course - LABORATORY CBC & Chemistry Diagram: 07/11/18 13:10 07/11/18 14:00 - RADIOLOGY Radiology Studies Ordered: Category Date Time Status CERVICAL SPINE CT W/O CONTR [CT] Stat CT Scan 07/11/18 12:[address] WITHOUT CONTRAST [CT] Stat CT Scan 07/11/18 12:[address] W/O CONTRAST [CT] Stat CT Scan 07/11/18 12:38 Ordered CHEST PA & LAT [RAD] Stat Radiology 07/11/18 12:38 Ordered HIP & PELVIS-LEFT [RAD] Stat Radiology 07/11/18 12:38 Ordered Medical Decision Making - Medical Decision Making 07/11/18 13:12 Elderly patient p/w GLF with subsequent left low back and hip pain. Initial Vital Signs Temp Pulse Resp BP Pulse Ox 98.6 F 70 20 161/92 90 L 07/11/18 11:41 07/11/18 11:41 07/11/18 11:41 07/11/18 11:41 07/11/18 11:41 Exam: As noted in Physical Exam section. DDX IBNLT: hip/pelvis/femur fxr, hip dislocation, sprain/strain, contusion, etc. W/U ordered: XR hip/pelvis EKG CXR CT Head/C-spine/L-spine, labs as noted below TX ordered: IV Ofirmev NPO until further notice. RAD/CHEST PA LAT Chest: Chest pain 3 views of the chest reveal a normal heart, sclerotic knob, unfolded aorta, possible hiatal hernia , left pacemaker and coarse lung changes. A discrete infiltrate is not seen. The angles are sharp and the soft tissues are intact there is mamillation of the right hemidiaphragm. Correlation recommended. RAD/HIP PELVIS-LEFT Pelvis and left hip: Pain An AP view of the pelvis and 2 views of the left hip reveal some loss of bone density, degenerative changes but no sign of fracture subluxation. Blastic or lytic changes are not seen. There is a nonspecific bowel pattern. There are vascular calcifications. If symptoms persist, further imaging may be of help. Impression: No acute pelvis or hip pathology. CT/CERVICAL SPINE CT W/O CONTR [id number] CT/HEAD CT WITHOUT CONTRAST [id number] CT/LUMBAR SPINE CT W/O CONTRAST Status post fall. CT scan of the brain without intravenous contrast. Since 12/12/2017, there remains generalized volume loss with moderate ventricular dilatation and moderate to marked periventricular chronic microvascular ischemic disease changes. No mass lesion, gross acute infarct or intracranial hemorrhage are identified. There is no shift of the midline structures. Calcification of the cavernous carotid arteries are present. The craniocervical junction appears unremarkable. Normal sized pituitary gland. Visualized paranasal sinuses and mastoid air cells are well aerated. The calvarium is intact IMPRESSION: No significant interval change or acute intracranial pathology is identified. Correlate clinically to determine further evaluation and follow-up. CT scan of the cervical spine without intravenous contrast Coronal and sagittal reconstruction images were obtained. There is straightening of the cervical spine. No gross fracture, subluxation or prevertebral soft tissue swelling is seen. No jumped facets are identified. Moderate to marked right and moderate left facet hypertrophy at C3-C4 and C4-C5 level. At C5-C6 level there is moderate degenerative disc disease with mild posterior spur formation and bilateral uncovertebral hypertrophy moderately narrowing the neural foramina, left more the right likely impinging left C6 nerve root. C6-C7 moderate degenerative disc disease. C7-T1 mild degenerative disc disease and marked bilateral facet hypertrophy. Visualized portion of the airway appears unremarkable. There are small nonspecific calcific densities in the right tonsil. Moderate size calcified plaques at the common carotid bifurcation, bilaterally. Normal size and attenuation of the thyroid gland Included thoracic inlet demonstrates moderate to marked COPD changes and apical pleural thickening , right more than left IMPRESSION: No gross fracture or subluxation are identified. No prevertebral soft tissue swelling is present. Multilevel degenerative disc disease, as described above with moderate narrowing of the neural foramina at C5-C6 level, left more the right. CT scan of the lumbar spine without intravenous contrast. Coronal and sagittal reconstruction images were obtained. Compared to prior CT scan of the abdomen and pelvis dated 03/14/2017 [id number] chronic compression of L2 superior endplate again seen without compromise of the spinal canal. No other gross compression fracture or subluxation are identified. At L4-L5 level there is moderate to marked bilateral facet hypertrophy. At L5-S1 level there is marked left and moderate right facet hypertrophy. Significant aneurysmal dilatation of the distal thoracic aorta measuring 6.8 cm in AP dimension is again seen. Aneurysmal dilatation of the distal abdominal aorta is again seen now measuring 3.5 cm in AP dimension. On prior examinations measures 3 cm. Multiple diverticula in included portion of the sigmoid colon without evidence of acute diverticulitis. Visualized portion of both kidneys appear unremarkable except for likely a 4 mm nonobstructing left lower pole stone. IMPRESSION: Mild-to- moderate chronic compression of L2 superior endplate. No interval new acute compression fracture or subluxation are identified. Aneurysmal dilatation of the distal abdominal aorta measuring 3.5 cm that has worsened since the prior examination where it measured 3 cm. There is also significant aneurysmal dilatation of the included distal thoracic aorta measuring 6.8 cm in AP dimension on the axial images and 7.2 cm in AP dimension on the sagittal reformatted images where it measured 5.8 cm on the prior exam. Correlation with a CT scan of the chest and abdomen is needed for better evaluation and assessment for change in the of aortic aneurysmal dilatation. Laboratory Tests 07/11/18 07/11/18 07/11/18 13:10 13:10 13:10 WBC 9.2 RBC 4.74 Hgb 12.6 Hct 38.5 MCV 81.4 MCH 26.7 MCHC 32.8 RDW 16.7 H Plt Count 170 MPV 9.2 Absolute Neuts (auto) 6.5 Neutrophils % 70.4 D Lymphocytes % 17.1 D Monocytes % 9.0 Eosinophils % 2.6 Basophils % 0.9 Nucleated RBC % 0 PT with INR 11.60 INR 0.98 PTT (Actin FS) 27.6 Sodium Cancelled Potassium Cancelled Chloride Cancelled Carbon Dioxide Cancelled Anion Gap Cancelled BUN Cancelled Creatinine Cancelled Creat Clearance w eGFR Cancelled Random Glucose Cancelled Calcium Cancelled Magnesium Cancelled Total Bilirubin Cancelled AST Cancelled ALT Cancelled Alkaline Phosphatase Cancelled Creatine Kinase Cancelled Creatine Kinase Index CK-MB (CK-2) Troponin I Cancelled B-Natriuretic Peptide Total Protein Cancelled Albumin Cancelled Blood Type Antibody Screen 07/11/18 07/11/18 13:10 14:00 WBC RBC Hgb Hct MCV MCH MCHC RDW Plt Count MPV Absolute Neuts (auto) Neutrophils % Lymphocytes % Monocytes % Eosinophils % Basophils % Nucleated RBC % PT with INR INR PTT (Actin FS) Sodium 133 L Potassium 4.7 Chloride 98 Carbon Dioxide 26 Anion Gap 8 BUN 25 H Creatinine 1.1 Creat Clearance w eGFR 46.98 Random Glucose 96 Calcium 8.6 Magnesium Total Bilirubin 0.2 AST 56 H ALT 27 Alkaline Phosphatase 91 Creatine Kinase 1218 H Creatine Kinase Index 0.5 CK-MB (CK-2) 7.2 H Troponin I < 0.02 B-Natriuretic Peptide 1278.5 H Total Protein 9.3 H Albumin 2.8 L Blood Type Cancelled Antibody Screen Cancelled Reassessment: Patient will stay for another IVF bolus. Re-exam unremarkable. DISCHARGE The Pt has gotten significant relief of symptoms while in the ED. They are appropriate for discharge with close outpatient follow up. The Pt is comfortable with this plan and will follow up with their primary care provider in 1-3 days. Specific return precautions are discussed and they will come back to the ER if necessary. *DC/Admit/Observation/Transfer Diagnosis at time of Disposition: Fall from ground level Lower back pain Qualifiers: Chronicity: acute Back pain laterality: left Sciatica presence: unspecified whether sciatica present Qualified Code(s): M54.5 - Low back pain - Discharge Dispostion Disposition: HOME Condition at time of disposition: Stable Decision to Admit order: No - Referrals Referrals: ON STAFF,NOT [Non Staff, Medical] - - Patient Instructions Printed Discharge Instructions: How to Prevent Falls Additional Instructions: You were seen in the ER for back pain. We did laboratory work on your blood and urine, as well as imaging studies, and we did not and we did not find any new concerning abnormalities. Your symptoms improved with the medications we gave you in the ER. After our assessment, we do not believe you are having a medical emergency at this time, and we believe you are safe to go home. Take Tylenol and your normal Tramadol as needed for pain. Please follow up with your primary care provider in 1-3 days. Call their clinic as soon as possible, tell them you were seen in the ER, and tell them you need an appointment. If you have any new or worsening symptoms please come back to the ER at any time (24 hours a day), especially for new numbness new tingling, new weakness, new urinary or bowel incontinence or retention, severe pain, fainting, severe headache, or other new symptoms. If you are having severe or life threatening symptoms, or symptoms that make it unsafe to drive or have someone drive you, please call 911. - Post Discharge Activity
--- NOTE | 2018-07-11 13:04 | PDOC ---
Attending Attestation - HPI HPI: 07/11/18 14:25 The patient is an 87 year old female with a significant past medical history of descending thoracic aortic aneurysm (dx by CTA 08/2017 showing 6.5 cm maximum diameter, refused intervention in past), CVAx3, CAD, on Plavix but no other blood thinner or ASA, pacemaker use, PVD, HTN, COPD, diverticulitis/osis, C. diff colitis in 2013, and chronic low back pain who presents from her apartment complaining of left lateral posterior hip and left lower back pain since a trip and fall onto her left hip last night. She denies head trauma or LOC. Allergies: Ciprofloxacin Documentation prepared by Tricia Wang, acting as medical charge entry specialist for Oralia Graves MD <Tricia Wang - Last Filed: 07/11/18 14:25> - Resident Resident Name: Hastings,Mary - ED Attending Attestation I have performed the following: I have examined & evaluated the patient, The case was reviewed & discussed with the resident, I agree w/resident's findings & plan, Exceptions are as noted - Physicial Exam PE: GENERAL: Awake, alert, and fully oriented, in no acute distress HEAD: No signs of trauma EYES: PERRLA, EOMI, sclera anicteric, conjunctiva clear ENT: Auricles normal inspection, hearing grossly normal, nares patent, oropharynx clear without exudates. Moist mucosa NECK: Normal ROM, supple, no lymphadenopathy, JVD, or masses LUNGS: Breath sounds equal, clear to auscultation bilaterally. No wheezes, and no crackles HEART: Regular rate and rhythm, normal S1 and S2, no murmurs, rubs or gallops ABDOMEN: Soft, nontender, normoactive bowel sounds. No guarding, no rebound. No masses MUSCULOSKELETAL: +Tenderness to L posterior iliac crest. No pelvic tenderness, normal ROM both hips. No hip tenderness. Remainder of extremities with normal range of motion, no edema. No clubbing or cyanosis. No cords, erythema, or tenderness NEUROLOGICAL: Cranial nerves II through XII grossly intact. Normal speech. Motor and sensation intact SKIN: Warm, Dry, normal turgor, no rashes or lesions noted. - Medical Decision Making Pt is s/p fall, history of prior gait problems. Now with L posterior iliac crest pain. Will obtain XR of the pelvis. Will also obtain labs, CXR, CT of head , c-spine, and l-spine. <Oralia Graves - Last Filed: 07/11/18 15:40>
[2018-07-11 13:18] LABS: BASO % 0.9 % (0-2.0); EOS % 2.6 % (0-4.5); HEMATOCRIT 38.5 % (32.4-45.2); HEMOGLOBIN 12.6 GM/dL (10.7-15.3); LYMPH % 17.1 % (8-40); MCH 26.7 pg (25.7-33.7); MCHC 32.8 g/dl (32.0-36.0); MEAN CELL VOLUME 81.4 fl (80-96); MEAN PLT VOLUME 9.2 fl (7.5-11.1); NEUT % 70.4 % (42.8-82.8); PLATELET COUNT 170 K/MM3 (134-434); RBC 4.74 M/mm3 (3.60-5.2); RDW 16.7 % (11.6-15.6); WHITE BLOOD COUNT 9.2 K/mm3 (4.0-10.0)
[2018-07-11 13:46] LABS: INR 0.98 (0.83-1.09); PROTHROMBIN TIME (PATIENT) 11.6 SEC (9.7-13.0)
[2018-07-11 13:49] LABS: ACTIVATED PTT 27.6 SECONDS (25.2-36.5)
[2018-07-11] MEDS ORDERED: ACETAMINOPHEN INJECTION 100 ML IVPB ONE ×2 (13:52→14:29)
[2018-07-11 15:29] LABS: ALBUMIN 2.8 g/dl (3.4-5.0); ALK PHOS 91 U/L (45-117); ANION GAP 8 MMOL/L (8-16); BILIRUBIN,TOTAL 0.2 mg/dL (0.2-1); BLOOD UREA NITROGEN 25 mg/dL (7-18); CALCIUM 8.6 mg/dL (8.5-10.1); CHLORIDE 98 mmol/L (98-107); CO2 26 mmol/L (21-32); CREATININE 1.1 mg/dL (0.55-1.3); GLUCOSE,RANDOM 96 mg/dL (74-106); N-TERMINAL BNP 1278.5 pg/ml (5-450); POTASSIUM 4.7 mmol/L (3.5-5.1); SGOT/AST 56 U/L (15-37); SGPT/ALT 27 U/L (13-61); SODIUM 133 mmol/L (136-145); TOT PROT 9.3 g/dl (6.4-8.2)
[2018-07-11 16:46] VITALS: BP 133/57; PULSE 67; TEMP 97.5
[2018-07-11] MEDS ORDERED: traMADol HCL 50 MG TABLET PO ONE (18:52)
[2018-07-11] MEDS ORDERED: traMADol HCL 50 MG TABLET ONE (19:25)
== END 2018-07-11 20:07 | disposition home or self-care (01) ==
LOC: JER 11:33
PROC: 3E033NZ Introduction of Analgesics, Hypnotics, Sedatives into Peripheral Vein, Percutaneous Approach (ICD-10-PCS; principal; 2018-07-11)
DX: M54.5 Low back pain (principal); M25.552 Pain in left hip; W01.0XXA Fall on same level from slipping, tripping and stumbling without subsequent striking against object, initial encounter; Y93.89 Activity, other specified; Y92.032 Bedroom in apartment as the place of occurrence of the external cause; Y99.8 Other external cause status; I25.10 Atherosclerotic heart disease of native coronary artery without angina pectoris; I10 Essential (primary) hypertension; Z95.0 Presence of cardiac pacemaker; I73.9 Peripheral vascular disease, unspecified; J44.9 Chronic obstructive pulmonary disease, unspecified; I71.2 Thoracic aortic aneurysm, without rupture; Z79.01 Long term (current) use of anticoagulants; G89.29 Other chronic pain; Z87.19 Personal history of other diseases of the digestive system
CPT/HCPCS: 36415; 70450-TC; 71046-TC-FY; 72125-TC; 72131-TC; 73523-TC-FY; 80053; 82550; 82553; 83880; 84484; 85025; 85610; 85730; 96374; 99281-25; J0131

== ENCOUNTER 2018-08-28 23:24 | Inpatient (IN) | payer OTHER ==
--- NOTE | 2018-08-28 23:32 | PDOC ---
History of Present Illness - General Chief Complaint: CVA/TIA Stated Complaint: FACE NUMBNESS RIGHT SIDE Time Seen by Provider: 08/28/18 23:28 History Source: Patient, Primary Care Provider Exam Limitations: No Limitations - History of Present Illness Initial Comments: 08/28/18 23:32 This is a 87-year-old female with history of CVA in the past and multiple TIAs. Patient comes in with her caregiver for evaluation of possible CVA. Patient has had stuttering type symptoms since yesterday that became persistent approximately 2 hours prior to arrival. Patient is complaining of some right facial numbness and mild slurring of her speech. Patient at her baseline otherwise has some mild right-sided weakness secondary to her major stroke in the past which was approximately 5 years ago. Allergies: as per nursing notes Past Medical History: none Social history: Lives with family. No smoking. No alcohol. No illicit drugs. Surgical history: None General: No fevers or chills, no weakness, no weight loss HEENT: No change in vision. No sore throat,. No ear pain CardioVascular: no chest discomfort. No shortness of breath Respiratory:No cough, or wheezing. Gastrointestinal: no nausea, vomiting, diarrhea or constipation, No rectal bleeding Genitourinary: No dysuria, hematuria, or frequency Musculoskeletal: No joint or muscle pain or swelling Neurologic: No headache, vertigo, dizziness or loss of consciousness Psychiatric: nor depression Skin: No rashes or easy bruising Endocrine: no increased thirst or abnormal weight change Allergic: no skin or latex allergy All other systems reviewed and normal Exam: General: Well-nourished well-developed individual, no acute distress HEENT: Throat: Normal, tonsils normal, no erythema or exudate Neck: Supple, no meningeal signs, no lymphadenopathy Eyes::Pupils equal reactive and round, extraocular motion intact Chest: Nontender to palpation Cardiac: S1-S2 normal, regular rate and rhythm, no murmurs rubs or gallops Respiratory: Lungs clear to auscultation bilateral Abdomen: Soft, nondistended, normal bowel sounds, there is no tenderness on palpation diffusely Extremities: Warm, dry, no cyanosis, clubbing, or edema Skin: No rashes Neuro: Alert and oriented x3, CN II - XII intact, see NIH stroke scale Psych: Normal mood and affect 08/29/18 00:17 EKG shows Chest x-ray shows no acute pathology Assessment and plan: This is an 87-year-old female who comes in complaining of right facial numbness with some mild slurred speech. Patient has an INH stroke scale of 2. Discussed with Dr[address] Hackett neurologist who recommends a admission and he will see the patient in the morning. Discussed admission with the hospitalist who will admit the patient to an observation bed Past History - Past Medical History Allergies/Adverse Reactions: Allergies Allergy/AdvReac Type Severity Reaction Status Date / Time ciprofloxacin [From Cipro] Allergy Unknown Hives Verified 08/28/18 23:26 Home Medications: Ambulatory Orders Amitriptyline HCl [Elavil -] 5 mg PO HS 12/27/16 Atorvastatin Ca [Lipitor] 80 mg PO DAILY 12/27/16 Clonidine Patch [Catapres Tts Patch -] 0.1 mg TD Q7D@1000 #4 patch.tdwk Tramadol HCl [Ultram] 50 mg PO Q6H PRN 06/15/17 Clopidogrel Bisulfate [Plavix] 75 mg PO DAILY 08/23/17 Carvedilol [Coreg -] 12.5 mg PO BID 12/12/17 Esomeprazole Magnesium [Nexium 24Hr] 20 mg PO DAILY 04/24/18 Tiotropium [place] [Spiriva] 18 mcg IH DAILY 06/20/18 Carvedilol [Coreg -] 12.5 mg PO BID 08/28/18 Anemia: No Asthma: No Cancer: Yes (SKIN.) Cardiac Disorders: No CVA: Yes (X 2.) COPD: Yes CHF: No DVT: No Dementia: No Diabetes: No Dialysis: No GI Disorders: Yes Disorders: No HTN: Yes Hypercholesterolemia: Yes Kidney Stones: No Liver Disease: No Psychiatric Problems: No Seizures: No Thyroid Disease: No Lung CA: No - Surgical History Abdominal Surgery: Yes Appendectomy: No Cardiac Surgery: Yes (pacemaker) Cholecystectomy: Yes Lung Surgery: No Neurologic Surgery: Yes Orthopedic Surgery: Yes (left knee meiscus tear repair) - Immunization History Immunization Up to Date: Yes - Suicide/Smoking/Psychosocial Hx Smoking History: Former smoker Have you smoked in the past 12 months: No If you are a former smoker, when did you quit?: 2013 Cigars Per Day: 0 'Breaking Loose' booklet given: 05/12/17 Hx Alcohol Use: No Drug/Substance Use Hx: No Substance Use Type: None Hx Substance Use Treatment: No NIH Stroke Scale - Last Known Well Date/Time & Onset Date Last Known Well: 08/27/18 - Initial Evaluation Level of consciousness: Alert Ask patient the month and their age: Answers both correctly Ask patient to open & close eyes; make fist and let go: Obeys both correctly Best gaze (horizontal eye movement): Normal Visual field testing: No visual field loss Facial paresis (Show teeth/raise eyebrows/close eyes tight): Minor paralysis ( flattened nasolabial fold, asymmetry on smiling) Motor Function: Left Arm: Normal Motor Function: Right Arm: Normal (extends arm 90 (or 45) degrees for 10 seconds without drift Motor Function: Left Leg: Normal (extends leg 30 degrees for 5 seconds without drift) Motor Function: Right Leg: Normal (extends leg 30 degrees for 5 seconds without drift) Limb Ataxia: No ataxia Sensory(Use pinprick test arms,legs,trunk,face/side to side): Normal Best language (Describe picture, name items, read sentences): No Aphasia Dysarthria (read several words): Mild to moderate slurring of words Extinction and Inattention: No abnormality - Total Score NIH Stroke Scale Score: 2 *DC/Admit/Observation/Transfer Diagnosis at time of Disposition: Cerebrovascular accident (CVA) - Discharge Dispostion Condition at time of disposition: Stable Decision to Admit order: Yes - Referrals Referrals: Willi Cornelius RES [Primary Care Provider] - - Patient Instructions - Post Discharge Activity
[2018-08-28] MEDS ORDERED: SODIUM CHLORIDE 1,000 ML IV ONE (23:33)
[2018-08-28 23:43] LABS: BASO % 0.9 % (0-2.0); EOS % 6.4 % (0-4.5); HEMATOCRIT 41.3 % (32.4-45.2); HEMOGLOBIN 13.1 GM/dl (10.7-15.3); LYMPH % 34.5 % (8-40); MCH 25.8 pg (25.7-33.7); MCHC 31.6 g/dl (32.0-36.0); MEAN CELL VOLUME 81.5 fl (80-96); MEAN PLT VOLUME 9.4 fl (7.5-11.1); MONO % 11.4 % (3.8-10.2); NEUT % 46.8 % (42.8-82.8); PLATELET COUNT 203 K/MM3 (134-434); RBC 5.08 M/mm3 (3.60-5.2); RDW 16.4 % (11.6-15.6); WHITE BLOOD COUNT 7.1 K/mm3 (4.0-10.8)
[2018-08-28 23:46] LABS: INR 1.05 (0.82-1.09); PROTHROMBIN TIME (PATIENT) 11.7 SEC (10.2-13.0)
[2018-08-28 23:52] LABS: ALBUMIN 3.7 g/dl (3.4-5.0); ALK PHOS 138 U/L (45-117); ANION GAP 9 MMOL/L (8-16); BILIRUBIN,TOTAL 0.7 mg/dl (0.2-1); BLOOD UREA NITROGEN 14 mg/dl (7-18); CALCIUM 8.8 mg/dl (8.5-10); CHLORIDE 105 mmol/L (98-107); CO2 23 mmol/L (21-32); GLUCOSE,RANDOM 103 mg/dl (74-106); POTASSIUM 4.4 mmol/L (3.5-5.1); SGOT/AST 30 U/L (15-37); SGPT/ALT 19 U/L (13-61); SODIUM 137 mmol/L (136-145); TOT PROT 7.1 g/dl (6.4-8.2)
[2018-08-29 01:25] LABS: URINE APPEARANCE CLEAR; URINE BILIRUBIN NEGATIVE (<2.0 mg/dL); URINE COLOR COLORLESS; URINE GLUCOSE (UA) NEGATIVE (NEGATIVE); URINE KETONE NEGATIVE (NEGATIVE); URINE LEUK ESTERASE TRACE (NEGATIVE); URINE NITRITE NEGATIVE (NEGATIVE); URINE PROTEIN NEGATIVE (NEGATIVE); URINE UROBILINOGEN NEGATIVE mg/dL (0.2-1.0)
[2018-08-29 01:33] LABS: EPI CELLS RARE /HPF (FEW); URINE BACTERIA RARE /hpf (NONE SEEN)
[2018-08-29 03:37] VITALS: BMI 20.5
--- NOTE | 2018-08-29 09:13 | HP ---
CHIEF COMPLAINT: PCP: HISTORY OF PRESENT ILLNESS: This is a 87-year-old female with a PMH significant for HTN, HLD, COPD, CAD, CVA /TIAs, descending thoracic aortic aneurysm, peripheral vascular disease, and CKD. Patient was brought to ED by her caregiver. Patient's BP has been elevated and difficult to control for several days. Last night at ~9:30, BP was 205/87. Patient was complaining of right ear pain and numbness of right cheek. Her aide gave evening antihypertensives which brought BP down to 170s, but patient's complaints of ear pain and cheek numbness persisted prompting her to come to the ED. On this admission patient reports the right ear pain has resolved but she still has numbness of the right cheek. ER course was notable for: (1) BP 167/98 (2) CT head: no acute process Recent Travel: No PAST MEDICAL HISTORY: Hypertension Hyperlipidemia CAD CVA/TIAs COPD C.difficile Descending thoracic aortic aneurysm Peripheral vascular disease Chronic kidney disease Diverticulitis IBS Compression fracture PAST SURGICAL HISTORY: Carotid artery ablation Meniscus repair PPM Social History: Smoking: former quit 2012 Alcohol: no Drugs: no Family History: Allergies ciprofloxacin [From Cipro] Allergy (Unknown, Verified 08/28/18 23:26) Hives HOME MEDICATIONS: Home Medications Medication Instructions Recorded Amitriptyline HCl [Elavil -] 5 mg PO HS 12/27/16 Atorvastatin Ca [Lipitor] 80 mg PO DAILY 12/27/16 Clonidine Patch [Catapres Tts 0.1 mg TD Q7D@1000 #4 patch.tdwk 05/13/17 Patch -] Tramadol HCl [Ultram] 50 mg PO Q6H PRN 06/15/17 Clopidogrel Bisulfate [Plavix] 75 mg PO DAILY 08/23/17 Carvedilol [Coreg -] 12.5 mg PO BID 12/12/17 Esomeprazole Magnesium [Nexium 20 mg PO DAILY 04/24/18 24Hr] Tiotropium Caroleen [Spiriva] 18 mcg IH DAILY 06/20/18 Carvedilol [Coreg -] 12.5 mg PO BID 08/28/18 REVIEW OF SYSTEMS CONSTITUTIONAL: Absent: fever, chills, diaphoresis, generalized weakness, malaise, loss of appetite, weight change HEENT: Absent: rhinorrhea, nasal congestion, throat pain, throat swelling, difficulty swallowing, mouth swelling, ear pain, eye pain, visual changes CARDIOVASCULAR: Absent: chest pain, syncope, palpitations, irregular heart rate, lightheadedness , peripheral edema RESPIRATORY: Absent: cough, shortness of breath, dyspnea with exertion, orthopnea, wheezing, stridor, hemoptysis GASTROINTESTINAL: Absent: abdominal pain, abdominal distension, nausea, vomiting, diarrhea, constipation, melena, hematochezia GENITOURINARY: Absent: dysuria, frequency, urgency, hesitancy, hematuria, flank pain, genital pain MUSCULOSKELETAL: Absent: myalgia, arthralgia, joint swelling, back pain, neck pain SKIN: Absent: rash, itching, pallor HEMATOLOGIC/IMMUNOLOGIC: Absent: easy bleeding, easy bruising, lymphadenopathy, frequent infections ENDOCRINE: Absent: unexplained weight gain, unexplained weight loss, heat intolerance, cold intolerance NEUROLOGIC: Absent: headache, focal weakness or paresthesias, dizziness, unsteady gait, seizure, mental status changes, bladder or bowel incontinence PSYCHIATRIC: Absent: anxiety, depression, suicidal or homicidal ideation, hallucinations. PHYSICAL EXAMINATION Vital Signs - 24 hr 08/29/18 08/29/18 08/29/18 00:25 01:45 01:46 Temperature 97.7 F 97.8 F Pulse Rate 60 69 Respiratory 18 18 Rate Blood Pressure 167/98 133/64 O2 Sat by Pulse 96 99 Oximetry (%) 08/29/18 08/29/18 03:28 06:06 Temperature 97.5 F L Pulse Rate 72 Respiratory 18 Rate Blood Pressure 147/72 O2 Sat by Pulse 99 98 Oximetry (%) GENERAL: Awake, alert, and fully oriented, in no acute distress. HEAD: Normal with no signs of trauma. EYES: Pupils equal, round and reactive to light, extraocular movements intact, sclera anicteric, conjunctiva clear. No lid lag. EARS, NOSE, THROAT: Ears normal, nares patent, oropharynx clear without exudates. Moist mucous membranes. LUNGS: Left basilar crackles HEART: Regular rate and rhythm, S1 and S2 ABDOMEN: Soft, nontender, not distended, normoactive bowel sounds, no guarding, no rebound tenderness MUSCULOSKELETAL: Normal range of motion at all joints. No bony deformities or tenderness. No CVA tenderness. UPPER EXTREMITIES: 2+ pulses, warm, well-perfused. No cyanosis. No clubbing. No peripheral edema. LOWER EXTREMITIES: 2+ pulses, warm, well-perfused. No calf tenderness. No peripheral edema. NEUROLOGICAL: Cranial nerves II-XII intact. Normal speech. Steady gait observed. SKIN: Warm, dry, normal turgor Laboratory Results - last 24 hr 08/28/18 08/28/18 08/28/18 00:29 00:29 00:29 WBC 7.1 RBC 5.08 Hgb 13.1 Hct 41.3 MCV 81.5 MCH 25.8 MCHC 31.6 L RDW 16.4 H D Plt Count 203 MPV 9.4 Absolute Neuts (auto) 3.2 Neutrophils % 46.8 Lymphocytes % 34.5 Monocytes % 11.4 H Eosinophils % 6.4 H Basophils % 0.9 PT with INR 11.7 INR 1.05 Sodium 137 Potassium 4.4 Chloride 105 Carbon Dioxide 23 Anion Gap 9 BUN 14 Creatinine 1.0 Creat Clearance w eGFR 52.45 Random Glucose 103 Calcium 8.8 Magnesium Total Bilirubin 0.7 AST 30 ALT 19 Alkaline Phosphatase 138 H Creatine Kinase Troponin I Total Protein 7.1 Albumin 3.7 Triglycerides Cholesterol Total LDL Cholesterol HDL Cholesterol Urine Color Urine Appearance Urine pH Ur Specific [place] Urine Protein Urine Glucose (UA) Urine Ketones Urine Blood Urine Nitrite Urine Bilirubin Urine Urobilinogen Ur Leukocyte Esterase Urine WBC (Auto) Urine RBC (Auto) Ur Epithelial Cells Urine Bacteria 08/28/18 08/28/18 08/29/18 23:30 23:30 00:29 WBC RBC Hgb Hct MCV MCH MCHC RDW Plt Count MPV Absolute Neuts (auto) Neutrophils % Lymphocytes % Monocytes % Eosinophils % Basophils % PT with INR INR Sodium Potassium Chloride Carbon Dioxide Anion Gap BUN Creatinine Creat Clearance w eGFR Random Glucose Calcium Magnesium Total Bilirubin AST ALT Alkaline Phosphatase Creatine Kinase 49 Troponin I < 0.03 Total Protein Albumin Triglycerides Cholesterol Total LDL Cholesterol HDL Cholesterol Urine Color Colorless Urine Appearance Clear Urine pH 7.0 Ur Specific [place] 1.002 L Urine Protein Negative Urine Glucose (UA) Negative Urine Ketones Negative Urine Blood 1+ H Urine Nitrite Negative Urine Bilirubin Negative Urine Urobilinogen Negative Ur Leukocyte Esterase Trace Urine WBC (Auto) 1 Urine RBC (Auto) <1 Ur Epithelial Cells Rare Urine Bacteria Rare 08/29/18 08/29/18 08/29/18 06:30 06:30 07:05 WBC RBC Hgb Hct MCV MCH MCHC RDW Plt Count MPV Absolute Neuts (auto) Neutrophils % Lymphocytes % Monocytes % Eosinophils % Basophils % PT with INR INR Sodium Potassium Chloride Carbon Dioxide Anion Gap BUN Creatinine Creat Clearance w eGFR Random Glucose Calcium Magnesium 1.9 Total Bilirubin AST ALT Alkaline Phosphatase Creatine Kinase Troponin I < 0.03 Total Protein Albumin Triglycerides 93 Cholesterol 133 Total LDL Cholesterol 68 HDL Cholesterol 46 Urine Color Urine Appearance Urine pH Ur Specific [place] Urine Protein Urine Glucose (UA) Urine Ketones Urine Blood Urine Nitrite Urine Bilirubin Urine Urobilinogen Ur Leukocyte Esterase Urine WBC (Auto) Urine RBC (Auto) Ur Epithelial Cells Urine Bacteria ASSESSMENT/PLAN This is a 87-year-old female with a PMH significant for HTN, HLD, COPD, CAD, CVA /TIAs s/p carotid artery ablation, descending thoracic aortic aneurysm, peripheral vascular disease, and CKD. Placed on observation r/o CVA v. TIA. r/o CVA v. TIA Hypertensive encephalopathy --BP has been stable --CT head negative --US carotids pending --continue Lipitor, Plavix --MRI not possible due to PPM --troponins neg x 2, third pending --telemetry monitoring --serial ECGs --08/23/17 Echo: LV normal, EF 65-70%; RV normal, PPM in RV; trace MR; mild to moderate TR --neurology consult Dr. Cruz Descending thoracic aortic aneurysm --on last CTA imaging in 08/2017, 6.5cm fusiform aneurysm --BP control --cardiology consult Dr. Gomez Coronary artery disease Peripheral vascular disease Hypertension Hyperlipidemia --continue carvedilol, Plavix, Lipitor COPD --advanced centriblobuar emphysema --Spiriva FEN Fluids: PO intake adequate Electrolytes: replete as indicated Nutrition: low sodium DVT prophylaxis: subq heparin Physical therapy Dispo: continues to require inpatient care. Full code. Visit type - Emergency Visit Emergency Visit: Yes ED Registration Date: 08/29/18 Care time: The patient presented to the Emergency Department on the above date and was hospitalized for further evaluation of their emergent condition. - New Patient This patient is new to me today: Yes Date on this admission: 08/29/18 - Critical Care Critical Care patient: No
[2018-08-29] MEDS ORDERED: PT OWN MED DRAWER 7, Y5N ONE (09:17)
[2018-08-29] MEDS: CARVEDILOL 12.5 MG TABLET (FP) PO SCH ×2 (09:28→23:20)
[2018-08-29] MEDS: PANTOPRAZOLE 20 MG TABLET (FP) PO SCH (09:28)
[2018-08-29] MEDS: CLOPIDOGREL BISULFATE 75 MG TABLET (FP) PO SCH (09:28)
[2018-08-29] MEDS ORDERED: PATIENT'S OWN MEDICATION (NON-FORMULARY) (Tiotropium Bromide [Spiriva] 18 MCG) IH SCH (10:00)
[2018-08-29] MEDS ORDERED: TIOTROPIUM BROMIDE 2.5 MCG (SPIRIVA) RESPIMAT INHALER IH SCH (10:00)
--- NOTE | 2018-08-29 10:41 | CONSULT ---
Consult - text type - Consultation Consultation Note: NEUROLOGY CONSULT APPRECIATED: Events reviewed and discussed with JOHANNY Parry. Home health aide at bedside. 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 She receives 24/7 HHS at this time. Reports she normally ambulates with walker in house. Here after reports of uncontrolled BP (systolic > 200 per aide) since 9pm last evening with "numbness" in the R lip and lower jaw and "slurred" speech, now resolving this AM. She and aide report this has occurred before, "when blood pressure is too high." PMHX: descending thoracic aortic aneurysm, PAD, chronic L2 compression fracture , last L sided CVA 5 years ago affecting R limbs requiring rehab stay Meds: amitriptyline 5 mg qhs, lipitor, clonidine patch 0.1 mg qweekly, tramadol 50 mg po q6H, plavix, carvedilol, esomeprazole, tiotropium Review of systems is significant for history of "imbalance", "lightheadedness" and falls, especially when standing quickly. Most recent fall at the end of June 2018 requiring hospitalization. She reports chronic low back pain with radiation into the L leg, not improved with walking. She reports 3 months of "numbness," " feeling" in L foot that interrupts her sleep, requiring her to take her socks off. She also reports speech is affected due to "dry mouth." CT head (reviewed): moderate atrophy, chronic lacune in L thalmus. LUISANA: BP 150s/60s. P80s. Cor reg. No bruit. Sl reduced neck ROM. PPM to L chest. Wearing O2 via N/C. Good distal pulses. Neg Harrison's. NEURO: Mentation/Speech: Sl dysarthric. Ox "[facility] August,. TRUMP -> PMURT. 08/13 recall at 3 min. CNII-CNXII: EOM intact with full guzman appreciated. Reduced rapid tongue. Gag ok. No facial. Motor: No drift. Strength normal throughout. Reflexes brisk R > L. R Babinski. Coordination: NO FTN dystaxia. Sensation: Normal to vibration. Romberg + Gait: Flexed, slight shuffle, Retropulsive. Impression: 1. 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 Recurrent Hypertensive crisis 3. Gait dysfunction (likely multifactorial with contributions of LBP, L2 compression fx, +/- dysautonomia) 4. Possible adverse drug reaction (amitriptyline can cause dry mouth, worsen paresthesia and contribute to falls) Suggest: Orthostatic BP's Agree with cardio and telemetry Continue cardiovascular protection with Plavix and Statin Maintain systolic BP's 120s-130s Await carotid duplex doppler D/C amitriptyline Thank you very much, Artemio Cruz MD
--- NOTE | 2018-08-29 10:44 | EKG ---
Test Reason : Blood Pressure : / mmHG Vent. Rate : 060 BPM Atrial Rate : 059 BPM P-R Int : 000 ms QRS Dur : 082 ms QT Int : 434 ms P-R-T Axes : 000 081 051 degrees QTc Int : 434 ms AV dual-paced rhythm with prolonged AV conduction ABNORMAL ECG Confirmed by Jason Holland MD ([id number]) on 08/29/2018 10:44:12 AM Referred By: VALENTINA PEREZ Confirmed By:Jason Holland MD
--- NOTE | 2018-08-29 11:11 | CONSULT ---
Admitting History and Physical - Primary Care Physician PCP: Amy Johnston - Admission History of Present Illness: Per EMR: This is a 87-year-old female with a PMH significant for HTN, HLD, COPD, CAD, CVA /TIAs s/p carotid artery ablation, descending thoracic aortic aneurysm, peripheral vascular disease, and CKD. Placed on observation r/o CVA v. TIA. Selected Entries 08/29/18 08/29/18 08/29/18 00:25 01:45 06:06 Breakfast Lunch Temperature 97.7 F 97.8 F 97.5 F L 08/29/18 08/29/18 08/29/18 09:25 09:33 13:30 Breakfast 75% Lunch 75% Temperature 97.7 F Laboratory Tests 08/28/18 00:29 WBC 7.1 Chart reviewed. Speech/swallowing evaluation then cancelled.Pt not examined. - Past Medical History Cardiovascular: Yes: CAD, HTN, Other (AAA) Pulmonary: Yes: COPD Gastrointestinal: Yes: Diverticulitis, Diverticulosis, Other (C. DIff colitis 2013) Musculoskeletal: Yes: Chronic low back pain - Past Surgical History Past Surgical History: Yes: Permanent Pacemaker - Advance Directives Advance Directives: Yes: Health Care Proxy - Smoking History Smoking history: Former smoker Have you smoked in the past 12 months: No If you are a former smoker, when did you quit?: 5 - Alcohol/Substance Use Hx Alcohol Use: No History of Substance Use: reports: None - Social History ADL: Independent History of Recent Travel: No History - Admission Reason For Visit: CVA - Hearing Hearing: Normal Hearing Aide: No With Patient: No Speech Evaluation - Communication Primary Language: MAORI - Speech Characteristics Articulation: Yes: Precise - Language/Verbal Expression Aphasia: Yes: Anomia - Swallow Evaluation/Bedside Assessment Current Nutritional Intake: Regular, Thin Liquids A-P Transit: WFL
[2018-08-29] MEDS: HEPARIN NA (PORCINE) 5,000 UNITS/ML 1ML VIAL SQ SCH ×3 (11:16→23:25)
--- NOTE | 2018-08-29 15:41 | CON.CARD ---
Consult Consult Specialty:: cardio - History of Present Illness Chief Complaint: facial numbness History of Present Illness: 87 F here with numbness right face, slurred speech. called me yesterday requesting to review her home BPs which had acutely become very high. given pt checks bp 4-5x/day for a long time, and values typically range dramatically, i requested mult times for PRINTER MACHINE to fax me or email me the readings- -none arrived despite mult attempts. came to ER with c/p R sided face numbness and slurred speech worse than her usual post-CVA deficit baseline. in setting of sbp > 200 at home. seen by neuro here, CT head showing only chronic lacunar infarct. Impression: 1. 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 Recurrent Hypertensive crisis 3. Gait dysfunction (likely multifactorial with contributions of LBP, L2 compression fx, +/- dysautonomia) 4. Possible adverse drug reaction (amitriptyline can cause dry mouth, worsen paresthesia and contribute to falls) Suggest: Orthostatic BP's Agree with cardio and telemetry Continue cardiovascular protection with Plavix and Statin Maintain systolic BP's 120s-130s Await carotid duplex doppler D/C amitriptyline pt denies cp. feels sob and tired with activity--going on a long time, stable. dtr says she's weak when tries to do anything--hasn't seen PMD to discuss this denies new neuro deficits today says amitryptiline is for her IBS and is the only thing that helps it PMH: copd ckd HTN aorta aneurysm HPL PPM - Past Medical History Cardio/Vascular: Yes: CAD, HTN, Other (AAA) Pulmonary: Yes: COPD Gastrointestinal: Yes: Diverticulitis, Diverticulosis, Other (C. DIff colitis 2013) Musculoskeletal: Yes: Chronic low back pain - Past Surgical History Past Surgical History: Yes: Permanent Pacemaker - Alcohol/Substance Use Hx Alcohol Use: No History of Substance Use: reports: None - Smoking History Smoking history: Former smoker Have you smoked in the past 12 months: No If you are a former smoker, when did you quit?: 5 - Social History Usual Living Arrangement: With Spouse ADL: Independent History of Recent Travel: No Home Medications - Allergies Allergies/Adverse Reactions: Allergies Allergy/AdvReac Type Severity Reaction Status Date / Time ciprofloxacin [From Cipro] Allergy Unknown Hives Verified 08/28/18 23:26 - Home Medications Home Medications: Ambulatory Orders Amitriptyline HCl [Elavil -] 5 mg PO HS 12/27/16 Atorvastatin Ca [Lipitor] 80 mg PO DAILY 12/27/16 Clonidine Patch [Catapres Tts Patch -] 0.1 mg TD Q7D@1000 #4 patch.tdwk Tramadol HCl [Ultram] 50 mg PO Q6H PRN 06/15/17 Clopidogrel Bisulfate [Plavix] 75 mg PO DAILY 08/23/17 Carvedilol [Coreg -] 12.5 mg PO BID 12/12/17 Esomeprazole Magnesium [Nexium 24Hr] 20 mg PO DAILY 04/24/18 Tiotropium [place] [Spiriva] 18 mcg IH DAILY 06/20/18 Carvedilol [Coreg -] 12.5 mg PO BID 08/28/18 Family Disease History - Family Disease History Family History: Denies (no known cmp) Review of Systems - Review of Systems Constitutional: reports: Weakness. denies: Chills, Fever Eyes: denies: Eye Pain HENT: denies: Nasal Congestion Neck: denies: Stiffness Cardiovascular: denies: Palpitations Respiratory: denies: Orthopnea, PND Gastrointestinal: denies: Diarrhea, Rectal Bleeding Genitourinary: denies: Burning, Hematuria Musculoskeletal: denies: Muscle Pain Integumentary: denies: Rash Neurological: reports: Change in Speech, Numbness. denies: Seizure, Syncope Endocrine: denies: Excessive Sweating Hematology/Lymphatic: denies: Excessive Bleeding Vital Signs: Vital Signs Temperature 97.9 F 08/29/18 14:33 Pulse Rate 59 L 08/29/18 14:33 Respiratory Rate 16 08/29/18 14:33 Blood Pressure 157/63 08/29/18 14:33 O2 Sat by Pulse Oximetry (%) 94 L 08/29/18 14:33 Constitutional: Yes: Well Nourished, No Distress Eyes: No: Sclera Icterus HENT: No: Nasal Congestion Neck: No: Decreased ROM Respiratory: Yes: CTA Bilaterally. No: Accessory Muscle Use Gastrointestinal: Yes: Normal Bowel Sounds. No: Distention, Hepatomegaly, Palpable Mass, Tenderness Cardiovascular: Yes: Regular Rate and Rhythm JVD: No Carotid Bruit: No PMI: Non-Displaced Heart Sounds: Yes: S1, S2. No: Gallop Murmur: No: Systolic Murmur, Diastolic Murmur Musculoskeletal: Yes: Other (No kyphosis) Extremities: No: Cool, Cyanosis Edema: No Peripheral Pulses: 2+ Left Carotid, 2+ Right Carotid, 2+ Left Doralis Pedis, 2+ Right Dorsalis Pedis Integumentary: No: Jaundice Neurological: Yes: Alert, Oriented (x3) Psychiatric: No: Agitated - Other Data Labs, Other Data: CBC, BMP 08/28/18 00:29 08/28/18 00:29 INR, PTT INR 1.05 (0.82-1.09) 08/28/18 00:29 Troponin, BNP 08/28/18 08/29/18 23:30 07:05 Troponin I < 0.03 < 0.03 Troponin, BNP 08/28/18 08/29/18 23:30 07:05 Troponin I < 0.03 < 0.03 Laboratory Tests 08/28/18 08/28/18 08/28/18 00:29 00:29 23:30 WBC 7.1 Hgb 13.1 Plt Count 203 Sodium 137 Potassium 4.4 Carbon Dioxide 23 BUN 14 Creatinine 1.0 AST 30 ALT 19 Troponin I < 0.03 Triglycerides Cholesterol Total LDL Cholesterol HDL Cholesterol 08/29/18 08/29/18 06:30 07:05 WBC Hgb Plt Count Sodium Potassium Carbon Dioxide BUN Creatinine AST ALT Troponin I < 0.03 Triglycerides 93 Cholesterol 133 Total LDL Cholesterol 68 HDL Cholesterol 46 Assessment/Plan ECG x2: A-p/V-s; ? old ASMI. no change vs prior office CXR: clear lungs/pleura Carotids: moderate diase no stenosis. labile HTN: -it has unfortunately thus far been impossible to tightly control her BPs ( despite enlarging aorta aneurysm), due to mult extenuating circumstances: (a) uncontrolled anxiety disorder with highly reactive BP to mental stress/emotions/ anxiety; (b) frequent med s.e. (GRISELDA with JOHANNA, "dry mouth" with spironolactone-- turns out may be amitryptilline per dr simon input (thank you);) (c) intolerant of BPs in 110-120 range due to profound washed out feeling; (d) orthostatic hypotension tendency; (e) h/o IBS triggering vasovagal reaction in past -recently she became again insistent that spironolactone was causing her waxing and waning intolerable dry mouth, despite no relation when med previously held-- apparently a spurious association (as above) -rec'd trial of Resperate device paced slow diaphragmatic breathing--made her "out of it" and somnolent. -loss of BP control at home of late -resume spironolactone -continue home clonidine patch (will likely increase dose further as her prior complaint of worse dry mouth on 0.2mg dose was likely not related to this med) -she has very reliable PRINTER MACHINE who is reliably carrying out a very complicated dosing regimen of cardvedilol and amlodipine based on BPs at 4 times points per day--will continue this when she goes home. takes carvedilol 6.25-12.5 bid depending on bp's, and amlodipine 5 qd to tid -currently BP is well controlled (with orthostatic drop 140s to 100s) o carvedilol 12.5 bid plus home clonidine patch -same meds for now -when goes home, BP will inevitably trend back up--will try to resume spirono +/ - incr clonidine patch at that time---pt and dtr informed today that if she wishes to remain on amitryptiline b/c it helps her IBS, then she must not erroneously point to bp meds as cause of her dry mouth, and that h/o CVA: -s/p bilateral CVAs, carotid dopplers here remain nonobstructive -neuro input appreciated--no acute cerebrovasc insufficiency suspected, likely sx's all sec to HTN urgency Rhythm disorder -B SCI DUAL-CHAMBER DEVICE. -NORMAL FXN 08/29 IN OFFICE Supraventricular tachycardia -INCIDENTAL EPISODES ON PPM WITH A RATE 140S-150S. -MOST LIKELY ATACH. -NO FIB/FLUTTER. -BB DOING Chronic ischemic heart disease -ON MY REVIEW OF CT CHEST, THERE IS COR CALCIUM IN PROX LAD, NEAR OSTIUM. -NO ANGINA BUT AT LOW ACTIVITY LEVEL SEC TO COPD. -NO ISCHEMIA 09/27 ([facility]). -ONT PLAVIX, STATIN, BB DOING Aneurysm of the thoracoabdominal aorta -03/29 CT ABDOMEN (FOR UNRELATED ABD PAINS--? IBS SX): INCIDENTALLY NOTED EXPANSION OF THIS REGION, TO 6.2 CM FROM 4.0 CM IN 2016. (MEASURED 5.[address]AT CT DONE AT [facility]). -PT VERY HIGH RISK FOR OPEN REPAIR AND FOR EVAR PER 2 VASCULAR SURGERY OPINIONS NOW (SMALL CALIBER, HIGHLY DISEASED FEMORAL ARTERIES, RIGHT RENAL ARTERY ARISES FROM DISTAL AORTA AND IS AT RISK FOR OBSTRUCTION WITH ATN AND SEVERE MORBIDITY). -RPT CTA 01/28 WITH HIM SHOWED DISTAL DESCENDING THORACIC INCR'D IN SIZE TO 7.0 CM, VS 5.6 CM PRIOR -BP CONTROL DIFFICULT HERE-- ABOVE -PLAN IS FOR F/U IMAGING WITH DR ENGLISH, TO CONSIDER HIGH RISK INTERVENTION IF SIZE EXPANDS TO WHICH RISKS OF OBSERVATION ARE > RISKS OF SURGERY--TO BE ARRANGED OUTPT (HAVING NO SX'S REFERABLE TO AORTA ANEURYSM AT PRESENT TIME) Emphysema -SEVERE CT FINDINGS; -SX'S TOLERABLE BUT WITH EVEN MINIMAL EXERTION. -ON MDI. -PER PMD +/- PULM Chronic renal insufficiency -PROBABLY BILATERAL RENAL ARTERY STENOSIS: CTA RIGHT MAIN RENAL NOT SEEN, LIKELY OCCLUDED, WITH >90% STENOSIS OF SMALL RIGHT ACCESSORY RENAL ARTERY. PROBABLY >50% STENOSIS LEFT RENAL ARTERY. -HX OF KIDNEY STONES/LITHOTRIPSY, ? IF ETIOLOGIC IN RENAL DYSFXN. -CREAT RUNS 1-1.2 RANGE AT BASELINE, BECOMES PRERENAL EASILY TO 1.5 WHEN FALLS BEHIND ON FLUIDS WITH JOHANNA ON BOARD Pure hypercholesterolemia -SEC PREVENTION, ELDERLY -TOLERATING ATORVA 80 LONG TIME. OK FOR D/C FROM CV P.O.V.
[2018-08-29] MEDS ORDERED: ATORVASTATIN CA 80 MG TABLET (FP) PO SCH (22:00)
[2018-08-29] MEDS ORDERED: AMITRIPTYLINE HCL 10 MG TABLET (FP) PO SCH (22:00)
--- NOTE | 2018-08-30 07:13 | EKG ---
Test Reason : Blood Pressure : / mmHG Vent. Rate : 060 BPM Atrial Rate : 060 BPM P-R Int : 000 ms QRS Dur : 078 ms QT Int : 418 ms P-R-T Axes : 000 034 030 degrees QTc Int : 418 ms AV dual-paced rhythm with prolonged AV conduction ABNORMAL ECG WHEN COMPARED WITH ECG OF 28-AUG-2018 23:35, NO SIGNIFICANT CHANGE WAS FOUND Confirmed by Jason Holland MD ([id number]) on 08/29/2018 1:35:02 PM Referred By: BINA Confirmed By:Jsaon Holland MD
[2018-08-30 08:01] LABS: BASO % 0.6 % (0-2.0); HEMATOCRIT 34.9 % (32.4-45.2); HEMOGLOBIN 11.4 GM/dl (10.7-15.3); LYMPH % 25.5 % (8-40); MCH 26.6 pg (25.7-33.7); MCHC 32.7 g/dl (32.0-36.0); MEAN CELL VOLUME 81.4 fl (80-96); MONO % 9.6 % (3.8-10.2); NEUT % 59.3 % (42.8-82.8); PLATELET COUNT 169 K/MM3 (134-434); RBC 4.29 M/mm3 (3.60-5.2); RDW 16.1 % (11.6-15.6); WHITE BLOOD COUNT 8.1 K/mm3 (4.0-10.8)
[2018-08-30 08:39] LABS: ANION GAP 4 MMOL/L (8-16); BLOOD UREA NITROGEN 17 mg/dl (7-18); CALCIUM 8.8 mg/dl (8.5-10); CHLORIDE 108 mmol/L (98-107); CO2 25 mmol/L (21-32); CREATININE 1.1 mg/dl (0.55-1.3); GLUCOSE,RANDOM 84 mg/dl (74-106); SODIUM 137 mmol/L (136-145)
[2018-08-30 09:30] VITALS: TEMP 97.6
[2018-08-30] MEDS: CARVEDILOL 12.5 MG TABLET (FP) PO SCH (09:35)
[2018-08-30] MEDS: PANTOPRAZOLE 20 MG TABLET (FP) PO SCH (09:35)
[2018-08-30] MEDS: CLOPIDOGREL BISULFATE 75 MG TABLET (FP) PO SCH (09:35)
[2018-08-30] MEDS: HEPARIN NA (PORCINE) 5,000 UNITS/ML 1ML VIAL SQ SCH (09:36)
[2018-08-30] MEDS ORDERED: TRELEGY ELLIPTA IH SCH (10:00)
--- NOTE | 2018-08-30 11:05 | DS ---
Physical Exam: SUBJECTIVE: Patient seen and examined OBJECTIVE: Vital Signs Period Temp Pulse Resp BP Sys/Grover Pulse Ox Last 24 Hr 97.6 F-98.2 F 59-62 16-18 149-181/50-64 93-94 PHYSICAL EXAM GENERAL: The patient is awake, alert, and fully oriented, in no acute distress. HEAD: Normal with no signs of trauma. EYES: PERRL, extraocular movements intact, sclera anicteric, conjunctiva clear. ENT: Ears normal, nares patent, oropharynx clear without exudates, moist mucous membranes. NECK: Trachea midline, full range of motion, supple. LUNGS: Breath sounds equal, clear to auscultation bilaterally, no wheezes, no crackles, no accessory muscle use. HEART: Regular rate and rhythm, S1, S2 without murmur, rub or gallop. ABDOMEN: Soft, nontender, nondistended, normoactive bowel sounds, no guarding, no rebound, no hepatosplenomegaly, no masses. EXTREMITIES: 2+ pulses, warm, well-perfused, no edema. NEUROLOGICAL: Cranial nerves II through XII grossly intact. Normal speech, gait not observed. PSYCH: Normal mood, normal affect. SKIN: Warm, dry, normal turgor, no rashes or lesions noted. LABS Laboratory Results - last 24 hr 08/29/18 08/30/18 08/30/18 12:00 07:10 07:10 WBC 8.1 RBC 4.29 Hgb 11.4 Hct 34.9 D MCV 81.4 MCH 26.6 MCHC 32.7 RDW 16.1 H Plt Count 169 MPV 10.0 Absolute Neuts (auto) 4.8 Neutrophils % 59.3 Lymphocytes % 25.5 Monocytes % 9.6 Eosinophils % 5.0 H Basophils % 0.6 Sodium 137 Potassium 4.0 Chloride 108 H Carbon Dioxide 25 Anion Gap 4 L BUN 17 Creatinine 1.1 Creat Clearance w eGFR 46.98 Random Glucose 84 Calcium 8.8 Troponin I < 0.03 HOSPITAL COURSE: Date of Admission:08/29/18 Date of Discharge: 08/30/18 Pre hospital course This is a 87-year-old female with a PMH significant for HTN, HLD, COPD, CAD, CVA /TIAs, descending thoracic aortic aneurysm, peripheral vascular disease, and CKD. Patient was brought to ED by her caregiver. Patient's BP has been elevated and difficult to control for several days. Last night at ~9:30, BP was 205/87. Patient was complaining of right ear pain and numbness of right cheek. Her aide gave evening antihypertensives which brought BP down to 170s, but patient's complaints of ear pain and cheek numbness persisted prompting her to come to the ED. On this admission patient reports the right ear pain has resolved but she still has numbness of the right cheek. ER course (1) BP 167/98 (2) CT head: no acute process Subsequent hospital course This is a 87-year-old female with a PMH significant for HTN, HLD, COPD, CAD, CVA /TIAs s/p carotid artery ablation, descending thoracic aortic aneurysm, peripheral vascular disease, and CKD. Placed on observation r/o CVA v. TIA. r/o CVA v. 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 Gomez; blood pressures during hospital stay were relatively stable and better than usual --CT head: no acute process; MRI not possible due to PPM --US carotids: moderate atherosclerotic disease, no significant stenosis --continued Lipitor, Plavix --troponins neg x 3 --telemetry monitoring no events --serial ECGs not suggestive of acute ischemia --08/23/17 Echo: LV normal, EF 65-70%; RV normal, PPM in RV; trace MR; mild to moderate TR Descending thoracic aortic aneurysm --on last CTA imaging in 08/2017, 6.5cm fusiform aneurysm --BP control Coronary artery disease Peripheral vascular disease Hypertension Hyperlipidemia --continued carvedilol, Plavix, Lipitor COPD --advanced centriblobuar emphysema --Spiriva Minutes to complete discharge: 35 Discharge Summary Reason For Visit: CVA Current Active Problems Cerebrovascular accident (CVA) (Acute) Condition: Improved - Instructions Diet, Activity, Other Instructions: You should follow up with your primary care provider within 1-2 weeks of your discharge. Referrals: Glenn Laboy MD [Staff Physician] - Disposition: HOME - Home Medications Comprehensive Discharge Medication List: Ambulatory Orders Amitriptyline HCl [Elavil -] 5 mg PO HS 12/27/16 Atorvastatin Ca [Lipitor] 80 mg PO DAILY 12/27/16 Clonidine Patch [Catapres Tts Patch -] 0.1 mg TD Q7D@1000 #4 patch.tdwk Tramadol HCl [Ultram] 50 mg PO Q6H PRN 06/15/17 Clopidogrel Bisulfate [Plavix] 75 mg PO DAILY 08/23/17 Carvedilol [Coreg -] 12.5 mg PO BID 12/12/17 Esomeprazole Magnesium [Nexium 24Hr] 20 mg PO DAILY 04/24/18 Tiotropium [place] [Spiriva] 18 mcg IH DAILY 06/20/18 Carvedilol [Coreg -] 12.5 mg PO BID 08/28/18 This patient is new to me today: No Emergency Visit: Yes ED Registration Date: 08/29/18 Care time: The patient presented to the Emergency Department on the above date and was hospitalized for further evaluation of their emergent condition. Critical Care patient: No - Discharge Referral Referred to [facility] Med P.C.: No
[2018-08-30 12:03] VITALS: BP 150/58; PULSE 58
== END 2018-08-30 12:21 | disposition home or self-care (01) | DRG 305 ==
LOC: FER 23:24 → FM/S 08-29 → UNDOADMOB 08-29 00:47 → FM/S 08-29 00:47 → OBSVTOIN 08-29 11:17
PROVIDERS: ADMIT Internal Medicine; ATTEND Nurse Practitioner Acute Care
DX: I16.9 Hypertensive crisis, unspecified (principal); I67.4 Hypertensive encephalopathy; M48.56XA Collapsed vertebra, not elsewhere classified, lumbar region, initial encounter for fracture; I47.1 Supraventricular tachycardia; I25.10 Atherosclerotic heart disease of native coronary artery without angina pectoris; J44.9 Chronic obstructive pulmonary disease, unspecified; E78.5 Hyperlipidemia, unspecified; I73.9 Peripheral vascular disease, unspecified; I71.2 Thoracic aortic aneurysm, without rupture; I12.9 Hypertensive chronic kidney disease with stage 1 through stage 4 chronic kidney disease, or unspecified chronic kidney disease; N18.9 Chronic kidney disease, unspecified; K58.9 Irritable bowel syndrome, unspecified; M54.5 Low back pain; T43.015A Adverse effect of tricyclic antidepressants, initial encounter; R26.9 Unspecified abnormalities of gait and mobility; K57.90 Diverticulosis of intestine, part unspecified, without perforation or abscess without bleeding; I25.9 Chronic ischemic heart disease, unspecified; Z95.0 Presence of cardiac pacemaker; Z86.73 Personal history of transient ischemic attack (TIA), and cerebral infarction without residual deficits; Z87.891 Personal history of nicotine dependence
CPT/HCPCS: 36415; 70450-TC; 71045-TC-FY; 80048; 80053; 80061; 81003; 81015; 82550; 82607; 83735; 84443; 84484; 85025; 85610; 93005; 93880-TC; 97116-GP; 97162-GP; 99283-25; G0378; J1644; J7030

== ENCOUNTER 2018-10-27 12:48 | Observation (INO) | payer OTHER ==
--- NOTE | 2018-10-27 13:14 | PDOC ---
History of Present Illness - General Chief Complaint: Respiratory Stated Complaint: PERSISTANT COUGH AND SOB Time Seen by Provider: 10/27/18 13:12 Past History - Past Medical History Allergies/Adverse Reactions: Allergies Allergy/AdvReac Type Severity Reaction Status Date / Time ciprofloxacin [From Cipro] Allergy Unknown Hives Verified 08/28/18 23:26 Home Medications: Ambulatory Orders Amitriptyline HCl [Elavil -] 5 mg PO HS 12/27/16 Atorvastatin Ca [Lipitor] 80 mg PO DAILY 12/27/16 Clonidine Patch [Catapres Tts Patch -] 0.1 mg TD Q7D@1000 #4 patch.tdwk Tramadol HCl [Ultram] 50 mg PO Q6H PRN 06/15/17 Clopidogrel Bisulfate [Plavix] 75 mg PO DAILY 08/23/17 Carvedilol [Coreg -] 12.5 mg PO BID 12/12/17 Esomeprazole Magnesium [Nexium 24Hr] 20 mg PO DAILY 04/24/18 Tiotropium [place] [Spiriva] 18 mcg IH DAILY 06/20/18 Carvedilol [Coreg -] 12.5 mg PO BID 08/28/18 Anemia: No Asthma: No Cancer: Yes (SKIN. BLADDER) Cardiac Disorders: No (VENOUS INSUFFIENCY PAD BOTH LEGS) CVA: Yes (X 2.) COPD: Yes CHF: No DVT: No Dementia: No Diabetes: No Dialysis: No GI Disorders: Yes Disorders: No HTN: Yes Hypercholesterolemia: Yes Kidney Stones: No Liver Disease: No Psychiatric Problems: Yes (ANXIETY,) Seizures: No Thyroid Disease: No Lung CA: No Other medical history: AORTIC ANEURYSM, CAROTID STENOSISCHOLECYSTITIS BLADDER POLYPS GLAUCOMA IBS - Surgical History Abdominal Surgery: Yes Appendectomy: No Cardiac Surgery: Yes (pacemaker CAROTID ENDARTERECTOMY) Cholecystectomy: Yes Lung Surgery: No Neurologic Surgery: Yes Orthopedic Surgery: Yes (left knee meiscus tear repair) - Immunization History Immunization Up to Date: Yes - Suicide/Smoking/Psychosocial Hx Smoking History: Former smoker Have you smoked in the past 12 months: No If you are a former smoker, when did you quit?: 4 YEARS Cigars Per Day: 0 Information on smoking cessation initiated: No 'Breaking Loose' booklet given: 05/12/17 Hx Alcohol Use: No Drug/Substance Use Hx: No Substance Use Type: None Hx Substance Use Treatment: No *Physical Exam - Vital Signs Last Vital Signs Temp Pulse Resp BP Pulse Ox 97.5 F L 60 22 H 134/77 95 10/27/18 12:52 10/27/18 12:52 10/27/18 12:52 10/27/18 12:52 10/27/18 12:52 *DC/Admit/Observation/Transfer - Discharge Dispostion Condition at time of disposition: Stable - Referrals Referrals: Glenn Laboy MD [Primary Care Provider] - - Patient Instructions - Post Discharge Activity
[2018-10-27] MEDS ORDERED: ALBUTEROL SO4 2.5/IPRATROPIUM 0.5 INH SOL 3 ML VIAL.NEB. NEB ONE ×2 (15:04→15:13)
[2018-10-27 15:10] LABS: EOS % 5.5 % (0-4.5); MEAN CELL VOLUME 82.9 fl (80-96)
[2018-10-27 15:13] LABS: BASO % 1.1 % (0-2.0); HEMATOCRIT 39.3 % (32.4-45.2); HEMOGLOBIN 12.8 GM/dl (10.7-15.3); LYMPH % 29.4 % (8-40); MCH 26.9 pg (25.7-33.7); MCHC 32.5 g/dl (32.0-36.0); MEAN PLT VOLUME 9.4 fl (7.5-11.1); MONO % 8.2 % (3.8-10.2); NEUT % 55.8 % (42.8-82.8); PLATELET COUNT 203 K/MM3 (134-434); RBC 4.74 M/mm3 (3.60-5.2); RDW 16.5 % (11.6-15.6); WHITE BLOOD COUNT 7.5 K/mm3 (4.0-10.8)
[2018-10-27] MEDS ORDERED: methylPREDNISolone NA SUCC 125 MG/2 ML VIAL IVPB ONE (15:14)
[2018-10-27] MEDS ORDERED: CEFTRIAXONE 1,000 MG in DEXTROSE 5%-WATER - 50 ML IVPB ONE (15:15)
[2018-10-27] MEDS ORDERED: AZITHROMYCIN IVPB 500 MG in DEXTROSE 5%-WATER - 250 ML IVPB ONE (15:15)
[2018-10-27 15:17] LABS: ALBUMIN 3.5 g/dl (3.4-5.0); BILIRUBIN,TOTAL 0.7 mg/dl (0.2-1); CALCIUM 8.9 mg/dl (8.5-10); CREATININE 1.1 mg/dl (0.55-1.3); POTASSIUM 4.8 mmol/L (3.5-5.1); TOT PROT 6.8 g/dl (6.4-8.2)
[2018-10-27] MEDS ORDERED: methylPREDNISolone NA SUCC 40 MG/1 ML VIAL ONE (15:18)
[2018-10-27] MEDS ORDERED: cefTRIAXone SODIUM 1 GM VIAL ONE (15:19)
[2018-10-27] MEDS ORDERED: AZITHROMYCIN 500 MG VIAL IVPB ONE (15:19)
--- NOTE | 2018-10-27 15:23 | PDOC ---
Documentation entered by Myles Swenson SCRIBE, acting as scribe for Yasir Garcia MD. Yasir Garcia MD: This documentation has been prepared by the Leela bains Xhesika, SCRIBE, under my direction and personally reviewed by me in its entirety. I confirm that the documentation accurately reflects all work, treatment, procedures, and medical decision making performed by me. History of Present Illness - General Chief Complaint: Respiratory Stated Complaint: PERSISTANT COUGH AND SOB Time Seen by Provider: 10/27/18 13:12 History Source: Patient, Care Provider Exam Limitations: No Limitations - History of Present Illness Initial Comments: 10/27/18 14:39 The patient is a 87 year old female, with a significant PMH of anxiety, descending thoracic aortic aneurysm (dx by CTA 08/2017 showing 6.5 cm maximum diameter, refused intervention in past), CVAx3, CAD, pacemaker use, PVD, HTN, COPD, diverticulitis/osis, C. diff colitis in 2013, and chronic low back pain who presents from her apartment with aid complaining of 1 week of cough, worsening today. The patient states she has been endorsing persistent cough associated with SOB. As per aid, the patient was seen at [facility] last week for the same reason, was prescribed antibiotics and a nebulizer, with minimal to no relief. The patient denies chest pain or dizziness. The patient denies fever, chills, nausea, vomiting, diarrhea or constipation. The patient denies dysuria, frequency, urgency or hematuria Allergies: Ciprofloxacin Past surgical history: Abdominal Surgery, pacemaker CAROTID ENDARTERECTOMY, Cholecystectomy, and left knee meniscus tear repair Social history: Former smoker. PCP: Dr. Glenn Laboy 10/27/18 15:09 Physical exam: Alert and oriented mild respiratory distress cooperative Afebrile, slightly tachypnc respiratory rate 20 and mildly dyspneic, with oxygen saturation ranging from 93-98. He clear Neck supple without bruit mass or nodes Chest decreased breath sounds bilaterally, rales at both bases posteriorly, no wheezes. Mild tachypnea and dyspnea appears to be present. CV S1 and S2 distant without murmur rub or gallop pulses full and symmetric no JVD or edema no bruits Abdomen soft nontender without mass or organomegaly Neurological intact Extremities no CCE Skin clear, no rash, adequate turgor and wet mucous membranes. Impression: Acute exacerbation COPD, unresponsive to home nebulizer and one course of Zithromax. Plan: Admit for intensive nebulizer treatment, steroids, antibiotics, and close observation. Past History - Past Medical History Allergies/Adverse Reactions: Allergies Allergy/AdvReac Type Severity Reaction Status Date / Time ciprofloxacin [From Cipro] Allergy Unknown Hives Verified 10/27/18 13:22 Home Medications: Ambulatory Orders Albuterol Sulfate Inhaler - [Ventolin HFA Inhaler -] 1 inh IN ASDIR 10/27/18 Alprazolam [Xanax] 0.25 mg PO DAILY 10/27/18 Amlodipine Besylate 5 mg PO DAILY 10/27/18 Atorvastatin Ca [Lipitor] 80 mg PO HS 10/27/18 Budesonide [Pulmicort Flexhaler] 1 inh IH BID 10/27/18 Carvedilol 12.5 mg PO BID 10/27/18 Clonidine Patch [Catapres Tts Patch -] 0.1 mg TD ONCE 10/27/18 Clopidogrel Bisulfate [Clopidogrel] 75 mg PO DAILY 10/27/18 Esomeprazole Magnesium [Nexium 24Hr] 40 mg PO DAILY 10/27/18 Fluticasone/Umeclidin/Vilanter [Trelegy Ellipta 100-62.5-25] 1 inh IN QID Lisinopril 10 mg PO DAILY 10/27/18 Tramadol HCl 50 mg PO PRN 10/27/18 Anemia: No Asthma: No Cancer: Yes (SKIN. BLADDER) Cardiac Disorders: No (VENOUS INSUFFIENCY PAD BOTH LEGS) CVA: Yes (X 2.) COPD: Yes CHF: No DVT: No Dementia: No Diabetes: No Dialysis: No GI Disorders: Yes Disorders: No HTN: Yes Hypercholesterolemia: Yes Kidney Stones: No Liver Disease: No Psychiatric Problems: Yes (ANXIETY,) Seizures: No Thyroid Disease: No Lung CA: No Other medical history: AORTIC ANEURYSM, CAROTID STENOSISCHOLECYSTITIS BLADDER POLYPS GLAUCOMA IBS - Surgical History Abdominal Surgery: Yes Appendectomy: No Cardiac Surgery: Yes (pacemaker CAROTID ENDARTERECTOMY) Cholecystectomy: Yes Lung Surgery: No Neurologic Surgery: Yes Orthopedic Surgery: Yes (left knee meiscus tear repair) - Immunization History Immunization Up to Date: Yes - Suicide/Smoking/Psychosocial Hx Smoking History: Former smoker Have you smoked in the past 12 months: No If you are a former smoker, when did you quit?: 4 YEARS Cigars Per Day: 0 Information on smoking cessation initiated: No 'Breaking Loose' booklet given: 05/12/17 Hx Alcohol Use: No Drug/Substance Use Hx: No Substance Use Type: None Hx Substance Use Treatment: No Review of Systems - Review of Systems Able to Perform ROS?: Yes Comments:: 10/27/18 14:39 GENERAL/CONSTITUTIONAL: No fever or chills. No weakness. HEAD, EYES, EARS, NOSE AND THROAT: No change in vision. No ear pain or discharge. No sore throat. CARDIOVASCULAR: No chest pain. (+) shortness of breath. RESPIRATORY: (+) cough. No wheezing, or hemoptysis. GASTROINTESTINAL: No nausea, vomiting, diarrhea or constipation. GENITOURINARY: No dysuria, frequency, or change in urination. MUSCULOSKELETAL: No joint or muscle swelling or pain. No neck or back pain. SKIN: No rash NEUROLOGIC: No headache, vertigo, loss of consciousness, or change in strength/ sensation. ENDOCRINE: No increased thirst. No abnormal weight change. HEMATOLOGIC/LYMPHATIC: No anemia, easy bleeding, or history of blood clots. ALLERGIC/IMMUNOLOGIC: No hives or skin allergy. *Physical Exam - Vital Signs Last Vital Signs Temp Pulse Resp BP Pulse Ox 97.5 F L 60 22 H 134/77 95 10/27/18 12:52 10/27/18 12:52 10/27/18 12:52 10/27/18 12:52 10/27/18 12:52 ED Treatment Course - LABORATORY CBC & Chemistry Diagram: 10/27/18 14:28 10/27/18 14:28 - RADIOLOGY Radiology Studies Ordered: Category Date Time Status CHEST PA & LAT [RAD] Stat Radiology 10/27/18 13:14 Completed *DC/Admit/Observation/Transfer Diagnosis at time of Disposition: COPD (chronic obstructive pulmonary disease) with acute bronchitis - Discharge Dispostion Condition at time of disposition: Fair Decision to Admit order: Yes - Referrals Referrals: Glenn Laboy MD [Primary Care Provider] - - Patient Instructions - Post Discharge Activity
--- NOTE | 2018-10-27 16:03 | HP ---
CHIEF COMPLAINT: PCP: Dr. Glenn Laboy HISTORY OF PRESENT ILLNESS: This is a 87-year-old female with a PMH significant for HTN, HLD, COPD, CAD, CVA /TIAs, descending thoracic aortic aneurysm, peripheral vascular disease, and CKD. Was seen on 10/20/18 at the [facility] for cough and shortness of breath. Review of [facility] EMR shows she was afebrile, no leukocytosis, CXR showed increased markings in the RLL with fluid in the horizontal fissure. She was startred on azithromycin, mucinex, and nebulizer treatments. Patient was contacted earlier today and she reported no improvement in symptoms. She was advised to come to the ED. The patient denies chest pain or dizziness. The patient denies fever, chills, nausea, vomiting, diarrhea or constipation. The patient denies dysuria, frequency, urgency or hematuria ER course was notable for: (1) afebrile, no leukocytosis, SpO2 95% RA (2) CXR: chronic lung changes (3) Azithro x 1; ceftriaxone x 1; solumedrol 60mg x 1; duoneb x 1 Recent Travel: No PAST MEDICAL HISTORY: Hypertension, labile Hyperlipidemia COPD CAD CVA/TIAs Descending thoracic aortic aneurysm Peripheral vascular disease Chronic kidney disease Diverticulitis IBS Compression fracture PAST SURGICAL HISTORY: Bilateral carotid endarterectomy (2007) Cholecystectomy Left knee meniscus repair (2008) PPM (2011) Left upper back basal cell cancer Social History: Smokin/2 pack x 64 years, quit 2013 Alcohol: no Drugs: no Family History: Allergies ciprofloxacin [From Cipro] Allergy (Unknown, Verified 10/27/18 13:22) Hives HOME MEDICATIONS: Home Medications Medication Instructions Recorded Albuterol Sulfate Inhaler - 1 inh IN ASDIR 10/27/18 [Ventolin HFA Inhaler -] Alprazolam [Xanax] 0.25 mg PO DAILY 10/27/18 Amlodipine Besylate 5 mg PO DAILY 10/27/18 Atorvastatin Ca [Lipitor] 80 mg PO HS 10/27/18 Budesonide [Pulmicort Flexhaler] 1 inh IH BID 10/27/18 Carvedilol 12.5 mg PO BID 10/27/18 Clonidine Patch [Catapres Tts 0.1 mg TD ONCE 10/27/18 Patch -] Clopidogrel Bisulfate [Clopidogrel] 75 mg PO DAILY 10/27/18 Esomeprazole Magnesium [Nexium 40 mg PO DAILY 10/27/18 24Hr] Fluticasone/Umeclidin/Vilanter 1 inh IN QID 10/27/18 [Kt [place] 100-62.5-25] Lisinopril 10 mg PO DAILY 10/27/18 Tramadol HCl 50 mg PO PRN 10/27/18 REVIEW OF SYSTEMS CONSTITUTIONAL: Absent: fever, chills, diaphoresis, generalized weakness, malaise, loss of appetite, weight change HEENT: Absent: rhinorrhea, nasal congestion, throat pain, throat swelling, difficulty swallowing, mouth swelling, ear pain, eye pain, visual changes CARDIOVASCULAR: Absent: chest pain, syncope, palpitations, irregular heart rate, lightheadedness , peripheral edema RESPIRATORY: +cough, SOB Absent: dyspnea with exertion, orthopnea, wheezing, stridor, hemoptysis GASTROINTESTINAL: Absent: abdominal pain, abdominal distension, nausea, vomiting, diarrhea, constipation, melena, hematochezia GENITOURINARY: Absent: dysuria, frequency, urgency, hesitancy, hematuria, flank pain, genital pain MUSCULOSKELETAL: Absent: myalgia, arthralgia, joint swelling, back pain, neck pain SKIN: Absent: rash, itching, pallor HEMATOLOGIC/IMMUNOLOGIC: Absent: easy bleeding, easy bruising, lymphadenopathy, frequent infections ENDOCRINE: Absent: unexplained weight gain, unexplained weight loss, heat intolerance, cold intolerance NEUROLOGIC: Absent: headache, focal weakness or paresthesias, dizziness, unsteady gait, seizure, mental status changes, bladder or bowel incontinence PSYCHIATRIC: Absent: anxiety, depression, suicidal or homicidal ideation, hallucinations. PHYSICAL EXAMINATION Vital Signs - 24 hr 10/27/18 12:52 Temperature 97.5 F L Pulse Rate 60 Respiratory 22 H Rate Blood Pressure 134/77 O2 Sat by Pulse 95 Oximetry (%) GENERAL: Awake, alert, and fully oriented, in no acute distress. HEAD: Normal with no signs of trauma. EYES: Pupils equal, round and reactive to light, extraocular movements intact, sclera anicteric, conjunctiva clear. No lid lag. EARS, NOSE, THROAT: Ears normal, nares patent, oropharynx clear without exudates. Moist mucous membranes. NECK: Normal range of motion, supple without lymphadenopathy, JVD, or masses. LUNGS: Breath sounds equal, clear to auscultation bilaterally. No wheezes, and no crackles. No accessory muscle use. HEART: Regular rate and rhythm, normal S1 and S2 without murmur, rub or gallop. ABDOMEN: Soft, nontender, not distended, normoactive bowel sounds, no guarding, no rebound, no masses. No hepatomegaly or splenomegaly. MUSCULOSKELETAL: Normal range of motion at all joints. No bony deformities or tenderness. No CVA tenderness. UPPER EXTREMITIES: 2+ pulses, warm, well-perfused. No cyanosis. No clubbing. No peripheral edema. LOWER EXTREMITIES: 2+ pulses, warm, well-perfused. No calf tenderness. No peripheral edema. NEUROLOGICAL: Cranial nerves II-XII intact. Normal speech. Normal gait. PSYCHIATRIC: Cooperative. Good eye contact. Appropriate mood and affect. SKIN: Warm, dry, normal turgor, no rashes or lesions noted, normal capillary refill. Laboratory Results - last 24 hr 10/27/18 10/27/18 10/27/18 14:28 14:28 14:28 WBC 7.5 RBC 4.74 Hgb 12.8 Hct 39.3 MCV 82.9 MCH 26.9 MCHC 32.5 RDW 16.5 H Plt Count 203 MPV 9.4 Absolute Neuts (auto) 4.2 Neutrophils % 55.8 Lymphocytes % 29.4 Monocytes % 8.2 Eosinophils % 5.5 H Basophils % 1.1 Sodium 139 Potassium 4.8 Chloride 107 Carbon Dioxide 24 Anion Gap 8 BUN 15 Creatinine 1.1 Est GFR (CKD-EPI)AfAm 52.28 Est GFR (CKD-EPI)NonAf 45.11 Random Glucose 93 Calcium 8.9 Total Bilirubin 0.7 AST 26 ALT 11 L Alkaline Phosphatase 88 Creatine Kinase 42 Troponin I < 0.03 Total Protein 6.8 Albumin 3.5 ASSESSMENT/PLAN: This is a 87-year-old female with a PMH significant for HTN, HLD, COPD, CAD, CVA /TIAs, descending thoracic aortic aneurysm, peripheral vascular disease, and CKD. Placed on observation for COPD exacerbation. Chronic COPD --no wheezing, no fever, no leukocytosis, satting 96% on room air --short steroid taper --cultures pending, flu pending --completed [id number] past week; got azithro and ceftriaxone in ED; hold further antibiotics for now Hypertension --BP stable Descending thoracic aortic aneurysm --on last CTA imaging in 08/2017, 6.5cm fusiform aneurysm --BP control Coronary artery disease Peripheral vascular disease Hypertension Hyperlipidemia --continue carvedilol, Plavix, Lipitor COPD --advanced centriblobuar emphysema --Spiriva DVT prophylaxis: subq heparin Full code. Visit type - Emergency Visit Emergency Visit: Yes ED Registration Date: 10/27/18 Care time: The patient presented to the Emergency Department on the above date and was hospitalized for further evaluation of their emergent condition. - New Patient This patient is new to me today: Yes Date on this admission: 10/30/18 - Critical Care Critical Care patient: No
[2018-10-27] MEDS ORDERED: traMADol HCL 50 MG TABLET PO PRN ×2 (17:00→17:16)
[2018-10-27] MEDS: cloNIDine-TTS 0.1 MG/24 HRS PATCH.TDWK TD SCH ×2 (17:04→17:19)
[2018-10-27 18:35] VITALS: BMI 21.4
[2018-10-27] MEDS ORDERED: ALPRAZolam 0.25 MG TABLET PO SCH (22:00)
[2018-10-27] MEDS ORDERED: amLODIPine BESYLATE 5 MG TABLET (FP) PO SCH (22:00)
[2018-10-27] MEDS ORDERED: ATORVASTATIN CA 80 MG TABLET (FP) PO SCH (22:00)
[2018-10-27] MEDS: ALBUTEROL SO4 2.5/IPRATROPIUM 0.5 INH SOL 3 ML VIAL.NEB. NEB SCH (22:02)
[2018-10-27] MEDS: CARVEDILOL 12.5 MG TABLET (FP) PO SCH (22:02)
[2018-10-27] MEDS: HEPARIN NA (PORCINE) 5,000 UNITS/ML 1ML VIAL SQ SCH (22:02)
[2018-10-28] MEDS: HEPARIN NA (PORCINE) 5,000 UNITS/ML 1ML VIAL SQ SCH (06:06)
[2018-10-28] MEDS: ALBUTEROL SO4 2.5/IPRATROPIUM 0.5 INH SOL 3 ML VIAL.NEB. NEB SCH (08:05)
[2018-10-28 08:39] LABS: HEMATOCRIT 38.8 % (32.4-45.2); HEMOGLOBIN 12.9 GM/dl (10.7-15.3); MCHC 33.4 g/dl (32.0-36.0); MEAN CELL VOLUME 83.8 fl (80-96); PLATELET COUNT 215 K/MM3 (134-434); RBC 4.63 M/mm3 (3.60-5.2); RDW 16.7 % (11.6-15.6); WHITE BLOOD COUNT 11.6 K/mm3 (4.0-10.8)
[2018-10-28 08:40] LABS: ALBUMIN 3.5 g/dl (3.4-5.0); BILIRUBIN,TOTAL 0.6 mg/dl (0.2-1); CALCIUM 9.2 mg/dl (8.5-10); CREATININE 1.1 mg/dl (0.55-1.3); MAGNESIUM 1.9 mg/dL (1.8-2.4); POTASSIUM 4.5 mmol/L (3.5-5.1)
[2018-10-28] MEDS: CARVEDILOL 12.5 MG TABLET (FP) PO SCH (09:24)
[2018-10-28 09:47] LABS: PLATELET ESTIMATE ADEQUATE
[2018-10-28] MEDS ORDERED: amLODIPine BESYLATE 5 MG TABLET (FP) PO SCH (10:00)
[2018-10-28] MEDS ORDERED: predniSONE 20 MG TABLET (UD) PO ONE (10:00)
[2018-10-28] MEDS ORDERED: CLOPIDOGREL BISULFATE 75 MG TABLET (FP) PO SCH (10:00)
[2018-10-28] MEDS ORDERED: LISINOPRIL 10 MG TABLET (FP) PO SCH (10:00)
[2018-10-28] MEDS ORDERED: PANTOPRAZOLE 40 MG TABLET (FP) PO SCH (10:00)
[2018-10-28] MEDS ORDERED: ALPRAZolam 0.25 MG TABLET PO SCH (10:00)
--- NOTE | 2018-10-28 10:51 | EKG ---
Test Reason : Blood Pressure : / mmHG Vent. Rate : 060 BPM Atrial Rate : 060 BPM P-R Int : 000 ms QRS Dur : 086 ms QT Int : 428 ms P-R-T Axes : 000 057 037 degrees QTc Int : 428 ms AV dual-paced rhythm ABNORMAL ECG WHEN COMPARED WITH ECG OF 29-AUG-2018 11:10, NO SIGNIFICANT CHANGE WAS FOUND Confirmed by RED WELLS MD ([id number]) on 10/28/2018 10:51:19 AM Referred By: DR KAUFFMAN Confirmed By:RED WELLS MD
[2018-10-28 12:20] VITALS: BP 153/62; PULSE 64; TEMP 97.6
--- NOTE | 2018-10-30 12:04 | DS ---
Physical Exam: SUBJECTIVE: Patient seen and examined at bedside. Feels well, slept well. No cough, no wheezing, no SOB. OBJECTIVE: Vital Signs Temperature 97.6 F 10/28/18 10:00 Pulse Rate 64 10/28/18 10:00 Respiratory Rate 19 10/28/18 10:00 Blood Pressure 153/62 10/28/18 10:00 O2 Sat by Pulse Oximetry (%) 93 L 10/28/18 10:00 PHYSICAL EXAM GENERAL: The patient is awake, alert, and fully oriented, in no acute distress. HEAD: Normal with no signs of trauma. EYES: PERRL, extraocular movements intact, sclera anicteric, conjunctiva clear. ENT: Ears normal, nares patent, oropharynx clear without exudates, moist mucous membranes. NECK: Trachea midline, full range of motion, supple. LUNGS: Breath sounds equal, clear to auscultation bilaterally, no wheezes, no crackles, no accessory muscle use. HEART: Regular rate and rhythm, S1, S2 without murmur, rub or gallop. ABDOMEN: Soft, nontender, nondistended, normoactive bowel sounds, no guarding, no rebound, no hepatosplenomegaly, no masses. EXTREMITIES: 2+ pulses, warm, well-perfused, no edema. NEUROLOGICAL: Cranial nerves II through XII grossly intact. Normal speech, gait not observed. LABS CBCD WBC 11.6 K/mm3 (4.0-10.8) H 10/28/18 07:15 RBC 4.63 M/mm3 (3.60-5.2) 10/28/18 07:15 Hgb 12.9 GM/dl (10.7-15.3) 10/28/18 07:15 Hct 38.8 % (32.4-45.2) 10/28/18 07:15 MCV 83.8 fl (80-96) 10/28/18 07:15 MCHC 33.4 g/dl (32.0-36.0) 10/28/18 07:15 RDW 16.7 % (11.6-15.6) H 10/28/18 07:15 Plt Count 215 K/MM3 (134-434) 10/28/18 07:15 MPV 10.0 fl (7.5-11.1) 10/28/18 07:15 CMP Sodium 139 mmol/L (136-145) 10/28/18 07:15 Potassium 4.5 mmol/L (3.5-5.1) 10/28/18 07:15 Chloride 106 mmol/L (98-107) 10/28/18 07:15 Carbon Dioxide 23 mmol/L (21-32) 10/28/18 07:15 Anion Gap 10 MMOL/L (8-16) 10/28/18 07:15 BUN 17 mg/dl (7-18) 10/28/18 07:15 Creatinine 1.1 mg/dl (0.55-1.3) 10/28/18 07:15 Calcium 9.2 mg/dl (8.5-10) 10/28/18 07:15 Total Bilirubin 0.6 mg/dl (0.2-1) 10/28/18 07:15 AST 25 U/L (15-37) 10/28/18 07:15 ALT 12 U/L (13-61) L 10/28/18 07:15 Alkaline Phosphatase 88 U/L (45-117) 10/28/18 07:15 Total Protein 7.0 g/dl (6.4-8.2) 10/28/18 07:15 Albumin 3.5 g/dl (3.4-5.0) 10/28/18 07:15 HOSPITAL COURSE: Date of Admission:10/27/18 Date of Discharge: 10/28/18 Pre hospital course This is a 87-year-old female with a PMH significant for HTN, HLD, COPD, CAD, CVA /TIAs, descending thoracic aortic aneurysm, peripheral vascular disease, and CKD. Was seen on 10/20/18 at the [facility] for cough and shortness of breath[facility] was afebrile, no leukocytosis, CXR showed increased markings in the RLL with fluid in the horizontal fissure. She was startred on azithromycin, mucinex, and nebulizer treatments. Patient was contacted earlier today and she reported no improvement in symptoms. She was advised to come to the ED. 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 Referrals: Vazquez Meyers MD [Staff Physician] - Disposition: HOME - Home Medications Comprehensive Discharge Medication List: Ambulatory Orders Albuterol Sulfate Inhaler - [Ventolin HFA Inhaler -] 1 inh IN ASDIR 10/27/18 Alprazolam [Xanax] 0.25 mg PO DAILY 10/27/18 Amlodipine Besylate 5 mg PO DAILY 10/27/18 Atorvastatin Ca [Lipitor] 80 mg PO HS 10/27/18 Budesonide [Pulmicort Flexhaler] 1 inh IH BID 10/27/18 Carvedilol 12.5 mg PO BID 10/27/18 Clonidine Patch [Catapres Tts Patch -] 0.1 mg TD ONCE 10/27/18 Clopidogrel Bisulfate [Clopidogrel] 75 mg PO DAILY 10/27/18 Esomeprazole Magnesium [Nexium 24Hr] 40 mg PO DAILY 10/27/18 Fluticasone/Umeclidin/Vilanter [Trelegy Ellipta 100-62.5-25] 1 inh IN QID Lisinopril 10 mg PO DAILY 10/27/18 Tramadol HCl 50 mg PO PRN 10/27/18 This patient is new to me today: No Emergency Visit: Yes ED Registration Date: 10/27/18 Care time: The patient presented to the Emergency Department on the above date and was hospitalized for further evaluation of their emergent condition. Critical Care patient: No - Discharge Referral Referred to [facility] No
== END 2018-10-28 12:25 | disposition home or self-care (01) ==
LOC: FER 12:48 → FM/S 16:00
PROVIDERS: ADMIT Internal Medicine; ATTEND Nurse Practitioner Acute Care
PROC: 3E03329 Introduction of Other Anti-infective into Peripheral Vein, Percutaneous Approach (ICD-10-PCS; principal; 2018-10-27)
PROC: 3E033NZ Introduction of Analgesics, Hypnotics, Sedatives into Peripheral Vein, Percutaneous Approach (ICD-10-PCS; 2018-10-27)
PROC: 3E013GC Introduction of Other Therapeutic Substance into Subcutaneous Tissue, Percutaneous Approach (ICD-10-PCS; 2018-10-27)
PROC: 3E0F7GC Introduction of Other Therapeutic Substance into Respiratory Tract, Via Natural or Artificial Opening (ICD-10-PCS; 2018-10-27)
DX: J20.9 Acute bronchitis, unspecified (principal); J44.0 Chronic obstructive pulmonary disease with (acute) lower respiratory infection; I12.9 Hypertensive chronic kidney disease with stage 1 through stage 4 chronic kidney disease, or unspecified chronic kidney disease; N18.9 Chronic kidney disease, unspecified; I25.10 Atherosclerotic heart disease of native coronary artery without angina pectoris; I71.2 Thoracic aortic aneurysm, without rupture; E78.5 Hyperlipidemia, unspecified; I73.9 Peripheral vascular disease, unspecified; M54.5 Low back pain; G89.29 Other chronic pain; K58.9 Irritable bowel syndrome, unspecified; Z86.73 Personal history of transient ischemic attack (TIA), and cerebral infarction without residual deficits; Z85.828 Personal history of other malignant neoplasm of skin; Z85.51 Personal history of malignant neoplasm of bladder; Z88.1 Allergy status to other antibiotic agents; Z86.19 Personal history of other infectious and parasitic diseases; Z95.0 Presence of cardiac pacemaker
CPT/HCPCS: 36415; 71046-TC-FY; 71250-TC; 80053; 81003; 81015; 82550; 83735; 84484; 85025; 87040; 87804; 93005; 94640; 96365; 96368; 96372; 96375; 99285-25; G0378; J1644

== ENCOUNTER 2018-11-22 08:48 | Day surgery (SDC) | payer OTHER | END 2018-11-22 12:30 | disposition home or self-care (01) | LOC: FASU 08:48 ==

== ENCOUNTER 2018-12-06 09:51 | Day surgery (SDC) | payer OTHER ==
[2018-12-04 12:42] VITALS: BMI 21.1
[2018-12-06] MEDS: PHENYLEPHRINE 2.5% OPHTH SOLN 15 ML BOTTLE ONE ×3 (11:40→11:50)
[2018-12-06] MEDS: TROPICAMIDE 1% OPHTH SOLN 15 ML BOTTLE ONE ×3 (11:40→11:50)
[2018-12-06] MEDS: CYCLOPENTOLATE 2% OPHTH SOLN 2 ML BOTTLE ONE ×3 (11:40→11:50)
[2018-12-06] MEDS: TOBRA 0.3%/DEXAMETH 0.1% OPHTHALMIC SUSP 2.5 ML BTL ONE ×3 (11:40→11:50)
[2018-12-06] MEDS ORDERED: BSS (NA/CA/MG/K) BALANCED SALT SOLUTION OPHTH SOLN 15 ML BOTTLE ONE (12:19)
[2018-12-06] MEDS ORDERED: CARBACHOL 0.01% INTRA-OCULAR 1.5 ML VIAL ONE (12:19)
[2018-12-06] MEDS ORDERED: MIDAZOLAM HCL 2 MG/2 ML SINGLE DOSE VIAL ONE (12:35)
[2018-12-06 13:36] VITALS: TEMP 97.5
[2018-12-06 13:53] VITALS: BP 152/97; PULSE 64
[2018-12-06] MEDS ORDERED: ONDANSETRON 4 MG/2 ML VIAL IVPUSH PRN (14:46)
[2018-12-06] MEDS ORDERED: ACETAMINOPHEN 325 MG TABLET (FP) PO PRN (14:46)
[2018-12-06] MEDS ORDERED: LACTATED RINGERS SOLUTION 1,000 ML IV SCH (15:00)
--- NOTE | 2018-12-07 10:40 | OP ---
DATE OF OPERATION: 12/06/2018 OPERATIVE PROCEDURE: Lens phacoemulsification with posterior chamber intraocular lens placement, right eye. PREOPERATIVE DIAGNOSIS: Visually significant cataract of right eye. POSTOPERATIVE DIAGNOSIS: Visually significant cataract of right eye. SURGEON: Keegan Dinh MD ANESTHESIA: MAC. PROCEDURE: The patient was brought to the operating room and placed under monitored anesthesia care by Anesthesia. A drop of tetracaine was then placed over the right eye. The patient was then prepped and draped in the usual sterile manner. A speculum was then placed over the right eye. The eye was then well irrigated with copious amounts of BSS (balanced salt solution). The operating microscope was then moved into position. A paracentesis was performed using a 15-degree blade. At this point 0.5 mL of 1% preservative-free lidocaine was injected into the anterior chamber. Amvisc Plus was then injected into the anterior chamber. A clear corneal incision was then formed using a 2.2-mm keratome. A capsulorrhexis was then performed in a continuous circular fashion beginning with a cystotome completed with an Utratas forceps. Hydrodissection was then performed using BSS on a cannula. The phaco probe was then introduced through the corneal wound and the cataract was removed using the phaco chop technique. Approximately 3 seconds of absolute phaco time was used. The remaining cortex was then removed using irrigation and aspiration with an I/A probe. The capsule was then filled with regular Amvisc and the capsule was noted to be intact. A previously selected foldable posterior chamber intraocular lens was then injected into the capsule through the corneal wound using a lens injector. It was then dialed into position using a Sinskey hook. The Amvisc was then removed using irrigation and aspiration. Miostat was then injected through the paracentesis to constrict the pupil. The paracentesis and corneal wound were then hydrated and noted to be watertight. A drop of Maxitrol was then placed over the eye. The speculum was removed and clear shield was taped over the eye. The patient tolerated the procedure well and there were no surgical complications. The patient was asked to follow up in my office the next day. KEEGAN DINH M.D. [id number]
== END 2018-12-06 13:45 | disposition home or self-care (01) ==
LOC: FASU 09:51
PROVIDERS: ATTEND Ophthalmology
PROC: 08RJ3JZ Replacement of Right Lens with Synthetic Substitute, Percutaneous Approach (ICD-10-PCS; principal; 2018-12-06 12:38)
DX: H26.8 Other specified cataract (principal)

== ENCOUNTER 2019-02-27 00:41 | Inpatient (IN) | payer OTHER ==
[2019-02-27] MEDS ORDERED: NITROGLYCERIN SUBLINGUAL 1/150 0.4 MG TAB SL ONE (01:24)
--- NOTE | 2019-02-27 01:27 | PDOC ---
History of Present Illness - General Chief Complaint: Blood Pressure Problem Stated Complaint: HYPERTENSION Time Seen by Provider: 02/27/19 01:04 - History of Present Illness Initial Comments: Ivanna Roberts is an 88yo woman with a PMH of HTN, HLD, COPD, CAD, CVA/TIAs, thoracic aprtoc aneurysm (type B), PVD, and CKD who presents with HTN to 243/ 160 on arrival. She reports that her head felt "like it was full of lead" around 10pm today, so her home school coordinator checked her blood pressure. At that time, she states the SBP was 201. Her aide gave her regular doses of carvedilol, amlodipine, and lisinopril, but the BP did not come down. The aid became concerned due to the persistent hypertension. Ms Roberts denies any chest pain, SOB, headache, sudden change in vision, focal weakness, numbness/tingling, or changes in urination today. Per her daughter ( via phone), the BP was in the 130's in the morning and 160's later in the day. She has had no recent changes in medication, fevers/chills, infectious symptoms , changes in diet, or other problems over the last few days. Past History - Past Medical History Allergies/Adverse Reactions: Allergies Allergy/AdvReac Type Severity Reaction Status Date / Time ciprofloxacin [From Cipro] Allergy Unknown Hives Verified 02/27/19 00:57 Home Medications: Ambulatory Orders Albuterol Sulfate Inhaler - [Ventolin HFA Inhaler -] 1 inh IN ASDIR 10/27/18 Alprazolam [Xanax] 0.25 mg PO HS 10/27/18 Amlodipine Besylate 5 mg PO HS 10/27/18 Atorvastatin Ca [Lipitor] 80 mg PO HS 10/27/18 Budesonide [Pulmicort Flexhaler] 1 inh IH BID 10/27/18 Carvedilol 12.5 mg PO BID 10/27/18 Clonidine Patch [Catapres Tts Patch -] 0.1 mg TD ASDIR 10/27/18 Clopidogrel Bisulfate [Clopidogrel] 75 mg PO DAILY 10/27/18 Esomeprazole Magnesium [Nexium 24Hr] 40 mg PO DAILY 10/27/18 Lisinopril 10 mg PO DAILY 10/27/18 Tramadol HCl 50 mg PO PRN 10/27/18 Albuterol 0.083% Nebulizer Yamini [Ventolin 0.083% Nebulizer Soln -] 1 neb NEB BID 11/16/18 Carvedilol 6.25 mg PO PRN 11/16/18 Anemia: No Asthma: No Cancer: Yes (SKIN. BLADDER) Cardiac Disorders: No (VENOUS INSUFFIENCY PAD BOTH LEGS) CVA: No COPD: No CHF: No DVT: No Dementia: No Diabetes: No Dialysis: No GI Disorders: No Disorders: No HTN: No Hypercholesterolemia: No Kidney Stones: No Liver Disease: No Psychiatric Problems: Yes (ANXIETY,) Seizures: No Thyroid Disease: No Lung CA: No - Surgical History Abdominal Surgery: No Appendectomy: No Cardiac Surgery: Yes (pacemaker CAROTID ENDARTERECTOMY) Cholecystectomy: No Lung Surgery: No Neurologic Surgery: No Orthopedic Surgery: No - Immunization History Immunization Up to Date: Yes - Suicide/Smoking/Psychosocial Hx Smoking History: Former smoker Have you smoked in the past 12 months: No If you are a former smoker, when did you quit?: 2014 Cigars Per Day: 0 'Breaking Loose' booklet given: 05/12/17 Hx Alcohol Use: No Drug/Substance Use Hx: No Substance Use Type: Prescribed, Tranquilizers Hx Substance Use Treatment: No Review of Systems - Review of Systems Comments:: General: No fevers, no chills, no weight or appetite change, no malaise HEENT: No changes in vision, no changes in hearing, no congestion, no sore throat CV: No chest pain, no palpitations, no LE edema Pulm: No SOB, no cough, no wheezing GI: No nausea or vomiting, no change in bowel habits, no melena : No frequency, no urgency, no dysuria Musc: No back pain, no joint swelling, no recent injury Skin: No rash, no lesions, no erythema Endo: No excessive thirst, no heat/cold intolerance Heme: No unusual bruising or bleeding, no swollen glands Neuro: No syncope, no numbness/tingling, no focal weakness Vasc: No claudication Psych: No recent change in mood, no SI or HI *Physical Exam - Physical Exam Comments: General: Comfortable, no acute distress HEENT: Atraumatic, PERRL, EOMI, dry lips, voice normal, normal neck ROM Cards: RRR, no murmur appreciated Pulm: Comfortable on room air, clear to auscultation bilaterally Abd: Soft, nontender, nondistended Ext: Atraumatic. No LE edema. ROM intact. WWP Skin: Normal color, no rashes or lesions Neuro: A&Ox3, CN grossly intact, normal speech, motor/sensory grossly intact and symmetric Psych: Mood appropriate to situation ED Treatment Course - LABORATORY CBC & Chemistry Diagram: 02/27/19 01:30 02/27/19 01:30 - RADIOLOGY Radiology Studies Ordered: Category Date Time Status HEAD CT WITHOUT CONTRAST [CT] Stat CT Scan 02/27/19 01:17 Ordered CHEST X-RAY PORTABLE* [RAD] Stat Radiology 02/27/19 01:17 Ordered Medical Decision Making - Medical Decision Making 02/27/19 01:26 Ivanna Roberts is an 88yo woman with a PMH of HTN, HLD, COPD, CAD, CVA/TIAs, thoracic aprtoc aneurysm (type B), PVD, and CKD who presents with HTN to 243/ 160 after taking her home BP meds about 2 hours ago. - Hypertensive urgency v emergency. Concerning for possible bleed given report of heaviness in head at onset of HTN - Home meds given between 10-11pm with increased BP on arrival. SL nitro given, IV hydralazine ordered. Will reassess BP - CBC, CMP, trop, UA, EKG, CXR, CT head to evaluate for end organ damage 02/27/19 02:22 - BP dropped to 133/77 after 1x nitro. May be due to nitro combined with home meds given 2-3 hours ago. Will recheck - Pt taken to CT 02/27/19 02:57 - Labs reviewed. No concerning abnormalites. - Trop negative - BP now 168 systolic. 02/27/19 04:21 - CT without acute pathology - BP now 157/76 - Updated pt. Her daughter is currently available on the phone. Reports that goal BP is under 130 systolic due to her aortic aneurysm of 7cm. Per records, was 6.8 x [address] on 07/11/18. - Plan to admit for BP control. Microblog sent. Discussed with Dr Carrie Hernandez PGY2 *DC/Admit/Observation/Transfer Diagnosis at time of Disposition: Hypertensive urgency - Discharge Dispostion Disposition: HOME Decision to Admit order: Yes - Referrals - Patient Instructions - Post Discharge Activity
[2019-02-27] MEDS ORDERED: hydrALAZINE HCL 20 MG/ML VIAL IVPUSH ONE (01:31)
[2019-02-27 01:53] VITALS: BMI 21.7
[2019-02-27 01:56] LABS: EPI CELLS 2.7 /HPF (0-5/HPF); HYALINE CASTS 1 /lpf (0-8); PH,URINE 5.5 (5.0-8.0); URINE APPEARANCE CLEAR; URINE BACTERIA 12.3 /hpf (NEGATIVE); URINE BILIRUBIN NEGATIVE (NEGATIVE); URINE COLOR YELLOW; URINE GLUCOSE (UA) NEGATIVE (NEGATIVE); URINE KETONE NEGATIVE (NEGATIVE); URINE LEUK ESTERASE NEGATIVE (NEGATIVE); URINE NITRITE NEGATIVE (NEGATIVE); URINE PROTEIN NEGATIVE (NEGATIVE); URINE RBC 1 /hpf (0-4); URINE UROBILINOGEN 0.2 mg/dL (0.2-1.0); URINE WBC 1 /hpf (0-5)
[2019-02-27 02:02] LABS: BASO % 1.1 % (0-2.0); EOS % 5.3 % (0-4.5); HEMATOCRIT 41.9 % (32.4-45.2); HEMOGLOBIN 13.9 GM/dL (10.7-15.3); LYMPH % 33.3 % (8-40); MCH 28.2 pg (25.7-33.7); MCHC 33.1 g/dl (32.0-36.0); MEAN CELL VOLUME 85.1 fl (80-96); MEAN PLT VOLUME 9.1 fl (7.5-11.1); MONO % 8.5 % (3.8-10.2); NEUT % 51.8 % (42.8-82.8); PLATELET COUNT 200 K/MM3 (134-434); RBC 4.92 M/mm3 (3.60-5.2); RDW 14.9 % (11.6-15.6)
[2019-02-27 02:27] LABS: ALBUMIN 3.5 g/dl (3.4-5.0); BILIRUBIN,TOTAL 0.4 mg/dL (0.2-1); BLOOD UREA NITROGEN 22.4 mg/dL (7-18); CALCIUM 9.2 mg/dL (8.5-10.1); CREATININE 1.2 mg/dL (0.55-1.3); POTASSIUM 4.2 mmol/L (3.5-5.1); TOT PROT 7.2 g/dl (6.4-8.2)
--- NOTE | 2019-02-27 04:42 | PDOC ---
Attending Attestation - Resident Resident Name: Molly Hernandez - ED Attending Attestation I have performed the following: I have examined & evaluated the patient, The case was reviewed & discussed with the resident, I agree w/resident's findings & plan, Exceptions are as noted - HPI HPI: 02/27/19 04:36 88 yo F h/o htn, aaa ( nonoperative management ), TIA, hld, here with elevated bp. pt states she was feeling funny " head full of lead" took her BP was found to be 240/120. had been keeping close track of her bp due to concerns of this AAA. this evening she took all of her pm meds, when found high bp, did not come down pressure went up so came to ed. no vision changes. no cp no sob. - Physicial Exam PE: 02/27/19 04:40 awake alert lungs clera bilat heart rrr no mrg abd soft . fullness felt in epigastrum. ext wwp no edema. no calf tenderness. nuero alert oriented x 3. - Medical Decision Making 02/27/19 04:42 88 yo F with h/o aaa, htn hld cva pacemaker. tia here with elevated bp. due to low heart rate 60's, was given nitroglycerin. initilly dropped her bp to 130's sbp,. concerns for possible aortic stenosis. was ordered for hydralazine initially not given. following pt bp remained 160's / 100. ct angio ordered due to concerns for known AAA. Heart Score/ECG Review #1 General ECG Interpretation: Normal Rate (67), Normal Intervals, No acute ischemic changes Compared to previous ECG there are: Other (TWI I, AVL, V1 - V2, left axis. wide paced rhythm.)
--- NOTE | 2019-02-27 05:03 | PN ---
Teaching Attending Note Name of Resident: Najma Anand ATTENDING PHYSICIAN STATEMENT I saw and evaluated the patient. I reviewed the resident's note and discussed the case with the resident. I agree with the resident's findings and plan as documented. SUBJECTIVE: Patient is an 88 year old woman with a PMH of HTN, HLD, COPD, CAD, CVA/TIAs, Pacemaker, Thoracic aortic aneurysm (type B), PVD, and CKD who presents with HTN to 243/160 on arrival. She reports that her head felt "like it was full of lead" around 10pm today, so her home therapy teacher checked her blood pressure. At that time, she states the SBP was 201. Her aide gave her regular doses of carvedilol , amlodipine, and lisinopril, but the BP did not come down. The aid became concerned due to the persistent hypertension. She denies any chest pain, SOB, headache, sudden change in vision, focal weakness, numbness/tingling, or changes in urination today. Per her daughter (via phone), the BP was in the 130' s in the morning and 160's later in the day. She has had no recent changes in medication, fevers/chills, infectious symptoms, changes in diet, or other problems over the last few days. OBJECTIVE: Alert Vital Signs Period Temp Pulse Resp BP Sys/Grover Pulse Ox Last 24 Hr 97.5 F 62 18 133-243/77-160 93 HEENT: No Jaundice, eye redness or discharge, PERRLA, EOMI. Normocephalic, atraumatic. External ears are normal and hearing is grossly intact. No nasal discharge. Neck: Supple, nontender. No palpable adenopathy or thyromegaly. No JVD Chest: Good effort. Clear to auscultation and percussion. Heart: Regular. No S3, rub or murmur Abdomen: Not distended, soft, nontender and no HSM. No rebound or guarding. Normal bowel sounds. Ext: Peripheral pulses intact. No leg edema. Skin: Warm and dry. No petechiae, rash or ecchymosis. Neuro: Alert. Oriented x3. CN 2-12 grossly intact. Sensation grossly intact in all four extremities and DTR are symmetric. Psych: Appropriate mood and affect. Good insight. Current Medications Generic Name Dose Route Start Last Admin Trade Name Candidoq PRN Reason Stop Dose Admin Heparin Sodium (Porcine) 5,000 unit 02/27/19 10:00 Heparin - SQ BID DARIUS Home Medications Medication Instructions Recorded Albuterol Sulfate Inhaler - 1 inh IN ASDIR 10/27/18 [Ventolin HFA Inhaler -] Alprazolam [Xanax] 0.25 mg PO HS 10/27/18 Amlodipine Besylate 5 mg PO HS 10/27/18 Atorvastatin Ca [Lipitor] 80 mg PO HS 10/27/18 Budesonide [Pulmicort Flexhaler] 1 inh IH BID 10/27/18 Carvedilol 12.5 mg PO BID 10/27/18 Clonidine Patch [Catapres Tts 0.1 mg TD ASDIR 10/27/18 Patch -] Clopidogrel Bisulfate [Clopidogrel] 75 mg PO DAILY 10/27/18 Esomeprazole Magnesium [Nexium 40 mg PO DAILY 10/27/18 24Hr] Lisinopril 10 mg PO DAILY 10/27/18 Tramadol HCl 50 mg PO PRN 10/27/18 Albuterol 0.083% Nebulizer Yamini 1 neb NEB BID 11/16/18 [Ventolin 0.083% Nebulizer Soln -] Carvedilol 6.25 mg PO PRN 11/16/18 Abnormal Lab Results 02/27/19 02/27/19 02/27/19 01:30 01:30 01:30 Eosinophils % 5.3 H D Anion Gap 7 L BUN 22.4 H Random Glucose 117 H Ur Specific [place] 1.005 L ASSESSMENT AND PLAN: 1. Hypertensive urgency/Aortic aneurysm - No acute abnormality on CXR and head CT. EKG showed a ventricular paced rhythym at a rate of 67. Patient got oral and IV medications and BP has improved. Will get CT chest and abdomen to ascertain size of aneurysm - was 7 cm before. Will restart suitable outpatient antihypertensive drugs when clinically appropriate and add HCTZ 12.5 mg qd. Revise regimen to ensure [id number] excellent BP control and student counsellor patient on the injurious effects of uncontrolled hypertension. Nonpharmacologic measures to control hypertension like weight loss, salt restriction and exercise discussed. Importance of adherence to treatment regimen and attainment of normotension emphasized. Will continue comprehensive care for all of patients comorbid conditions. 2. DVT prophylaxis - Lovenox 40 mg SQ q 24 hours. 3. Advance directives - Full code
[2019-02-27] MEDS ORDERED: LABETALOL HCL 5 MG/1 ML (100MG/20 ML VIAL) IVPUSH ONE (05:25)
--- NOTE | 2019-02-27 06:00 | HP ---
CHIEF COMPLAINT: hypertension and head fullness PCP: Dr. Glenn Laboy HISTORY OF PRESENT ILLNESS: Ivanna Roberts is an 88 year old female with a past medical history of hypertension, hyperlipidemia, COPD, CAD, CVA/TIA, type B thoracic aortic aneurysm ( last measured at 7cm in June 2018), PVD, CKD, skin and bladder CA , venous insufficiency. On the night of admission, the patient stated that she felt a sudden head fullness as though her head was heavy and asked her aide to check her blood pressure. The patient also endorsed feelings of pre-syncope, lightheadedness, visual darkening, and slight nausea. She denied chest pain, shortness of breath from her baseline COPD symptoms, abdominal pain, vomiting, numbness, tingling, focal weakness, fever, chills, dysphagia, dysarthria, pains elsewhere in her body. Her aide took her blood pressure and noted that systolic pressures were greater than 200 and remained elevated despite administration of carvedilol, amlodipine, and lisinopril. The patient was taken to the ED for further evaluation. She states that she takes all her medication regularly, avoids salt, has a balanced diet, denied recent stressors, denied recent changes to medications, denied recent illnesses. On interview, the patient stated she was comfortable in bed at the moment and was curious as to what caused her blood pressure to be so high. According to daughter, the patient's blood pressure had been adequately controlled in the systolic 130s-160s on day of admission She noted to have a fall several days ago when she tripped and she was able to catch herself without falling to the ground. Denied head hit. Upon calling the pharmacy for medication reconciliation it was noted that most blood pressure medication were prn medications with multiple varying doses. ER course was notable for: (1) BP 243/160 given nitro and improved to 133/77, most recent 144/63, HR 64 (2) Head CT with mild to moderate cortical atrophy and small vessel ischemic disease, no acute intracranial pathology (3) CRE 1.2 Recent Travel: denies PAST MEDICAL HISTORY: as above PAST SURGICAL HISTORY: pacemaker placed carotid endarterectomy Social History: Smoking: former smoker Alcohol: denies Drugs: denies Lives at home. Has aide visiting house. Uses a walker to ambulate at home. Family History: denies significant family history Allergies ciprofloxacin [From Cipro] Allergy (Unknown, Verified 02/27/19 00:57) Hives HOME MEDICATIONS: Home Medications Medication Instructions Recorded Albuterol Sulfate Inhaler - 1 inh IN ASDIR 10/27/18 [Ventolin HFA Inhaler -] Alprazolam [Xanax] 0.25 mg PO HS 10/27/18 Amlodipine Besylate 5 mg PO HS 10/27/18 Atorvastatin Ca [Lipitor] 80 mg PO HS 10/27/18 Budesonide [Pulmicort Flexhaler] 1 inh IH BID 10/27/18 Carvedilol 12.5 mg PO BID 10/27/18 Clonidine Patch [Catapres Tts 0.1 mg TD ASDIR 10/27/18 Patch -] Clopidogrel Bisulfate [Clopidogrel] 75 mg PO DAILY 10/27/18 Esomeprazole Magnesium [Nexium 40 mg PO DAILY 10/27/18 24Hr] Lisinopril 10 mg PO DAILY 10/27/18 Tramadol HCl 50 mg PO PRN 10/27/18 Albuterol 0.083% Nebulizer Yamini 1 neb NEB BID 11/16/18 [Ventolin 0.083% Nebulizer Soln -] Carvedilol 6.25 mg PO PRN 11/16/18 REVIEW OF SYSTEMS CONSTITUTIONAL: generalized weakness Absent: fever, chills, diaphoresis, malaise, loss of appetite, weight change HEENT: visual changes Absent: rhinorrhea, nasal congestion, throat pain, throat swelling, difficulty swallowing, CARDIOVASCULAR: lightheadedness Absent: chest pain, palpitations, irregular heart rate,peripheral edema RESPIRATORY: Absent: cough, shortness of breath, dyspnea with exertion, orthopnea, wheezing, GASTROINTESTINAL: nausea Absent: abdominal pain, abdominal distension, vomiting, diarrhea, constipation, GENITOURINARY: Absent: dysuria, frequency, urgency, hesitancy, hematuria, flank pain, MUSCULOSKELETAL: Absent: myalgia, arthralgia, joint swelling, back pain, neck pain SKIN: Absent: rash, itching, pallor HEMATOLOGIC/IMMUNOLOGIC: Absent: easy bleeding, easy bruising, lymphadenopathy, frequent infections ENDOCRINE: Absent: unexplained weight gain, unexplained weight loss, heat intolerance, cold intolerance NEUROLOGIC: head fullness Absent: headache, focal weakness or paresthesias, dizziness, unsteady gait, seizure, mental status changes, PSYCHIATRIC: Absent: anxiety, depression, suicidal or homicidal ideation, hallucinations. PHYSICAL EXAMINATION Vital Signs - 24 hr 02/27/19 02/27/19 02/27/19 01:20 02:07 05:05 Temperature 97.5 F L 97.3 F L Pulse Rate 62 Pulse Rate [ 64 Right Radial] Respiratory 18 18 Rate Blood Pressure 243/160 H Blood Pressure 133/77 176/84 H [Right Arm] O2 Sat by Pulse 93 L 92 L Oximetry (%) GENERAL: Awake, alert, and fully oriented, in mild acute distress. HEAD: Normal with no signs of trauma. EYES: Pupils equal, round and reactive to light, extraocular movements intact, sclera anicteric, conjunctiva clear. EARS, NOSE, THROAT: Oropharynx clear without exudates. Dry mucous membranes. NECK: Normal range of motion, supple without lymphadenopathy, JVD. LUNGS: Breath sounds equal, coarse breath sounds heard throughout. No wheezing, no accessory muscle use. HEART: Regular rate and rhythm, normal S1 and S2 without murmur, rub or gallop. ABDOMEN: Soft, nontender, not distended, normoactive bowel sounds, no guarding, no rebound, no masses. MUSCULOSKELETAL: Normal range of motion at all joints. No bony deformities or tenderness. UPPER EXTREMITIES: 2+ pulses, warm, well-perfused. No cyanosis. No clubbing. No peripheral edema. LOWER EXTREMITIES: 1+ pulses, poorly palpated, warm, well-perfused. No calf tenderness. No peripheral edema. NEUROLOGICAL: Cranial nerves II-XII intact. 4/5 muscle strength bilaterally upper and lower extremities. PSYCHIATRIC: Cooperative. Good eye contact. Appropriate mood and affect. SKIN: Warm, dry, normal turgor, no rashes or lesions noted, normal capillary refill. Laboratory Results - last 24 hr 02/27/19 02/27/19 02/27/19 01:30 01:30 01:30 WBC 9.0 RBC 4.92 Hgb 13.9 Hct 41.9 MCV 85.1 MCH 28.2 MCHC 33.1 RDW 14.9 D Plt Count 200 MPV 9.1 Absolute Neuts (auto) 4.7 Neutrophils % 51.8 D Lymphocytes % 33.3 D Monocytes % 8.5 Eosinophils % 5.3 H D Basophils % 1.1 Nucleated RBC % 0 Sodium 141 Potassium 4.2 Chloride 107 Carbon Dioxide 28 Anion Gap 7 L BUN 22.4 H Creatinine 1.2 Est GFR (CKD-EPI)AfAm 46.73 Est GFR (CKD-EPI)NonAf 40.32 Random Glucose 117 H Calcium 9.2 Total Bilirubin 0.4 AST 22 ALT 15 Alkaline Phosphatase 97 Creatine Kinase 91 Troponin I < 0.02 Total Protein 7.2 Albumin 3.5 Urine Color Urine Appearance Urine pH Ur Specific [place] Urine Protein Urine Glucose (UA) Urine Ketones Urine Blood Urine Nitrite Urine Bilirubin Urine Urobilinogen Ur Leukocyte Esterase Urine WBC (Auto) Urine RBC (Auto) Urine Casts (Auto) U Epithel Cells (Auto) Urine Bacteria (Auto) 02/27/19 01:30 WBC RBC Hgb Hct MCV MCH MCHC RDW Plt Count MPV Absolute Neuts (auto) Neutrophils % Lymphocytes % Monocytes % Eosinophils % Basophils % Nucleated RBC % Sodium Potassium Chloride Carbon Dioxide Anion Gap BUN Creatinine Est GFR (CKD-EPI)AfAm Est GFR (CKD-EPI)NonAf Random Glucose Calcium Total Bilirubin AST ALT Alkaline Phosphatase Creatine Kinase Troponin I Total Protein Albumin Urine Color Yellow Urine Appearance Clear Urine pH 5.5 D Ur Specific [place] 1.005 L Urine Protein Negative Urine Glucose (UA) Negative Urine Ketones Negative Urine Blood Trace Urine Nitrite Negative Urine Bilirubin Negative Urine Urobilinogen 0.2 Ur Leukocyte Esterase Negative Urine WBC (Auto) 1 Urine RBC (Auto) 1 Urine Casts (Auto) 1 U Epithel Cells (Auto) 2.7 Urine Bacteria (Auto) 12.3 EKG--> Ventricularly paced rhythm, QTc 536 ASSESSMENT/PLAN: Ivanna Roberts is an 88 year old female with a past medical history of hypertension, hyperlipidemia, COPD, CAD, CVA/TIA, type B thoracic aortic aneurysm ( last measured at 7cm in June 2018), PVD, CKD, skin and bladder CA , venous insufficiency admitted for hypertensive urgency. Hypertensive Urgency HLD COPD Hypertensive Urgency - likely in the setting of abnormal medication regimen, will need more regulated and structured regimen to achieve adequate blood pressure with medications stratified in morning and night for good 24 hour BP control - obtain adequate medication reconciliation - repeat CT of chest to assess for status of thoracic aneurysm and obtain abdomen/pelvis CT - repeat echo - Cardiology consulted, Dr. Gomez - lisinopril 10mg bid - HCTZ 12.5mg qhs - amlodipine 5mg in morning - carvedilol 6.25 bid - home clonidine patch - may need IV BP medications if not adequately controlled - cardiac monitoring - monitor for signs of end-organ damage - BP goal of 130/90 in the setting of thoracic aneurysm HLD - obtain medication reconciliation as patient's pharmacy did not state patient on statin COPD - Duoneb q6h prn - continue home standing inhalers FEN - no standing fluids - continue to monitor electrolytes and replete as necessary - fat/sodium controlled diet Prophylaxis - Lovenox 40 units subq daily Code - full code JIM CASTILLO DO - PGY-1 Visit type - Emergency Visit Emergency Visit: Yes ED Registration Date: 02/27/19 Care time: The patient presented to the Emergency Department on the above date and was hospitalized for further evaluation of their emergent condition. - New Patient This patient is new to me today: Yes Date on this admission: 02/27/19 - Critical Care Critical Care patient: No
[2019-02-27] MEDS ORDERED: ALBUTEROL SO4 2.5/IPRATROPIUM 0.5 INH SOL 3 ML VIAL.NEB. NEB PRN (07:18)
[2019-02-27] MEDS ORDERED: cloNIDine-TTS 0.1 MG/24 HRS PATCH.TDWK TD SCH (07:30)
[2019-02-27 09:32] LABS: BASO % 1.3 % (0-2.0); HEMATOCRIT 42.6 % (32.4-45.2); HEMOGLOBIN 14.1 GM/dL (10.7-15.3); LYMPH % 31.5 % (8-40); MCH 28.3 pg (25.7-33.7); MCHC 33.1 g/dl (32.0-36.0); MEAN CELL VOLUME 85.5 fl (80-96); MEAN PLT VOLUME 8.9 fl (7.5-11.1); MONO % 9.7 % (3.8-10.2); NEUT % 52.5 % (42.8-82.8); PLATELET COUNT 189 K/MM3 (134-434); RBC 4.98 M/mm3 (3.60-5.2); WHITE BLOOD COUNT 8.1 K/mm3 (4.0-10.0)
[2019-02-27] MEDS ORDERED: HEPARIN NA (PORCINE) 5,000 UNITS/ML 1ML VIAL SQ SCH (10:00)
[2019-02-27] MEDS ORDERED: amLODIPine BESYLATE 5 MG TABLET (FP) PO SCH (10:00)
[2019-02-27] MEDS ORDERED: CARVEDILOL 3.125 MG TABLET (FP) PO SCH (10:00)
[2019-02-27 10:12] LABS: ALBUMIN 3.4 g/dl (3.4-5.0); ALK PHOS 102 U/L (45-117); ANION GAP 5 MMOL/L (8-16); BILIRUBIN,TOTAL 0.4 mg/dL (0.2-1); BLOOD UREA NITROGEN 20.5 mg/dL (7-18); CHLORIDE 105 mmol/L (98-107); CHOLESTEROL 158 mg/dL (50-200); CO2 29 mmol/L (21-32); CREATININE 1.1 mg/dL (0.55-1.3); GLUCOSE,RANDOM 90 mg/dL (74-106); HDL CHOLESTEROL 47 mg/dL (40-60); MAGNESIUM 2.2 mg/dL (1.8-2.4); PHOSPHOROUS 3.3 mg/dL (2.5-4.9); SGOT/AST 22 U/L (15-37); SGPT/ALT 16 U/L (13-61); SODIUM 140 mmol/L (136-145); TRIGLYCERIDES 242 mg/dL (0-150)
--- NOTE | 2019-02-27 10:31 | CON.CARD ---
Cardiology Consult (text) - Consultation Consultation Note: cc: headache, high BP hpi: 88 f hx htn c/b orthostatic hypotension, ppm, prior cva, descd thoracic aortic aneurysm, copd p/w headache, elevated BP. [place] headache at home and BP was high >200, remained elevated after carvedilol, amlodipine, and lisinopril. Has a schedule of meds at home that she takes PRN depending on her BP. On day of admission SBP had been 130s-160s. d/w patient's aid at bedside, has not missed meds. A few days ago she tripped and fell, no loss of consciousness. currently no chest pain, palps, dizziness, dyspnea. In the ER BP 243/160, received nitroglycerin, IV labetalol and PO meds. Sees dr gomez for cardio. Recently seen 01/2019, has labile BP at home and med changes recently, systolics have ranged from 90s-190s at home. pmh: per hpi psh: ppm, knee social: no tob fam: no premature cad ros: per hpi; meds: Ambulatory Orders Albuterol Sulfate Inhaler - [Ventolin HFA Inhaler -] 1 inh IN ASDIR 10/27/18 Alprazolam [Xanax] 0.25 mg PO HS 10/27/18 Amlodipine Besylate 5 mg PO HS 10/27/18 Atorvastatin Ca [Lipitor] 80 mg PO HS 10/27/18 Budesonide [Pulmicort Flexhaler] 1 inh IH BID 10/27/18 Carvedilol 12.5 mg PO BID 10/27/18 Clonidine Patch [Catapres Tts Patch -] 0.1 mg TD ASDIR 10/27/18 Clopidogrel Bisulfate [Clopidogrel] 75 mg PO DAILY 10/27/18 Esomeprazole Magnesium [Nexium 24Hr] 40 mg PO DAILY 10/27/18 Lisinopril 10 mg PO DAILY 10/27/18 Tramadol HCl 50 mg PO QID PRN 10/27/18 Albuterol 0.083% Nebulizer Yamini [Ventolin 0.083% Nebulizer Soln -] 1 neb NEB BID 11/16/18 Carvedilol 6.25 mg PO PRN 11/16/18 Alprazolam [Xanax] 0.25 mg PO BID PRN 02/27/19 Amitriptyline HCl [Elavil -] 10 mg PO DAILY 02/27/19 Carvedilol 3.125 mg PO PRN 02/27/19 Carvedilol 6.25 mg PO PRN 02/27/19 Clonidine Patch [Catapres Tts Patch -] 0.1 mg TD WEEKLY 02/27/19 Dicyclomine HCl 10 mg PO TID 02/27/19 Lisinopril 5 mg PO DAILY 02/27/19 Lisinopril 10 mg PO PRN 02/27/19 Tiotropium [place] [Spiriva] 1 inh PO DAILY 02/27/19 Current Medications Albuterol/Ipratropium (Duoneb -) 1 amp NEB Q6H PRN PRN Reason: SHORTNESS OF BREATH Amlodipine Besylate (Norvasc -) 5 mg PO DAILY DARIUS Carvedilol (Coreg -) 6.25 mg PO BID DARIUS Clonidine HCl (Catapres Tts Patch -) 0.1 mg TD WEEKLY DARIUS Dicyclomine HCl (Bentyl -) 10 mg PO TID DARIUS Enoxaparin Sodium (Lovenox -) 40 mg SQ DAILY DARIUS Hydrochlorothiazide (Hctz -) 12.5 mg PO HS DARIUS Lisinopril (Prinivil) 10 mg PO BID DARIUS Tiotropium [place] (Spiriva Respimat) 2 puff IH DAILY DARIUS Vital Signs Period Temp Pulse Resp BP Sys/[place]ver Pulse Ox Last 24 Hr 97.3 F-98.5 F 62-66 16-18 133-243/63-160 92-99 nad no jvd rrr s1s2 no mrg cta bl nl eff aaox3 no le e/c/c abd nt nd pos bs no jaundice diaphoresis pos dp pt no carotid bruits Laboratory Last Values WBC 8.1 K/mm3 (4.0-10.0) 02/27/19 09:04 RBC 4.98 M/mm3 (3.60-5.2) 02/27/19 09:04 Hgb 14.1 GM/dL (10.7-15.3) 02/27/19 09:04 Hct 42.6 % (32.4-45.2) 02/27/19 09:04 MCV 85.5 fl (80-96) 02/27/19 09:04 MCH 28.3 pg (25.7-33.7) 02/27/19 09:04 MCHC 33.1 g/dl (32.0-36.0) 02/27/19 09:04 RDW 15.0 % (11.6-15.6) 02/27/19 09:04 Plt Count 189 K/MM3 (134-434) 02/27/19 09:04 MPV 8.9 fl (7.5-11.1) 02/27/19 09:04 Absolute Neuts (auto) 4.2 K/mm3 (1.5-8.0) 02/27/19 09:04 Neutrophils % 52.5 % (42.8-82.8) 02/27/19 09:04 Lymphocytes % 31.5 % (8-40) 02/27/19 09:04 Monocytes % 9.7 % (3.8-10.2) 02/27/19 09:04 Eosinophils % 5.0 % (0-4.5) H 02/27/19 09:04 Basophils % 1.3 % (0-2.0) 02/27/19 09:04 Nucleated RBC % 0 % (0-0) 02/27/19 09:04 Sodium 140 mmol/L (136-145) 02/27/19 09:04 Potassium 4.0 mmol/L (3.5-5.1) 02/27/19 09:04 Chloride 105 mmol/L (98-107) 02/27/19 09:04 Carbon Dioxide 29 mmol/L (21-32) 02/27/19 09:04 Anion Gap 5 MMOL/L (8-16) L 02/27/19 09:04 BUN 20.5 mg/dL (7-18) H 02/27/19 09:04 Creatinine 1.1 mg/dL (0.55-1.3) 02/27/19 09:04 Est GFR (CKD-EPI)AfAm 51.91 02/27/19 09:04 Est GFR (CKD-EPI)NonAf 44.79 02/27/19 09:04 Random Glucose 90 mg/dL (74-106) 02/27/19 09:04 Calcium 9.0 mg/dL (8.5-10.1) 02/27/19 09:04 Phosphorus 3.3 mg/dL (2.5-4.9) 02/27/19 09:04 Magnesium 2.2 mg/dL (1.8-2.4) 02/27/19 09:04 Total Bilirubin 0.4 mg/dL (0.2-1) 02/27/19 09:04 AST 22 U/L (15-37) 02/27/19 09:04 ALT 16 U/L (13-61) 02/27/19 09:04 Alkaline Phosphatase 102 U/L (45-117) 02/27/19 09:04 Creatine Kinase 91 U/L (26-192) 02/27/19 01:30 Troponin I < 0.02 ng/ml (0.00-0.05) 02/27/19 09:04 Total Protein 7.0 g/dl (6.4-8.2) 02/27/19 09:04 Albumin 3.4 g/dl (3.4-5.0) 02/27/19 09:04 Triglycerides 242 mg/dL (0-150) H 02/27/19 09:04 Cholesterol 158 mg/dL (50-200) 02/27/19 09:04 Total LDL Cholesterol 86 mg/dL (5-100) 02/27/19 09:04 HDL Cholesterol 47 mg/dL (40-60) 02/27/19 09:04 TSH 3.57 uIU/ml (0.358-3.74) 02/27/19 09:04 Urine Color Yellow 02/27/19 01:30 Urine Appearance Clear 02/27/19 01:30 Urine pH 5.5 (5.0-8.0) D 02/27/19 01:30 Ur Specific [place] 1.005 (1.010-1.035) L 02/27/19 01:30 Urine Protein Negative (NEGATIVE) 02/27/19 01:30 Urine Glucose (UA) Negative (NEGATIVE) 02/27/19 01:30 Urine Ketones Negative (NEGATIVE) 02/27/19 01:30 Urine Blood Trace (NEGATIVE) 02/27/19 01:30 Urine Nitrite Negative (NEGATIVE) 02/27/19 01:30 Urine Bilirubin Negative (NEGATIVE) 02/27/19 01:30 Urine Urobilinogen 0.2 mg/dL (0.2-1.0) 02/27/19 01:30 Ur Leukocyte Esterase Negative (NEGATIVE) 02/27/19 01:30 Urine WBC (Auto) 1 /hpf (0-5) 02/27/19 01:30 Urine RBC (Auto) 1 /hpf (0-4) 02/27/19 01:30 Urine Casts (Auto) 1 /lpf (0-8) 02/27/19 01:30 U Epithel Cells (Auto) 2.7 /HPF (0-5/HPF) 02/27/19 01:30 Urine Bacteria (Auto) 12.3 /hpf (NEGATIVE) 02/27/19 01:30 tele: sr, a paced EKG: 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 both aneurysm with extensive mural thrombus with no gross evidence of dissection or impending rupture. echo 06/2017: nl lv/rv, no sig valve path, nl rvsp echo 08/2018 nl LV/RV, mild to mod TR, desc ao aneurysm 4.4 cm mibi 09/2016: no ischemia a/p: 88 f hx htn c/b orthostatic hypotension, ppm, prior cva, descd thoracic aortic aneurysm, copd p/w high BP HTN - history of labile BPs with weakness when SBP 100s-120s - history of expanding TAA - now 7.[address] here - on clonidine patch - BP meds at home most recently per Dr. Gomez note 01/2019:in AM BP >150 take carvedilol 9.375 mg and amlodipine 2.5 mg; BP 120-150: carvedilol 9.375; SBP < 120 no meds. lunch time BP >150: amlodipine 2.5 mg; <150 mg no meds; dinner time BP >150 take carvedilol 9.375 mg; BP 130-150: carvedilol 6.25 mg; <130 no meds. 10 PM BP >180 carvedilol 9.375 mg and amlodipine 2.5 mg; BP 130-180: carvedilol 9.375 mg alone; BP <130 no meds. If any time BP >180 repeat 1 hour later, if BP still >180 take lisinopril 10 mg - currently BP controlled here on lisinopril, HCTZ, clonidine patch, amlodipine. given BP stable at this point will continue same reg for now, monitor BP with plan to continue PRN regimen on discharge with close follow up with Dr. 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 pt declined intervention and has not followed up. defer intervention at this point - BP control as above CKD: - Cr at baseline ppm, [employer]: -nl fxn on outpt routine interrogations in office CAD - cor calcium on chest CT, no ischemia on mibi 2016 - cont plavix, statin, bb HPL: -continue home statin
[2019-02-27] MEDS: LISINOPRIL 10 MG TABLET (FP) PO SCH ×2 (10:55→23:25)
[2019-02-27] MEDS: CARVEDILOL 3.125 MG TABLET (FP) PO SCH ×2 (11:00→23:25)
[2019-02-27] MEDS: ENOXAPARIN NA (PORCINE) 40 MG/0.4 ML DISP.SYRIN SQ SCH (11:55)
[2019-02-27] MEDS: TIOTROPIUM BROMIDE 2.5 MCG (SPIRIVA) RESPIMAT INHALER IH SCH (11:56)
--- NOTE | 2019-02-27 12:39 | ECHO ---
Version: 1 Name: RAMONITA ORTEGA Exam: Adult Echocardiogram Study Date: 02/27/2019, 10:50 AM Age: 88 Years MMode/2D Measurements & Calculations IVSd: 0.72 cm LVIDs: 2.6 cm LVIDd: 4.2 cm LVPWd: 0.68 cm LVOT diam: 1.97 cm Ao root diam: 2.6 cm LA dimension: 3.1 cm Doppler Measurements & Calculations MV E max ronel: 75.5 cm/sec MV A max ronel: 100.7 cm/sec MV E/A: 0.75 Ao max P.8 mmHg CLAUDINE(I,D): 2.8 cm Ao mean P.6 mmHg LV V1 mean: 76.7 cm/sec Ao V2 max: 120.1 cm/sec LV V1 mean P.8 mmHg TR max ronel: 251.4 cm/sec TR max P.4 mmHg Left Ventricle The left ventricular size, thickness and function are normal. Right Ventricle The right ventricle is normal in size and function. Atria Normal left and right atrial size and function. Mitral Valve There is mild mitral annular calcification. There is trace to mild mitral regurgitation. Tricuspid Valve The tricuspid valve is normal. There is mild tricuspid regurgitation. Aortic Valve There is moderate aortic sclerosis.;. Trace aortic regurgitation. Pulmonic Valve The pulmonic valve is not well visualized. Great Vessels The aortic root is normal size. Normal aortic arch, descending and ascending aorta. Pericardium/Pleura There is no pericardial effusion. Summary Statements The left ventricular size, thickness and function are normal The right ventricle is normal in size and function. Normal left and right atrial size and function. There is mild mitral annular calcification. There is trace to mild mitral regurgitation. The tricuspid valve is normal. There is mild tricuspid regurgitation. There is moderate aortic sclerosis.; Trace aortic regurgitation. The pulmonic valve is not well visualized. The aortic root is normal size. Normal aortic arch, descending and ascending aorta There is no pericardial effusion. Juanjose Massey 02/27/2019, 11:39 AM Ordering Physician: Agustin Gilliland Referring Physician: RAMIREZ FLORES Performed By: Valorie Miner
--- NOTE | 2019-02-27 13:01 | EKG ---
Test Reason : Blood Pressure : / mmHG Vent. Rate : 067 BPM Atrial Rate : 067 BPM P-R Int : 000 ms QRS Dur : 158 ms QT Int : 508 ms P-R-T Axes : 000 -75 091 degrees QTc Int : 536 ms Ventricular-paced rhythm ABNORMAL ECG Confirmed by MD Long, Juan Alberto ([id number]) on 02/27/2019 1:01:27 PM Referred By: Confirmed By:Juan Alberto Alves MD
[2019-02-27] MEDS: DICYCLOMINE HCL 10 MG CAPSULE PO SCH ×2 (14:00→23:25)
--- NOTE | 2019-02-27 14:10 | PN ---
Teaching Attending Note Name of Resident: Glenn Silverio ATTENDING PHYSICIAN STATEMENT I saw and evaluated the patient. I reviewed the resident's note and discussed the case with the resident. I agree with the resident's findings and plan as documented with exceptions below. SUBJECTIVE: Patient seen and examined. Headache resolved, no chest pain, palpitations, dsypnea, dizziness, or new concerns. Has chronic exertional dyspnea with minimal activity which is unchanged currently. OBJECTIVE: Vital Signs Period Temp Pulse Resp BP Sys/Grover Pulse Ox Last 24 Hr 97.3 F-98.5 F 60-66 16-18 128-243/63-160 91-99 Intake & Output 02/24/19 02/25/19 02/26/19 02/27/19 23:59 23:59 23:59 23:59 Weight 111 lb 1.808 oz General: sitting in bed, just came back from bathroom, mild tachypneic with conversation (baseline per aide at bedside) Neck: soft, supple, no JVD Chest: distant breath sounds all over, no rales or wheezing appreciated Abdomen: soft, NT, ND Extremities: no edema Home Medications Medication Instructions Recorded Albuterol Sulfate Inhaler - 1 inh IN ASDIR 10/27/18 [Ventolin HFA Inhaler -] Alprazolam [Xanax] 0.25 mg PO HS 10/27/18 Amlodipine Besylate 5 mg PO HS 10/27/18 Atorvastatin Ca [Lipitor] 80 mg PO HS 10/27/18 Budesonide [Pulmicort Flexhaler] 1 inh IH BID 10/27/18 Carvedilol 12.5 mg PO BID 10/27/18 Clonidine Patch [Catapres Tts 0.1 mg TD ASDIR 10/27/18 Patch -] Clopidogrel Bisulfate [Clopidogrel] 75 mg PO DAILY 10/27/18 Esomeprazole Magnesium [Nexium 40 mg PO DAILY 10/27/18 24Hr] Lisinopril 10 mg PO DAILY 10/27/18 Tramadol HCl 50 mg PO QID PRN 10/27/18 Albuterol 0.083% Nebulizer Yamini 1 neb NEB BID 11/16/18 [Ventolin 0.083% Nebulizer Soln -] Carvedilol 6.25 mg PO PRN 11/16/18 Alprazolam [Xanax] 0.25 mg PO BID PRN 02/27/19 Amitriptyline HCl [Elavil -] 10 mg PO DAILY 02/27/19 Carvedilol 3.125 mg PO PRN 02/27/19 Carvedilol 6.25 mg PO PRN 02/27/19 Clonidine Patch [Catapres Tts 0.1 mg TD WEEKLY 02/27/19 Patch -] Dicyclomine HCl 10 mg PO TID 02/27/19 Lisinopril 5 mg PO DAILY 02/27/19 Lisinopril 10 mg PO PRN 02/27/19 Tiotropium [place] [Spiriva] 1 inh PO DAILY 02/27/19 Active Medications Albuterol/Ipratropium (Duoneb -) 1 amp NEB Q6H PRN PRN Reason: SHORTNESS OF BREATH Amlodipine Besylate (Norvasc -) 5 mg PO DAILY [facility] Last Admin: 02/27/19 10:55 Dose: 5 mg Carvedilol (Coreg -) 6.25 mg PO BID [facility] Last Admin: 02/27/19 11:00 Dose: 6.25 mg Clonidine HCl (Catapres Tts Patch -) 0.1 mg TD WEEKLY [facility] Dicyclomine HCl (Bentyl -) 10 mg PO TID [facility] Enoxaparin Sodium (Lovenox -) 40 mg SQ DAILY [facility] Last Admin: 02/27/19 11:55 Dose: Not Given Hydrochlorothiazide (Hctz -) 12.5 mg PO HS [facility] Lisinopril (Prinivil) 10 mg PO BID [facility] Last Admin: 02/27/19 10:55 Dose: 10 mg Tiotropium [place] (Spiriva Respimat) 2 puff IH DAILY [facility] Last Admin: 02/27/19 11:56 Dose: Not Given Laboratory Results - last 24 hr 02/27/19 02/27/19 02/27/19 01:30 01:30 01:30 WBC 9.0 RBC 4.92 Hgb 13.9 Hct 41.9 MCV 85.1 MCH 28.2 MCHC 33.1 RDW 14.9 D Plt Count 200 MPV 9.1 Absolute Neuts (auto) 4.7 Neutrophils % 51.8 D Lymphocytes % 33.3 D Monocytes % 8.5 Eosinophils % 5.3 H D Basophils % 1.1 Nucleated RBC % 0 Sodium 141 Potassium 4.2 Chloride 107 Carbon Dioxide 28 Anion Gap 7 L BUN 22.4 H Creatinine 1.2 Est GFR (CKD-EPI)AfAm 46.73 Est GFR (CKD-EPI)NonAf 40.32 Random Glucose 117 H Calcium 9.2 Phosphorus Magnesium Total Bilirubin 0.4 AST 22 ALT 15 Alkaline Phosphatase 97 Creatine Kinase 91 Troponin I < 0.02 Total Protein 7.2 Albumin 3.5 Triglycerides Cholesterol Total LDL Cholesterol HDL Cholesterol TSH Urine Color Urine Appearance Urine pH Ur Specific [place] Urine Protein Urine Glucose (UA) Urine Ketones Urine Blood Urine Nitrite Urine Bilirubin Urine Urobilinogen Ur Leukocyte Esterase Urine WBC (Auto) Urine RBC (Auto) Urine Casts (Auto) U Epithel Cells (Auto) Urine Bacteria (Auto) 02/27/19 02/27/19 02/27/19 01:30 09:04 09:04 WBC 8.1 RBC 4.98 Hgb 14.1 Hct 42.6 MCV 85.5 MCH 28.3 MCHC 33.1 RDW 15.0 Plt Count 189 MPV 8.9 Absolute Neuts (auto) 4.2 Neutrophils % 52.5 Lymphocytes % 31.5 Monocytes % 9.7 Eosinophils % 5.0 H Basophils % 1.3 Nucleated RBC % 0 Sodium 140 Potassium 4.0 Chloride 105 Carbon Dioxide 29 Anion Gap 5 L BUN 20.5 H Creatinine 1.1 Est GFR (CKD-EPI)AfAm 51.91 Est GFR (CKD-EPI)NonAf 44.79 Random Glucose 90 Calcium 9.0 Phosphorus 3.3 Magnesium 2.2 Total Bilirubin 0.4 AST 22 ALT 16 Alkaline Phosphatase 102 Creatine Kinase Troponin I < 0.02 Total Protein 7.0 Albumin 3.4 Triglycerides 242 H Cholesterol 158 Total LDL Cholesterol 86 HDL Cholesterol 47 TSH 3.57 Urine Color Yellow Urine Appearance Clear Urine pH 5.5 D Ur Specific [place] 1.005 L Urine Protein Negative Urine Glucose (UA) Negative Urine Ketones Negative Urine Blood Trace Urine Nitrite Negative Urine Bilirubin Negative Urine Urobilinogen 0.2 Ur Leukocyte Esterase Negative Urine WBC (Auto) 1 Urine RBC (Auto) 1 Urine Casts (Auto) 1 U Epithel Cells (Auto) 2.7 Urine Bacteria (Auto) 12.3 ASSESSMENT AND PLAN: 88 yof with PMHx of hypertension, hyperlipidemia, COPD, CAD, CVA/TIA, type B thoracic aortic aneurysm ( last measured at 7cm in June 2018), PVD, CKD, skin and bladder CA, venous insufficiency admitted with hypertensive urgency, headache. 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 Cardiology input noted. Coreg/clonidine/lisinopril/HCTZ. Additional IV/PO meds based on BP readings. 2D echo Noted. CTA chest/A/P noted. Patient evaluated by cardiothoracic surgery in the past, high risk for vascular complication from EVAR approach (small, calcified peripheral vessels) and high risk for open repair. pt declined intervention and has not followed up. DVTPPX SCDs Code status: discussed in detail with patient, confirms DNR/DNI. Wants both her daughters to be her HCP/involved in decision making. dispo in 24-48 hours if BP improved. Plan for d/c home with 24 hour aide.
--- NOTE | 2019-02-27 15:33 | PN ---
Physical Exam: SUBJECTIVE: Patient seen and examined at bedside. Pt feels relatively well. OBJECTIVE: Vital Signs Period Temp Pulse Resp BP Sys/Grover Pulse Ox Last 24 Hr 97.3 F-98.5 F 60-66 16-18 128-243/63-160 91-99 Gen: AAOx3, NAD HEENT: NCAT, EOMI Neck: supple, no jvd Cardio: rrr, normal s1s2, no mrg Pulm: cta b/l Abd: soft, nontender, nondistended Ext: no edema Laboratory Results - last 24 hr 02/27/19 02/27/19 02/27/19 01:30 01:30 01:30 WBC 9.0 RBC 4.92 Hgb 13.9 Hct 41.9 MCV 85.1 MCH 28.2 MCHC 33.1 RDW 14.9 D Plt Count 200 MPV 9.1 Absolute Neuts (auto) 4.7 Neutrophils % 51.8 D Lymphocytes % 33.3 D Monocytes % 8.5 Eosinophils % 5.3 H D Basophils % 1.1 Nucleated RBC % 0 Sodium 141 Potassium 4.2 Chloride 107 Carbon Dioxide 28 Anion Gap 7 L BUN 22.4 H Creatinine 1.2 Est GFR (CKD-EPI)AfAm 46.73 Est GFR (CKD-EPI)NonAf 40.32 Random Glucose 117 H Calcium 9.2 Phosphorus Magnesium Total Bilirubin 0.4 AST 22 ALT 15 Alkaline Phosphatase 97 Creatine Kinase 91 Troponin I < 0.02 Total Protein 7.2 Albumin 3.5 Triglycerides Cholesterol Total LDL Cholesterol HDL Cholesterol TSH Urine Color Urine Appearance Urine pH Ur Specific [place] Urine Protein Urine Glucose (UA) Urine Ketones Urine Blood Urine Nitrite Urine Bilirubin Urine Urobilinogen Ur Leukocyte Esterase Urine WBC (Auto) Urine RBC (Auto) Urine Casts (Auto) U Epithel Cells (Auto) Urine Bacteria (Auto) 02/27/19 02/27/19 02/27/19 01:30 09:04 09:04 WBC 8.1 RBC 4.98 Hgb 14.1 Hct 42.6 MCV 85.5 MCH 28.3 MCHC 33.1 RDW 15.0 Plt Count 189 MPV 8.9 Absolute Neuts (auto) 4.2 Neutrophils % 52.5 Lymphocytes % 31.5 Monocytes % 9.7 Eosinophils % 5.0 H Basophils % 1.3 Nucleated RBC % 0 Sodium 140 Potassium 4.0 Chloride 105 Carbon Dioxide 29 Anion Gap 5 L BUN 20.5 H Creatinine 1.1 Est GFR (CKD-EPI)AfAm 51.91 Est GFR (CKD-EPI)NonAf 44.79 Random Glucose 90 Calcium 9.0 Phosphorus 3.3 Magnesium 2.2 Total Bilirubin 0.4 AST 22 ALT 16 Alkaline Phosphatase 102 Creatine Kinase Troponin I < 0.02 Total Protein 7.0 Albumin 3.4 Triglycerides 242 H Cholesterol 158 Total LDL Cholesterol 86 HDL Cholesterol 47 TSH 3.57 Urine Color Yellow Urine Appearance Clear Urine pH 5.5 D Ur Specific [place] 1.005 L Urine Protein Negative Urine Glucose (UA) Negative Urine Ketones Negative Urine Blood Trace Urine Nitrite Negative Urine Bilirubin Negative Urine Urobilinogen 0.2 Ur Leukocyte Esterase Negative Urine WBC (Auto) 1 Urine RBC (Auto) 1 Urine Casts (Auto) 1 U Epithel Cells (Auto) 2.7 Urine Bacteria (Auto) 12.3 Active Medications Generic Name Dose Route Start Last Admin Trade Name Freq PRN Reason Stop Dose Admin Albuterol/Ipratropium 1 amp 02/27/19 07:18 Duoneb - NEB Q6H PRN SHORTNESS OF BREATH Amlodipine Besylate 5 mg 02/27/19 10:00 02/27/19 10:55 Norvasc - PO 5 mg DAILY [facility] Administration Carvedilol 6.25 mg 02/27/19 10:00 02/27/19 11:00 Coreg - PO 6.25 mg BID [facility]US Administration Clonidine HCl 0.1 mg 02/27/19 07:30 Catapres Tts Patch - TD WEEKLY [facility] Dicyclomine HCl 10 mg 02/27/19 14:00 02/27/19 14:00 Bentyl - PO 10 mg TID [facility] Administration Enoxaparin Sodium 40 mg 02/27/19 10:00 02/27/19 11:55 Lovenox - SQ Not Given DAILY [facility] Hydrochlorothiazide 12.5 mg 02/27/19 22:00 Hctz - PO HS [facility] Lisinopril 10 mg 02/27/19 10:00 02/27/19 10:55 Prinivil PO 10 mg BID [facility] Administration Tiotropium [place] 2 puff 02/27/19 10:00 02/27/19 11:56 Spiriva Respimat IH Not Given DAILY [facility] ASSESSMENT/PLAN: Pt is an 88 y/o F with PMH hypertension, hyperlipidemia, COPD, CAD, CVA/TIA, type B thoracic aortic aneurysm ( last measured at 7cm in June 2018), PVD, CKD, skin and bladder CA, venous insufficiency who presented to ED with Hypertensive urgency. #Hypertensive Urgency - likely in the setting of abnormal medication regimen, will need more regulated and structured regimen to achieve adequate blood pressure with medications stratified in morning and night for good 24 hour BP control - Aid to collect pt's med list from home. - repeat CT of chest to assess for status of thoracic aneurysm and obtain abdomen/pelvis CT with aneurysm 7.5 cm - echo with normal LV - Cardiology consulted, Dr. Patricia Saldivar appreciated. BP meds per cardio. - lisinopril 10mg bid - HCTZ 12.5mg qhs - amlodipine 5mg in morning - carvedilol 6.25 bid - home clonidine patch - may need IV BP medications if not adequately controlled - cardiac monitoring - monitor for signs of end-organ damage - BP goal of 130/90 in the setting of thoracic aneurysm #Thoracic aneurysm -now 7 cm -pt states she has been evaluated in the past and there is nothing to do -control BP #HLD - obtain medication reconciliation as patient's pharmacy did not state patient on statin -waiting for aid to collect meds COPD - Duoneb q6h prn - continue home standing inhalers FEN - no standing fluids - continue to monitor electrolytes and replete as necessary - fat/sodium controlled diet Prophylaxis - Lovenox 40 units subq daily Code - full code Visit type - Emergency Visit Emergency Visit: Yes ED Registration Date: 02/27/19 Care time: The patient presented to the Emergency Department on the above date and was hospitalized for further evaluation of their emergent condition. - New Patient This patient is new to me today: Yes Date on this admission: 02/27/19 - Critical Care Critical Care patient: No ATTENDING PHYSICIAN STATEMENT I saw and evaluated the patient. I reviewed the resident's note and discussed the case with the resident. I agree with the resident's findings and plan as documented. SUBJECTIVE: OBJECTIVE: ASSESSMENT AND PLAN:
[2019-02-27] MEDS ORDERED: ALBUTEROL SO4 2.5/IPRATROPIUM 0.5 INH SOL 3 ML VIAL.NEB. NEB ONE (21:04)
[2019-02-27] MEDS ORDERED: HYDROCHLOROTHIAZIDE 12.5 MG CAPSULE (FP) PO SCH (22:00)
[2019-02-27] MEDS ORDERED: CARVEDILOL 3.125 MG TABLET (FP) ONE (23:15)
[2019-02-27] MEDS ORDERED: DICYCLOMINE HCL 10 MG CAPSULE ONE (23:15)
[2019-02-27] MEDS ORDERED: HYDROCHLOROTHIAZIDE 25 MG TABLET (FP) ONE (23:15)
[2019-02-27] MEDS ORDERED: LISINOPRIL 5 MG TABLET (FP) ONE (23:16)
[2019-02-28] MEDS ORDERED: DICYCLOMINE HCL 10 MG CAPSULE ONE (05:54)
[2019-02-28] MEDS: DICYCLOMINE HCL 10 MG CAPSULE PO SCH ×4 (06:03→21:49)
[2019-02-28] MEDS ORDERED: CARVEDILOL 6.25 MG TABLET (FP) PO SCH ×2 (06:40→06:52)
[2019-02-28] MEDS: amLODIPine BESYLATE 2.5 MG TABLET (FP) PO SCH (09:07)
[2019-02-28] MEDS: ENOXAPARIN NA (PORCINE) 40 MG/0.4 ML DISP.SYRIN SQ SCH (09:07)
[2019-02-28] MEDS: CARVEDILOL 3.125 MG TABLET (FP) PO SCH ×2 (09:07→21:48)
[2019-02-28] MEDS: LISINOPRIL 10 MG TABLET (FP) PO SCH ×2 (09:07→21:48)
--- NOTE | 2019-02-28 10:07 | PN ---
Progress Note (short form) - Note Progress Note: s: no chest pain, palps, dizziness, dyspnea Current Medications Albuterol/Ipratropium (Duoneb -) 1 amp NEB Q6H PRN PRN Reason: SHORTNESS OF BREATH Last Admin: 02/27/19 21:17 Dose: 1 amp Amlodipine Besylate (Norvasc -) 2.5 mg PO DAILY [facility] Last Admin: 02/28/19 09:07 Dose: 2.5 mg Carvedilol (Coreg -) 9.375 mg PO BID [facility] Last Admin: 02/28/19 09:07 Dose: 9.375 mg Clonidine HCl (Catapres Tts Patch -) 0.1 mg TD WEEKLY [facility] Dicyclomine HCl (Bentyl -) 10 mg PO TID [facility] Last Admin: 02/28/19 06:03 Dose: 10 mg Enoxaparin Sodium (Lovenox -) 40 mg SQ DAILY [facility] Last Admin: 02/28/19 09:07 Dose: Not Given Hydrochlorothiazide (Hctz -) 12.5 mg PO HS [facility] Last Admin: 02/27/19 23:25 Dose: 12.5 mg Lisinopril (Prinivil) 10 mg PO BID [facility] Last Admin: 02/28/19 09:07 Dose: 10 mg Tiotropium [place] (Spiriva Respimat) 2 puff IH DAILY [facility] Last Admin: 02/27/19 11:56 Dose: Not Given Vital Signs Period Temp Pulse Resp BP Sys/Grover Pulse Ox Last 24 Hr 97.3 F-97.7 F 60-74 14-19 128-211/66-103 91-100 nad no jvd rrr s1s2 no mrg cta bl nl eff aaox3 no le e/c/c abd nt nd pos bs no jaundice diaphoresis pos dp pt no carotid bruits 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 both aneurysm with extensive mural thrombus with no gross evidence of dissection or impending rupture. echo 06/2017: nl lv/rv, no sig valve path, nl rvsp echo 08/2018 nl LV/RV, mild to mod TR, desc ao aneurysm 4.4 cm mibi 09/2016: no ischemia echo 02/2019 nl LV/RV fn, mild MAC, mild MR, mild TR, tr AR a/p: 88 f hx htn c/b orthostatic hypotension, ppm, prior cva, descd thoracic aortic aneurysm, copd p/w high BP HTN - history of labile BPs with weakness when SBP 100s-120s - history of expanding TAA - now 7.[address] here - on clonidine patch - BP meds at home most recently per Dr. Gomez note 01/2019:in AM BP >150 take carvedilol 9.375 mg and amlodipine 2.5 mg; BP 120-150: carvedilol 9.375; SBP < 120 no meds. lunch time BP >150: amlodipine 2.5 mg; <150 mg no meds; dinner time BP >150 take carvedilol 9.375 mg; BP 130-150: carvedilol 6.25 mg; <130 no meds. 10 PM BP >180 carvedilol 9.375 mg and amlodipine 2.5 mg; BP 130-180: carvedilol 9.375 mg alone; BP <130 no meds. If any time BP >180 repeat 1 hour later, if BP still >180 take lisinopril 10 mg -labile BP here on lisinopril, HCTZ, clonidine patch, amlodipine - elevated this AM, AM meds given monitor repeat BP - continue same reg for now, monitor BP with plan to continue PRN regimen on discharge with close follow up with Dr. 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 pt declined intervention and has not followed up. defer intervention at this point - BP control as above CKD: - Cr at baseline ppm, [employer]: -nl fxn on outpt routine interrogations in office CAD - cor calcium on chest CT, no ischemia on mibi 2016 - cont plavix, statin, bb HPL: -continue home statin
[2019-02-28] MEDS ORDERED: LISINOPRIL 10 MG TABLET (FP) PO ONE (10:48)
[2019-02-28] MEDS ORDERED: LISINOPRIL 5 MG TABLET (FP) ONE (12:56)
--- NOTE | 2019-02-28 15:36 | PN ---
Physical Exam: SUBJECTIVE: Patient seen and examined at bedside. Pt's BP has been labile. OBJECTIVE: Vital Signs Period Temp Pulse Resp BP Sys/Grover Pulse Ox Last 24 Hr 97.3 F-98 F 60-74 14-19 121-211/66-103 93-100 Gen: AAOx3, NAD HEENT: NCAT, EOMI Neck: supple, no jvd Cardio: rrr, normal s1s2, no mrg Pulm: cta b/l Abd: soft, nontender, nondistended Ext: no edema Active Medications Generic Name Dose Route Start Last Admin Trade Name Freq PRN Reason Stop Dose Admin Albuterol/Ipratropium 1 amp 02/27/19 07:18 02/27/19 21:17 Duoneb - NEB 1 amp Q6H PRN Administration SHORTNESS OF BREATH Amlodipine Besylate 2.5 mg 02/28/19 06:52 02/28/19 09:07 Norvasc - PO 2.5 mg DAILY [facility] Administration Carvedilol 9.375 mg 02/28/19 10:00 02/28/19 09:07 Coreg - PO 9.375 mg BID [facility] Administration Clonidine HCl 0.1 mg 02/27/19 07:30 Catapres Tts Patch - TD WEEKLY [facility] Dicyclomine HCl 10 mg 02/27/19 14:00 02/28/19 15:19 Bentyl - PO Not Given TID [facility] Enoxaparin Sodium 40 mg 02/27/19 10:00 02/28/19 09:07 Lovenox - SQ Not Given DAILY [facility] Lisinopril 10 mg 02/27/19 10:00 02/28/19 09:07 Prinivil PO 10 mg BID [facility] Administration Tiotropium [place] 2 puff 02/27/19 10:00 02/27/19 11:56 Spiriva Respimat IH Not Given DAILY [facility] ASSESSMENT/PLAN: Pt is an 88 y/o F with PMH hypertension, hyperlipidemia, COPD, CAD, CVA/TIA, type B thoracic aortic aneurysm ( last measured at 7cm in June 2018), PVD, CKD, skin and bladder CA, venous insufficiency who presented to ED with Hypertensive urgency. #Hypertensive Urgency - repeat CT of chest to assess for status of thoracic aneurysm and obtain abdomen/pelvis CT with aneurysm 7.5 cm - echo with normal LV - Cardiology consulted, Dr. Gitig Recs appreciated. BP meds per cardio. - lisinopril - HCTZ - amlodipine - carvedilol - home clonidine patch - may need IV BP medications if not adequately controlled - cardiac monitoring - monitor for signs of end-organ damage - BP goal of 130/90 in the setting of thoracic aneurysm #Thoracic aneurysm -now 7 cm -pt states she has been evaluated in the past and there is nothing to do -control BP #HLD - obtain medication reconciliation as patient's pharmacy did not state patient on statin -waiting for aid to collect meds COPD - Duoneb q6h prn - continue home standing inhalers FEN - no standing fluids - continue to monitor electrolytes and replete as necessary - fat/sodium controlled diet Prophylaxis - Lovenox 40 units subq daily Code - full code Visit type - Emergency Visit Emergency Visit: No - New Patient This patient is new to me today: No - Critical Care Critical Care patient: No ATTENDING PHYSICIAN STATEMENT I saw and evaluated the patient. I reviewed the resident's note and discussed the case with the resident. I agree with the resident's findings and plan as documented. SUBJECTIVE: OBJECTIVE: ASSESSMENT AND PLAN:
[2019-02-28] MEDS: TIOTROPIUM BROMIDE 2.5 MCG (SPIRIVA) RESPIMAT INHALER IH SCH (17:50)
--- NOTE | 2019-02-28 17:57 | PN ---
Teaching Attending Note Name of Resident: Glenn Silverio ATTENDING PHYSICIAN STATEMENT I saw and evaluated the patient. I reviewed the resident's note and discussed the case with the resident. I agree with the resident's findings and plan as documented. Noted cardiology recs. Patient seen and examined and spoke to her and her family. Confirmed DNR/I status. Is in good spirits and has competency. She is pending palliative consultation and is in agreement with seeing them. She is currently asymptomatic. Discussed how she had evaluation from [place] [facility] and how she cannot get procedure. She is aware that poor BP control can be fatal. She admits to regularly skipping doses of medications at home due to orthostatic symptoms. VS, labs, imaging reviewed NAD, AAO, resting in bed RRR s1/2 NC AT EOMI PERRLA NT ND +BS CN2-12 wnl, no fnd Normal mood, appropriate behavior Reviewed tele; paced rhythm Reviewed prior diagnostics ASSESSMENT AND PLAN: Patient presents with hypertensive urgency with known expanding thoracic aortic aneurysm. She is asymptomatic but had some elevated readings. CV recs noted; HCTZ has been DCd and we will increase coreg per Dr. Nam if she has increasing BPs. Will followup with palliative care. DNR/I Daughter is HCP
[2019-02-28] MEDS ORDERED: PT OWN MED DRAWER 7, Y5N ONE (21:31)
[2019-02-28] MEDS ORDERED: ALPRAZolam 0.25 MG TABLET PO ONE (22:54)
[2019-03-01] MEDS: DICYCLOMINE HCL 10 MG CAPSULE PO SCH (05:43)
[2019-03-01 08:10] VITALS: TEMP 98
[2019-03-01] MEDS: CARVEDILOL 3.125 MG TABLET (FP) PO SCH (09:31)
[2019-03-01] MEDS: amLODIPine BESYLATE 2.5 MG TABLET (FP) PO SCH (09:32)
[2019-03-01] MEDS: LISINOPRIL 10 MG TABLET (FP) PO SCH (09:32)
[2019-03-01] MEDS: ENOXAPARIN NA (PORCINE) 40 MG/0.4 ML DISP.SYRIN SQ SCH (09:34)
--- NOTE | 2019-03-01 11:12 | PN ---
Teaching Attending Note Name of Resident: Glenn Silverio ATTENDING PHYSICIAN STATEMENT I saw and evaluated the patient. I reviewed the resident's note and discussed the case with the resident. I agree with the resident's findings and plan as documented. SUBJECTIVE: OBJECTIVE: ASSESSMENT AND PLAN:
--- NOTE | 2019-03-01 11:22 | PN ---
Progress Note (short form) - Note Progress Note: s: no chest pain, palps, dizziness, dyspnea; IBS acting up this AM Current Medications Generic Name Dose Route Start Last Admin Trade Name Krystal PRN Reason Stop Dose Admin Albuterol/Ipratropium 1 amp 02/27/19 07:18 02/27/19 21:17 Duoneb - NEB 1 amp Q6H PRN Administration SHORTNESS OF BREATH Amlodipine Besylate 2.5 mg 02/28/19 06:52 03/01/19 09:32 Norvasc - PO 2.5 mg DAILY [facility] Administration Carvedilol 9.375 mg 02/28/19 10:00 03/01/19 09:31 Coreg - PO 9.375 mg BID [facility] Administration Clonidine HCl 0.1 mg 02/27/19 07:30 Catapres Tts Patch - TD WEEKLY [facility] Dicyclomine HCl 10 mg 02/27/19 14:00 03/01/19 05:43 Bentyl - PO 10 mg TID [facility] Administration Enoxaparin Sodium 40 mg 02/27/19 10:00 03/01/19 09:34 Lovenox - SQ Not Given DAILY [facility] Lisinopril 10 mg 02/27/19 10:00 03/01/19 09:32 Prinivil PO 10 mg BID [facility] Administration Tiotropium [place] 2 puff 02/27/19 10:00 02/28/19 17:50 Spiriva Respimat IH Not Given DAILY [facility] Vital Signs Period Temp Pulse Resp BP Sys/Grover Pulse Ox Last 24 Hr 97.6 F-98.1 F 60-76 14-20 137-204/64-95 95-99 nad no jvd rrr s1s2 no mrg cta bl nl eff aaox3 no le e/c/c abd nt nd pos bs no jaundice diaphoresis pos dp pt no carotid bruits CBC, BMP 02/27/19 09:04 02/27/19 09:04 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 both aneurysm with extensive mural thrombus with no gross evidence of dissection or impending rupture. echo 06/2017: nl lv/rv, no sig valve path, nl rvsp echo 08/2018 nl LV/RV, mild to mod TR, desc ao aneurysm 4.4 cm mibi 09/2016: no ischemia echo 02/2019 nl LV/RV fn, mild MAC, mild MR, mild TR, tr AR a/p: 88 f hx htn c/b orthostatic hypotension, ppm, prior cva, descd thoracic aortic aneurysm, copd p/w high BP HTN - history of labile BPs with weakness when SBP 100s-120s - history of expanding TAA - now 7.[address] here - on clonidine patch - BP meds at home most recently per Dr. Gomez note 01/2019:in AM BP >150 take carvedilol 9.375 mg and amlodipine 2.5 mg; BP 120-150: carvedilol 9.375; SBP < 120 no meds. lunch time BP >150: amlodipine 2.5 mg; <150 mg no meds; dinner time BP >150 take carvedilol 9.375 mg; BP 130-150: carvedilol 6.25 mg; <130 no meds. 10 PM BP >180 carvedilol 9.375 mg and amlodipine 2.5 mg; BP 130-180: carvedilol 9.375 mg alone; BP <130 no meds. If any time BP >180 repeat 1 hour later, if BP still >180 take lisinopril 10 mg - bp improved. continue same home regimen as above. descending TAA: -7.5 cm TAA here (6.5 cm on CTA chest 08/2017, reportedly 7.0 cm 01/2018), no symptoms - prior evaluation by cardio-thoracic surgery - high risk for vascular complication from EVAR approach (small, calcified peripheral vessels) and high risk for open repair. pt declined intervention and has not followed up. defer intervention at this point - BP control as above CKD: - Cr at baseline ppm, [employer]: -nl fxn on outpt routine interrogations in office CAD - cor calcium on chest CT, no ischemia on mibi 2016 - cont plavix, statin, bb HPL: -continue home statin cardic hart stable for dc
[2019-03-01 12:02] VITALS: BP 142/86; PULSE 70
--- NOTE | 2019-03-02 13:57 | DS ---
Physical Exam: SUBJECTIVE: Patient seen and examined. OBJECTIVE: PHYSICAL EXAM Gen: AAOx3, NAD HEENT: NCAT, EOMI Neck: supple, no jvd Cardio: rrr, normal s1s2, no mrg Pulm: cta b/l Abd: soft, nontender, nondistended Ext: no edema LABS HOSPITAL COURSE: Date of Admission:02/27/19 Date of Discharge: 03/02/19 Pt is an 88 y/o F with PMH hypertension, hyperlipidemia, COPD, CAD, CVA/TIA, type B thoracic aortic aneurysm ( last measured at 7cm in June 2018), PVD, CKD, skin and bladder CA, venous insufficiency who presented to ED with Hypertensive urgency. The patient was admitted with Hypertensive Urgency. This was especially concerning because of her known thoracic aneurysm. Repeat CT of chest to assess for status of thoracic aneurysm and abdomen/pelvis CT revealed the aneurysm was 7.5 cm. She had an echo with normal LV. Cardiology was consulted and helped manage BP. She was maintained with a BP goal of 130/90 in the setting of thoracic aneurysm. The patient had prior knowledge of her Thoracic aneurysm and had been worked up in the past. She stated that she had discussed treatment options with her cardiology and vascular team, and had decided that the risk of intervention outweighed the potential benefit. She was clear that nothing was to be done about it. She met with the palliative care team as an inpatient and discussed the issue. Her HLD medications were to be managed with home meds. She was given Duonebs and her home meds for COPD. Minutes to complete discharge: 30 Discharge Summary Reason For Visit: HYPERTENSIVE URGENCY Condition: Good - Instructions Diet, Activity, Other Instructions: You were in the hospital because of high blood pressure. As you know, having high blood pressure is very dangerous for you and increases the risk that your aneurysm will rupture. You were counseled extensively regarding this by Dr. Gunn, Dr. Silverio, and Dr. Gomez and his team and did verbalize understanding. You need to take all your medications as prescribed. If you become dizzy when taking your blood pressure medications, ensure that you are staying hydrated and that you are wearing the compression stockings and that you take your time going from sitting to standing. If you have dizziness that is any different than your standard presentation please come to ER for assessment. DO NOT skip doses of your BP medications unless instructed to do so by treating physician. You were seen by palliative care and may followup with their services as needed. MOLST form was completed during your stay here. You recieved extensive counseling about when to return to the ER and verbalized understanding. You need to follow up with the following doctors: Dr. Glenn Laboy,primary care/nephrology 3-[address] Gomez, cardiology within 1-2 weeks You are being sent home with the following medications regimine per cardiology: BP meds at home most recently per Dr. Gomez/Dr. Nam *in AM BP >150 take carvedilol 9.375 mg and amlodipine 2.5 mg; BP 120-150: carvedilol 9.375; SBP <120 no meds. lunch time BP >150: amlodipine 2.5 mg; < 150 mg no meds; dinner time BP >150 take carvedilol 9.375 mg; BP 130-150: carvedilol 6.25 mg; <130 no meds. 10 PM BP >180 carvedilol 9.375 mg and amlodipine 2.5 mg; BP 130-180: carvedilol 9.375 mg alone; BP <130 no meds. If any time BP >180 repeat 1 hour later, if BP still >180 take lisinopril 10 mg Per the last note: continue same reg for now, monitor BP with plan to continue PRN regimen on discharge with close follow up with Dr. Gomez. Please contact your real estate underwriter regarding questions with these medications. Do not hesitate to ask for clarification. No significant changes were made to your medications due to the fact that your pressure was likely elevated due to missed doses. Referrals: Vazquez Meyers MD [Primary Care Provider] - (Please see PCP within 3-5 days of DC) José Manuel Gomez MD [Staff Physician] - (Within 1-2 weeks of discharge) Disposition: HOME - Home Medications Comprehensive Discharge Medication List: Ambulatory Orders Albuterol Sulfate Inhaler - [Ventolin HFA Inhaler -] 1 inh IN ASDIR 10/27/18 Alprazolam [Xanax] 0.25 mg PO HS 10/27/18 Amlodipine Besylate 5 mg PO HS 10/27/18 Atorvastatin Ca [Lipitor] 80 mg PO HS 10/27/18 Budesonide [Pulmicort Flexhaler] 1 inh IH BID 10/27/18 Carvedilol 12.5 mg PO BID 10/27/18 Clonidine Patch [Catapres Tts Patch -] 0.1 mg TD ASDIR 10/27/18 Clopidogrel Bisulfate [Clopidogrel] 75 mg PO DAILY 10/27/18 Esomeprazole Magnesium [Nexium 24Hr] 40 mg PO DAILY 10/27/18 Lisinopril 10 mg PO DAILY 10/27/18 Tramadol HCl 50 mg PO QID PRN 10/27/18 Albuterol 0.083% Nebulizer Yamini [Ventolin 0.083% Nebulizer Soln -] 1 neb NEB BID 11/16/18 Carvedilol 6.25 mg PO PRN 11/16/18 Alprazolam [Xanax] 0.25 mg PO BID PRN 02/27/19 Amitriptyline HCl [Elavil -] 10 mg PO DAILY 02/27/19 Carvedilol 3.125 mg PO PRN 02/27/19 Carvedilol 6.25 mg PO PRN 02/27/19 Clonidine Patch [Catapres Tts Patch -] 0.1 mg TD WEEKLY 02/27/19 Dicyclomine HCl 10 mg PO TID 02/27/19 Lisinopril 5 mg PO DAILY 02/27/19 Lisinopril 10 mg PO PRN 02/27/19 Tiotropium [place] [Spiriva] 1 inh PO DAILY 02/27/19 This patient is new to me today: No Emergency Visit: No Critical Care patient: No - Discharge Referral Referred to [facility] No ATTENDING PHYSICIAN STATEMENT I saw and evaluated the patient. I reviewed the resident's note and discussed the case with the resident. I agree with the resident's findings and plan as documented. SUBJECTIVE: OBJECTIVE: ASSESSMENT AND PLAN:
== END 2019-03-01 12:23 | disposition home or self-care (01) | DRG 305 ==
LOC: JER 00:41 → JERBED 04:40 → OBSVTOIN 04:58 → J4W 02-28 14:37
PROVIDERS: ADMIT Internal Medicine; ATTEND Internal Medicine
DX: I16.0 Hypertensive urgency (principal); E78.5 Hyperlipidemia, unspecified; J44.9 Chronic obstructive pulmonary disease, unspecified; I25.10 Atherosclerotic heart disease of native coronary artery without angina pectoris; Z95.0 Presence of cardiac pacemaker; I71.2 Thoracic aortic aneurysm, without rupture; I12.9 Hypertensive chronic kidney disease with stage 1 through stage 4 chronic kidney disease, or unspecified chronic kidney disease; N18.3 Chronic kidney disease, stage 3 (moderate)
CPT/HCPCS: 36415; 70450-TC; 71045-TC-FY; 71275-TC; 74175-TC; 80053; 80061; 81003; 82550; 83721; 83735; 84100; 84443; 84484; 85025; 93005; 93010; 93306-TC; 99285-25; G0378

== ENCOUNTER 2019-05-14 11:07 | Emergency (ER) | payer OTHER ==
[2019-05-14 11:25] VITALS: BMI 22.2
--- NOTE | 2019-05-14 12:44 | PDOC ---
History of Present Illness - General Chief Complaint: Urinary Problem Stated Complaint: R/O UTI Time Seen by Provider: 05/14/19 11:50 History Source: Patient, Care Provider Exam Limitations: No Limitations - History of Present Illness Initial Comments: 05/14/19 12:44 Ivanna Roberts is an 88F with PMH thoracic and abdominal aortic aneurysm, HTN, HLD , COPD (no home O2, has nebs), CAD s/p pacemaker, CVA, CKD sent from D for UTI. Patient and meterman at [facility] was seeing Dr. Meyers at [facility] for a yearly physical earlier this week. Today was called about results of UA, told she has a UTI but she should go to the ED for antibiotics. Patient denies fever/ chills, N/V, abd pain, CVA tenderness, chest pain, SOB, dizziness, or any other symptoms. Has a chronic cough 2/2 COPD that is non-productive, not worse than her normal. Denies burning, blood in urine, or any other urinary symptoms. Past History - Past Medical History Allergies/Adverse Reactions: Allergies Allergy/AdvReac Type Severity Reaction Status Date / Time ciprofloxacin [From Cipro] Allergy Unknown Hives Verified 05/14/19 11:25 Home Medications: Ambulatory Orders Albuterol Sulfate Inhaler - [Ventolin HFA Inhaler -] 1 inh IN ASDIR 10/27/18 Amlodipine Besylate 5 mg PO HS 10/27/18 Atorvastatin Ca [Lipitor] 80 mg PO HS 10/27/18 Budesonide [Pulmicort Flexhaler] 1 inh IH BID 10/27/18 Clonidine Patch [Catapres Tts Patch -] 0.1 mg TD ASDIR 10/27/18 Clopidogrel Bisulfate [Clopidogrel] 75 mg PO DAILY 10/27/18 Esomeprazole Magnesium [Nexium 24Hr] 40 mg PO DAILY 10/27/18 Tramadol HCl 50 mg PO QID PRN 10/27/18 Albuterol 0.083% Nebulizer Yamini [Ventolin 0.083% Nebulizer Soln -] 1 neb NEB BID 11/16/18 Alprazolam [Xanax] 0.25 mg PO BID PRN 02/27/19 Amitriptyline HCl [Elavil -] 10 mg PO DAILY 02/27/19 Carvedilol 3.125 mg PO PRN 02/27/19 Carvedilol 6.25 mg PO PRN 02/27/19 Clonidine Patch [Catapres Tts Patch -] 0.1 mg TD WEEKLY 02/27/19 Dicyclomine HCl 10 mg PO TID 02/27/19 Lisinopril 10 mg PO PRN 02/27/19 Tiotropium [place] [Spiriva] 1 inh PO DAILY 02/27/19 Cephalexin Monohydrate [Keflex -] 500 mg PO BID 5 Days #10 capsule 05/14/19 Cephalexin [Keflex] 500 mg PO BID 5 Days #10 capsule 05/14/19 Anemia: No Asthma: No Cancer: Yes (SKIN. BLADDER) Cardiac Disorders: No (VENOUS INSUFFIENCY PAD BOTH LEGS) CVA: Yes COPD: No CHF: No DVT: No Dementia: No Diabetes: No Dialysis: No GI Disorders: No Disorders: No HTN: Yes Hypercholesterolemia: Yes Kidney Stones: No Liver Disease: No Psychiatric Problems: Yes (ANXIETY,) Seizures: No Thyroid Disease: No Lung CA: No - Surgical History Abdominal Surgery: No Appendectomy: No Cardiac Surgery: Yes (pacemaker CAROTID ENDARTERECTOMY) Cholecystectomy: No Lung Surgery: No Neurologic Surgery: No Orthopedic Surgery: No - Immunization History Immunization Up to Date: Yes - Psycho Social/Smoking Cessation Hx Smoking History: Never smoked Have you smoked in the past 12 months: No If you are a former smoker, when did you quit?: 2014 Cigars Per Day: 0 'Breaking Loose' booklet given: 05/12/17 Hx Alcohol Use: No Drug/Substance Use Hx: No Substance Use Type: Prescribed, Tranquilizers Hx Substance Use Treatment: No Review of Systems - Review of Systems Able to Perform ROS?: Yes Constitutional: No: Symptoms Reported HEENTM: No: Symptoms Reported Respiratory: No: Symptoms reported Cardiac (ROS): No: Symptoms Reported ABD/GI: No: Symptoms Reported : No: Symptoms Reported Musculoskeletal: No: Symptoms Reported Integumentary: No: Symptoms Reported Neurological: No: Symptoms reported Endocrine: No: Symptoms Reported Hematologic/Lymphatic: No: Symptoms Reported All Other Systems: Reviewed and Negative *Physical Exam - Vital Signs Last Vital Signs Temp Pulse Resp BP Pulse Ox 98 F 61 18 149/50 L 97 05/14/19 11:21 05/14/19 11:21 05/14/19 11:21 05/14/19 11:21 05/14/19 11:21 - Physical Exam General Appearance: Yes: Nourished, Appropriately Dressed, Thin. No: Apparent Distress HEENT: positive: EOMI, GREGORIO, Normal ENT Inspection, Normal Voice, Symmetrical, Pharynx Normal. negative: Scleral Icterus (R), Scleral Icterus (L), Pharyngeal Erythema, Tonsillar Exudate, Tonsillar Erythema Neck: positive: Trachea midline, Normal Thyroid, Supple. negative: Tender, Decreased range of motion, Lymphadenopathy (R), Lymphadenopathy (L) Respiratory/Chest: positive: Lungs Clear, Normal Breath Sounds. negative: Chest Tender, Respiratory Distress, Crackles, Rales, Rhonchi, Stridor, Wheezing Cardiovascular: positive: Regular Rhythm, Regular Rate, Murmur Gastrointestinal/Abdominal: positive: Normal Bowel Sounds, Flat, Soft. negative : Tender, Organomegaly, Pulsatile Mass, Guarding, Rebound Musculoskeletal: positive: Normal Inspection. negative: CVA Tenderness, Vertebral Tenderness Extremity: positive: Normal Capillary Refill, Normal Inspection, Normal Range of Motion. negative: Tender Integumentary: positive: Normal Color, Dry, Warm. negative: Cyanotic Neurologic: positive: Fully Oriented, Alert, Normal Mood/Affect, Normal Response ED Treatment Course - LABORATORY CBC & Chemistry Diagram: 05/14/19 13:50 05/14/19 13:50 Medical Decision Making - Medical Decision Making 05/14/19 12:44 Ivanna Roberts is an 88F with PMH thoracic and abdominal aortic aneurysm, HTN, HLD , COPD (no home O2, has nebs), CAD s/p pacemaker, CVA, CKD sent from [facility] for UTI. Called Joe Rodriguez, confirmed patient needs Abx for UTI. No evidence of any need for IV antibiotics, patient has no systemic symptoms and is asymptomatic, has known history of UTI. Has allergy to cipro, no prior micro results noted. Will evaluate via UA/UC, CMP, CBC. Plan to get results back and send home on PO Abx such as Keflex. 05/14/19 14:38 Labs grossly normal. UA positive for UTI. Patient is doing well and continues to be asymptomatic. Giving 1g ceftriaxone and discharging home on Keflex 500mg BID for 5 days. Discharge - Discharge Information Problems reviewed: Yes Clinical Impression/Diagnosis: UTI (urinary tract infection) Qualifiers: Urinary tract infection type: acute cystitis Hematuria presence: without hematuria Qualified Code(s): N30.00 - Acute cystitis without hematuria Condition: Stable Disposition: HOME - Admission No - Additional Discharge Information Prescriptions: Cephalexin Monohydrate [Keflex -] 500 mg PO BID 5 Days #10 capsule - Follow up/Referral Referrals: Vazquez Meyers MD [Primary Care Provider] - - Patient Discharge Instructions Patient Printed Discharge Instructions: Urinary Tract Infection Additional Instructions: Today you were evaluated for a urinary tract infection. Your labs show that you have a UTI, and your blood labs are normal. We gave you one dose of an antibiotic called ceftriaxone in the emergency room, and we are sending you home with a 5-day course of an antibiotic called Keflex. Please take one tablet in the morning and one at night for the next 5 days. Please follow-up with your primary doctor in the next 3 days for further care. If you experience burning or blood with urination, back pain, abdominal pain, nausea, vomiting, fever, or any other new or concerning symptoms, please return to the emergency room. - Post Discharge Activity
[2019-05-14 14:03] LABS: BASO % 1.1 % (0-2.0); EOS % 4.4 % (0-4.5); HEMATOCRIT 39.4 % (32.4-45.2); MCH 28.2 pg (25.7-33.7); MCHC 33.1 g/dl (32.0-36.0); MEAN CELL VOLUME 85.3 fl (80-96); MEAN PLT VOLUME 8.6 fl (7.5-11.1); MONO % 9.5 % (3.8-10.2); PLATELET COUNT 200 K/MM3 (134-434); RBC 4.62 M/mm3 (3.60-5.2); WHITE BLOOD COUNT 8.7 K/mm3 (4.0-10.0)
[2019-05-14 14:17] LABS: EPI CELLS 6.4 /HPF (0-5/HPF); HYALINE CASTS 3 /lpf (0-8); PH,URINE 5.5 (5.0-8.0); URINE APPEARANCE TURBID; URINE BACTERIA >9000 /hpf (NEGATIVE); URINE BILIRUBIN NEGATIVE (NEGATIVE); URINE COLOR YELLOW; URINE GLUCOSE (UA) NEGATIVE (NEGATIVE); URINE KETONE NEGATIVE (NEGATIVE); URINE LEUK ESTERASE 3+ (NEGATIVE); URINE NITRITE NEGATIVE (NEGATIVE); URINE PROTEIN TRACE (NEGATIVE); URINE RBC 7 /hpf (0-4); URINE UROBILINOGEN 0.2 mg/dL (0.2-1.0); URINE WBC 580 /hpf (0-5)
[2019-05-14 14:31] LABS: ALBUMIN 3.1 g/dl (3.4-5.0); BILIRUBIN,TOTAL 0.2 mg/dL (0.2-1); BLOOD UREA NITROGEN 19.7 mg/dL (7-18); CALCIUM 8.7 mg/dL (8.5-10.1); CREATININE 1.4 mg/dL (0.55-1.3); POTASSIUM 4.2 mmol/L (3.5-5.1); TOT PROT 6.5 g/dl (6.4-8.2)
--- NOTE | 2019-05-14 15:00 | PDOC ---
Documentation entered by Myles Swenson SCRIBE, acting as scribe for Grant Nicolas MD. Grant Nicolas MD: This documentation has been prepared by the Leela bains Xhesika, SCRIBE, under my direction and personally reviewed by me in its entirety. I confirm that the documentation accurately reflects all work, treatment, procedures, and medical decision making performed by me. Attending Attestation - Resident Resident Name: LawrencecoyLenny - ED Attending Attestation I have performed the following: I have examined & evaluated the patient, The case was reviewed & discussed with the resident, I agree w/resident's findings & plan, Exceptions are as noted - HPI HPI: 05/14/19 13:43 The patient is an 88 year old female with a PMH of HTN, HLD, COPD, CAD, CVA/TIAs , thoracic aortic aneurysm (type B), PVD, and CKD who presents to the ED from PCP office Dr. Meyers to rule out UTI. Patient notes she feels good and denies any complaints in the ED besides for intermittent abdominal pain. The patient denies chest pain, shortness of breath, headache and dizziness. Denies fever, chills, cough, nausea, vomiting, diarrhea and constipation. Denies urinary symptoms. Allergies:ciprofloxacin Social Hx: Denies current smoking, drinking, or other substance usage. PCP: Vazquez Nunes - Physicial Exam PE: 05/14/19 13:44 Vitals: Triage Vital signs reviewed General Appearance: no acute distress, well nourished well developed, Chest Wall: Nontender Cardiac: Regular rate and rhythm, no murmurs, no rubs, no gallops, Lungs: Clear to auscultation bilateral, good air movement bilaterally, Abdomen: Soft, nondistended, normal bowel sounds, nontender to palpation Skin: Warm and dry, no rashes or lesions, no petechiae Psych: normal mood, normal affect - Medical Decision Making 05/18/19 08:16 88 years old with past medical history as previously stated presents with signs and symptoms of UTI well-appearing no apparent distress Urinalysis grossly positive creatinine with slight elevation in the ED patient received 1 L normal saline she will be treated with ceftriaxone she will be discharged with Keflex she will follow-up with her PCP this week Findings, the need for follow-up and strict return instructions discussed with patient and family.
[2019-05-14] MEDS ORDERED: LACTATED RINGERS SOLUTION 1000 ML INFUS.BAG IV ONE (15:01)
[2019-05-14] MEDS ORDERED: SODIUM CHLORIDE 1,000 ML IV STA (15:07)
[2019-05-14] MEDS ORDERED: CEFTRIAXONE 1 GM/50 ML BAG ONE (15:21)
[2019-05-14 17:10] VITALS: BP 132/58; PULSE 68; TEMP 98.1
== END 2019-05-14 17:10 | disposition home or self-care (01) ==
LOC: JER 11:07
DX: N30.00 Acute cystitis without hematuria (principal); I25.10 Atherosclerotic heart disease of native coronary artery without angina pectoris; N18.9 Chronic kidney disease, unspecified; I13.10 Hypertensive heart and chronic kidney disease without heart failure, with stage 1 through stage 4 chronic kidney disease, or unspecified chronic kidney disease; Z95.0 Presence of cardiac pacemaker; E78.5 Hyperlipidemia, unspecified; I77.9 Disorder of arteries and arterioles, unspecified; I73.9 Peripheral vascular disease, unspecified; J44.9 Chronic obstructive pulmonary disease, unspecified; Z99.81 Dependence on supplemental oxygen; Z86.73 Personal history of transient ischemic attack (TIA), and cerebral infarction without residual deficits; Z79.02 Long term (current) use of antithrombotics/antiplatelets; Z85.828 Personal history of other malignant neoplasm of skin; Z85.51 Personal history of malignant neoplasm of bladder; Z88.1 Allergy status to other antibiotic agents; Z86.79 Personal history of other diseases of the circulatory system
CPT/HCPCS: 36415; 80053; 81003; 85025; 87086; 87186; 96372; 99283-25

== ENCOUNTER 2019-06-10 12:48 | Inpatient (IN) | payer OTHER ==
--- NOTE | 2019-06-10 13:59 | PDOC ---
History of Present Illness <Yasir Garcia - Last Filed: 06/10/19 17:17> - History of Present Illness Initial Comments: 06/10/19 13:59 HPI: 88 y/o F with hx of thoracic and abdominal aortic aneurysm, HTN, HLD, COPD, CAD s/p PM, CVA, CKD presenting with cough and SOB. Her cough started 2.5 weeks ago but over the past week she has been having worsening cough productive of green sputum with SOB on exertion. She reports her cough is so bad that she has been having stress incontinence. She also reports pleuritic chest pain. She was seen at an urgent care recently and was given prednisone and neb treatments for home. She reports neb treatments only helps for 30min. She denies fever, chills , n/v. Her BP was also elevated today that prompted presentation. PMHx: as noted above ROS: as noted SHx: Denies tobacco use; no alcohol use; no rec drugs Allergies: NKDA ROS: GENERAL/CONSTITUTIONAL: No fever. No weakness. HEAD, EYES, EARS, NOSE AND THROAT: No change in vision. No ear pain or discharge. No sore throat. CARDIOVASCULAR: +chest pain & shortness of breath RESPIRATORY: +cough; no wheezing, or hemoptysis. GASTROINTESTINAL: No nausea, vomiting, diarrhea or constipation. GENITOURINARY: No dysuria, frequency, or change in urination. MUSCULOSKELETAL: No joint or muscle swelling or pain. No neck or back pain. SKIN: No rash NEUROLOGIC: No headache, vertigo, loss of consciousness, or change in strength/ sensation. ENDOCRINE: No increased thirst. No abnormal weight change HEMATOLOGIC/LYMPHATIC: No anemia, easy bleeding, or history of blood clots. ALLERGIC/IMMUNOLOGIC: No hives or skin allergy. PE: GENERAL: Awake, alert, and fully oriented, no acute distress HEAD: No signs of trauma, normocephalic, atraumatic EYES: EOMI, sclera anicteric, conjunctiva clear ENT: Auricles normal inspection, hearing grossly normal, nares patent, oropharynx clear without exudates. Moist mucosa NECK: Normal ROM, no lymphadenopathy LUNGS: No increased work of breathing, symmetrical chest rise, rales in LLL HEART: Regular rate and rhythm, normal S1 and S2, no murmur, peripheral pulses 2 + and equal bilaterally. ABDOMEN: Soft, nondistended, nontender, normoactive bowel sounds. No guarding, no rebound. No masses. No CVAT MUSCULOSKELETAL: Normal inspection, FROM NEUROLOGICAL: Cranial nerves II through XII grossly intact. Normal speech, normal gait, no focal sensorimotor deficits SKIN: Warm, Dry, normal turgor, no rashes or lesions noted <Kip Bailey - Last Filed: 06/10/19 20:08> - General Chief Complaint: Cold Symptoms Stated Complaint: COUGH Time Seen by Provider: 06/10/19 13:14 Past History <Yasir Garcia - Last Filed: 06/10/19 17:17> - Past Medical History Anemia: No Asthma: No Cancer: Yes (SKIN. BLADDER) Cardiac Disorders: No (VENOUS INSUFFIENCY PAD BOTH LEGS) CVA: Yes COPD: Yes CHF: No DVT: No Dementia: No Diabetes: No Dialysis: No GI Disorders: No Disorders: No HTN: Yes Hypercholesterolemia: Yes Kidney Stones: No Liver Disease: No Psychiatric Problems: Yes (ANXIETY,) Seizures: No Thyroid Disease: No Lung CA: No - Surgical History Abdominal Surgery: No Appendectomy: No Cardiac Surgery: Yes (pacemaker CAROTID ENDARTERECTOMY) Cholecystectomy: No Lung Surgery: No Neurologic Surgery: No Orthopedic Surgery: No - Immunization History Immunization Up to Date: Yes - Psycho Social/Smoking Cessation Hx Smoking History: Former smoker Have you smoked in the past 12 months: No If you are a former smoker, when did you quit?: 2014 Cigars Per Day: 0 Information on smoking cessation initiated: No 'Breaking Loose' booklet given: 05/12/17 Hx Alcohol Use: No Drug/Substance Use Hx: No Substance Use Type: Prescribed, Tranquilizers Hx Substance Use Treatment: No <Kip Bailey - Last Filed: 06/10/19 20:08> - Past Medical History Allergies/Adverse Reactions: Allergies Allergy/AdvReac Type Severity Reaction Status Date / Time ciprofloxacin [From Cipro] Allergy Unknown Hives Verified 05/14/19 11:25 Home Medications: Ambulatory Orders Amlodipine Besylate 5 mg PO HS 10/27/18 Atorvastatin Ca [Lipitor] 80 mg PO HS 10/27/18 Clopidogrel Bisulfate [Clopidogrel] 75 mg PO DAILY 10/27/18 Tramadol HCl 50 mg PO QID PRN 10/27/18 Albuterol 0.083% Nebulizer Yamini [Ventolin 0.083% Nebulizer Soln -] 1 neb NEB BID 11/16/18 Alprazolam [Xanax] 0.25 mg PO BID PRN 02/27/19 Amitriptyline HCl [Elavil -] 10 mg PO DAILY 02/27/19 Carvedilol 9.375 mg PO TID 02/27/19 Clonidine Patch [Catapres Tts Patch -] 0.1 mg TD WEEKLY 02/27/19 Dicyclomine HCl 10 mg PO TID 02/27/19 Lisinopril 10 mg PO PRN 02/27/19 Tiotropium [place] [Spiriva] 1 inh PO DAILY 02/27/19 *Physical Exam - Vital Signs Last Vital Signs Temp Pulse Resp BP Pulse Ox 97.8 F 94 H 22 H 189/89 H 96 06/10/19 12:48 06/10/19 16:03 06/10/19 16:03 06/10/19 16:03 06/10/19 16:03 <Yasir Garcia - Last Filed: 06/10/19 17:17> - Vital Signs Last Vital Signs Temp Pulse Resp BP Pulse Ox 97.8 F 73 20 156/90 96 06/10/19 12:48 06/10/19 12:48 06/10/19 12:48 06/10/19 12:48 06/10/19 12:48 <Kip Bailey - Last Filed: 06/10/19 20:08> ED Treatment Course - LABORATORY CBC & Chemistry Diagram: 06/10/19 15:40 06/10/19 15:40 - ADDITIONAL ORDERS Additional order review: Laboratory Results 06/10/19 06/10/19 06/10/19 15:40 15:40 15:40 PT with INR 12.1 INR 1.08 PTT (Actin FS) 26.8 Sodium Potassium Chloride Carbon Dioxide Anion Gap BUN Creatinine Est GFR (CKD-EPI)AfAm Est GFR (CKD-EPI)NonAf Random Glucose Calcium Magnesium Total Bilirubin AST ALT Alkaline Phosphatase Troponin I < 0.03 Total Protein Albumin 06/10/19 15:40 PT with INR INR PTT (Actin FS) Sodium 140 Potassium 4.2 Chloride 108 H Carbon Dioxide 24 Anion Gap 8 BUN 41.0 H Creatinine 1.3 Est GFR (CKD-EPI)AfAm 42.42 Est GFR (CKD-EPI)NonAf 36.60 Random Glucose 92 Calcium 8.3 L Magnesium 1.9 Total Bilirubin 0.6 AST 25 ALT 23 Alkaline Phosphatase 101 Troponin I Total Protein 6.7 Albumin 3.5 06/10/19 15:40 RBC 4.36 MCV 85.8 MCHC 32.8 RDW 14.0 D MPV 9.9 Neutrophils % 89.1 H Lymphocytes % 5.9 L Monocytes % 4.9 Eosinophils % 0.1 Basophils % 0.0 - RADIOLOGY Radiology Studies Ordered: Category Date Time Status CHEST PA & LAT [RAD] Stat Radiology 06/10/19 14:47 Completed CHEST X-RAY PORTABLE* [RAD] Stat Radiology 06/10/19 13:27 Completed - Medications Given in the ED: ED Medications Discontinued Medications Generic Name Dose Route Start Last Admin Trade Name Freq PRN Reason Stop Dose Admin Albuterol/Ipratropium 1 amp 06/10/19 15:42 06/10/19 16:40 Duoneb - NEB 06/10/19 15:43 1 amp ONCE ONE Administration Amlodipine Besylate 5 mg 06/10/19 14:43 06/10/19 16:01 Norvasc - PO 06/10/19 14:44 5 mg ONCE ONE Administration Azithromycin 500 mg/ Dextrose 250 mls @ 250 mls/hr 06/10/19 14:43 06/10/19 16 :02 IVPB 06/10/19 15:42 250 mls/hr ONCE ONE Administration Ceftriaxone Sodium 1 gm/ 100 mls @ 200 mls/hr 06/10/19 14:43 06/10/19 16:01 Dextrose IVPB 06/10/19 15:12 200 mls/hr ONCE ONE Administration Lisinopril 10 mg 06/10/19 14:43 06/10/19 16:01 Prinivil PO 06/10/19 14:44 10 mg ONCE ONE Administration <Yasir Garcia - Last Filed: 06/10/19 17:17> - LABORATORY CBC & Chemistry Diagram: 06/10/19 15:40 06/10/19 15:40 <Kip Bailey - Last Filed: 06/10/19 20:08> Medical Decision Making - Medical Decision Making 12/29/19 20:05 88 y/o F with hx of thoracic and abdominal aortic aneurysm, HTN, HLD, COPD, CAD s/p PM, CVA, CKD presenting with cough and SOB. BP 189/89, AF. PE with LLL rales. DDx includes pna, chf exacerabtion, copd exacerbation, viral -cbc, cmp, coags, trop, bnp, ekg, cxr 06/10/19 20:06 appearance of possible LLL opacity; will treat for CAP with cef and azithro will treat BP with home meds; nebs treatment will control pain will admit for PNA/COPD exacerabtion accepted to med'surg under Dr billy <Kip Bailey - Last Filed: 06/10/19 20:08> Discharge <Yasir Garcia - Last Filed: 06/10/19 17:17> - Discharge Information Problems reviewed: Yes - Admission Yes <Kip Bailey - Last Filed: 06/10/19 20:08> - Discharge Information Clinical Impression/Diagnosis: COPD exacerbation Condition: Stable
[2019-06-10] MEDS ORDERED: LISINOPRIL 10 MG TABLET (FP) PO ONE (14:43)
[2019-06-10] MEDS ORDERED: AZITHROMYCIN IVPB 500 MG in DEXTROSE 5%-WATER - 250 ML IVPB ONE (14:43)
[2019-06-10] MEDS ORDERED: CEFTRIAXONE 1 GM in DEXTROSE 5%-WATER - 100 ML IVPB ONE (14:43)
[2019-06-10] MEDS ORDERED: amLODIPine BESYLATE 5 MG TABLET (FP) PO ONE (14:43)
[2019-06-10] MEDS ORDERED: cefTRIAXone SODIUM 1 GM VIAL ONE (15:40)
[2019-06-10] MEDS ORDERED: ALBUTEROL SO4 2.5/IPRATROPIUM 0.5 INH SOL 3 ML VIAL.NEB. NEB ONE ×2 (15:42→16:33)
--- NOTE | 2019-06-10 15:51 | HP ---
CHIEF COMPLAINT:SOB, Cough PCP:Dr. Meyers Pulm: Dr. Workman Cardio: Dr. Gomez HISTORY OF PRESENT ILLNESS: Ivanna Roberts is a 88 yr old F, medical condition HTN, HLD, COPD, CVATIA, Thoracic Aneurysm, PVD, CKD presented to ED with c/o productive cough, green sputum, with shortness of breath. daughter at bedside, reports pt has been feeling weak, decreased appetite, Denies fever, dizziness, chest pain, abd pain, n/v, diarrhea Labs being drawn currently ER course was notable for: (1)Chest xray poss infiltrate (2) (3) Recent Travel: PAST MEDICAL HISTORY: HTN, HLD, COPD, CAD, CVA/TIAs, thoracic aortic aneurysm (type B), PVD, and CKD PAST SURGICAL HISTORY: Social History: Smoking:former smoker Alcohol:denies Drugs: denies Allergies ciprofloxacin [From Cipro] Allergy (Unknown, Verified 05/14/19 11:25) Hives HOME MEDICATIONS: Home Medications Medication Instructions Recorded Amlodipine Besylate 5 mg PO HS 10/27/18 Atorvastatin Ca [Lipitor] 80 mg PO HS 10/27/18 Clopidogrel Bisulfate [Clopidogrel] 75 mg PO DAILY 10/27/18 Tramadol HCl 50 mg PO QID PRN 10/27/18 Albuterol 0.083% Nebulizer Yamini 1 neb NEB BID 11/16/18 [Ventolin 0.083% Nebulizer Soln -] Alprazolam [Xanax] 0.25 mg PO BID PRN 02/27/19 Amitriptyline HCl [Elavil -] 10 mg PO DAILY 02/27/19 Carvedilol 3.125 mg PO PRN 02/27/19 Carvedilol 6.25 mg PO PRN 02/27/19 Clonidine Patch [Catapres Tts 0.1 mg TD WEEKLY 02/27/19 Patch -] Dicyclomine HCl 10 mg PO TID 02/27/19 Lisinopril 10 mg PO PRN 02/27/19 Tiotropium [place] [Spiriva] 1 inh PO DAILY 02/27/19 REVIEW OF SYSTEMS CONSTITUTIONAL: +fatigue, decreased appetite Absent: fever, chills, diaphoresis, weight change HEENT: Absent: rhinorrhea, nasal congestion, throat pain, throat swelling, difficulty swallowing, mouth swelling, ear pain, eye pain, visual changes CARDIOVASCULAR: Absent: chest pain, syncope, palpitations, irregular heart rate, lightheadedness , peripheral edema RESPIRATORY: +productive cough, shortness of breath Absent: dyspnea with exertion, orthopnea, wheezing, stridor, hemoptysis GASTROINTESTINAL: Absent: abdominal pain, abdominal distension, nausea, vomiting, diarrhea, constipation, melena, hematochezia GENITOURINARY: Absent: dysuria, frequency, urgency, hesitancy, hematuria, flank pain, genital pain MUSCULOSKELETAL: Absent: myalgia, arthralgia, joint swelling, back pain, neck pain SKIN: Absent: rash, itching, pallor HEMATOLOGIC/IMMUNOLOGIC: Absent: easy bleeding, easy bruising, lymphadenopathy, frequent infections ENDOCRINE: Absent: unexplained weight gain, unexplained weight loss, heat intolerance, cold intolerance NEUROLOGIC: Absent: headache, focal weakness or paresthesias, dizziness, unsteady gait, seizure, mental status changes, bladder or bowel incontinence PSYCHIATRIC: Absent: anxiety, depression, suicidal or homicidal ideation, hallucinations. PHYSICAL EXAMINATION Vital Signs - 24 hr 06/10/19 12:48 Temperature 97.8 F Pulse Rate 73 Respiratory 20 Rate Blood Pressure 156/90 O2 Sat by Pulse 96 Oximetry (%) GENERAL: Awake, alert, and fully oriented, in no acute distress. HEAD: Normal with no signs of trauma. EYES: Pupils equal, round and reactive to light, extraocular movements intact, sclera anicteric, conjunctiva clear. No lid lag. EARS, NOSE, THROAT: Ears normal, nares patent, oropharynx clear without exudates. Moist mucous membranes. NECK: Normal range of motion, supple without lymphadenopathy, JVD, or masses. LUNGS: B/l wheezing, rales HEART: Regular rate and rhythm, normal S1 and S2 without murmur, rub or gallop. ABDOMEN: Soft, nontender, not distended, normoactive bowel sounds, no guarding, no rebound, no masses. No hepatomegaly or splenomegaly. MUSCULOSKELETAL: Normal range of motion at all joints. No bony deformities or tenderness. No CVA tenderness. UPPER EXTREMITIES: 2+ pulses, warm, well-perfused. No cyanosis. No clubbing. No peripheral edema. LOWER EXTREMITIES: 2+ pulses, warm, well-perfused. No calf tenderness. No peripheral edema. NEUROLOGICAL: Cranial nerves II-XII intact. Normal speech. Normal gait. PSYCHIATRIC: Cooperative. Good eye contact. Appropriate mood and affect. SKIN: Warm, dry, normal turgor, no rashes or lesions noted, normal capillary refill. ASSESSMENT/PLAN: Ivanna Roberts is an 88 year old female with a PMH of HTN, HLD, COPD, CAD, CVA/ TIAs, thoracic aortic aneurysm (type B), PVD, and CKD admitted for Admitting Diagnosis Acute on Chronic COPD exacerbation Chronic Conditions HTN HLD COPD CAD CVA/TIA PVD #Acute on chronic COPD Exacerbation #SOB, PNA? -fio2 to kepp >96% -oxygen 2L PRN -Duonebs -IV solumedrol 40mg Q8 hrs -will cont with IV ABT (Azithro, rocephin) -Pulm consult -blood cx in process #HTN #HLD #CAD -s/p PPM -on plavix, statin, BB -resume home BP meds -Lisinopril on hold, pending lab results #CVA/TIA -c/w Plavix, statin #Thoracic Aneurysm-stable -high risk for vascular complication from EVAR approach (small, calcified peripheral vessels) and high risk for open repair. - pt declined intervention #CKD -baseline 1.2 -CMP pending -monitor please clarify Code status Visit type - Emergency Visit Emergency Visit: Yes Care time: The patient presented to the Emergency Department on the above date and was hospitalized for further evaluation of their emergent condition. - New Patient This patient is new to me today: Yes Date on this admission: 06/10/19 - Critical Care Critical Care patient: No
[2019-06-10] MEDS ORDERED: traMADol HCL 50 MG TABLET PO PRN (15:54)
[2019-06-10] MEDS ORDERED: CARVEDILOL 3.125 MG TABLET (FP) PO SCH (16:00)
[2019-06-10] MEDS ORDERED: AZITHROMYCIN 500 MG VIAL IVPB ONE (16:33)
[2019-06-10 16:48] LABS: EOS % 0.1 % (0-4.5); HEMATOCRIT 37.4 % (32.4-45.2); HEMOGLOBIN 12.3 GM/dl (10.7-15.3); LYMPH % 5.9 % (8-40); MCH 28.2 pg (25.7-33.7); MCHC 32.8 g/dl (32.0-36.0); MEAN CELL VOLUME 85.8 fl (80-96); MEAN PLT VOLUME 9.9 fl (7.5-11.1); MONO % 4.9 % (3.8-10.2); NEUT % 89.1 % (42.8-82.8); PLATELET COUNT 211 K/MM3 (134-434); RBC 4.36 M/mm3 (3.60-5.2); WHITE BLOOD COUNT 13.3 K/mm3 (4.0-10.8)
[2019-06-10 16:55] LABS: ALBUMIN 3.5 g/dl (3.4-5.0); BILIRUBIN,TOTAL 0.6 mg/dl (0.2-1); CALCIUM 8.3 mg/dl (8.5-10); CREATININE 1.3 mg/dl (0.55-1.3); MAGNESIUM 1.9 mg/dL (1.8-2.4); POTASSIUM 4.2 mmol/L (3.5-5.1); TOT PROT 6.7 g/dl (6.4-8.2)
[2019-06-10] MEDS: ALBUTEROL SO4 2.5/IPRATROPIUM 0.5 INH SOL 3 ML VIAL.NEB. NEB SCH ×2 (16:55→22:16)
[2019-06-10 16:56] LABS: INR 1.08 (0.82-1.09); PROTHROMBIN TIME (PATIENT) 12.1 SEC (10.2-13.0)
--- NOTE | 2019-06-10 17:29 | PDOC ---
Attending Attestation - Resident Resident Name: Kip Bailey - ED Attending Attestation I have performed the following: I have examined & evaluated the patient, The case was reviewed & discussed with the resident, I agree w/resident's findings & plan, Exceptions are as noted - HPI HPI: 06/10/19 17:29 Worsening productive cough over approximately 1 week. History of COPD. Begun on steroids yesterday. No antibiotics. No fever/chills, no chest pain, but feels short of breath. 06/10/19 17:35 Recent UTI treated with antibiotics, finished therapy 3 days ago. - Physicial Exam PE: 06/10/19 17:31 Physical exam: Alert cooperative mild respiratory distress, wet sounding cough. No significant tachypnea or dyspnea Afebrile, vital signs normal with normal respiratory rate and O2 saturation ENT clear Neck supple without bruit mass or nodes Lungs with diffuse inspiratory and expiratory wheezing bilaterally, and localized rales at the left base posteriorly. CV S1-S2 normal without murmur rub or gallop pulses full and symmetric no JVD or edema no bruits Abdomen soft nontender without mass organomegaly Neurological C2 to 12 intact. Generalized weakness but no focal sensorimotor deficits. Cerebellar intact Extremities no CCE Dry mucous membranes - Medical Decision Making 06/10/19 17:33 Assessment: Acute exacerbation of COPD, rule out pneumonia Plan: Chest x-ray reveals hyperinflation and diffuse interstitial disease, without any sign of an acute infiltrate that would suggest pneumonia. EKG with no acute ST-T wave changes. Paced rhythm with rate of 70 Laboratories with white count of 13.3, BUN of 41, creatinine 1.3, normal troponin. Admit to hospitalist with acute exacerbation of COPD. Cultures of the blood in the urine. Empiric antibiotic therapy for community-acquired pneumonia. Monitoring and chest PT. Patient remains clinically and hemodynamically stable with no signs of sepsis.
[2019-06-10 18:52] LABS: EPITHELIAL CELLS FEW /hpf
[2019-06-10] MEDS ORDERED: guaiFENesin 200 MG/10 ML 10 ML UNIT-DOSE CUPS PO ONE (19:33)
[2019-06-10] MEDS ORDERED: guaiFENesin/D-METHORPHAN HB 10 ML UNIT-DOSE CUPS ONE (19:42)
[2019-06-10] MEDS ORDERED: methylPREDNISolone NA SUCC 40 MG/1 ML VIAL ONE (19:43)
[2019-06-10] MEDS: methylPREDNISolone NA SUCC 40 MG/1 ML VIAL IVPUSH SCH (19:52)
[2019-06-10] MEDS ORDERED: CARVEDILOL 6.25 MG TABLET (FP) PO ONE (21:36)
[2019-06-10] MEDS ORDERED: amLODIPine BESYLATE 5 MG TABLET (FP) PO SCH (22:00)
[2019-06-10] MEDS ORDERED: CARVEDILOL 3.125 MG TABLET (FP) PO ONE (22:09)
[2019-06-10] MEDS: ATORVASTATIN CA 80 MG TABLET (FP) PO SCH (22:17)
[2019-06-10] MEDS: DICYCLOMINE HCL 10 MG CAPSULE PO SCH (22:17)
[2019-06-10] MEDS: ALPRAZolam 0.25 MG TABLET PO PRN (22:18)
[2019-06-10] MEDS: HEPARIN NA (PORCINE) 5,000 UNITS/ML 1ML VIAL SQ SCH (22:19)
[2019-06-10 23:04] VITALS: BMI 22.8
[2019-06-11] MEDS: methylPREDNISolone NA SUCC 40 MG/1 ML VIAL IVPUSH SCH ×3 (01:38→18:25)
[2019-06-11] MEDS: HEPARIN NA (PORCINE) 5,000 UNITS/ML 1ML VIAL SQ SCH ×3 (06:17→21:33)
[2019-06-11] MEDS: DICYCLOMINE HCL 10 MG CAPSULE PO SCH ×3 (06:17→21:31)
[2019-06-11] MEDS: ALBUTEROL SO4 2.5/IPRATROPIUM 0.5 INH SOL 3 ML VIAL.NEB. NEB SCH ×4 (08:10→21:32)
[2019-06-11 08:22] LABS: BASO % 0.1 % (0-2.0); HEMATOCRIT 36.2 % (32.4-45.2); HEMOGLOBIN 11.7 GM/dl (10.7-15.3); LYMPH % 8.4 % (8-40); MCHC 32.4 g/dl (32.0-36.0); MEAN CELL VOLUME 86.3 fl (80-96); MEAN PLT VOLUME 9.6 fl (7.5-11.1); MONO % 2.5 % (3.8-10.2); PLATELET COUNT 199 K/MM3 (134-434); RBC 4.19 M/mm3 (3.60-5.2); RDW 14.4 % (11.6-15.6); WHITE BLOOD COUNT 11.9 K/mm3 (4.0-10.8)
[2019-06-11 08:26] LABS: BILIRUBIN,TOTAL 0.4 mg/dl (0.2-1); CALCIUM 8.3 mg/dl (8.5-10); MAGNESIUM 1.7 mg/dL (1.8-2.4); POTASSIUM 4.5 mmol/L (3.5-5.1); TOT PROT 6.3 g/dl (6.4-8.2)
[2019-06-11] MEDS ORDERED: cloNIDine-TTS 0.1 MG/24 HRS PATCH.TDWK TD SCH (10:00)
[2019-06-11] MEDS ORDERED: AMITRIPTYLINE HCL 10 MG TABLET (FP) PO SCH (10:00)
[2019-06-11] MEDS ORDERED: AZITHROMYCIN IVPB 500 MG/250 ML BAG IVPB ONE (10:00)
[2019-06-11] MEDS ORDERED: PATIENT'S OWN MEDICATION (NON-FORMULARY) (Tiotropium Bromide [Spiriva] 1 INH) PO SCH (10:00)
[2019-06-11] MEDS: CLOPIDOGREL BISULFATE 75 MG TABLET (FP) PO SCH (10:10)
[2019-06-11] MEDS: TIOTROPIUM BROMIDE 2.5 MCG (SPIRIVA) RESPIMAT INHALER IH SCH (10:10)
[2019-06-11] MEDS: CEFTRIAXONE 1 G/50 ML PREMIX 50 ML IVPB SCH (10:15)
--- NOTE | 2019-06-11 11:34 | EKG ---
Test Reason : Blood Pressure : / mmHG Vent. Rate : 076 BPM Atrial Rate : 082 BPM P-R Int : 000 ms QRS Dur : 080 ms QT Int : 356 ms P-R-T Axes : 076 066 037 degrees QTc Int : 400 ms Ventricular-paced rhythm ABNORMAL ECG WHEN COMPARED WITH ECG OF 27-FEB-2019 03:02, VENT. RATE HAS INCREASED BY 9 BPM Confirmed by DYAN ANAYA MD ([id number]) on 06/11/2019 11:33:56 AM Referred By: Confirmed By:DYAN ANAYA MD
[2019-06-11] MEDS: guaiFENesin/D-METHORPHAN TAB.ER.12H PO SCH ×2 (12:20→21:32)
[2019-06-11] MEDS ORDERED: LISINOPRIL 10 MG TABLET (FP) PO SCH ×2 (13:30→16:15)
[2019-06-11] MEDS ORDERED: CARVEDILOL 6.25 MG TABLET (FP) PO ONE (13:35)
[2019-06-11] MEDS ORDERED: CARVEDILOL 6.25 MG TABLET (FP) PO SCH (14:00)
[2019-06-11] MEDS ORDERED: LISINOPRIL 10 MG TABLET (FP) PO ONE (14:30)
[2019-06-11] MEDS: PANTOPRAZOLE 40 MG TABLET (FP) PO SCH (14:45)
[2019-06-11] MEDS ORDERED: CARVEDILOL PO SCH (15:00)
--- NOTE | 2019-06-11 15:50 | CON.CARD ---
Cardiology Consult (text) - Consultation Consultation Note: cc: cough, dyspnea hpi: 88 f hx htn c/b orthostatic hypotension, ppm, prior cva, descd thoracic aortic aneurysm, copd p/w cough, dyspnea. Sees dr gomez for cardio. Last couple of days had cough productive of green sputum, dyspnea. No chest pain, palps, dizziness, edema. Feels better, still short of breath with activities. pmh: per hpi psh: ppm, knee social: no tob fam: no premature cad ros: per hpi; meds: Ambulatory Orders Amlodipine Besylate 5 mg PO HS 10/27/18 Atorvastatin Ca [Lipitor] 80 mg PO HS 10/27/18 Clopidogrel Bisulfate [Clopidogrel] 75 mg PO DAILY 10/27/18 Tramadol HCl 50 mg PO QID PRN 10/27/18 Albuterol 0.083% Nebulizer Yamini [Ventolin 0.083% Nebulizer Soln -] 1 neb NEB BID 11/16/18 Alprazolam [Xanax] 0.25 mg PO BID PRN 02/27/19 Amitriptyline HCl [Elavil -] 10 mg PO DAILY 02/27/19 Carvedilol 9.375 mg PO TID 02/27/19 Clonidine Patch [Catapres Tts Patch -] 0.1 mg TD WEEKLY 02/27/19 Dicyclomine HCl 10 mg PO TID 02/27/19 Lisinopril 10 mg PO PRN 02/27/19 Tiotropium [place] [Spiriva] 1 inh PO DAILY 02/27/19 Current Medications Albuterol/Ipratropium (Duoneb -) 1 amp NEB Q6H PRN PRN Reason: SHORTNESS OF BREATH Amlodipine Besylate (Norvasc -) 5 mg PO DAILY DARIUS Carvedilol (Coreg -) 6.25 mg PO BID DARIUS Clonidine HCl (Catapres Tts Patch -) 0.1 mg TD WEEKLY DARIUS Dicyclomine HCl (Bentyl -) 10 mg PO TID DARIUS Enoxaparin Sodium (Lovenox -) 40 mg SQ DAILY DARIUS Hydrochlorothiazide (Hctz -) 12.5 mg PO HS DARIUS Lisinopril (Prinivil) 10 mg PO BID DARIUS Tiotropium [place] (Spiriva Respimat) 2 puff IH DAILY DARIUS Vital Signs Period Temp Pulse Resp BP Sys/Grover Pulse Ox Last 24 Hr 97.4 F-97.9 F 68-98 18-22 137-189/50-89 90-96 nad no jvd rrr s1s2 no mrg cta bl nl eff aaox3 no le e/c/c abd nt nd pos bs no jaundice diaphoresis pos dp pt no carotid bruits Laboratory Last Values WBC 11.9 K/mm3 (4.0-10.8) H 06/11/19 07:22 RBC 4.19 M/mm3 (3.60-5.2) 06/11/19 07:22 Hgb 11.7 GM/dl (10.7-15.3) 06/11/19 07:22 Hct 36.2 % (32.4-45.2) 06/11/19 07:22 MCV 86.3 fl (80-96) 06/11/19 07:22 MCH 28.0 pg (25.7-33.7) 06/11/19 07:22 MCHC 32.4 g/dl (32.0-36.0) 06/11/19 07:22 RDW 14.4 % (11.6-15.6) 06/11/19 07:22 Plt Count 199 K/MM3 (134-434) 06/11/19 07:22 MPV 9.6 fl (7.5-11.1) 06/11/19 07:22 Absolute Neuts (auto) 10.6 K/mm3 06/11/19 07:22 Neutrophils % 89.0 % (42.8-82.8) H 06/11/19 07:22 Lymphocytes % 8.4 % (8-40) 06/11/19 07:22 Monocytes % 2.5 % (3.8-10.2) L 06/11/19 07:22 Eosinophils % 0.0 % (0-4.5) 06/11/19 07:22 Basophils % 0.1 % (0-2.0) 06/11/19 07:22 PT with INR 12.1 SEC (10.2-13.0) 06/10/19 15:40 INR 1.08 (0.82-1.09) 06/10/19 15:40 PTT (Actin FS) 26.8 SECONDS (25.2-36.5) 06/10/19 15:40 Sodium 140 mmol/L (136-145) 06/11/19 07:22 Potassium 4.5 mmol/L (3.5-5.1) 06/11/19 07:22 Chloride 111 mmol/L (98-107) H 06/11/19 07:22 Carbon Dioxide 21 mmol/L (21-32) 06/11/19 07:22 Anion Gap 8 MMOL/L (8-16) 06/11/19 07:22 BUN 30.0 mg/dl (7-18) H 06/11/19 07:22 Creatinine 1.0 mg/dl (0.55-1.3) 06/11/19 07:22 Est GFR (CKD-EPI)AfAm 58.25 06/11/19 07:22 Est GFR (CKD-EPI)NonAf 50.26 06/11/19 07:22 Random Glucose 143 mg/dl (74-106) H 06/11/19 07:22 Calcium 8.3 mg/dl (8.5-10) L 06/11/19 07:22 Magnesium 1.7 mg/dL (1.8-2.4) L 06/11/19 07:22 Total Bilirubin 0.4 mg/dl (0.2-1) 06/11/19 07:22 AST 23 U/L (15-37) 06/11/19 07:22 ALT 20 U/L (13-61) 06/11/19 07:22 Alkaline Phosphatase 89 U/L (45-117) D 06/11/19 07:22 Creatine Kinase 171 U/L (26-192) 06/10/19 15:40 Creatine Kinase Index 2.9 % (0.0-5.0) 06/10/19 15:40 CK-MB (CK-2) 5.0 ng/mL (0.5-3.6) H 06/10/19 15:40 Troponin I < 0.03 ng/ml (0.00-0.05) 06/10/19 15:40 B-Natriuretic Peptide 1738.6 pg/ml (5-450) H 06/10/19 15:40 Total Protein 6.3 g/dl (6.4-8.2) L 06/11/19 07:22 Albumin 3.0 g/dl (3.4-5.0) L 06/11/19 07:22 Urine Color Yellow 06/10/19 16:30 Urine Appearance Clear 06/10/19 16:30 Urine pH 5.5 (4.5-8) 06/10/19 16:30 Urine Protein Negative (NEGATIVE) 06/10/19 16:30 Urine Glucose (UA) Negative (NEGATIVE) 06/10/19 16:30 Urine Ketones Negative (NEGATIVE) 06/10/19 16:30 Urine Blood 1+ (NEGATIVE) H 06/10/19 16:30 Urine Nitrite Negative (NEGATIVE) 06/10/19 16:30 Urine Bilirubin Negative (NEGATIVE) 06/10/19 16:30 Urine Urobilinogen 0.2 (0.2-1.0) 06/10/19 16:30 Ur Leukocyte Esterase Trace (NEGATIVE) H 06/10/19 16:30 Urine RBC 2-5 /hpf (0-4) 06/10/19 16:30 Urine WBC 2-5 (NEGATIVE) 06/10/19 16:30 Ur Transition Epith Cell Few /hpf 06/10/19 16:30 Influenza A (Rapid) Negative (Negative) 06/11/19 11:45 Influenza B (Rapid) Negative (Negative) 06/11/19 11:45 tele: sr, a paced 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 both aneurysm with extensive mural thrombus with no gross evidence of dissection or impending rupture. echo 06/2017: nl lv/rv, no sig valve path, nl rvsp echo 08/2018 nl LV/RV, mild to mod TR, desc ao aneurysm 4.4 cm mibi 09/2016: no ischemia a/p: 88 f hx htn c/b orthostatic hypotension, ppm, prior cva, descd thoracic aortic aneurysm, copd p/w high BP COPD exac, PNA - nebs, steroids per primary, pulm HTN - history of labile BPs with weakness when SBP 100s-120s - history of expanding TAA - now 7.[address] here - on clonidine patch - BP meds at home most recently per Dr. Gomez note :in AM BP >150 take carvedilol 9.375 mg and amlodipine 5 mg; BP 120-150: carvedilol 9.375; SBP <120 no meds. lunch time BP >150: lisinopril 10 mg; <150 mg no meds; 4 PM BP >150 take carvedilol 9.375 mg and amlodipine 5 mg; BP 130-150: carvedilol 9.375 mg; < 130 no meds. 10 PM BP >180 carvedilol 9.375 mg and amlodipine 5 mg; BP 130-180 : carvedilol 9.375 mg alone; BP <130 no meds. If any time BP >180 repeat 1 hour later, if BP still >180 take lisinopril 10 mg - currently BP controlled here on lisinopril, HCTZ, clonidine patch, amlodipine. given BP stable at this point will continue same reg for now, monitor BP with plan to continue PRN regimen on discharge with close follow up with Dr. 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 pt declined intervention and has not followed up. defer intervention at this point - BP control as above CKD: - Cr at baseline ppm, [place] [employer]: -nl fxn on outpt routine interrogations in office CAD - cor calcium on chest CT, no ischemia on mibi 2016 - cont plavix, statin, bb HPL: -continue home statin CVA - cont plavix, statin
--- NOTE | 2019-06-11 18:10 | CON.PULM ---
Consult Consult Specialty:: PULMONARY Referred by:: ALEXANDRA Reason for Consultation:: PNEUMONIA/COPD - History of Present Illness Chief Complaint: COUGH/SOB History of Present Illness: 88 y/o F with hx of thoracic and abdominal aortic aneurysm, HTN, HLD, COPD, CAD s/p PM, CVA, CKD presenting with cough and SOB. Her cough started 2.5 weeks ago but over the past week she has been having worsening cough productive of green sputum with SOB on exertion. She reports her cough is so bad that she has been having stress incontinence. She also reports pleuritic chest pain. She was seen at an urgent care recently and was given prednisone and neb treatments for home. She reports neb treatments only helps for 30min. She denies fever, chills , n/v. - History Source History Provided By: Patient, Medical Record Limitations to Obtaining History: Clinical Condition - Past Medical History MANAGER CENTER: No: Alzheimer's Cardio/Vascular: Yes: CAD, HTN, Other (AAA) Pulmonary: Yes: COPD Gastrointestinal: Yes: Diverticulitis, Diverticulosis, Other (C. DIff colitis 2013) ...: No Musculoskeletal: Yes: Chronic low back pain - Past Surgical History Past Surgical History: Yes: Permanent Pacemaker - Alcohol/Substance Use Hx Alcohol Use: No History of Substance Use: reports: None - Smoking History Smoking history: Former smoker Have you smoked in the past 12 months: No If you are a former smoker, when did you quit?: 2013 - Social History Usual Living Arrangement: With Spouse ADL: Independent History of Recent Travel: No Home Medications - Allergies Allergies/Adverse Reactions: Allergies Allergy/AdvReac Type Severity Reaction Status Date / Time ciprofloxacin [From Cipro] Allergy Unknown Hives Verified 05/14/19 11:25 - Home Medications Home Medications: Ambulatory Orders Amlodipine Besylate 5 mg PO HS 10/27/18 Atorvastatin Ca [Lipitor] 80 mg PO HS 10/27/18 Clopidogrel Bisulfate [Clopidogrel] 75 mg PO DAILY 10/27/18 Tramadol HCl 50 mg PO QID PRN 10/27/18 Albuterol 0.083% Nebulizer Yamini [Ventolin 0.083% Nebulizer Soln -] 1 neb NEB BID 11/16/18 Alprazolam [Xanax] 0.25 mg PO BID PRN 02/27/19 Amitriptyline HCl [Elavil -] 10 mg PO DAILY 02/27/19 Carvedilol 9.375 mg PO TID 02/27/19 Clonidine Patch [Catapres Tts Patch -] 0.1 mg TD WEEKLY 02/27/19 Dicyclomine HCl 10 mg PO TID 02/27/19 Lisinopril 10 mg PO PRN 02/27/19 Tiotropium [place] [Spiriva] 1 inh PO DAILY 02/27/19 Review of Systems Unable to obtain ROS, reason: POOR HISTORIAN Physical Exam Vital Sings: Vital Signs Temperature 97.4 F L 06/11/19 11:30 Pulse Rate 74 06/11/19 11:30 Respiratory Rate 18 06/11/19 11:30 Blood Pressure 183/71 H 06/11/19 11:30 O2 Sat by Pulse Oximetry (%) 94 L 06/11/19 11:30 Constitutional: Yes: Calm Eyes: Yes: EOM Intact HENT: Yes: Normocephalic Neck: Yes: Trachea Midline Cardiovascular: Yes: S1, S2 Respiratory: Yes: Cough, Rhonchi Gastrointestinal: Yes: Normal Bowel Sounds Edema: No Neurological: Yes: Oriented Psychiatric: Yes: Alert Labs: CBC, BMP 06/11/19 07:22 06/11/19 07:22 REST REVIEWED Imaging - Results Chest X-ray: Report Reviewed, Image Reviewed Cat Scan: Report Reviewed, Image Reviewed Problem List - Problems (1) Pneumonia Code(s): J18.9 - PNEUMONIA, UNSPECIFIED ORGANISM (2) COPD exacerbation Code(s): J44.1 - CHRONIC OBSTRUCTIVE PULMONARY DISEASE W (ACUTE) EXACERBATION (3) Cerebrovascular accident (CVA) Code(s): I63.9 - CEREBRAL INFARCTION, UNSPECIFIED Assessment/Plan PANCULTURE/INFLU NASAL SWAB /O2/IV FLUIDS/ANTIBIOTICS/BRONCHODILATORS/STEROIDS DVT PROPHYLAXSIS CONTINUE HOME MEDS Luis BAILEY MD
[2019-06-11] MEDS: ATORVASTATIN CA 80 MG TABLET (FP) PO SCH (21:32)
[2019-06-11] MEDS ORDERED: PT OWN MED DRAWER 7, Y5N ONE (21:47)
[2019-06-11] MEDS ORDERED: INSULIN (NOVOLOG) ASPART 100 UNITS/ML 10ML VIAL SQ SCH (22:00)
[2019-06-11] MEDS ORDERED: ALBUTEROL SO4 0.083% IH SOL 2.5 MG/3 ML VIAL.NEB. NEB SCH (22:00)
[2019-06-11] MEDS: CARVEDILOL PO SCH (22:13)
[2019-06-11] MEDS ORDERED: CARVEDILOL 6.25 MG TABLET (FP) ONE (22:16)
[2019-06-11] MEDS ORDERED: CARVEDILOL 3.125 MG TABLET (FP) ONE (22:16)
[2019-06-12] MEDS: methylPREDNISolone NA SUCC 40 MG/1 ML VIAL IVPUSH SCH ×3 (02:13→18:02)
[2019-06-12] MEDS ORDERED: CARVEDILOL 3.125 MG TABLET (FP) ONE ×3 (04:21→20:53)
[2019-06-12] MEDS ORDERED: CARVEDILOL 6.25 MG TABLET (FP) ONE ×3 (04:21→20:53)
[2019-06-12] MEDS: ALPRAZolam 0.25 MG TABLET PO PRN (04:22)
[2019-06-12] MEDS: HEPARIN NA (PORCINE) 5,000 UNITS/ML 1ML VIAL SQ SCH ×3 (06:23→21:40)
[2019-06-12] MEDS: CARVEDILOL PO SCH ×3 (06:23→21:40)
[2019-06-12] MEDS: DICYCLOMINE HCL 10 MG CAPSULE PO SCH ×3 (06:23→21:40)
[2019-06-12 07:59] LABS: BASO % 0.1 % (0-2.0); EOS % 0.1 % (0-4.5); HEMATOCRIT 35.3 % (32.4-45.2); HEMOGLOBIN 11.7 GM/dl (10.7-15.3); LYMPH % 8.6 % (8-40); MCH 28.8 pg (25.7-33.7); MCHC 33.2 g/dl (32.0-36.0); MEAN CELL VOLUME 86.7 fl (80-96); MEAN PLT VOLUME 9.6 fl (7.5-11.1); MONO % 5.1 % (3.8-10.2); NEUT % 86.1 % (42.8-82.8); PLATELET COUNT 208 K/MM3 (134-434); RBC 4.08 M/mm3 (3.60-5.2); RDW 14.2 % (11.6-15.6); WHITE BLOOD COUNT 11.2 K/mm3 (4.0-10.8)
[2019-06-12 08:11] LABS: ALBUMIN 2.8 g/dl (3.4-5.0); BILIRUBIN,TOTAL 0.1 mg/dl (0.2-1); CALCIUM 7.9 mg/dl (8.5-10); CREATININE 1.2 mg/dl (0.55-1.3); MAGNESIUM 1.8 mg/dL (1.8-2.4); POTASSIUM 4.4 mmol/L (3.5-5.1)
[2019-06-12] MEDS: PANTOPRAZOLE 40 MG TABLET (FP) PO SCH (09:14)
[2019-06-12] MEDS: LISINOPRIL 10 MG TABLET (FP) PO SCH ×2 (09:14→21:40)
[2019-06-12] MEDS: guaiFENesin/D-METHORPHAN TAB.ER.12H PO SCH ×2 (09:14→21:39)
[2019-06-12] MEDS: ALBUTEROL SO4 2.5/IPRATROPIUM 0.5 INH SOL 3 ML VIAL.NEB. NEB SCH ×4 (09:14→21:40)
[2019-06-12] MEDS: CEFTRIAXONE 1 G/50 ML PREMIX 50 ML IVPB SCH (09:14)
[2019-06-12] MEDS: CLOPIDOGREL BISULFATE 75 MG TABLET (FP) PO SCH (09:34)
--- NOTE | 2019-06-12 09:55 | PN ---
Progress Note (short form) - Note Progress Note: PULMONARY AMBULATING IN HALLWAY WITH PT VSS/AFEBRILE SUBJECTIVE IMPROVEMENT PALE/ANICTERIC RHONCHI/EXP WHEEZE BUT LESS S1S2 BS+ NO EDEMA LABS/MEDS/NOTES/IMAGES/MICRO REVIEWED (1) Pneumonia Code(s): J18.9 - PNEUMONIA, UNSPECIFIED ORGANISM (2) COPD exacerbation Code(s): J44.1 - CHRONIC OBSTRUCTIVE PULMONARY DISEASE W (ACUTE) EXACERBATION (3) Cerebrovascular accident (CVA) Code(s): I63.9 - CEREBRAL INFARCTION, UNSPECIFIED Assessment/Plan PANCULTURE/INFLU NASAL SWAB NEGATIVE /O2/IV FLUIDS/ANTIBIOTICS/BRONCHODILATORS/STEROIDS DVT PROPHYLAXSIS CONTINUE HOME MEDS R LYNN CASTELLANOS Problem List - Problems (1) Pneumonia Code(s): J18.9 - PNEUMONIA, UNSPECIFIED ORGANISM (2) COPD exacerbation Code(s): J44.1 - CHRONIC OBSTRUCTIVE PULMONARY DISEASE W (ACUTE) EXACERBATION (3) Cerebrovascular accident (CVA) Code(s): I63.9 - CEREBRAL INFARCTION, UNSPECIFIED
[2019-06-12] MEDS ORDERED: amLODIPine BESYLATE 5 MG TABLET (FP) PO SCH ×2 (10:00)
[2019-06-12] MEDS: TIOTROPIUM BROMIDE 2.5 MCG (SPIRIVA) RESPIMAT INHALER IH SCH (11:00)
[2019-06-12] MEDS: AZITHROMYCIN IVPB 250 MG in DEXTROSE 5%-WATER - 250 ML IVPB SCH (11:00)
--- NOTE | 2019-06-12 12:52 | PN ---
Progress Note (short form) - Note Progress Note: s: no cp palps dizzy; sob improving Current Medications Generic Name Dose Route Start Last Admin Trade Name Freq PRN Reason Stop Dose Admin Albuterol/Ipratropium 1 amp 06/10/19 16:00 06/12/19 09:14 Duoneb - NEB 1 amp RQID DARIUS Administration Alprazolam 0.25 mg 06/10/19 15:54 06/12/19 04:22 Xanax - PO 0.25 mg Q12H PRN Administration ANXIETY Amlodipine Besylate 5 mg 06/12/19 10:00 06/12/19 09:14 Norvasc - PO 5 mg DAILY DARIUS Administration Atorvastatin Calcium 80 mg 06/10/19 22:00 06/11/19 21:32 Lipitor - PO 80 mg HS DARIUS Administration Carvedilol 3.125 mg/ 9.375 mg 06/11/19 22:00 06/12/19 06:23 Carvedilol 6.25 mg PO 9.375 mg TID DARIUS Administration Clonidine HCl 0.1 mg 06/15/19 10:00 Catapres Tts Patch - TD Fr@1000 DARIUS Clopidogrel Bisulfate 75 mg 06/11/19 10:00 06/12/19 09:34 Plavix - PO 75 mg DAILY DARIUS Administration Dicyclomine HCl 10 mg 06/10/19 22:00 06/12/19 06:23 Bentyl - PO 10 mg TID DARIUS Administration Guaifenesin 1 tablet 06/11/19 12:00 06/12/19 09:14 Mucinex Dm - PO 1 tablet BID DARIUS Administration Heparin Sodium (Porcine) 5,000 unit 06/10/19 22:00 06/12/19 06:23 Heparin - SQ 5,000 unit TID DARIUS Administration Ceftriaxone Sodium 50 mls @ 100 mls/hr 06/11/19 10:00 06/12/19 09:14 Ceftriaxone 1 Gm-D5w Bag IVPB 100 mls/hr DAILY DARIUS Administration Protocol Azithromycin 250 mg/ Dextrose 250 mls @ 250 mls/hr 06/12/19 10:30 06/12/19 11 :00 IVPB 06/15/19 10:59 250 mls/hr DAILY DARIUS Administration Lisinopril 10 mg 06/12/19 10:00 06/12/19 09:14 Prinivil PO 10 mg BID DARIUS Administration Methylprednisolone Sodium Succinate 40 mg 06/10/19 18:00 06/12/19 09:54 Solu-Medrol - IVPUSH 40 mg Q8H-IV DARIUS Administration Pantoprazole Sodium 40 mg 06/11/19 12:00 06/12/19 09:14 Protonix - PO 40 mg DAILY DARIUS Administration Tiotropium [place] 2 puff 06/11/19 10:00 06/12/19 11:00 Spiriva Respimat IH 2 puff DAILY DARIUS Administration Tramadol HCl 50 mg 06/10/19 15:54 Ultram - PO QID PRN PAIN Vital Signs Period Temp Pulse Resp BP Sys/Grover Pulse Ox Last 24 Hr 97.7 F-98.0 F 71-76 18-20 142-173/73-94 94-100 nad no jvd rrr s1s2 no mrg cta bl nl eff aaox3 no le e/c/c abd nt nd pos bs no jaundice diaphoresis pos dp pt no carotid bruits CBC, BMP 06/12/19 07:26 06/12/19 07:26 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 both aneurysm with extensive mural thrombus with no gross evidence of dissection or impending rupture. echo 06/2017: nl lv/rv, no sig valve path, nl rvsp echo 08/2018 nl LV/RV, mild to mod TR, desc ao aneurysm 4.4 cm mibi 09/2016: no ischemia a/p: 88 f hx htn c/b orthostatic hypotension, ppm, prior cva, descd thoracic aortic aneurysm, copd p/w high BP COPD exac, PNA - nebs, steroids per primary, pulm HTN - history of labile BPs with weakness when SBP 100s-120s - history of expanding TAA - now 7.[address] here - on clonidine patch - BP meds at home most recently per Dr. Gomez note :in AM BP >150 take carvedilol 9.375 mg and amlodipine 5 mg; BP 120-150: carvedilol 9.375; SBP <120 no meds. lunch time BP >150: lisinopril 10 mg; <150 mg no meds; 4 PM BP >150 take carvedilol 9.375 mg and amlodipine 5 mg; BP 130-150: carvedilol 9.375 mg; < 130 no meds. 10 PM BP >180 carvedilol 9.375 mg and amlodipine 5 mg; BP 130-180 : carvedilol 9.375 mg alone; BP <130 no meds. If any time BP >180 repeat 1 hour later, if BP still >180 take lisinopril 10 mg - currently BP controlled here on lisinopril, HCTZ, clonidine patch, amlodipine. given BP stable at this point will continue same reg for now, monitor BP with plan to continue PRN regimen on discharge with close follow up with Dr. 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 pt declined intervention and has not followed up. defer intervention at this point - BP control as above CKD: - Cr at baseline ppm, [employer]: -nl fxn on outpt routine interrogations in office CAD - cor calcium on chest CT, no ischemia on mibi 2016 - cont plavix, statin, bb HPL: -continue home statin CVA - cont plavix, statin
[2019-06-12] MEDS: ATORVASTATIN CA 80 MG TABLET (FP) PO SCH (21:40)
[2019-06-13] MEDS: ALPRAZolam 0.25 MG TABLET PO PRN
[2019-06-13] MEDS: methylPREDNISolone NA SUCC 40 MG/1 ML VIAL IVPUSH SCH ×2 (02:49→10:32)
[2019-06-13] MEDS ORDERED: CARVEDILOL 3.125 MG TABLET (FP) ONE ×2 (06:22→13:22)
[2019-06-13] MEDS ORDERED: CARVEDILOL 6.25 MG TABLET (FP) ONE ×2 (06:22→13:22)
[2019-06-13] MEDS: CARVEDILOL PO SCH ×2 (06:48→13:23)
[2019-06-13] MEDS: DICYCLOMINE HCL 10 MG CAPSULE PO SCH ×3 (06:48→21:23)
[2019-06-13] MEDS: HEPARIN NA (PORCINE) 5,000 UNITS/ML 1ML VIAL SQ SCH ×3 (06:49→21:23)
[2019-06-13] MEDS: ALBUTEROL SO4 2.5/IPRATROPIUM 0.5 INH SOL 3 ML VIAL.NEB. NEB SCH ×4 (08:32→20:29)
[2019-06-13] MEDS: CEFTRIAXONE 1 G/50 ML PREMIX 50 ML IVPB SCH (09:00)
[2019-06-13 09:08] LABS: BASO % 0.2 % (0-2.0); HEMATOCRIT 42.2 % (32.4-45.2); HEMOGLOBIN 13.8 GM/dl (10.7-15.3); LYMPH % 10.2 % (8-40); MCH 28.4 pg (25.7-33.7); MCHC 32.6 g/dl (32.0-36.0); MEAN CELL VOLUME 86.9 fl (80-96); MEAN PLT VOLUME 9.3 fl (7.5-11.1); MONO % 3.1 % (3.8-10.2); NEUT % 86.5 % (42.8-82.8); PLATELET COUNT 288 K/MM3 (134-434); RBC 4.85 M/mm3 (3.60-5.2); RDW 14.3 % (11.6-15.6); WHITE BLOOD COUNT 13.1 K/mm3 (4.0-10.8)
[2019-06-13 09:12] LABS: ALBUMIN 3.3 g/dl (3.4-5.0); BILIRUBIN,TOTAL 0.3 mg/dl (0.2-1); CALCIUM 8.4 mg/dl (8.5-10); CREATININE 1.2 mg/dl (0.55-1.3); MAGNESIUM 1.9 mg/dL (1.8-2.4); POTASSIUM 4.6 mmol/L (3.5-5.1); TOT PROT 6.9 g/dl (6.4-8.2)
[2019-06-13] MEDS ORDERED: LISINOPRIL 10 MG TABLET (FP) PO ONE ×2 (10:00→15:04)
[2019-06-13] MEDS: guaiFENesin/D-METHORPHAN TAB.ER.12H PO SCH ×2 (10:31→21:23)
[2019-06-13] MEDS: amLODIPine BESYLATE 5 MG TABLET (FP) PO SCH ×2 (10:31→21:23)
[2019-06-13] MEDS: CLOPIDOGREL BISULFATE 75 MG TABLET (FP) PO SCH (10:31)
[2019-06-13] MEDS: PANTOPRAZOLE 40 MG TABLET (FP) PO SCH (10:32)
[2019-06-13] MEDS: AZITHROMYCIN IVPB 250 MG in DEXTROSE 5%-WATER - 250 ML IVPB SCH (10:32)
[2019-06-13] MEDS: TIOTROPIUM BROMIDE 2.5 MCG (SPIRIVA) RESPIMAT INHALER IH SCH (10:32)
[2019-06-13] MEDS: LISINOPRIL 10 MG TABLET (FP) PO SCH ×2 (10:32→21:23)
--- NOTE | 2019-06-13 12:35 | PN ---
Progress Note (short form) - Note Progress Note: PULMONARY TALKING ON PHONE APPEARS STABLE VSS/AFEBRILE PALE/ANICTERIC RHONCHI/EXP WHEEZE BUT LESS S1S2 BS+ NO EDEMA LABS/MEDS/NOTES/IMAGES/MICRO REVIEWED (1) Pneumonia Code(s): J18.9 - PNEUMONIA, UNSPECIFIED ORGANISM (2) COPD exacerbation Code(s): J44.1 - CHRONIC OBSTRUCTIVE PULMONARY DISEASE W (ACUTE) EXACERBATION (3) Cerebrovascular accident (CVA) Code(s): I63.9 - CEREBRAL INFARCTION, UNSPECIFIED Assessment/Plan PANCULTURE/INFLU NASAL SWAB NEGATIVE SHOULD BE ABLE TO CHANGE TO ORAL STEROIDS IN AM /O2/IV FLUIDS NEEDED/ANTIBIOTICS/BRONCHODILATORS/STEROIDS DVT PROPHYLAXSIS CONTINUE HOME MEDS R LYNN CASTELLANOS Problem List - Problems (1) Pneumonia Code(s): J18.9 - PNEUMONIA, UNSPECIFIED ORGANISM (2) COPD exacerbation Code(s): J44.1 - CHRONIC OBSTRUCTIVE PULMONARY DISEASE W (ACUTE) EXACERBATION (3) Cerebrovascular accident (CVA) Code(s): I63.9 - CEREBRAL INFARCTION, UNSPECIFIED
[2019-06-13] MEDS ORDERED: amLODIPine BESYLATE 5 MG TABLET (FP) PO PRN ×2 (15:00→19:34)
--- NOTE | 2019-06-13 15:43 | PN ---
Documentation entered by Flora Huggins SCRIBE, acting as scribe for Amy Johnston NP. Physical Exam: SUBJECTIVE: Patient seen and examined oob to chair. Daughters present. Patient states she has a chronic cough but it has worsened over past few days. Report of chills prior coming to the hospital. OBJECTIVE: Vital Signs Period Temp Pulse Resp BP Sys/Grover Pulse Ox Last 24 Hr 97.5 F-97.9 F 68-98 20-22 137-189/50-90 90-96 GENERAL: A&Ox3, in no acute distress. LUNGS: Loose cough, dyspneic while speaking; prolonged expiratory phase; mild diffuse wheezing. HEART: Regular rate and rhythm, S1, S2 ABDOMEN: Soft, nontender, nondistended EXTREMITIES: 2+ pulses, warm, well-perfused, no edema. NEUROLOGICAL: Cranial nerves II through XII grossly intact. Normal speech, gait not observed. SKIN: Warm, dry, normal turgor Laboratory Results - last 24 hr 06/10/19 06/10/19 06/10/19 15:40 15:40 15:40 WBC 13.3 H RBC 4.36 Hgb 12.3 Hct 37.4 MCV 85.8 MCH 28.2 MCHC 32.8 RDW 14.0 D Plt Count 211 MPV 9.9 Absolute Neuts (auto) 11.9 Neutrophils % 89.1 H Lymphocytes % 5.9 L Monocytes % 4.9 Eosinophils % 0.1 Basophils % 0.0 PT with INR INR PTT (Actin FS) Sodium 140 Potassium 4.2 Chloride 108 H Carbon Dioxide 24 Anion Gap 8 BUN 41.0 H Creatinine 1.3 Est GFR (CKD-EPI)AfAm 42.42 Est GFR (CKD-EPI)NonAf 36.60 Random Glucose 92 Calcium 8.3 L Magnesium 1.9 Total Bilirubin 0.6 AST 25 ALT 23 Alkaline Phosphatase 101 Creatine Kinase Creatine Kinase Index CK-MB (CK-2) Troponin I B-Natriuretic Peptide 1738.6 H Total Protein 6.7 Albumin 3.5 Urine Color Urine Appearance Urine pH Urine Protein Urine Glucose (UA) Urine Ketones Urine Blood Urine Nitrite Urine Bilirubin Urine Urobilinogen Ur Leukocyte Esterase Urine RBC Urine WBC Ur Transition Epith Cell 06/10/19 06/10/19 06/10/19 15:40 15:40 15:40 WBC RBC Hgb Hct MCV MCH MCHC RDW Plt Count MPV Absolute Neuts (auto) Neutrophils % Lymphocytes % Monocytes % Eosinophils % Basophils % PT with INR 12.1 INR 1.08 PTT (Actin FS) 26.8 Sodium Potassium Chloride Carbon Dioxide Anion Gap BUN Creatinine Est GFR (CKD-EPI)AfAm Est GFR (CKD-EPI)NonAf Random Glucose Calcium Magnesium Total Bilirubin AST ALT Alkaline Phosphatase Creatine Kinase Creatine Kinase Index CK-MB (CK-2) Troponin I < 0.03 B-Natriuretic Peptide Total Protein Albumin Urine Color Urine Appearance Urine pH Urine Protein Urine Glucose (UA) Urine Ketones Urine Blood Urine Nitrite Urine Bilirubin Urine Urobilinogen Ur Leukocyte Esterase Urine RBC Urine WBC Ur Transition Epith Cell 06/10/19 06/10/19 06/11/19 15:40 16:30 07:22 WBC 11.9 H RBC 4.19 Hgb 11.7 Hct 36.2 MCV 86.3 MCH 28.0 MCHC 32.4 RDW 14.4 Plt Count 199 MPV 9.6 Absolute Neuts (auto) 10.6 Neutrophils % 89.0 H Lymphocytes % 8.4 Monocytes % 2.5 L Eosinophils % 0.0 Basophils % 0.1 PT with INR INR PTT (Actin FS) Sodium Potassium Chloride Carbon Dioxide Anion Gap BUN Creatinine Est GFR (CKD-EPI)AfAm Est GFR (CKD-EPI)NonAf Random Glucose Calcium Magnesium Total Bilirubin AST ALT Alkaline Phosphatase Creatine Kinase 171 Creatine Kinase Index 2.9 CK-MB (CK-2) 5.0 H Troponin I B-Natriuretic Peptide Total Protein Albumin Urine Color Yellow Urine Appearance Clear Urine pH 5.5 Urine Protein Negative Urine Glucose (UA) Negative Urine Ketones Negative Urine Blood 1+ H Urine Nitrite Negative Urine Bilirubin Negative Urine Urobilinogen 0.2 Ur Leukocyte Esterase Trace H Urine RBC 2-5 Urine WBC 2-5 Ur Transition Epith Cell Few 06/11/19 07:22 WBC RBC Hgb Hct MCV MCH MCHC RDW Plt Count MPV Absolute Neuts (auto) Neutrophils % Lymphocytes % Monocytes % Eosinophils % Basophils % PT with INR INR PTT (Actin FS) Sodium 140 Potassium 4.5 Chloride 111 H Carbon Dioxide 21 Anion Gap 8 BUN 30.0 H Creatinine 1.0 Est GFR (CKD-EPI)AfAm 58.25 Est GFR (CKD-EPI)NonAf 50.26 Random Glucose 143 H Calcium 8.3 L Magnesium 1.7 L Total Bilirubin 0.4 AST 23 ALT 20 Alkaline Phosphatase 89 D Creatine Kinase Creatine Kinase Index CK-MB (CK-2) Troponin I B-Natriuretic Peptide Total Protein 6.3 L Albumin 3.0 L Urine Color Urine Appearance Urine pH Urine Protein Urine Glucose (UA) Urine Ketones Urine Blood Urine Nitrite Urine Bilirubin Urine Urobilinogen Ur Leukocyte Esterase Urine RBC Urine WBC Ur Transition Epith Cell Active Medications Generic Name Dose Route Start Last Admin Trade Name Freq PRN Reason Stop Dose Admin Albuterol/Ipratropium 1 amp 06/10/19 16:00 06/10/19 22:16 Duoneb - NEB 1 amp RQID DARIUS Administration Alprazolam 0.25 mg 06/10/19 15:54 06/10/19 22:18 Xanax - PO 0.25 mg Q12H PRN Administration ANXIETY Amitriptyline HCl 10 mg 06/11/19 10:00 Elavil - PO DAILY DARIUS Amlodipine Besylate 5 mg 06/10/19 22:00 06/10/19 22:18 Norvasc - PO 5 mg HS DARIUS Administration Atorvastatin Calcium 80 mg 06/10/19 22:00 06/10/19 22:17 Lipitor - PO 80 mg HS DARIUS Administration Carvedilol 3.125 mg 06/10/19 16:00 Coreg - PO PRN DARIUS Clonidine HCl 0.1 mg 06/11/19 10:00 Catapres Tts Patch - TD Q7D DARIUS Clopidogrel Bisulfate 75 mg 06/11/19 10:00 Plavix - PO DAILY DARIUS Dicyclomine HCl 10 mg 06/10/19 22:00 06/11/19 06:17 Bentyl - PO Not Given TID DARIUS Heparin Sodium (Porcine) 5,000 unit 06/10/19 22:00 06/11/19 06:17 Heparin - SQ 5,000 unit TID DARIUS Administration Ceftriaxone Sodium 50 mls @ 100 mls/hr 06/11/19 10:00 Ceftriaxone 1 Gm-D5w Bag IVPB DAILY [facility] Protocol Azithromycin 500 mg in 250 mls @ 250 mls/hr 06/11/19 10:00 Zithromax 500mg Ivpb (Pre-Docked) IVPB 06/11/19 10:59 ONCE ONE Methylprednisolone Sodium Succinate 40 mg 06/10/19 18:00 06/11/19 01:38 Solu-Medrol - IVPUSH 40 mg Q8H-IV DARIUS Administration Tiotropium [place] 2 puff 06/11/19 10:00 Spiriva Respimat IH DAILY DARIUS Tramadol HCl 50 mg 06/10/19 15:54 Ultram - PO QID PRN PAIN ASSESSMENT/PLAN: 88 year-old female with a PMH significant for HTN, HLD, CAD s/p PPM, CVA/TIAs, thoracic aortic aneurysm (Type B), peripheral vascular disease, COPD, c.diff x 2, and CKD. Admitted for CAP and COPD exacerbation. Acute on chronic COPD Community acquired pneumonia --06/11 CT chest: RLL patchy consolidation; moderately severe COPD --ceftriaxone (day #1) --duonebs, Spiriva --titrate SpO2<95% Hypertension --BP meds at home most recently per Dr. Gomez note --in AM: BP >150 take carvedilol 9.375 mg and amlodipine 5 mg; BP 120-150 : carvedilol 9.375; SBP <120 no meds; --at lunch time: BP >150: lisinopril 10 mg; <150 mg no meds; --at 4 PM: BP >150 take carvedilol 9.375 mg and amlodipine 5 mg; BP 130- 150: carvedilol 9.375 mg; <130 no meds; --at 10 PM: BP >180 carvedilol 9.375 mg and amlodipine 5 mg; BP 130-180: carvedilol 9.375 mg alone; BP <130 no meds; --if at any time BP >180 repeat 1 hour later, if BP still >180 take lisinopril 10 mg. 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 on 06/01 imaging --prior evaluation by cardio-thoracic surgery: high risk for vascular complication from EVAR approach (small, calcified peripheral vessels) and high risk for open repair; patient declined intervention --BP control as above Hyperlipidemia --continue Lipitor Coronary artery disease s/p PPM --carvedilol, Plavix, Lipitor CVA/TIAs --contnue Plavix, Lipitor CKD --Cr 1.2 on admission FEN Fluids: PO intake adequate Electrolytes: replete as indicated Nutrition: low sodium DVT prophylaxis: subq heparin Full code Visit type - Emergency Visit Emergency Visit: Yes ED Registration Date: 06/10/19 Care time: The patient presented to the Emergency Department on the above date and was hospitalized for further evaluation of their emergent condition. - New Patient This patient is new to me today: Yes Date on this admission: 06/13/19 - Critical Care Critical Care patient: No Amy Johnston, FAMILY COACH: This documentation has been prepared by the Joseluis bains Maria, SCRIBE, under my direction and personally reviewed by me in its entirety. I confirm that the documentation accurately reflects all work, treatment, procedures, and medical decision making performed by me.
--- NOTE | 2019-06-13 15:47 | PN ---
Documentation entered by Flora Huggins SCRIBE, acting as scribe for Amy Johnston NP. Physical Exam: SUBJECTIVE: Patient seen and examined. Per aide patient was confused this morning and stated she was in a garage. Was able to reorient her. OBJECTIVE: Vital Signs Period Temp Pulse Resp BP Sys/Grover Pulse Ox Last 24 Hr 97.4 F-98.0 F 71-76 18-20 142-183/71-94 94-100 GENERAL: A&Ox3, in no acute distress. LUNGS: Loose cough; prolonged expiratory phase; Scattered Rhonchi. HEART: Regular rate and rhythm, S1, S2 ABDOMEN: Soft, nontender, nondistended EXTREMITIES: 2+ pulses, warm, well-perfused, no edema. NEUROLOGICAL: Cranial nerves II through XII grossly intact. Normal speech, gait not observed. SKIN: Warm, dry, normal turgor Laboratory Results - last 24 hr 06/11/19 06/11/19 06/11/19 07:22 07:22 11:45 WBC 11.9 H RBC 4.19 Hgb 11.7 Hct 36.2 MCV 86.3 MCH 28.0 MCHC 32.4 RDW 14.4 Plt Count 199 MPV 9.6 Absolute Neuts (auto) 10.6 Neutrophils % 89.0 H Lymphocytes % 8.4 Monocytes % 2.5 L Eosinophils % 0.0 Basophils % 0.1 Sodium 140 Potassium 4.5 Chloride 111 H Carbon Dioxide 21 Anion Gap 8 BUN 30.0 H Creatinine 1.0 Est GFR (CKD-EPI)AfAm 58.25 Est GFR (CKD-EPI)NonAf 50.26 Random Glucose 143 H Calcium 8.3 L Magnesium 1.7 L Total Bilirubin 0.4 AST 23 ALT 20 Alkaline Phosphatase 89 D Total Protein 6.3 L Albumin 3.0 L Influenza A (Rapid) Negative Influenza B (Rapid) Negative Active Medications Generic Name Dose Route Start Last Admin Trade Name Freq PRN Reason Stop Dose Admin Albuterol/Ipratropium 1 amp 06/10/19 16:00 06/11/19 21:32 Duoneb - NEB 1 amp RQID DARIUS Administration Alprazolam 0.25 mg 06/10/19 15:54 06/12/19 04:22 Xanax - PO 0.25 mg Q12H PRN Administration ANXIETY Amlodipine Besylate 5 mg 06/12/19 10:00 Norvasc - PO DAILY [facility] Atorvastatin Calcium 80 mg 06/10/19 22:00 06/11/19 21:32 Lipitor - PO 80 mg HS DARIUS Administration Carvedilol 3.125 mg/ 9.375 mg 06/11/19 22:00 06/12/19 06:23 Carvedilol 6.25 mg PO 9.375 mg TID DARIUS Administration Clonidine HCl 0.1 mg 06/15/19 10:00 Catapres Tts Patch - TD Fr@1000 [facility] Clopidogrel Bisulfate 75 mg 06/11/19 10:00 06/11/19 10:10 Plavix - PO 75 mg DAILY DARIUS Administration Dicyclomine HCl 10 mg 06/10/19 22:00 06/12/19 06:23 Bentyl - PO 10 mg TID DARIUS Administration Guaifenesin 1 tablet 06/11/19 12:00 06/11/19 21:32 Mucinex Dm - PO 1 tablet BID DARIUS Administration Heparin Sodium (Porcine) 5,000 unit 06/10/19 22:00 06/12/19 06:23 Heparin - SQ 5,000 unit TID [facility] Administration Ceftriaxone Sodium 50 mls @ 100 mls/hr 06/11/19 10:00 06/11/19 10:15 Ceftriaxone 1 Gm-D5w Bag IVPB 100 mls/hr DAILY [facility] Administration Protocol Lisinopril 10 mg 06/12/19 10:00 Prinivil PO BID [facility] Methylprednisolone Sodium Succinate 40 mg 06/10/19 18:00 06/12/19 02:13 Solu-Medrol - IVPUSH 40 mg Q8H-IV DARIUS Administration Pantoprazole Sodium 40 mg 06/11/19 12:00 06/11/19 14:45 Protonix - PO 40 mg DAILY [facility] Administration Tiotropium [place] 2 puff 06/11/19 10:00 06/11/19 10:10 Spiriva Respimat IH 2 puff DAILY [facility] Administration Tramadol HCl 50 mg 06/10/19 15:54 Ultram - PO QID PRN PAIN ASSESSMENT/PLAN: 88 year-old female with a PMH significant for HTN, HLD, CAD s/p PPM, CVA/TIAs, thoracic aortic aneurysm (Type B), peripheral vascular disease, COPD, c.diff x 2, and CKD. Admitted for CAP and COPD exacerbation. Acute on chronic COPD Community acquired pneumonia --06/11 CT chest: RLL patchy consolidation; moderately severe COPD --ceftriaxone (day #2), azithro (day #1) --duonebs, Spiriva --titrate SpO2<95% Hypertension --BP meds at home most recently per Dr. Gomez note --in AM: BP >150 take carvedilol 9.375 mg and amlodipine 5 mg; BP 120-150 : carvedilol 9.375; SBP <120 no meds; --at lunch time: BP >150: lisinopril 10 mg; <150 mg no meds; --at 4 PM: BP >150 take carvedilol 9.375 mg and amlodipine 5 mg; BP 130- 150: carvedilol 9.375 mg; <130 no meds; --at 10 PM: BP >180 carvedilol 9.375 mg and amlodipine 5 mg; BP 130-180: carvedilol 9.375 mg alone; BP <130 no meds; --if at any time BP >180 repeat 1 hour later, if BP still >180 take lisinopril 10 mg. 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 on 06/01 imaging --prior evaluation by cardio-thoracic surgery: high risk for vascular complication from EVAR approach (small, calcified peripheral vessels) and high risk for open repair; patient declined intervention --BP control as above Hyperlipidemia --continue Lipitor Coronary artery disease s/p PPM --carvedilol, Plavix, Lipitor CVA/TIAs --contnue Plavix, Lipitor CKD --Cr 1.2 on admission FEN Fluids: PO intake adequate Electrolytes: replete as indicated Nutrition: low sodium DVT prophylaxis: subq heparin Full code Visit type - Emergency Visit Emergency Visit: Yes ED Registration Date: 06/10/19 Care time: The patient presented to the Emergency Department on the above date and was hospitalized for further evaluation of their emergent condition. - New Patient This patient is new to me today: No - Critical Care Critical Care patient: No Amy Johnston NP: This documentation has been prepared by the Joseluis bains Maria, SCRIBE, under my direction and personally reviewed by me in its entirety. I confirm that the documentation accurately reflects all work, treatment, procedures, and medical decision making performed by me.
--- NOTE | 2019-06-13 16:02 | PN ---
Documentation entered by Flora Huggins SCRIBE, acting as scribe for Amy Johnston NP. Physical Exam: SUBJECTIVE: Patient seen and examined. Patient reports better breathing today. OBJECTIVE: Vital Signs Period Temp Pulse Resp BP Sys/Grover Pulse Ox Last 24 Hr 97.8 F-98.3 F 72-91 19-20 169-187/76-83 92-95 GENERAL: A&Ox3, in no acute distress. LUNGS: CTA, improved. Slightly dyspneic while speaking. HEART: Regular rate and rhythm, S1, S2 ABDOMEN: Soft, nontender, nondistended EXTREMITIES: 2+ pulses, warm, well-perfused, no edema. NEUROLOGICAL: Cranial nerves II through XII grossly intact. Normal speech, gait not observed. SKIN: Warm, dry, normal turgor Laboratory Results - last 24 hr 06/13/19 06/13/19 08:37 08:37 WBC 13.1 H RBC 4.85 Hgb 13.8 Hct 42.2 D MCV 86.9 MCH 28.4 MCHC 32.6 RDW 14.3 Plt Count 288 MPV 9.3 Absolute Neuts (auto) 11.4 Neutrophils % 86.5 H Lymphocytes % 10.2 Monocytes % 3.1 L Eosinophils % 0.0 Basophils % 0.2 Sodium 137 Potassium 4.6 Chloride 105 Carbon Dioxide 23 Anion Gap 9 BUN 34.0 H Creatinine 1.2 Est GFR (CKD-EPI)AfAm 46.73 Est GFR (CKD-EPI)NonAf 40.32 Random Glucose 116 H Calcium 8.4 L Magnesium 1.9 Total Bilirubin 0.3 AST 22 ALT 21 Alkaline Phosphatase 84 Total Protein 6.9 Albumin 3.3 L Active Medications Generic Name Dose Route Start Last Admin Trade Name Freq PRN Reason Stop Dose Admin Albuterol/Ipratropium 1 amp 06/10/19 16:00 06/12/19 21:40 Duoneb - NEB 1 amp RQID DARIUS Administration Alprazolam 0.25 mg 06/10/19 15:54 06/13/19 00:00 Xanax - PO 0.25 mg Q12H PRN Administration ANXIETY Amlodipine Besylate 5 mg 06/13/19 10:00 Norvasc - PO BID DARIUS Atorvastatin Calcium 80 mg 06/10/19 22:00 06/12/19 21:40 Lipitor - PO 80 mg HS DARIUS Administration Carvedilol 3.125 mg/ 9.375 mg 06/11/19 22:00 06/13/19 06:48 Carvedilol 6.25 mg PO 9.375 mg TID DARIUS Administration Clonidine HCl 0.1 mg 06/15/19 10:00 Catapres Tts Patch - TD Fr@1000 DARIUS Clopidogrel Bisulfate 75 mg 06/11/19 10:00 06/12/19 09:34 Plavix - PO 75 mg DAILY DARIUS Administration Dicyclomine HCl 10 mg 06/10/19 22:00 06/13/19 06:48 Bentyl - PO 10 mg TID DARIUS Administration Guaifenesin 1 tablet 06/11/19 12:00 06/12/19 21:39 Mucinex Dm - PO 1 tablet BID DARIUS Administration Heparin Sodium (Porcine) 5,000 unit 06/10/19 22:00 06/13/19 06:49 Heparin - SQ 5,000 unit TID DARIUS Administration Ceftriaxone Sodium 50 mls @ 100 mls/hr 06/11/19 10:00 06/12/19 09:14 Ceftriaxone 1 Gm-D5w Bag IVPB 100 mls/hr DAILY DARIUS Administration Protocol Azithromycin 250 mg/ Dextrose 250 mls @ 250 mls/hr 06/12/19 10:30 06/12/19 11 :00 IVPB 06/15/19 10:59 250 mls/hr DAILY DARIUS Administration Lisinopril 10 mg 06/12/19 10:00 06/12/19 21:40 Prinivil PO 10 mg BID DARIUS Administration Methylprednisolone Sodium Succinate 40 mg 06/10/19 18:00 06/13/19 02:49 Solu-Medrol - IVPUSH 40 mg Q8H-IV DARIUS Administration Pantoprazole Sodium 40 mg 06/11/19 12:00 06/12/19 09:14 Protonix - PO 40 mg DAILY DARIUS Administration Tiotropium [place] 2 puff 06/11/19 10:00 06/12/19 11:00 Spiriva Respimat IH 2 puff DAILY DARIUS Administration Tramadol HCl 50 mg 06/10/19 15:54 Ultram - PO QID PRN PAIN ASSESSMENT/PLAN 88 year-old female with a PMH significant for HTN, HLD, CAD s/p PPM, CVA/TIAs, thoracic aortic aneurysm (Type B), peripheral vascular disease, COPD, c.diff x 2, and CKD. Admitted for CAP and COPD exacerbation. Acute on chronic COPD Community acquired pneumonia --06/11 CT chest: RLL patchy consolidation; moderately severe COPD --ceftriaxone (day #3), azithro (day #2) --duonebs, Spiriva --titrate SpO2<95% --transition to PO steroids tomorrow --rapid flu negative --resp virus [employer] panel pending --pre post ordered, still pending Hypertension --BP meds at home most recently per Dr. Gomez note --in AM: BP >150 take carvedilol 9.375 mg and amlodipine 5 mg; BP 120-150 : carvedilol 9.375; SBP <120 no meds; --at lunch time: BP >150: lisinopril 10 mg; <150 mg no meds; --at 4 PM: BP >150 take carvedilol 9.375 mg and amlodipine 5 mg; BP 130- 150: carvedilol 9.375 mg; <130 no meds; --at 10 PM: BP >180 carvedilol 9.375 mg and amlodipine 5 mg; BP 130-180: carvedilol 9.375 mg alone; BP <130 no meds; --if at any time BP >180 repeat 1 hour later, if BP still >180 take lisinopril 10 mg. 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 Visit type - Emergency Visit Emergency Visit: Yes ED Registration Date: 06/10/19 Care time: The patient presented to the Emergency Department on the above date and was hospitalized for further evaluation of their emergent condition. - New Patient This patient is new to me today: No - Critical Care Critical Care patient: No Amy Johnston NP: This documentation has been prepared by the Joseluis bains Maria, SCRIBE, under my direction and personally reviewed by me in its entirety. I confirm that the documentation accurately reflects all work, treatment, procedures, and medical decision making performed by me.
[2019-06-13] MEDS ORDERED: hydrALAZINE HCL 10 MG TABLET PO STA (18:30)
--- NOTE | 2019-06-13 18:37 | HOSP ---
Subjective - Review of Symptoms Events since last encounter: Dr. Gomez has been titrating BP meds this afternoon. SBP still >180. Give hydralazine PO 10mg x 1 now. May repeat two more doses, 45 minutes apart, to achieve SBP <170. If SBP remains >170 after 3 doses of hydralazine, call Dr. Gomez. Increase carvedilol PO to 12.5mg TID. Continue amlodipine 5mg BID. Continue lisinopril 10mg BID. Continue clonidine patch qweekly. Physical Examination Vital Signs: Vital Signs Temperature 98.8 F 06/13/19 16:10 Pulse Rate 69 06/13/19 18:15 Respiratory Rate 18 06/13/19 16:10 Blood Pressure 188/74 H 06/13/19 18:15 O2 Sat by Pulse Oximetry (%) 100 06/13/19 13:45 Labs: CBC, BMP 06/13/19 08:37 06/13/19 08:37
[2019-06-13] MEDS: ATORVASTATIN CA 80 MG TABLET (FP) PO SCH (21:23)
[2019-06-13] MEDS: CARVEDILOL 12.5 MG TABLET (FP) PO SCH (21:23)
[2019-06-13] MEDS ORDERED: ALPRAZolam 0.25 MG TABLET PO SCH (22:00)
[2019-06-14] MEDS: DICYCLOMINE HCL 10 MG CAPSULE PO SCH ×2 (06:12→13:36)
[2019-06-14] MEDS: HEPARIN NA (PORCINE) 5,000 UNITS/ML 1ML VIAL SQ SCH ×2 (06:12→13:40)
[2019-06-14] MEDS: CARVEDILOL 12.5 MG TABLET (FP) PO SCH ×2 (06:12→13:39)
[2019-06-14] MEDS: ALBUTEROL SO4 2.5/IPRATROPIUM 0.5 INH SOL 3 ML VIAL.NEB. NEB SCH ×2 (08:07→12:35)
[2019-06-14 08:14] LABS: BASO % 0.1 % (0-2.0); EOS % 0.1 % (0-4.5); HEMATOCRIT 42.5 % (32.4-45.2); HEMOGLOBIN 13.6 GM/dl (10.7-15.3); LYMPH % 17.6 % (8-40); MCH 27.7 pg (25.7-33.7); MEAN CELL VOLUME 86.4 fl (80-96); MEAN PLT VOLUME 9.1 fl (7.5-11.1); MONO % 7.9 % (3.8-10.2); NEUT % 74.3 % (42.8-82.8); PLATELET COUNT 322 K/MM3 (134-434); RBC 4.91 M/mm3 (3.60-5.2); RDW 14.4 % (11.6-15.6); WHITE BLOOD COUNT 15.3 K/mm3 (4.0-10.8)
[2019-06-14 09:33] LABS: BILIRUBIN,TOTAL 0.3 mg/dl (0.2-1); CALCIUM 8.1 mg/dl (8.5-10); MAGNESIUM 1.9 mg/dL (1.8-2.4); TOT PROT 6.2 g/dl (6.4-8.2)
[2019-06-14] MEDS ORDERED: predniSONE 20 MG TABLET (UD) PO SCH (10:00)
[2019-06-14] MEDS: CLOPIDOGREL BISULFATE 75 MG TABLET (FP) PO SCH (10:11)
[2019-06-14] MEDS: CEFTRIAXONE 1 G/50 ML PREMIX 50 ML IVPB SCH (10:11)
[2019-06-14] MEDS: PANTOPRAZOLE 40 MG TABLET (FP) PO SCH (10:12)
[2019-06-14] MEDS: amLODIPine BESYLATE 5 MG TABLET (FP) PO SCH (10:12)
[2019-06-14] MEDS: guaiFENesin/D-METHORPHAN TAB.ER.12H PO SCH (10:12)
[2019-06-14] MEDS: LISINOPRIL 10 MG TABLET (FP) PO SCH (10:12)
[2019-06-14] MEDS: AZITHROMYCIN IVPB 250 MG in DEXTROSE 5%-WATER - 250 ML IVPB SCH (10:13)
[2019-06-14] MEDS: TIOTROPIUM BROMIDE 2.5 MCG (SPIRIVA) RESPIMAT INHALER IH SCH (10:13)
[2019-06-14] MEDS ORDERED: hydrALAZINE HCL 10 MG TABLET PO PRN (10:56)
[2019-06-14 13:39] VITALS: BP 151/66; PULSE 83; TEMP 98
[2019-06-15] MEDS ORDERED: cloNIDine-TTS 0.1 MG/24 HRS PATCH.TDWK TD SCH (10:00)
--- NOTE | 2019-06-18 14:08 | DS ---
Documentation entered by Flora Huggins SCRIBE, acting as scribe for Amy Johnston NP. Physical Exam: SUBJECTIVE: Patient seen and examined at bedside. OBJECTIVE: Vital Signs Period Temp Pulse Resp BP Sys/Grover Pulse Ox Last 24 Hr 97.6 F-98.8 F 59-86 18-20 143-208/64-95 96-100 PHYSICAL EXAM GENERAL: A&Ox3, in no acute distress. LUNGS: CTA. HEART: Regular rate and rhythm, S1, S2 ABDOMEN: Soft, nontender, nondistended EXTREMITIES: 2+ pulses, warm, well-perfused, no edema. NEUROLOGICAL: Cranial nerves II through XII grossly intact. Normal speech, gait not observed. SKIN: Warm, dry, normal turgor LABS Laboratory Results - last 24 hr 06/14/19 06/14/19 06:55 06:55 WBC 15.3 H RBC 4.91 Hgb 13.6 Hct 42.5 MCV 86.4 MCH 27.7 MCHC 32.0 RDW 14.4 Plt Count 322 MPV 9.1 Absolute Neuts (auto) 11.4 Neutrophils % 74.3 Lymphocytes % 17.6 Monocytes % 7.9 Eosinophils % 0.1 Basophils % 0.1 Sodium 138 Potassium 4.0 Chloride 104 Carbon Dioxide 28 Anion Gap 6 L BUN 34.0 H Creatinine 1.0 Est GFR (CKD-EPI)AfAm 58.25 Est GFR (CKD-EPI)NonAf 50.26 Random Glucose 98 Calcium 8.1 L Magnesium 1.9 Total Bilirubin 0.3 AST 19 ALT 19 Alkaline Phosphatase 79 Total Protein 6.2 L Albumin 3.0 L HOSPITAL COURSE: Date of Admission:06/10/19 Date of Discharge: 06/14/19 Pre Hospital Course Ivanna Roberts is a 88 yr old F, medical condition HTN, HLD, COPD, CVATIA, Thoracic Aneurysm, PVD, CKD presented to ED with c/o productive cough, green sputum, with shortness of breath. daughter at bedside, reports pt has been feeling weak, decreased appetite, Denies fever, dizziness, chest pain, abd pain, n/v, diarrhea ED Course (1)Chest xray poss infiltrate Subsequent Hospital Course 88 year-old female with a PMH significant for HTN, HLD, CAD s/p PPM, CVA/TIAs, thoracic aortic aneurysm (Type B), peripheral vascular disease, COPD, c.diff x 2, and CKD. Admitted for CAP and COPD exacerbation. Acute on chronic COPD Community acquired pneumonia --06/11 CT chest: RLL patchy consolidation; moderately severe COPD --treated with ceftriaxone and azithro; discharged on augmentin for an additional 6 days of treatment --short course IV steroids, discharged on PO taper --rapid flu negative --resp virus DOCTOR ASSISTANT panel pending Hypertension --inceased carvedilol to 12.5mg, continued amlodipine, lisinopril, clonidine patch; added hydralazine PO 10mg; all meds given according to parameters set by Dr. Gomez Descending thoracic aortic aneurysm --7.2 cm on 06/01 imaging --prior evaluation by cardio-thoracic surgery: high risk for vascular complication from EVAR approach (small, calcified peripheral vessels) and high risk for open repair; patient declined intervention --BP control as above Hyperlipidemia --continued Lipitor Coronary artery disease s/p PPM --carvedilol, Plavix, Lipitor CVA/TIAs --contnued Plavix, Lipitor CKD --Cr 1.2 on admission, 1.0 at discharge Minutes to complete discharge: 35 Discharge Summary Problems reviewed: Yes Reason For Visit: COUGH Current Active Problems COPD exacerbation (Acute) Pneumonia (Acute) Condition: Improved - Instructions Diet, Activity, Other Instructions: Three prescriptions have been sent to your pharmacy: 1. Prednisone 2. Azithromycin 3. Augmentin Take these medications as prescribed and be sure to finish all the medication. One change has been made to your home blood pressure medication routine. This has been explained to your home health aide. Call Dr. Gomez next week with your blood pressure readings. Disposition: HOME - Home Medications Comprehensive Discharge Medication List: Ambulatory Orders Amlodipine Besylate 5 mg PO HS 10/27/18 Atorvastatin Ca [Lipitor] 80 mg PO HS 10/27/18 Clopidogrel Bisulfate [Clopidogrel] 75 mg PO DAILY 10/27/18 Tramadol HCl 50 mg PO QID PRN 10/27/18 Albuterol 0.083% Nebulizer Yamini [Ventolin 0.083% Nebulizer Soln -] 1 neb NEB BID 11/16/18 Alprazolam [Xanax] 0.25 mg PO BID PRN 02/27/19 Amitriptyline HCl [Elavil -] 10 mg PO DAILY 02/27/19 Carvedilol 9.375 mg PO TID 02/27/19 Clonidine Patch [Catapres Tts Patch -] 0.1 mg TD WEEKLY 02/27/19 Dicyclomine HCl 10 mg PO TID 02/27/19 Lisinopril 10 mg PO PRN 02/27/19 Tiotropium [place] [Spiriva] 1 inh PO DAILY 02/27/19 This patient is new to me today: No Emergency Visit: Yes ED Registration Date: 06/10/19 Care time: The patient presented to the Emergency Department on the above date and was hospitalized for further evaluation of their emergent condition. Critical Care patient: No - Discharge Referral Referred to [facility] Amy Rodriguez NP: This documentation has been prepared by the Joseluis bains Maria, SCRIBE, under my direction and personally reviewed by me in its entirety. I confirm that the documentation accurately reflects all work, treatment, procedures, and medical decision making performed by me.
== END 2019-06-14 13:40 | disposition home or self-care (01) | DRG 190 ==
LOC: FER 12:48 → FM/S 17:45
PROVIDERS: ADMIT Hospitalist; ATTEND Nurse Practitioner Acute Care
DX: J44.1 Chronic obstructive pulmonary disease with (acute) exacerbation (principal); J18.9 Pneumonia, unspecified organism; E78.5 Hyperlipidemia, unspecified; I25.10 Atherosclerotic heart disease of native coronary artery without angina pectoris; I71.4 Abdominal aortic aneurysm, without rupture; I71.2 Thoracic aortic aneurysm, without rupture; I73.9 Peripheral vascular disease, unspecified; K57.90 Diverticulosis of intestine, part unspecified, without perforation or abscess without bleeding; M54.5 Low back pain; I12.9 Hypertensive chronic kidney disease with stage 1 through stage 4 chronic kidney disease, or unspecified chronic kidney disease; N18.9 Chronic kidney disease, unspecified; Z86.73 Personal history of transient ischemic attack (TIA), and cerebral infarction without residual deficits; Z95.0 Presence of cardiac pacemaker
CPT/HCPCS: 36415; 71045-TC-FY; 71046-TC-FY; 71250-TC; 80053; 81003; 81015; 82550; 82553; 83735; 83880; 84484; 85025; 85610; 85730; 87040; 87070; 87086; 87186; 87205; 87633; 87804; 87899; 93005; 94640; 97116-GP; 97162-GP; 99284-25; J1644

== ENCOUNTER 2019-08-08 10:09 | Inpatient (IN) | payer OTHER ==
[2019-08-08 12:43] LABS: BASO % 0.6 % (0-2.0); EOS % 4.3 % (0-4.5); HEMATOCRIT 38.4 % (32.4-45.2); HEMOGLOBIN 12.6 GM/dL (10.7-15.3); LYMPH % 20.7 % (8-40); MCH 27.6 pg (25.7-33.7); MCHC 32.9 g/dl (32.0-36.0); MEAN CELL VOLUME 84.1 fl (80-96); MEAN PLT VOLUME 8.8 fl (7.5-11.1); MONO % 10.1 % (3.8-10.2); NEUT % 64.3 % (42.8-82.8); PLATELET COUNT 235 K/MM3 (134-434); RBC 4.57 M/mm3 (3.60-5.2); RDW 15.5 % (11.6-15.6); WHITE BLOOD COUNT 8.9 K/mm3 (4.0-10.0)
--- NOTE | 2019-08-08 12:46 | PDOC ---
Documentation entered by Myles Swenson SCRIBE, acting as scribe for Sierra Butler MD. Sierra Bulter MD: This documentation has been prepared by the Leela bains Xhesika, SCRIBE, under my direction and personally reviewed by me in its entirety. I confirm that the documentation accurately reflects all work, treatment, procedures, and medical decision making performed by me. History of Present Illness - General Chief Complaint: Hematuria Stated Complaint: UTI History Source: Patient Exam Limitations: No Limitations - History of Present Illness Initial Comments: 08/08/19 11:56 The patient is an 88 year old female with a PMH of HTN, HLD, COPD, CAD, CVA/TIAs , thoracic aortic aneurysm (type B), PVD, and CKD who presents to the ED for hematuria since last night. Patient reports intermittent abdominal pain. Aide at bedside states the patient has an appointment to see a urologist on 08/21/19. The patient denies chest pain, shortness of breath, headache and dizziness. Denies fever, chills, cough, nausea, vomiting, diarrhea and constipation. Denies dysuria, frequency, urgency. Allergies:ciprofloxacin Social Hx: Denies current smoking, drinking, or other substance usage. PCP: Vazquez Nunes Past History - Past Medical History Allergies/Adverse Reactions: Allergies Allergy/AdvReac Type Severity Reaction Status Date / Time ciprofloxacin [From Cipro] Allergy Unknown Hives Verified 08/08/19 10:20 Home Medications: Ambulatory Orders Amlodipine Besylate 5 mg PO HS 10/27/18 Atorvastatin Ca [Lipitor] 80 mg PO HS 10/27/18 Albuterol 0.083% Nebulizer Yamini [Ventolin 0.083% Nebulizer Soln -] 1 neb NEB BID 11/16/18 Alprazolam [Xanax] 0.25 mg PO BID PRN 02/27/19 Amitriptyline HCl [Elavil -] 10 mg PO DAILY 02/27/19 Carvedilol 6.25 mg PO TID 02/27/19 Dicyclomine HCl 10 mg PO TID 02/27/19 Lisinopril 10 mg PO PRN 02/27/19 Tiotropium [place] [Spiriva] 1 inh PO DAILY 02/27/19 Hydralazine HCl 10 mg PO HS PRN #30 tablet 06/14/19 Cilostazol 100 mg PO DAILY 08/08/19 Clonidine HCl 0.1 mg PO DAILY 08/08/19 Clopidogrel Bisulfate [Plavix] 75 mg PO DAILY 08/08/19 Donepezil HCl 5 mg PO DAILY 08/08/19 Hyoscyamine Odt [Levsin Odt -] 0.125 mg PO PRN PRN 08/08/19 Anemia: No Asthma: No Cancer: Yes (SKIN. BLADDER) Cardiac Disorders: No (VENOUS INSUFFIENCY PAD BOTH LEGS) CVA: Yes COPD: Yes CHF: No DVT: No Dementia: No Diabetes: No Dialysis: No GI Disorders: No Disorders: No HTN: Yes Hypercholesterolemia: Yes Kidney Stones: No Liver Disease: No Psychiatric Problems: Yes (ANXIETY,) Seizures: No Thyroid Disease: No Lung CA: No Other medical history: Aneurysm - Surgical History Abdominal Surgery: No Appendectomy: No Cardiac Surgery: Yes (pacemaker CAROTID ENDARTERECTOMY) Cholecystectomy: No Lung Surgery: No Neurologic Surgery: No Orthopedic Surgery: No - Immunization History Immunization Up to Date: Yes - Psycho Social/Smoking Cessation Hx Smoking History: Never smoked Have you smoked in the past 12 months: No If you are a former smoker, when did you quit?: years ago Cigars Per Day: 0 Information on smoking cessation initiated: No 'Breaking Loose' booklet given: 05/12/17 Hx Alcohol Use: No Drug/Substance Use Hx: No Substance Use Type: Prescribed, Tranquilizers Hx Substance Use Treatment: No Review of Systems - Review of Systems Able to Perform ROS?: Yes Comments:: 08/08/19 12:00 GENERAL/CONSTITUTIONAL: No fever or chills. No weakness. HEAD, EYES, EARS, NOSE AND THROAT: No change in vision. No ear pain or discharge. No sore throat. CARDIOVASCULAR: No chest pain or shortness of breath. RESPIRATORY: No cough, wheezing, or hemoptysis. GASTROINTESTINAL: No nausea, vomiting, diarrhea or constipation. +intermittent abdominal pain. GENITOURINARY: No dysuria, frequency. +hematuria MUSCULOSKELETAL: No joint or muscle swelling or pain. No neck or back pain. SKIN: No rash NEUROLOGIC: No headache, vertigo, loss of consciousness, or change in strength/ sensation. ENDOCRINE: No increased thirst. No abnormal weight change. HEMATOLOGIC/LYMPHATIC: No anemia, easy bleeding, or history of blood clots. ALLERGIC/IMMUNOLOGIC: No hives or skin allergy. *Physical Exam - Vital Signs Last Vital Signs Temp Pulse Resp BP Pulse Ox 97.6 F 75 17 127/72 99 08/08/19 10:18 08/08/19 10:18 08/08/19 10:18 08/08/19 10:18 08/08/19 10:18 - Physical Exam 08/08/19 12:45 Awake alert no acute distress lungs are clear bilaterally heart is regular 30 murmurs rubs or gallops abdomen is soft the bladder appears full on palpation but is nontender extremities are warm well perfused no rash no edema patient is awake alert and oriented x3. pelvic exam / speculum with no vaginal blood. 08/08/19 15:10 ED Treatment Course - LABORATORY CBC & Chemistry Diagram: 08/08/19 12:20 08/08/19 12:20 Medical Decision Making - Medical Decision Making 08/08/19 12:45 88-year-old female here complaining of hematuria denies any rectal bleeding or vaginal bleeding states it was blood mixed with urine denies any urinary frequency or dysuria no fevers or chills states she has had microscopic hematuria in the past denies any flank pain no trauma no other current complaints is here with her home health aide who states that she did in fact see blood in the urine 08/08/19 16:13 pt with uti on labs. otherwise creatinine stable 1.6 given 1 L NS bolus. given ceftriaxone [address] a/p with nephrolithiasisk, no uterolithiasis. AAA stable in size from prior CT. plan dc on abx. close followup. Discharge - Discharge Information Problems reviewed: Yes Clinical Impression/Diagnosis: UTI (urinary tract infection), GRISELDA (acute kidney injury) Condition: Improved - Admission Yes - Follow up/Referral Referrals: Vazquez Meyers MD [Primary Care Provider] - - Patient Discharge Instructions - Post Discharge Activity
[2019-08-08 12:52] LABS: EPI CELLS 1.1 /HPF (0-5/HPF); HYALINE CASTS 2 /lpf (0-8); URINE APPEARANCE TURBID; URINE BACTERIA 5562.4 /hpf (NEGATIVE); URINE BILIRUBIN NEGATIVE (NEGATIVE); URINE COLOR YELLOW; URINE GLUCOSE (UA) NEGATIVE (NEGATIVE); URINE KETONE NEGATIVE (NEGATIVE); URINE LEUK ESTERASE 3+ (NEGATIVE); URINE NITRITE NEGATIVE (NEGATIVE); URINE PROTEIN 1+ (NEGATIVE); URINE RBC 58 /hpf (0-4); URINE UROBILINOGEN 0.2 mg/dL (0.2-1.0); URINE WBC 968 /hpf (0-5)
[2019-08-08 13:03] LABS: PROTHROMBIN TIME (PATIENT) 11.8 SEC (9.7-13.0)
[2019-08-08 13:06] LABS: ACTIVATED PTT 32.9 SECONDS (25.2-36.5)
[2019-08-08 13:23] LABS: ALBUMIN 3.2 g/dl (3.4-5.0); BILIRUBIN,TOTAL 0.3 mg/dL (0.2-1); BLOOD UREA NITROGEN 22.5 mg/dL (7-18); CALCIUM 8.8 mg/dL (8.5-10.1); CREATININE 1.6 mg/dL (0.55-1.3); POTASSIUM 3.9 mmol/L (3.5-5.1)
[2019-08-08] MEDS ORDERED: SODIUM CHLORIDE 0.9% 1000 ML INFUS.BAG IV ONE (13:44)
[2019-08-08] MEDS ORDERED: CEFTRIAXONE 1,000 MG in DEXTROSE 5%-WATER - 50 ML IVPB ONE (13:44)
[2019-08-08] MEDS ORDERED: CEFTRIAXONE 1 GM/50 ML BAG ONE (13:47)
[2019-08-08] MEDS ORDERED: SODIUM CHLORIDE 1,000 ML IV SCH (17:45)
[2019-08-08] MEDS ORDERED: hydrALAZINE HCL 10 MG TABLET PO PRN (17:46)
--- NOTE | 2019-08-08 18:46 | HP ---
CHIEF COMPLAINT: blood in urine PCP:Dr. Meyers HISTORY OF PRESENT ILLNESS: Patient is an 88 year old female with past medical history of HTN, HLD, COPD, CAD, CVA/TIA, Thoracic aortic aneurysm (type B), PVD, and CKD, presented today due to blood in the urine since last night. Patient reported she noted bright r ed blood in her urine last night, accompanied by burning and frequency. She also noted intermittent suprapubic pain. Of note, patient has had previous admission of UTI with dee-sensitive E.coli. Patient had a scheduled appointment with a urologist on 08/21/2019. Patient denies any fever, chills, headache, dizziness, nausea, vomiting, chest pain, SOB, diarrhea, constipation. ER course was notable for: (1)CTAP - Left nephrolithiasis, malrotated right kidney, no evidence of hydronephrosis or obstructive uropathy. Aneurysmal dilatation of the distal thoracic/upper abdominal aorta, as well as distal abdominal aorta. (2)UA - 3+blood, 3+LE, 968 WBC, 58 RBC, Bacteria 5562 (3) Recent Travel:denies PAST MEDICAL HISTORY: HTN HLD COPD CAD CVA/TIA Thoracic aortic aneurysm (type B) PVD CKD PAST SURGICAL HISTORY: pacemaker placed carotid endarterectomy Social History: Smoking: former smoker Alcohol: denies Drugs: denies Lives at home. Has aide visiting house. Uses a walker to ambulate at home. Family History: denies significant family history Allergies ciprofloxacin [From Cipro] Allergy (Unknown, Verified 08/08/19 10:20) Hives HOME MEDICATIONS: Home Medications Medication Instructions Recorded Amlodipine Besylate 5 mg PO HS 10/27/18 Atorvastatin Ca [Lipitor] 80 mg PO HS 10/27/18 Albuterol 0.083% Nebulizer Yamini 1 neb NEB BID 11/16/18 [Ventolin 0.083% Nebulizer Soln -] Alprazolam [Xanax] 0.25 mg PO BID PRN 02/27/19 Amitriptyline HCl [Elavil -] 10 mg PO DAILY 02/27/19 Carvedilol 6.25 mg PO TID 02/27/19 Dicyclomine HCl 10 mg PO TID 02/27/19 Lisinopril 10 mg PO PRN 02/27/19 Tiotropium [place] [Spiriva] 1 inh PO DAILY 02/27/19 Hydralazine HCl 10 mg PO HS PRN #30 tablet 06/14/19 Cilostazol 100 mg PO DAILY 08/08/19 Clonidine HCl 0.1 mg PO DAILY 08/08/19 Clopidogrel Bisulfate [Plavix] 75 mg PO DAILY 08/08/19 Donepezil HCl 5 mg PO DAILY 08/08/19 Hyoscyamine Odt [Levsin Odt -] 0.125 mg PO PRN PRN 08/08/19 REVIEW OF SYSTEMS CONSTITUTIONAL: Absent: fever, chills, diaphoresis, generalized weakness, malaise, loss of appetite, weight change HEENT: Absent: rhinorrhea, nasal congestion, throat pain, throat swelling, difficulty swallowing, mouth swelling, ear pain, eye pain, visual changes CARDIOVASCULAR: Absent: chest pain, syncope, palpitations, irregular heart rate, lightheadedness, peripheral edema RESPIRATORY: Absent: cough, shortness of breath, dyspnea with exertion, orthopnea, wheezing, stridor, hemoptysis GASTROINTESTINAL: Absent: abdominal pain, abdominal distension, nausea, vomiting, diarrhea, constipation, melena, hematochezia GENITOURINARY: hematuria, frequency, burning Absent: dysuria,urgency, hesitancy,flank pain, genital pain MUSCULOSKELETAL: Absent: myalgia, arthralgia, joint swelling, back pain, neck pain SKIN: Absent: rash, itching, pallor HEMATOLOGIC/IMMUNOLOGIC: Absent: easy bleeding, easy bruising, lymphadenopathy, frequent infections ENDOCRINE: Absent: unexplained weight gain, unexplained weight loss, heat intolerance, cold intolerance NEUROLOGIC: Absent: headache, focal weakness or paresthesias, dizziness, unsteady gait, seizure, mental status changes, bladder or bowel incontinence PSYCHIATRIC: Absent: anxiety, depression, suicidal or homicidal ideation, hallucinations. PHYSICAL EXAMINATION Vital Signs - 24 hr 08/08/19 08/08/19 08/08/19 10:18 14:02 17:39 Temperature 97.6 F 97.3 F L 97.5 F L Pulse Rate 75 Pulse Rate [ 73 89 Left Radial] Respiratory 17 18 18 Rate Blood Pressure 127/72 Blood Pressure 179/93 H 180/101 H [Right Arm] O2 Sat by Pulse 99 96 95 Oximetry (%) GENERAL: Awake, alert, and fully oriented, in no acute distress. HEAD: Normal with no signs of trauma. EYES: PERRLA, EOMI, sclera anicteric, conjunctiva clear. EARS, NOSE, THROAT: Dry mucous membranes. NECK: Normal range of motion, supple LUNGS: Breath sounds equal, clear to auscultation bilaterally. HEART: Regular rate and rhythm, normal S1 and S2 without murmur, rub or gallop. ABDOMEN: Soft, nontender, not distended, normoactive bowel sounds. MUSCULOSKELETAL: Normal range of motion at all joints. No CVA tenderness. LOWER EXTREMITIES: 2+ pulses, warm, well-perfused. No peripheral edema. NEUROLOGICAL: Cranial nerves II-XII grossly intact. Normal speech. PSYCHIATRIC: Cooperative. Good eye contact. Appropriate mood and affect. SKIN: Warm, dry, normal turgor. Laboratory Results - last 24 hr 08/08/19 08/08/19 08/08/19 12:11 12:20 12:20 WBC 8.9 RBC 4.57 Hgb 12.6 Hct 38.4 MCV 84.1 MCH 27.6 MCHC 32.9 RDW 15.5 Plt Count 235 MPV 8.8 Absolute Neuts (auto) 5.7 Neutrophils % 64.3 Lymphocytes % 20.7 D Monocytes % 10.1 Eosinophils % 4.3 Basophils % 0.6 Nucleated RBC % 0 PT with INR 11.80 INR 1.00 PTT (Actin FS) 32.9 Sodium Potassium Chloride Carbon Dioxide Anion Gap BUN Creatinine Est GFR (CKD-EPI)AfAm Est GFR (CKD-EPI)NonAf Random Glucose Calcium Total Bilirubin AST ALT Alkaline Phosphatase Total Protein Albumin Urine Color Yellow Urine Appearance Turbid Urine pH 6.0 Ur Specific [place] 1.008 L Urine Protein 1+ H Urine Glucose (UA) Negative Urine Ketones Negative Urine Blood 3+ H Urine Nitrite Negative Urine Bilirubin Negative Urine Urobilinogen 0.2 Ur Leukocyte Esterase 3+ H Urine WBC (Auto) 968 Urine RBC (Auto) 58 Urine Casts (Auto) 2 U Epithel Cells (Auto) 1.1 Urine Bacteria (Auto) 5562.4 Stool Occult Blood 08/08/19 08/08/19 12:20 13:45 WBC RBC Hgb Hct MCV MCH MCHC RDW Plt Count MPV Absolute Neuts (auto) Neutrophils % Lymphocytes % Monocytes % Eosinophils % Basophils % Nucleated RBC % PT with INR INR PTT (Actin FS) Sodium 137 Potassium 3.9 Chloride 104 Carbon Dioxide 28 Anion Gap 6 L BUN 22.5 H Creatinine 1.6 H Est GFR (CKD-EPI)AfAm 33.00 Est GFR (CKD-EPI)NonAf 28.47 Random Glucose 102 Calcium 8.8 Total Bilirubin 0.3 AST 18 ALT 11 L Alkaline Phosphatase 97 Total Protein 7.0 Albumin 3.2 L Urine Color Urine Appearance Urine pH Ur Specific [place] Urine Protein Urine Glucose (UA) Urine Ketones Urine Blood Urine Nitrite Urine Bilirubin Urine Urobilinogen Ur Leukocyte Esterase Urine WBC (Auto) Urine RBC (Auto) Urine Casts (Auto) U Epithel Cells (Auto) Urine Bacteria (Auto) Stool Occult Blood Negative ASSESSMENT/PLAN: Patient is an 88 year old female with past medical history of HTN, HLD, COPD, CAD, CVA/TIA, Thoracic aortic aneurysm (type B), PVD, and CKD, presented today due to blood in the urine since last night. #UTI -UA - 3+blood, 3+LE, 968 WBC, 58 RBC, Bacteria 5562 -previous UCx shows dee-sensitive E.coli -will continue Ceftriaxone 1g daily -Urine cultures #Hematuria -chronic, previous UA studies showing hematuria -H/H stable -CTAP showing left nephrolithiasis -Kidney/Bladder US -Urology (Dr. Ervin) consulted. #GRISELDA on CKD -maybe pre-renal dehydration vs post-renal obstruction -gentle hydration with IVF -renal ultrasound -FeNa #HTN -continue home meds -Amlodipine 5, Coreg 6.25bid, Hydralazine 10 po hs, Lisinopril 10mg #HLD -Cotinue Lipitor 80mg po hs #COPD -continue home meds #Thoracic aortic aneurysm -stable on repeat CT abdomen #FEN -IV NS @50cc/hr -Electrolytes wnl, routine bmp monitoring -Sodium restricted diet #Prophylaxis -SCDs #Disposition -admit to med surg Visit type - Emergency Visit Emergency Visit: Yes ED Registration Date: 08/08/19 Care time: The patient presented to the Emergency Department on the above date and was hospitalized for further evaluation of their emergent condition. - New Patient This patient is new to me today: Yes Date on this admission: 08/08/19 - Critical Care Critical Care patient: No ATTENDING PHYSICIAN STATEMENT I saw and evaluated the patient. I reviewed the resident's note and discussed the case with the resident. I agree with the resident's findings and plan as documented. SUBJECTIVE: OBJECTIVE: ASSESSMENT AND PLAN:
--- NOTE | 2019-08-08 20:07 | PN ---
Teaching Attending Note Name of Resident: Najma Anand ATTENDING PHYSICIAN STATEMENT I saw and evaluated the patient. I reviewed the resident's note and discussed the case with the resident. I agree with the resident's findings and plan as documented. SUBJECTIVE:HISTORY OF PRESENT ILLNESS: Patient is an 88 year old female with past medical history of HTN, HLD, COPD, CAD, CVA/TIA, Thoracic aortic aneurysm (type B), PVD, and CKD, presented today due to blood in the urine since last night. Patient reported she noted bright red blood in her urine last night, accompanied by burning and frequency. She also noted intermittent suprapubic pain. Of note, patient has had previous admission of UTI with dee-sensitive E.coli. Patient had a scheduled appointment with a urologist on 08/21/2019. Patient denies any fever, chills, headache, dizziness, nausea, vomiting, chest pain, SOB, diarr OBJECTIVE: o/e appears comfortable nad alert awake oriented, vss neck supple cvs s1/s2/0 chest ctab abd benign ext no c/c/e neuro non focal ASSESSMENT AND PLAN: Patient is an 88 year old female with past medical history of HTN, HLD, COPD, CAD, CVA/TIA, Thoracic aortic aneurysm (type B), PVD, and CKD, presented today due to blood in the urine since last night. UTI, Hematuria, GRISELDA on CKD iv abx, and ivf, #HTN #HLD #COPD -continue home meds
[2019-08-08] MEDS ORDERED: DEXTROSE 5%-0.45% SALINE 1,000 ML IV SCH (20:15)
[2019-08-08] MEDS ORDERED: hydrALAZINE HCL 20 MG/ML VIAL IVPUSH ONE (20:54)
[2019-08-08] MEDS ORDERED: hydrALAZINE HCL 20 MG/ML VIAL ONE (20:55)
[2019-08-08] MEDS ORDERED: amLODIPine BESYLATE 5 MG TABLET (FP) ONE (21:58)
[2019-08-08] MEDS ORDERED: ALBUTEROL SO4 0.083% IH SOL 2.5 MG/3 ML VIAL.NEB. NEB ONE (21:58)
[2019-08-08] MEDS ORDERED: ATORVASTATIN CA 80 MG TABLET (FP) ONE (21:59)
[2019-08-08] MEDS ORDERED: DONEPEZIL HCL 5 MG TABLET (FP) ONE (21:59)
[2019-08-08] MEDS ORDERED: CARVEDILOL 3.125 MG TABLET (FP) ONE (21:59)
[2019-08-08] MEDS ORDERED: ALBUTEROL SO4 0.083% IH SOL 2.5 MG/3 ML VIAL.NEB. NEB SCH (22:00)
[2019-08-08] MEDS: CARVEDILOL 6.25 MG TABLET (FP) PO SCH (22:19)
[2019-08-08] MEDS: amLODIPine BESYLATE 5 MG TABLET (FP) PO SCH (22:19)
[2019-08-08] MEDS: ATORVASTATIN CA 80 MG TABLET (FP) PO SCH (22:19)
[2019-08-08] MEDS: DONEPEZIL HCL 5 MG TABLET (FP) PO SCH (22:19)
[2019-08-09 01:31] VITALS: BMI 22.6
[2019-08-09] MEDS: ALBUTEROL SO4 0.083% IH SOL 2.5 MG/3 ML VIAL.NEB. NEB SCH ×2 (08:05→20:23)
[2019-08-09 08:10] LABS: BASO % 0.5 % (0-2.0); EOS % 5.2 % (0-4.5); HEMOGLOBIN 11.8 GM/dL (10.7-15.3); MCH 27.5 pg (25.7-33.7); MCHC 32.8 g/dl (32.0-36.0); MEAN CELL VOLUME 83.9 fl (80-96); MEAN PLT VOLUME 8.8 fl (7.5-11.1); MONO % 9.8 % (3.8-10.2); NEUT % 61.5 % (42.8-82.8); PLATELET COUNT 203 K/MM3 (134-434); RBC 4.29 M/mm3 (3.60-5.2); RDW 15.5 % (11.6-15.6); WHITE BLOOD COUNT 7.3 K/mm3 (4.0-10.0)
--- NOTE | 2019-08-09 09:05 | CON.GU ---
Consult Consult Specialty:: Referred by:: Mario Aguilera Reason for Consultation:: hematuria - History of Present Illness Chief Complaint: bloody urine History of Present Illness: 88 year old female with past medical history of HTN, HLD, COPD, CAD, CVA/TIA, Thoracic aortic aneurysm (type B), PVD, and CKD, presented today due to blood in the urine since last night. Patient reported she noted bright red blood in her urine last night, accompanied by burning and frequency. She also noted intermittent suprapubic pain. Of note, patient has had previous admission of UTI with dee-sensitive E.coli. Patient had a scheduled appointment with a urologist on 08/21/2019. Patient denies any fever, chills, headache, dizziness, nausea, vomiting, chest pain, SOB, diarrhea, constipation. cons req. ER course was notable for: (1)CTAP - Left nephrolithiasis, malrotated right kidney, no evidence of hydronephrosis or obstructive uropathy. Aneurysmal dilatation of the distal thoracic/upper abdominal aorta, as well as distal abdominal aorta. (2)UA - 3+blood, 3+LE, 968 WBC, 58 RBC, Bacteria 5562 (3) Recent Travel:denies PAST MEDICAL HISTORY: HTN HLD COPD CAD CVA/TIA Thoracic aortic aneurysm (type B) PVD CKD PAST SURGICAL HISTORY: pacemaker placed carotid endarterectomy Social History: Smoking: former smoker Alcohol: denies Drugs: denies Lives at home. Has aide visiting house. Uses a walker to ambulate at home. Family History: denies significant family history Allergies ciprofloxacin [From Cipro] Allergy (Unknown, Verified 08/08/19 10:20) Hives - Past Medical History CAN CARRIER: No: Alzheimer's Cardio/Vascular: Yes: CAD, HTN, Other (AAA) Pulmonary: Yes: COPD Gastrointestinal: Yes: Diverticulitis, Diverticulosis, Other (C. DIff colitis 2013) Musculoskeletal: Yes: Chronic low back pain - Past Surgical History Past Surgical History: Yes: Permanent Pacemaker - Alcohol/Substance Use Hx Alcohol Use: No History of Substance Use: reports: None - Smoking History Smoking history: Former smoker Have you smoked in the past 12 months: No If you are a former smoker, when did you quit?: years ago - Social History Usual Living Arrangement: With Spouse ADL: Independent History of Recent Travel: No Home Medications - Allergies Allergies/Adverse Reactions: Allergies Allergy/AdvReac Type Severity Reaction Status Date / Time ciprofloxacin [From Cipro] Allergy Unknown Hives Verified 08/08/19 10:20 - Home Medications Home Medications: Ambulatory Orders Amlodipine Besylate 5 mg PO HS 10/27/18 Atorvastatin Ca [Lipitor] 80 mg PO HS 10/27/18 Albuterol 0.083% Nebulizer Yamini [Ventolin 0.083% Nebulizer Soln -] 1 neb NEB BID 11/16/18 Alprazolam [Xanax] 0.25 mg PO BID PRN 02/27/19 Amitriptyline HCl [Elavil -] 10 mg PO DAILY 02/27/19 Carvedilol 6.25 mg PO TID 02/27/19 Dicyclomine HCl 10 mg PO TID 02/27/19 Lisinopril 10 mg PO PRN 02/27/19 Tiotropium [place] [Spiriva] 1 inh PO DAILY 02/27/19 Hydralazine HCl 10 mg PO HS PRN #30 tablet 06/14/19 Cilostazol 100 mg PO DAILY 08/08/19 Clonidine HCl 0.1 mg PO DAILY 08/08/19 Clopidogrel Bisulfate [Plavix] 75 mg PO DAILY 08/08/19 Donepezil HCl 5 mg PO DAILY 08/08/19 Hyoscyamine Odt [Levsin Odt -] 0.125 mg PO PRN PRN 08/08/19 Review of Systems - Review of Systems Gastrointestinal: reports: Abdominal Pain Genitourinary: reports: Burning, Dysuria, Hematuria. denies: Flank Pain Physical Exam- Vital Signs: Vital Signs Temperature 97.4 F L 08/09/19 07:09 Pulse Rate 104 H 08/09/19 07:09 Respiratory Rate 18 08/09/19 07:09 Blood Pressure 153/79 08/09/19 07:09 O2 Sat by Pulse Oximetry (%) 92 L 08/08/19 23:45 Gastrointestinal: Yes: Soft, Tenderness Labs: CBC, BMP 08/09/19 07:40 Imaging - Results Cat Scan: Report Reviewed Problem List - Problems (1) Renal calculus Assessment/Plan: f/u for ESWL Code(s): N20.0 - CALCULUS OF KIDNEY (2) Malrotation of kidney Code(s): Q63.2 - ECTOPIC KIDNEY (3) UTI (urinary tract infection) Assessment/Plan: Ur cx, rocephin Code(s): N39.0 - URINARY TRACT INFECTION, SITE NOT SPECIFIED (4) Hematuria Assessment/Plan: f/u in my office after disch for cystoscopy after uti resolved Code(s): R31.9 - HEMATURIA, UNSPECIFIED
[2019-08-09] MEDS ORDERED: cefTRIAXone SODIUM 1 GM VIAL ONE ×2 (09:17→19:02)
[2019-08-09] MEDS ORDERED: DEXTROSE 5%-WATER - 50 ML IVPB ONE ×2 (09:18→19:02)
[2019-08-09 09:34] LABS: ALBUMIN 2.8 g/dl (3.4-5.0); BILIRUBIN,TOTAL 0.4 mg/dL (0.2-1); BLOOD UREA NITROGEN 15.7 mg/dL (7-18); CALCIUM 8.5 mg/dL (8.5-10.1); CREATININE 1.1 mg/dL (0.55-1.3); POTASSIUM 3.7 mmol/L (3.5-5.1)
[2019-08-09] MEDS: CARVEDILOL 6.25 MG TABLET (FP) PO SCH (09:43)
[2019-08-09] MEDS: LISINOPRIL 10 MG TABLET (FP) PO SCH (09:43)
[2019-08-09] MEDS ORDERED: DONEPEZIL HCL 5 MG TABLET (FP) PO SCH (10:00)
[2019-08-09] MEDS ORDERED: PATIENT'S OWN MEDICATION (NON-FORMULARY) (Tiotropium Bromide [Spiriva] 1 INH) PO SCH (10:00)
[2019-08-09] MEDS ORDERED: CLOPIDOGREL BISULFATE 75 MG TABLET (FP) PO SCH (10:00)
[2019-08-09] MEDS ORDERED: CEFTRIAXONE 1 GM in DEXTROSE 5%-WATER - 50 ML IVPB SCH (10:00)
--- NOTE | 2019-08-09 13:43 | PN ---
Physical Exam: SUBJECTIVE: Patient seen and examined at bedside. she states that she is having abdominal discomfort and loose BM OBJECTIVE: Vital Signs Period Temp Pulse Resp BP Sys/Grover Pulse Ox Last 24 Hr 97.3 F-98.1 F 73-105 18-20 146-196/76-119 92-100 GENERAL: The patient is awake, alert, and fully oriented, in no acute distress. HEAD: Normal with no signs of trauma. LUNGS: Breath sounds equal, clear to auscultation bilaterally, no accessory muscle use. HEART: Regular rate and rhythm, S1, S2 ABDOMEN: Soft, nontender, nondistended, normoactive bowel sounds, no guarding. NO CVA tenderness EXTREMITIES: 2+ pulses, warm, well-perfused, no edema. SKIN: Warm, dry, normal turgor, no rashes or lesions noted Laboratory Results - last 24 hr 08/08/19 08/09/19 08/09/19 13:45 01:30 07:40 WBC 7.3 RBC 4.29 Hgb 11.8 Hct 36.0 MCV 83.9 MCH 27.5 MCHC 32.8 RDW 15.5 Plt Count 203 MPV 8.8 Absolute Neuts (auto) 4.5 Neutrophils % 61.5 Lymphocytes % 23.0 Monocytes % 9.8 Eosinophils % 5.2 H Basophils % 0.5 Nucleated RBC % 0 Sodium Potassium Chloride Carbon Dioxide Anion Gap BUN Creatinine Est GFR (CKD-EPI)AfAm Est GFR (CKD-EPI)NonAf Random Glucose Calcium Magnesium Total Bilirubin AST ALT Alkaline Phosphatase Total Protein Albumin Urine Osmolality 334 Ur Random Creatinine 40.0 Ur Random Sodium 109 Ur Random Potassium 18.0 L Ur Random Chloride 113 Stool Occult Blood Negative 08/09/19 07:40 WBC RBC Hgb Hct MCV MCH MCHC RDW Plt Count MPV Absolute Neuts (auto) Neutrophils % Lymphocytes % Monocytes % Eosinophils % Basophils % Nucleated RBC % Sodium 143 Potassium 3.7 Chloride 113 H Carbon Dioxide 21 Anion Gap 9 BUN 15.7 Creatinine 1.1 Est GFR (CKD-EPI)AfAm 51.91 Est GFR (CKD-EPI)NonAf 44.79 Random Glucose 118 H Calcium 8.5 Magnesium 2.0 Total Bilirubin 0.4 AST 16 ALT 9 L Alkaline Phosphatase 83 Total Protein 6.0 L Albumin 2.8 L Urine Osmolality Ur Random Creatinine Ur Random Sodium Ur Random Potassium Ur Random Chloride Stool Occult Blood Current Medications Albuterol Sulfate (Ventolin 0.083% Nebulizer Soln -) 1 amp NEB RBID [facility] Last Admin: 08/09/19 08:05 Dose: 1 amp Amlodipine Besylate (Norvasc -) 5 mg PO HS [facility] Last Admin: 08/08/19 22:19 Dose: 5 mg Atorvastatin Calcium (Lipitor -) 80 mg PO HS [facility] Last Admin: 08/08/19 22:19 Dose: 80 mg Carvedilol (Coreg -) 6.25 mg PO BID [facility] Last Admin: 08/09/19 09:43 Dose: 6.25 mg Donepezil HCl (Aricept -) 5 mg PO HS [facility] Last Admin: 08/08/19 22:19 Dose: 5 mg Hydralazine HCl (Apresoline -) 10 mg PO HS PRN PRN Reason: HYPERTENSION Last Admin: 08/08/19 19:58 Dose: 10 mg Sodium Chloride (Normal Saline -) 1,000 mls @ 50 mls/hr IV ASDIR [facility] Stop: 08/09/19 17:44 Last Admin: 08/08/19 17:57 Dose: 50 mls/hr Ceftriaxone Sodium 1 gm/ (Dextrose) 50 mls @ 100 mls/hr IVPB DAILY [facility] Last Admin: 08/09/19 09:44 Dose: 100 mls/hr Dextrose/Sodium Chloride (D5-1/2ns -) 1,000 mls @ 75 mls/hr IV ASDIR [facility] Last Admin: 08/08/19 21:16 Dose: 75 mls/hr Lisinopril (Prinivil) 10 mg PO DAILY [facility] Last Admin: 08/09/19 09:43 Dose: 10 mg Tiotropium [place] (Spiriva Respimat) 2 puff IH DAILY [facility] Renal and urinary bladder ultrasound The right kidney measures 5.6 cm in sagittal length and the left kidney measured 8.8 cm. There is no gross evidence of hydronephrosis or renal stones, bilaterally. No cystic or solid mass lesion is identified, bilaterally. Normal color Doppler flow in the left kidney and limited color Doppler evaluation of the right kidney. Visualized portion of the liver appears unremarkable Urinary bladder is partially distended with a volume of 320 cc without wall thickening. Bilateral ureteral jets were identified. There is approximately 60 cc of postvoid urine residue Female pelvic organs were not evaluated Spiral CT: IMPRESSION: 1. Left nephrolithiasis. 2. Malrotated right kidney. 3. No evidence of hydronephrosis or obstructive uropathy. 4. Aneurysmal dilatation of the distal thoracic/upper abdominal aorta, as well as the distal abdominal aorta. Please see above discussion. ASSESSMENT/PLAN: 88 yo F with PMH of HTN, HLD, COPD, CAD, CVA/TIA, Thoracic aortic aneurysm ( type B), PVD, and CKD, presented today due to blood in your urine UTI -UA - 3+blood, 3+LE, 968 WBC, 58 RBC, Bacteria 5562. pending rpt -previous UCx shows dee-sensitive E.coli -will continue Ceftriaxone 1g daily. day 2 -Urine cultures Hematuria 2/2 nephrolithiasis -chronic, previous UA studies showing hematuria -H/H stable -CTAP showing left nephrolithiasis -Kidney/Bladder US above -Urology (Dr. Ervin) consulted. pt may need outpt cystoscopy GRISELDA on CKD - improved -renal ultrasound -FeNa HTN -continue home meds -Amlodipine 5, Coreg 6.25bid,coreg 3.125, lisinopril 10 mg Hydralazine 10 prn for SBP > 180 HLD -Continue Lipitor 80mg po hs COPD -continue home meds Thoracic aortic aneurysm -stable on repeat CT abdomen Prophylaxis: SCDs Visit type - Emergency Visit Emergency Visit: No - New Patient This patient is new to me today: No - Critical Care Critical Care patient: No - Discharge Referral Referred to [facility] Med [facility] No ATTENDING PHYSICIAN STATEMENT I saw and evaluated the patient. I reviewed the resident's note and discussed the case with the resident. I agree with the resident's findings and plan as documented. SUBJECTIVE: OBJECTIVE: ASSESSMENT AND PLAN:
[2019-08-09] MEDS: TIOTROPIUM BROMIDE 2.5 MCG (SPIRIVA) RESPIMAT INHALER IH SCH (15:17)
--- NOTE | 2019-08-09 18:45 | PN ---
Teaching Attending Note Name of Resident: Marry Aleman ATTENDING PHYSICIAN STATEMENT I saw and evaluated the patient. I reviewed the resident's note and discussed the case with the resident. I agree with the resident's findings and plan as documented. SUBJECTIVE: Patient is comfortable with no fever or chills, c/o mild lower abdominal pain. OBJECTIVE: Vital Signs Temperature 98.1 F 08/09/19 14:00 Pulse Rate 98 H 08/09/19 14:00 Respiratory Rate 20 08/09/19 14:00 Blood Pressure 153/71 08/09/19 14:00 O2 Sat by Pulse Oximetry (%) 98 08/09/19 09:00 GENERAL: The patient is awake, alert, and fully oriented, in no acute distress. HEAD: Normal with no signs of trauma. EYES: PERRL, extraocular movements intact, sclera anicteric, conjunctiva clear. ENT: Ears normal, oropharynx clear without exudates, moist mucous membranes. NECK: Trachea midline, full range of motion, supple. LUNGS: Breath sounds equal, clear to auscultation bilaterally, no wheezes, no crackles, no accessory muscle use. HEART: Regular rate and rhythm, S1, S2 +, JENIFFER 2/6 ,no rub or gallop. ABDOMEN: Soft, mild tenderness lower abdomenal area, normoactive bowel sounds, no guarding, no rebound, no hepatosplenomegaly, no masses. EXTREMITIES: 2+ pulses, warm, well-perfused, no edema. NEUROLOGICAL: Cranial nerves II through XII grossly intact. Normal speech, gait not observed. PSYCH: Normal mood, normal affect. SKIN: Warm, dry, normal turgor, no rashes or lesions noted CBCD WBC 7.3 K/mm3 (4.0-10.0) 08/09/19 07:40 RBC 4.29 M/mm3 (3.60-5.2) 08/09/19 07:40 Hgb 11.8 GM/dL (10.7-15.3) 08/09/19 07:40 Hct 36.0 % (32.4-45.2) 08/09/19 07:40 MCV 83.9 fl (80-96) 08/09/19 07:40 MCHC 32.8 g/dl (32.0-36.0) 08/09/19 07:40 RDW 15.5 % (11.6-15.6) 08/09/19 07:40 Plt Count 203 K/MM3 (134-434) 08/09/19 07:40 MPV 8.8 fl (7.5-11.1) 08/09/19 07:40 CMP Sodium 143 mmol/L (136-145) 08/09/19 07:40 Potassium 3.7 mmol/L (3.5-5.1) 08/09/19 07:40 Chloride 113 mmol/L (98-107) H 08/09/19 07:40 Carbon Dioxide 21 mmol/L (21-32) 08/09/19 07:40 Anion Gap 9 MMOL/L (8-16) 08/09/19 07:40 BUN 15.7 mg/dL (7-18) 08/09/19 07:40 Creatinine 1.1 mg/dL (0.55-1.3) 08/09/19 07:40 Random Glucose 118 mg/dL (74-106) H 08/09/19 07:40 Calcium 8.5 mg/dL (8.5-10.1) 08/09/19 07:40 Total Bilirubin 0.4 mg/dL (0.2-1) 08/09/19 07:40 AST 16 U/L (15-37) 08/09/19 07:40 ALT 9 U/L (13-61) L 08/09/19 07:40 Alkaline Phosphatase 83 U/L (45-117) 08/09/19 07:40 Total Protein 6.0 g/dl (6.4-8.2) L 08/09/19 07:40 Albumin 2.8 g/dl (3.4-5.0) L 08/09/19 07:40 Current Medications Generic Name Dose Route Start Last Admin Trade Name Freq PRN Reason Stop Dose Admin Albuterol Sulfate 1 amp 08/09/19 08:15 08/09/19 08:05 Ventolin 0.083% Nebulizer Soln - NEB 1 amp RBID DARIUS Administration Amlodipine Besylate 5 mg 08/08/19 22:00 08/08/19 22:19 Norvasc - PO 5 mg HS DARIUS Administration Atorvastatin Calcium 80 mg 08/08/19 22:00 08/08/19 22:19 Lipitor - PO 80 mg HS DARIUS Administration Carvedilol 6.25 mg 08/09/19 22:00 Coreg - PO TID DARIUS Carvedilol 3.125 mg 08/09/19 22:00 Coreg - PO TID DARIUS Cilostazol 100 mg 08/10/19 07:00 Pletal - PO AM DARIUS Donepezil HCl 5 mg 08/08/19 22:00 08/08/19 22:19 Aricept - PO 5 mg HS DARIUS Administration Hydralazine HCl 10 mg 08/09/19 17:45 Apresoline - PO PRN DARIUS Lisinopril 10 mg 08/09/19 10:00 08/09/19 09:43 Prinivil PO 10 mg DAILY DARIUS Administration Tiotropium [place] 2 puff 08/09/19 10:00 08/09/19 15:17 Spiriva Respimat IH 2 puff DAILY DARIUS Administration Home Medications Medication Instructions Recorded Atorvastatin Ca [Lipitor] 80 mg PO HS 10/27/18 Albuterol 0.083% Nebulizer Yamini 1 neb NEB BID 11/16/18 [Ventolin 0.083% Nebulizer Soln -] Alprazolam [Xanax] 0.25 mg PO BID PRN 02/27/19 Carvedilol 6.25 mg PO DAILY 02/27/19 Dicyclomine HCl 10 mg PO TID 02/27/19 Lisinopril 10 mg PO PRN 02/27/19 Tiotropium [place] [Spiriva] 1 inh PO DAILY 02/27/19 Hydralazine HCl 10 mg PO HS PRN #30 tablet 06/14/19 Cilostazol 100 mg PO BID 08/08/19 Clopidogrel Bisulfate [Plavix] 75 mg PO DAILY 08/08/19 Donepezil HCl 5 mg PO DAILY 08/08/19 Hyoscyamine Odt [Levsin Odt -] 0.125 mg PO PRN PRN 08/08/19 Amlodipine Besylate [Norvasc -] 5 mg PO DAILY 08/09/19 Carvedilol 3.125 mg PO DAILY 08/09/19 Carvedilol [Coreg -] 3.125 mg PO TID 08/09/19 Carvedilol [Coreg -] 6.25 mg PO TID 08/09/19 Cilostazol [Pletal -] 1 tablet PO AM 08/09/19 Clonidine Patch [Catapres Tts 0.1 mg TD WEEKLY 08/09/19 Patch -] Urine Test Results Urine Color Yellow 08/08/19 12:11 Urine Appearance Turbid 08/08/19 12:11 Urine pH 6.0 (5.0-8.0) 08/08/19 12:11 Ur Specific [place] 1.008 (1.010-1.035) L 08/08/19 12:11 Urine Protein 1+ (NEGATIVE) H 08/08/19 12:11 Urine Glucose (UA) Negative (NEGATIVE) 08/08/19 12:11 Urine Ketones Negative (NEGATIVE) 08/08/19 12:11 Urine Blood 3+ (NEGATIVE) H 08/08/19 12:11 Urine Nitrite Negative (NEGATIVE) 08/08/19 12:11 Urine Bilirubin Negative (NEGATIVE) 08/08/19 12:11 Ur Leukocyte Esterase 3+ (NEGATIVE) H 08/08/19 12:11 ASSESSMENT AND PLAN: Patient is an 88 year old female with PMHx of HTN, HLD, COPD, CAD, CVA/TIA, Thoracic aortic aneurysm (type B), PVD, and CKD, presented with hematuria and was found to have UTI. #ACUTE UTI: on iv abx rocephin continue #Hematuria, GRISELDA on CKD #Malrotation of the kidney #HTN :uncontrolled: continue home meds #HLD: continue statin #COPD: continue home meds DVT px
[2019-08-09] MEDS: CEFTRIAXONE 1 GM in DEXTROSE 5%-WATER - 50 ML IVPB SCH (19:05)
[2019-08-09] MEDS ORDERED: CARVEDILOL 6.25 MG TABLET (FP) PO ONE (20:54)
[2019-08-09] MEDS ORDERED: hydrALAZINE HCL 10 MG TABLET PO ONE (20:55)
[2019-08-09] MEDS: ATORVASTATIN CA 80 MG TABLET (FP) PO SCH (21:46)
[2019-08-09] MEDS: DONEPEZIL HCL 5 MG TABLET (FP) PO SCH (21:46)
[2019-08-09] MEDS: amLODIPine BESYLATE 5 MG TABLET (FP) PO SCH (21:46)
[2019-08-09] MEDS ORDERED: CARVEDILOL 3.125 MG TABLET (FP) PO SCH (22:00)
[2019-08-09 23:48] LABS: URINE APPEARANCE Clear; URINE BILIRUBIN Negative (NEGATIVE); URINE COLOR Yellow; URINE GLUCOSE (UA) Negative (NEGATIVE); URINE KETONE Negative (NEGATIVE); URINE LEUK ESTERASE Trace (NEGATIVE); URINE NITRITE Negative (NEGATIVE); URINE PROTEIN Trace (NEGATIVE); URINE UROBILINOGEN 0.2 mg/dL (0.2-1.0)
[2019-08-10 00:29] LABS: URINE RBC 6 /hpf (0-4); URINE WBC 7 /hpf (0-5)
[2019-08-10 00:30] LABS: HYALINE CASTS 5 /lpf (0-8); URINE BACTERIA 3 /hpf (NEGATIVE)
[2019-08-10] MEDS ORDERED: PT OWN MED DRAWER 7, Y5N ONE ×2 (06:31→10:32)
[2019-08-10] MEDS ORDERED: CARVEDILOL 6.25 MG TABLET (FP) PO SCH ×2 (06:32→10:00)
[2019-08-10] MEDS ORDERED: CILOSTAZOL 100 MG TABLET PO SCH (07:00)
[2019-08-10] MEDS: ALBUTEROL SO4 0.083% IH SOL 2.5 MG/3 ML VIAL.NEB. NEB SCH (07:40)
[2019-08-10] MEDS: CARVEDILOL 3.125 MG TABLET (FP) PO SCH ×2 (07:52→14:34)
[2019-08-10 08:25] LABS: BLOOD UREA NITROGEN 13.3 mg/dL (7-18); CALCIUM 9.3 mg/dL (8.5-10.1); MAGNESIUM 2.1 mg/dL (1.8-2.4); PHOSPHOROUS 3.1 mg/dL (2.5-4.9); POTASSIUM 4.2 mmol/L (3.5-5.1)
[2019-08-10 08:32] LABS: HEMATOCRIT 38.4 % (32.4-45.2); HEMOGLOBIN 12.8 GM/dL (10.7-15.3); MCH 27.5 pg (25.7-33.7); MCHC 33.2 g/dl (32.0-36.0); MEAN CELL VOLUME 82.9 fl (80-96); MEAN PLT VOLUME 8.8 fl (7.5-11.1); PLATELET COUNT 254 K/MM3 (134-434); RBC 4.63 M/mm3 (3.60-5.2); RDW 15.4 % (11.6-15.6); WHITE BLOOD COUNT 6.7 K/mm3 (4.0-10.0)
--- NOTE | 2019-08-10 09:25 | PN ---
Teaching Attending Note Name of Resident: Marry Aleman ATTENDING PHYSICIAN STATEMENT I saw and evaluated the patient. I reviewed the resident's note and discussed the case with the resident. I agree with the resident's findings and plan as documented. SUBJECTIVE: Patient is comfortable would like to go home. OBJECTIVE: CBCD WBC 6.7 K/mm3 (4.0-10.0) 08/10/19 06:47 RBC 4.63 M/mm3 (3.60-5.2) 08/10/19 06:47 Hgb 12.8 GM/dL (10.7-15.3) 08/10/19 06:47 Hct 38.4 % (32.4-45.2) 08/10/19 06:47 MCV 82.9 fl (80-96) 08/10/19 06:47 MCHC 33.2 g/dl (32.0-36.0) 08/10/19 06:47 RDW 15.4 % (11.6-15.6) 08/10/19 06:47 Plt Count 254 K/MM3 (134-434) D 08/10/19 06:47 MPV 8.8 fl (7.5-11.1) 08/10/19 06:47 CMP Sodium 143 mmol/L (136-145) 08/10/19 06:47 Potassium 4.2 mmol/L (3.5-5.1) 08/10/19 06:47 Chloride 111 mmol/L (98-107) H 08/10/19 06:47 Carbon Dioxide 26 mmol/L (21-32) 08/10/19 06:47 Anion Gap 6 MMOL/L (8-16) L 08/10/19 06:47 BUN 13.3 mg/dL (7-18) 08/10/19 06:47 Creatinine 1.0 mg/dL (0.55-1.3) 08/10/19 06:47 Random Glucose 92 mg/dL (74-106) 08/10/19 06:47 Calcium 9.3 mg/dL (8.5-10.1) 08/10/19 06:47 Total Bilirubin 0.4 mg/dL (0.2-1) 08/09/19 07:40 AST 16 U/L (15-37) 08/09/19 07:40 ALT 9 U/L (13-61) L 08/09/19 07:40 Alkaline Phosphatase 83 U/L (45-117) 08/09/19 07:40 Total Protein 6.0 g/dl (6.4-8.2) L 08/09/19 07:40 Albumin 2.8 g/dl (3.4-5.0) L 08/09/19 07:40 Current Medications Generic Name Dose Route Start Last Admin Trade Name Freq PRN Reason Stop Dose Admin Albuterol Sulfate 1 amp 08/09/19 08:15 08/09/19 20:23 Ventolin 0.083% Nebulizer Soln - NEB 1 amp RBID DARIUS Administration Amlodipine Besylate 5 mg 08/08/19 22:00 08/09/19 21:46 Norvasc - PO 5 mg HS DARIUS Administration Atorvastatin Calcium 80 mg 08/08/19 22:00 08/09/19 21:46 Lipitor - PO 80 mg HS DARIUS Administration Carvedilol 9.375 mg 08/10/19 06:45 08/10/19 07:52 Coreg - PO 9.375 mg TID DARIUS Administration Cilostazol 100 mg 08/10/19 07:00 08/10/19 06:32 Pletal - PO 100 mg AM DARIUS Administration Donepezil HCl 5 mg 08/08/19 22:00 08/09/19 21:46 Aricept - PO 5 mg HS DARIUS Administration Hydralazine HCl 10 mg 08/10/19 22:00 Apresoline - PO HS PRN HYPERTENSION Ceftriaxone Sodium 1 gm/ 50 mls @ 200 mls/hr 08/09/19 18:45 08/09/19 19:05 Dextrose IVPB 200 mls/hr DAILY DARIUS Administration Protocol Lisinopril 10 mg 08/09/19 10:00 08/09/19 09:43 Prinivil PO 10 mg DAILY DARIUS Administration Tiotropium [place] 2 puff 08/09/19 10:00 08/09/19 15:17 Spiriva Respimat IH 2 puff DAILY DARIUS Administration Home Medications Medication Instructions Recorded Atorvastatin Ca [Lipitor] 80 mg PO HS 10/27/18 Albuterol 0.083% Nebulizer Yamini 1 neb NEB BID 11/16/18 [Ventolin 0.083% Nebulizer Soln -] Alprazolam [Xanax] 0.25 mg PO BID PRN 02/27/19 Carvedilol 6.25 mg PO DAILY 02/27/19 Dicyclomine HCl 10 mg PO TID 02/27/19 Lisinopril 10 mg PO PRN 02/27/19 Tiotropium [place] [Spiriva] 1 inh PO DAILY 02/27/19 Hydralazine HCl 10 mg PO HS PRN #30 tablet 06/14/19 Cilostazol 100 mg PO BID 08/08/19 Clopidogrel Bisulfate [Plavix] 75 mg PO DAILY 08/08/19 Donepezil HCl 5 mg PO DAILY 08/08/19 Hyoscyamine Odt [Levsin Odt -] 0.125 mg PO PRN PRN 08/08/19 Amlodipine Besylate [Norvasc -] 5 mg PO DAILY 08/09/19 Carvedilol 3.125 mg PO DAILY 08/09/19 Carvedilol [Coreg -] 3.125 mg PO TID 08/09/19 Carvedilol [Coreg -] 6.25 mg PO TID 08/09/19 Cilostazol [Pletal -] 1 tablet PO AM 08/09/19 Clonidine Patch [Catapres Tts 0.1 mg TD WEEKLY 08/09/19 Patch -] Vital Signs Temperature 97.7 F 08/10/19 09:00 Pulse Rate 81 08/10/19 10:44 Respiratory Rate 18 08/10/19 10:00 Blood Pressure 126/73 08/10/19 10:44 O2 Sat by Pulse Oximetry (%) 98 08/10/19 10:00 Microbiology 08/09/19 01:30 Urine - Urine Clean Catch Urine Culture - Final NO GROWTH OBTAINED ASSESSMENT AND PLAN: Patient is an 88 year old female with PMHx of HTN, HLD, COPD, CAD, CVA/TIA, Thoracic aortic aneurysm (type B), PVD, and CKD, presented with hematuria and was found to have UTI. #ACUTE UTI: s/p IV rocephin continue , no growth on Ucx, patient is comfortable , dc patient home #Hematuria, GRISELDA on CKD #Malrotation of the kidney #HTN :uncontrolled: continue home meds #HLD: continue statin #COPD: continue home meds As per cardiology notes: 1) when she wakes up in the morning: BP >150 = take carvedilol 9.375mg and amlodipine 5 mg at the same time . 120-150 = carvedilol 9.375, no amlodipine. <120 = no meds 2) check BP at lunch time: BP >130 , take Lisinopril 10mg at that time. BP <130, take nothing 3) check BP at dinner time: BP >140 = take carvedilol 9.375mg and amlodipine 5 mg 120-140 = carvedilol 6.25mg <120 = no meds 4) check BP again at 10pm: If BP is > 180 = carvedilol 9.375 mg and hydralazine 10 mg. IF BP is 130-180 = take carvedilol 9.375 mg alone If BP < 130 = no meds 5) at any of the above time points, if BP > 180, take the meds as advised and REPEAT THE BP 1 HR LATER. IF BP STILL >180 WHEN REPEATED, TAKE A DOSE OF HYDRALAZINE 10MG .
--- NOTE | 2019-08-10 09:39 | PN ---
Physical Exam: SUBJECTIVE: Patient seen and examined OBJECTIVE: Vital Signs Period Temp Pulse Resp BP Sys/Grover Pulse Ox Last 24 Hr 97.5 F-98.9 F 91-99 18-20 153-180/71-95 98 GENERAL: The patient is awake, alert, and fully oriented, in no acute distress. HEAD: Normal with no signs of trauma. EYES: PERRL, extraocular movements intact, sclera anicteric, conjunctiva clear. No ptosis. ENT: Ears normal, nares patent, oropharynx clear without exudates, moist mucous membranes. NECK: Trachea midline, full range of motion, supple. LUNGS: Breath sounds equal, clear to auscultation bilaterally, no wheezes, no crackles, no accessory muscle use. HEART: Regular rate and rhythm, S1, S2 without murmur, rub or gallop. ABDOMEN: Soft, nontender, nondistended, normoactive bowel sounds, no guarding, no rebound, no hepatosplenomegaly, no masses. EXTREMITIES: 2+ pulses, warm, well-perfused, no edema. NEUROLOGICAL: Cranial nerves II through XII grossly intact. Normal speech, gait not observed. PSYCH: Normal mood, normal affect. SKIN: Warm, dry, normal turgor, no rashes or lesions noted Laboratory Results - last 24 hr 08/09/19 08/10/19 08/10/19 22:03 06:47 06:47 WBC 6.7 RBC 4.63 Hgb 12.8 Hct 38.4 MCV 82.9 MCH 27.5 MCHC 33.2 RDW 15.4 Plt Count 254 D MPV 8.8 Sodium 143 Potassium 4.2 Chloride 111 H Carbon Dioxide 26 Anion Gap 6 L BUN 13.3 Creatinine 1.0 Est GFR (CKD-EPI)AfAm 58.25 Est GFR (CKD-EPI)NonAf 50.26 Random Glucose 92 Calcium 9.3 Phosphorus 3.1 Magnesium 2.1 Urine Color Yellow Urine Appearance Clear Urine pH 7.0 Ur Specific [place] 1.015 Urine Protein Trace Urine Glucose (UA) Negative Urine Ketones Negative Urine Blood 1+ H Urine Nitrite Negative Urine Bilirubin Negative Urine Urobilinogen 0.2 Ur Leukocyte Esterase Trace Urine WBC (Auto) 7 Urine RBC (Auto) 6 Urine Casts (Auto) 5 Urine Bacteria (Auto) 3 Active Medications Generic Name Dose Route Start Last Admin Trade Name Freq PRN Reason Stop Dose Admin Albuterol Sulfate 1 amp 08/09/19 08:15 08/09/19 20:23 Ventolin 0.083% Nebulizer Soln - NEB 1 amp RBID DARIUS Administration Amlodipine Besylate 5 mg 08/08/19 22:00 08/09/19 21:46 Norvasc - PO 5 mg HS DARIUS Administration Atorvastatin Calcium 80 mg 08/08/19 22:00 08/09/19 21:46 Lipitor - PO 80 mg HS DARIUS Administration Carvedilol 9.375 mg 08/10/19 06:45 08/10/19 07:52 Coreg - PO 9.375 mg TID DARIUS Administration Cilostazol 100 mg 08/10/19 07:00 08/10/19 06:32 Pletal - PO 100 mg AM DARIUS Administration Donepezil HCl 5 mg 08/08/19 22:00 08/09/19 21:46 Aricept - PO 5 mg HS DARIUS Administration Hydralazine HCl 10 mg 08/10/19 22:00 Apresoline - PO HS PRN HYPERTENSION Ceftriaxone Sodium 1 gm/ 50 mls @ 200 mls/hr 08/09/19 18:45 08/09/19 19:05 Dextrose IVPB 200 mls/hr DAILY DARIUS Administration Protocol Lisinopril 10 mg 08/09/19 10:00 08/09/19 09:43 Prinivil PO 10 mg DAILY DARIUS Administration Tiotropium [place] 2 puff 08/09/19 10:00 08/09/19 15:17 Spiriva Respimat IH 2 puff DAILY DARIUS Administration ASSESSMENT/PLAN: ATTENDING PHYSICIAN STATEMENT I saw and evaluated the patient. I reviewed the resident's note and discussed the case with the resident. I agree with the resident's findings and plan as documented. SUBJECTIVE: OBJECTIVE: ASSESSMENT AND PLAN:
[2019-08-10 10:00] VITALS: TEMP 97.7
[2019-08-10] MEDS ORDERED: hydrALAZINE HCL 10 MG TABLET PO SCH (10:00)
[2019-08-10] MEDS ORDERED: cefTRIAXone SODIUM 1 GM VIAL ONE (10:32)
[2019-08-10] MEDS ORDERED: DEXTROSE 5%-WATER - 50 ML IVPB ONE (10:32)
[2019-08-10] MEDS: LISINOPRIL 10 MG TABLET (FP) PO SCH (10:41)
[2019-08-10] MEDS: CEFTRIAXONE 1 GM in DEXTROSE 5%-WATER - 50 ML IVPB SCH (10:41)
[2019-08-10] MEDS: TIOTROPIUM BROMIDE 2.5 MCG (SPIRIVA) RESPIMAT INHALER IH SCH (10:42)
[2019-08-10 10:45] VITALS: BP 126/73; PULSE 81
--- NOTE | 2019-08-10 13:46 | CON.CARD ---
Cardiology Consult (text) - Consultation Consultation Note: cc: hematuria hpi: 88 f hx htn c/b orthostatic hypotension, ppm, prior cva, descd thoracic aortic aneurysm, copd p/w uti. Sees dr molina for cardio. Had hematuria, abd pain, dysruia, found to have uti. No chest pain, sob, palps, dizziness, loc edema. pmh: per hpi psh: ppm, knee social: no tob fam: no premature cad ros: per hpi; all others nl Home Medications Medication Instructions Recorded Atorvastatin Ca [Lipitor] 80 mg PO HS 10/27/18 Albuterol 0.083% Nebulizer Yamini 1 neb NEB BID 11/16/18 [Ventolin 0.083% Nebulizer Soln -] Alprazolam [Xanax] 0.25 mg PO BID PRN 02/27/19 Lisinopril 10 mg PO PRN 02/27/19 Tiotropium [place] [Spiriva] 1 inh PO DAILY 02/27/19 Hydralazine HCl 10 mg PO HS PRN #30 tablet 06/14/19 Clopidogrel Bisulfate [Plavix] 75 mg PO DAILY 08/08/19 Donepezil HCl 5 mg PO DAILY 08/08/19 Hyoscyamine Odt [Levsin Odt -] 0.125 mg PO PRN PRN 08/08/19 Amlodipine Besylate [Norvasc -] 5 mg PO DAILY 08/09/19 Carvedilol [Coreg -] 3.125 mg PO TID 08/09/19 Carvedilol [Coreg -] 6.25 mg PO TID 08/09/19 Cilostazol [Pletal -] 1 tablet PO AM 08/09/19 Clonidine Patch [Catapres Tts 0.1 mg TD WEEKLY 08/09/19 Patch -] Lisinopril [Prinivil] 10 mg PO DAILY #30 tablet 08/10/19 Vital Signs Period Temp Pulse Resp BP Sys/Grover Pulse Ox Last 24 Hr 97.5 F-97.8 F 81-99 18-20 126-180/73-91 98 nad no jvd rrr s1s2 no mrg cta bl nl eff aaox3 no le e/c/c abd nt nd pos bs no jaundice diaphoresis pos dp pt no carotid bruits Laboratory Last Values WBC 6.7 K/mm3 (4.0-10.0) 08/10/19 06:47 RBC 4.63 M/mm3 (3.60-5.2) 08/10/19 06:47 Hgb 12.8 GM/dL (10.7-15.3) 08/10/19 06:47 Hct 38.4 % (32.4-45.2) 08/10/19 06:47 MCV 82.9 fl (80-96) 08/10/19 06:47 MCH 27.5 pg (25.7-33.7) 08/10/19 06:47 MCHC 33.2 g/dl (32.0-36.0) 08/10/19 06:47 RDW 15.4 % (11.6-15.6) 08/10/19 06:47 Plt Count 254 K/MM3 (134-434) D 08/10/19 06:47 MPV 8.8 fl (7.5-11.1) 08/10/19 06:47 Absolute Neuts (auto) 4.5 K/mm3 (1.5-8.0) 08/09/19 07:40 Neutrophils % 61.5 % (42.8-82.8) 08/09/19 07:40 Lymphocytes % 23.0 % (8-40) 08/09/19 07:40 Monocytes % 9.8 % (3.8-10.2) 08/09/19 07:40 Eosinophils % 5.2 % (0-4.5) H 08/09/19 07:40 Basophils % 0.5 % (0-2.0) 08/09/19 07:40 Nucleated RBC % 0 % (0-0) 08/09/19 07:40 PT with INR 11.80 SEC (9.7-13.0) 08/08/19 12:20 INR 1.00 (0.83-1.09) 08/08/19 12:20 PTT (Actin FS) 32.9 SECONDS (25.2-36.5) 08/08/19 12:20 Sodium 143 mmol/L (136-145) 08/10/19 06:47 Potassium 4.2 mmol/L (3.5-5.1) 08/10/19 06:47 Chloride 111 mmol/L (98-107) H 08/10/19 06:47 Carbon Dioxide 26 mmol/L (21-32) 08/10/19 06:47 Anion Gap 6 MMOL/L (8-16) L 08/10/19 06:47 BUN 13.3 mg/dL (7-18) 08/10/19 06:47 Creatinine 1.0 mg/dL (0.55-1.3) 08/10/19 06:47 Est GFR (CKD-EPI)AfAm 58.25 08/10/19 06:47 Est GFR (CKD-EPI)NonAf 50.26 08/10/19 06:47 Random Glucose 92 mg/dL (74-106) 08/10/19 06:47 Calcium 9.3 mg/dL (8.5-10.1) 08/10/19 06:47 Phosphorus 3.1 mg/dL (2.5-4.9) 08/10/19 06:47 Magnesium 2.1 mg/dL (1.8-2.4) 08/10/19 06:47 Total Bilirubin 0.4 mg/dL (0.2-1) 08/09/19 07:40 AST 16 U/L (15-37) 08/09/19 07:40 ALT 9 U/L (13-61) L 08/09/19 07:40 Alkaline Phosphatase 83 U/L (45-117) 08/09/19 07:40 Total Protein 6.0 g/dl (6.4-8.2) L 08/09/19 07:40 Albumin 2.8 g/dl (3.4-5.0) L 08/09/19 07:40 Urine Color Yellow 08/09/19 22:03 Urine Appearance Clear 08/09/19 22:03 Urine pH 7.0 (5.0-8.0) 08/09/19 22:03 Ur Specific [place] 1.015 (1.010-1.035) 08/09/19 22:03 Urine Protein Trace (NEGATIVE) 08/09/19 22:03 Urine Glucose (UA) Negative (NEGATIVE) 08/09/19 22:03 Urine Ketones Negative (NEGATIVE) 08/09/19 22:03 Urine Blood 1+ (NEGATIVE) H 08/09/19 22:03 Urine Nitrite Negative (NEGATIVE) 08/09/19 22:03 Urine Bilirubin Negative (NEGATIVE) 08/09/19 22:03 Urine Urobilinogen 0.2 mg/dL (0.2-1.0) 08/09/19 22:03 Ur Leukocyte Esterase Trace (NEGATIVE) 08/09/19 22:03 Urine WBC (Auto) 7 /hpf (0-5) 08/09/19 22:03 Urine RBC (Auto) 6 /hpf (0-4) 08/09/19 22:03 Urine Casts (Auto) 5 /lpf (0-8) 08/09/19 22:03 U Epithel Cells (Auto) 1.1 /HPF (0-5/HPF) 08/08/19 12:11 Urine Bacteria (Auto) 3 /hpf (NEGATIVE) 08/09/19 22:03 Urine Osmolality 334 mosm/kg (300-900) 08/09/19 01:30 Ur Random Creatinine 40.0 mg/dL (30-150) 08/09/19 01:30 Ur Random Sodium 109 MMOL/L (40-220) 08/09/19 01:30 Ur Random Potassium 18.0 MMOL/L (25-125) L 08/09/19 01:30 Ur Random Chloride 113 MMOL/L (110-250) 08/09/19 01:30 Stool Occult Blood Negative (NEGATIVE) 08/08/19 13:45 echo 06/2017: nl lv/rv, no sig valve path, nl rvsp echo 08/2018 nl LV/RV, mild to mod TR, desc ao aneurysm 4.4 cm mibi 09/2016: no ischemia a/p: hpi: 88 f hx htn c/b orthostatic hypotension, ppm, prior cva, descd thoracic aortic aneurysm, copd p/w uti. uti: -abx per primary HTN : - history of labile BPs with weakness when SBP 100s-120s -continue her home regimen: CLONIDINE PATCH 0.1 (NOT RELATED TO HER DRY MOUTH). 1) when she wakes up in the morning: BP >150 = take carvedilol 9.375mg and amlodipine 5 mg at the same time . 120-150 = carvedilol 9.375, no amlodipine. <120 = no meds 2) check BP at lunch time: BP >130 , take Lisinopril 10mg at that time. BP <130, take nothing 3) check BP at dinner time: BP >140 = take carvedilol 9.375mg and amlodipine 5 mg 120-140 = carvedilol 6.25mg <120 = no meds 4) check BP again at 10pm: If BP is > 180 = carvedilol 9.375 mg and hydralazine 10 mg. IF BP is 130-180 = take carvedilol 9.375 mg alone If BP < 130 = no meds 5) at any of the above time points, if BP > 180, take the meds as advised and REPEAT THE BP 1 HR LATER. IF BP STILL >180 WHEN REPEATED, TAKE A DOSE OF HYDRALAZINE 10MG . descending TAA: - prior evaluation by cardio-thoracic surgery - high risk for vascular complication from EVAR approach (small, calcified peripheral vessels) and high risk for open repair. pt declined intervention and has not followed up. defer intervention at this point - BP control as above CKD: - Cr at baseline ppm, [employer]: -nl fxn on outpt routine interrogations in office CAD - cor calcium on chest CT, no ischemia on mibi 2016 - cont plavix, statin, bb HPL: -continue home statin CVA - cont plavix, statin cardiac hart stable for dc
--- NOTE | 2019-08-10 15:11 | DS ---
Physical Exam: SUBJECTIVE: Patient seen and examined at bedside, pt has no current complaints, denies dysuria, denies cp, sob OBJECTIVE: Vital Signs Period Temp Pulse Resp BP Sys/Grover Pulse Ox Last 24 Hr 97.5 F-97.8 F 81-99 18-20 126-180/73-91 98 PHYSICAL EXAM GENERAL: The patient is awake, alert, and fully oriented, in no acute distress. HEAD: Normal with no signs of trauma. LUNGS: Breath sounds equal, clear to auscultation bilaterally, no accessory muscle use. HEART: Regular rate and rhythm, S1, S2 ABDOMEN: Soft, nontender, nondistended, normoactive bowel sounds, no guarding. NO CVA tenderness EXTREMITIES: 2+ pulses, warm, well-perfused, no edema. SKIN: Warm, dry, normal turgor, no rashes or lesions noted LABS Laboratory Results - last 24 hr 08/09/19 08/10/19 08/10/19 22:03 06:47 06:47 WBC 6.7 RBC 4.63 Hgb 12.8 Hct 38.4 MCV 82.9 MCH 27.5 MCHC 33.2 RDW 15.4 Plt Count 254 D MPV 8.8 Sodium 143 Potassium 4.2 Chloride 111 H Carbon Dioxide 26 Anion Gap 6 L BUN 13.3 Creatinine 1.0 Est GFR (CKD-EPI)AfAm 58.25 Est GFR (CKD-EPI)NonAf 50.26 Random Glucose 92 Calcium 9.3 Phosphorus 3.1 Magnesium 2.1 Urine Color Yellow Urine Appearance Clear Urine pH 7.0 Ur Specific [place] 1.015 Urine Protein Trace Urine Glucose (UA) Negative Urine Ketones Negative Urine Blood 1+ H Urine Nitrite Negative Urine Bilirubin Negative Urine Urobilinogen 0.2 Ur Leukocyte Esterase Trace Urine WBC (Auto) 7 Urine RBC (Auto) 6 Urine Casts (Auto) 5 Urine Bacteria (Auto) 3 HOSPITAL COURSE: Date of Admission:08/08/19 Renal and urinary bladder ultrasound The right kidney measures 5.6 cm in sagittal length and the left kidney measured 8.8 cm. There is no gross evidence of hydronephrosis or renal stones, bilaterally. No cystic or solid mass lesion is identified, bilaterally. Normal color Doppler flow in the left kidney and limited color Doppler evaluation of the right kidney. Visualized portion of the liver appears unremarkable Urinary bladder is partially distended with a volume of 320 cc without wall thickening. Bilateral ureteral jets were identified. There is approximately 60 cc of postvoid urine residue Female pelvic organs were not evaluated Spiral CT: IMPRESSION: 1. Left nephrolithiasis. 2. Malrotated right kidney. 3. No evidence of hydronephrosis or obstructive uropathy. 4. Aneurysmal dilatation of the distal thoracic/upper abdominal aorta, as well as the distal abdominal aorta. Please see above discussion. 88 yo F with PMH of HTN, HLD, COPD, CAD, CVA/TIA, Thoracic aortic aneurysm (type B), PVD, and CKD, presented due to blood in urine. pt was admitted for nephrolithiasis. U cx was negative , but pt had +UA. UTI tx with ceftriaxone x 3 days. pt had spiral ct , findings above. pt had nephrolithiasis without evidence of hydro. pt was evaluated by urology and recommended to have outpt cystoscopy. pt was continued on home medications for chronic medical conditions. Thoracic aneurysm on CT is shown to be stable. pt should f/u with pmd , urology for cystoscopy, and cardiology for strict BP control Date of Discharge: 08/10/19 Minutes to complete discharge: 36 Discharge Summary Problems reviewed: Yes Reason For Visit: UTI Condition: Improved - Instructions Diet, Activity, Other Instructions: You came into the hospital for blood in your urine. You had a Cat scan showing that you had a left kidney stone. You were treated with IV fluids and antibiotics. You were evaluated by the urologist and recommended to follow up outpatient for a cystoscopy. You should continue to drink water and hydrate yourself. Your cat scan also showed that you have an aneurysm of your aorta that is stable. You should continue your home medications as prescribed. Your blood pressure measurement is as follows: when you wakes up in the mornin) BP >150 = take carvedilol 9.375mg and amlodipine 5 mg at the same time . 120-150 = carvedilol 9.375, no amlodipine. <120 = no meds 2) check BP at lunch time: BP >130 , take Lisinopril 10mg at that time. BP <130, take nothing 3) check BP at dinner time: BP >140 = take carvedilol 9.375mg and amlodipine 5 mg 120-140 = carvedilol 6.25mg <120 = no meds 4) check BP again at 10pm: If BP is > 180 = carvedilol 9.375 mg and hydralazine 10 mg. IF BP is 130-180 = take carvedilol 9.375 mg alone If BP < 130 = no meds 5) at any of the above time points, if BP > 180, take the meds as advised and REPEAT THE BP 1 HR LATER. IF BP STILL >180 WHEN REPEATED, TAKE A DOSE OF HYDRALAZINE 10MG . Please follow up with the resident's clinic with Dr. Cornelius at the [facility] [place] in a 1 week to review your chronic medical conditions. Please follow up with your urologist, Dr. Small in 1 week to schedule your cystoscopy Please follow up with your vascular physician , Dr. Finley, to continue to monitor your aneurysm Please follow up with in a week period If you have any new, worsening, or concerning symptoms please return to the ED or call 911. Referrals: [facility] [place] [facility] [place] [Provider Group] Vazquez Meyers MD [Primary Care Provider] - 1 Week Agustin Small MD [Staff Physician] - José Manuel Gomez MD [Staff Physician] - 2 Weeks Disposition: HOME - Home Medications Comprehensive Discharge Medication List: Ambulatory Orders Atorvastatin Ca [Lipitor] 80 mg PO HS 10/27/18 Albuterol 0.083% Nebulizer Yamini [Ventolin 0.083% Nebulizer Soln -] 1 neb NEB BID 11/16/18 Alprazolam [Xanax] 0.25 mg PO BID PRN 02/27/19 Lisinopril 10 mg PO PRN 02/27/19 Tiotropium [place] [Spiriva] 1 inh PO DAILY 02/27/19 Hydralazine HCl 10 mg PO HS PRN #30 tablet 06/14/19 Clopidogrel Bisulfate [Plavix] 75 mg PO DAILY 08/08/19 Donepezil HCl 5 mg PO DAILY 08/08/19 Hyoscyamine Odt [Levsin Odt -] 0.125 mg PO PRN PRN 08/08/19 Amlodipine Besylate [Norvasc -] 5 mg PO DAILY 08/09/19 Carvedilol [Coreg -] 3.125 mg PO TID 08/09/19 Carvedilol [Coreg -] 6.25 mg PO TID 08/09/19 Cilostazol [Pletal -] 1 tablet PO AM 08/09/19 Clonidine Patch [Catapres Tts Patch -] 0.1 mg TD WEEKLY 08/09/19 Lisinopril [Prinivil] 10 mg PO DAILY #30 tablet 08/10/19 This patient is new to me today: No Emergency Visit: No Critical Care patient: No - Discharge Referral Referred to [facility] No ATTENDING PHYSICIAN STATEMENT I saw and evaluated the patient. I reviewed the resident's note and discussed the case with the resident. I agree with the resident's findings and plan as documented. SUBJECTIVE: OBJECTIVE: ASSESSMENT AND PLAN:
[2019-08-10] MEDS ORDERED: hydrALAZINE HCL 10 MG TABLET PO PRN (22:00)
== END 2019-08-10 14:57 | disposition home or self-care (01) | DRG 683 ==
LOC: JER 10:09 → JERBED 16:23 → J5S 23:33
PROVIDERS: ADMIT Internal Medicine; ATTEND Internal Medicine
DX: N17.9 Acute kidney failure, unspecified (principal); N39.0 Urinary tract infection, site not specified; N20.0 Calculus of kidney; R31.9 Hematuria, unspecified; Q63.2 Ectopic kidney; J44.9 Chronic obstructive pulmonary disease, unspecified; I12.9 Hypertensive chronic kidney disease with stage 1 through stage 4 chronic kidney disease, or unspecified chronic kidney disease; N18.9 Chronic kidney disease, unspecified; I71.2 Thoracic aortic aneurysm, without rupture; I25.10 Atherosclerotic heart disease of native coronary artery without angina pectoris; E78.5 Hyperlipidemia, unspecified; Z86.73 Personal history of transient ischemic attack (TIA), and cerebral infarction without residual deficits; Z95.0 Presence of cardiac pacemaker; Z87.891 Personal history of nicotine dependence
CPT/HCPCS: 36415; 74176-TC; 76775-TC; 76856-TC; 80048; 80053; 81003; 82272; 82436; 82565; 83735; 83935; 84100; 84133; 84300; 85025; 85027; 85610; 85730; 87086; 94640; 97116-GP; 97161-GP; 99285-25; J7030

== ENCOUNTER 2020-10-18 21:07 | Inpatient (IN) | payer BC, OTHER ==
[2020-10-18] MEDS ORDERED: ACETAMINOPHEN 1000 MG/100 ML VIAL (NON FORMULARY) IVPB ONE (21:46)
[2020-10-18] MEDS ORDERED: ACETAMINOPHEN INJECTION 100 ML IVPB ONE (21:51)
[2020-10-18] MEDS ORDERED: traMADol HCL 50 MG TABLET PO ONE (22:06)
[2020-10-18] MEDS ORDERED: traMADol HCL 50 MG TABLET ONE (22:10)
[2020-10-18 22:14] LABS: BASO % 0.5 % (0-2.0); EOS % 1.1 % (0-4.5); LYMPH % 17.5 % (8-40); MCH 26.3 pg (25.7-33.7); MCHC 32.4 g/dl (32.0-36.0); MEAN CELL VOLUME 81.2 fl (80-96); MEAN PLT VOLUME 8.8 fl (7.5-11.1); MONO % 9.6 % (3.8-10.2); NEUT % 71.3 % (42.8-82.8); PLATELET COUNT 236 K/MM3 (134-434); RBC 4.19 M/mm3 (3.60-5.2); RDW 15.8 % (11.6-15.6); WHITE BLOOD COUNT 9.4 K/mm3 (4.0-10.8)
[2020-10-18 22:32] LABS: ALBUMIN 2.7 g/dl (3.4-5.0); ALK PHOS 111 U/L (45-117); ANION GAP 10 MMOL/L (8-16); BILIRUBIN,TOTAL 0.5 mg/dl (0.2-1); CALCIUM 8.2 mg/dl (8.5-10); CHLORIDE 101 mmol/L (98-107); CO2 23 mmol/L (21-32); CREATININE 2.4 mg/dl (0.55-1.3); GLUCOSE,RANDOM 163 mg/dl (74-106); SGOT/AST 22 U/L (15-37); SGPT/ALT 13 U/L (13-61); SODIUM 134 mmol/L (136-145); TOT PROT 5.9 g/dl (6.4-8.2)
[2020-10-18 22:33] LABS: ACTIVATED PTT 27.8 SECONDS (25.2-36.5)
[2020-10-18 22:38] LABS: INR 1.2 (0.82-1.09); PROTHROMBIN TIME (PATIENT) 13.3 SEC (10.2-13.0)
[2020-10-18] MEDS ORDERED: SODIUM CHLORIDE 500 ML IV STA (22:41)
[2020-10-18] MEDS ORDERED: morphine CARPU-JECT 4 MG/1 ML DISP.SYRIN IVPUSH ONE ×2 (23:39→23:58)
[2020-10-18] MEDS ORDERED: ALBUTEROL SO4 HFA INHALER IH PRN (23:42)
[2020-10-18] MEDS ORDERED: morphine SULFATE 4 MG/ML VIAL ONE (23:42)
[2020-10-18 23:51] LABS: EPITHELIAL CELLS MODERATE /hpf
[2020-10-18 23:52] LABS: AMORP URATES 2+ /hpf (NONE SEEN)
[2020-10-19] MEDS ORDERED: morphine CARPU-JECT 2 MG/1 ML DISP.SYRIN IVPUSH PRN (00:13)
[2020-10-19] MEDS: MORPHINE SULFATE 2 MG/ML VIAL IVPUSH PRN ×4 (02:25→15:40)
[2020-10-19 08:34] LABS: BASO % 0.2 % (0-2.0); EOS % 0.7 % (0-4.5); HEMATOCRIT 30.8 % (32.4-45.2); HEMOGLOBIN 10.2 GM/dl (10.7-15.3); LYMPH % 14.9 % (8-40); MCH 27.2 pg (25.7-33.7); MCHC 33.3 g/dl (32.0-36.0); MEAN CELL VOLUME 81.8 fl (80-96); MEAN PLT VOLUME 9.4 fl (7.5-11.1); MONO % 7.7 % (3.8-10.2); NEUT % 76.5 % (42.8-82.8); PLATELET COUNT 241 K/MM3 (134-434); RBC 3.76 M/mm3 (3.60-5.2); WHITE BLOOD COUNT 11.8 K/mm3 (4.0-10.8)
[2020-10-19 08:43] LABS: CREATININE 2.5 mg/dl (0.55-1.3)
[2020-10-19 08:48] LABS: OSMOLALITY,SERUM 291 mosm/kg (278-305)
[2020-10-19] MEDS ORDERED: MORPHINE SULFATE 2 MG/ML VIAL IVPUSH ONE (09:05)
[2020-10-19] MEDS ORDERED: MORPHINE SULFATE 2 MG/ML VIAL ONE (09:06)
[2020-10-19] MEDS ORDERED: traMADol HCL 50 MG TABLET PO PRN (09:11)
[2020-10-19] MEDS ORDERED: ALPRAZolam 0.25 MG TABLET PO PRN (09:35)
[2020-10-19] MEDS ORDERED: hydrALAZINE HCL 10 MG TABLET PO PRN ×2 (09:46→15:43)
[2020-10-19] MEDS ORDERED: PATIENT'S OWN MEDICATION (NON-FORMULARY) (Tiotropium Bromide [Spiriva] 18 MCG Cap.W.Dev) PO SCH (10:00)
[2020-10-19] MEDS ORDERED: DONEPEZIL HCL 10 MG TABLET (FP) PO SCH ×2 (10:00→22:00)
[2020-10-19] MEDS ORDERED: ALBUTEROL SO4 0.083% IH SOL 2.5 MG/3 ML VIAL.NEB. NEB PRN (10:26)
[2020-10-19] MEDS: SODIUM CHLORIDE 1,000 ML IV SCH (10:30)
[2020-10-19] MEDS: TIOTROPIUM BROMIDE 2.5 MCG (SPIRIVA) RESPIMAT INHALER IH SCH (10:31)
[2020-10-19] MEDS: CLOPIDOGREL BISULFATE 75 MG TABLET (FP) PO SCH (10:31)
[2020-10-19] MEDS: ACETAMINOPHEN 325 MG TABLET (FP) PO PRN (10:31)
[2020-10-19] MEDS: amLODIPine BESYLATE 5 MG TABLET (FP) PO SCH (10:47)
[2020-10-19] MEDS: PANTOPRAZOLE 40 MG TABLET PO SCH (12:39)
[2020-10-19] MEDS: BUDESONIDE 0.5 MG/2 ML INH SUSP VIAL NEB SCH ×3 (13:57→21:50)
[2020-10-19] MEDS: CEFTRIAXONE 1 GM in DEXTROSE 5%-WATER - 50 ML IVPB SCH (15:41)
[2020-10-19] MEDS ORDERED: cefTRIAXone SODIUM 1 GM VIAL ONE (15:41)
[2020-10-19] MEDS ORDERED: DEXTROSE 5%-WATER - 50 ML IVPB ONE (15:42)
[2020-10-19] MEDS: CARVEDILOL 6.25 MG TABLET (FP) PO SCH ×2 (16:19→21:51)
[2020-10-19] MEDS ORDERED: AMITRIPTYLINE HCL 10 MG TABLET PO SCH (22:00)
[2020-10-19] MEDS ORDERED: ATORVASTATIN CA 80 MG TABLET (FP) PO SCH (22:00)
[2020-10-20] MEDS: MORPHINE SULFATE 2 MG/ML VIAL IVPUSH PRN ×2 (05:24→20:54)
[2020-10-20] MEDS: CARVEDILOL 6.25 MG TABLET (FP) PO SCH (06:20)
[2020-10-20] MEDS ORDERED: CILOSTAZOL 50 MG TABLET PO SCH (07:00)
[2020-10-20 08:54] LABS: BASO % 0.5 % (0-2.0); EOS % 0.7 % (0-4.5); HEMATOCRIT 28.2 % (32.4-45.2); HEMOGLOBIN 9.3 GM/dl (10.7-15.3); LYMPH % 11.8 % (8-40); MCH 26.6 pg (25.7-33.7); MCHC 32.8 g/dl (32.0-36.0); MEAN CELL VOLUME 81.1 fl (80-96); MEAN PLT VOLUME 9.1 fl (7.5-11.1); MONO % 8.5 % (3.8-10.2); NEUT % 78.5 % (42.8-82.8); PLATELET COUNT 241 K/MM3 (134-434); RBC 3.48 M/mm3 (3.60-5.2); RDW 16.1 % (11.6-15.6); WHITE BLOOD COUNT 13.9 K/mm3 (4.0-10.8)
[2020-10-20 09:07] LABS: ALBUMIN 2.5 g/dl (3.4-5.0); BILIRUBIN,TOTAL 0.9 mg/dl (0.2-1); CALCIUM 7.9 mg/dl (8.5-10); CREATININE 3.4 mg/dl (0.55-1.3); MAGNESIUM 1.5 mg/dL (1.8-2.4); TOT PROT 5.6 g/dl (6.4-8.2)
[2020-10-20] MEDS: amLODIPine BESYLATE 5 MG TABLET (FP) PO SCH (09:07)
[2020-10-20] MEDS ORDERED: DEXTROSE 5%-WATER - 50 ML IVPB ONE (09:32)
[2020-10-20] MEDS ORDERED: cefTRIAXone SODIUM 1 GM VIAL ONE (09:32)
[2020-10-20] MEDS: CLOPIDOGREL BISULFATE 75 MG TABLET (FP) PO SCH (09:35)
[2020-10-20] MEDS: CEFTRIAXONE 1 GM in DEXTROSE 5%-WATER - 50 ML IVPB SCH (09:36)
[2020-10-20] MEDS: PANTOPRAZOLE 40 MG TABLET PO SCH (09:36)
[2020-10-20] MEDS: SODIUM CHLORIDE 1,000 ML IV SCH (09:37)
[2020-10-20] MEDS: BUDESONIDE 0.5 MG/2 ML INH SUSP VIAL NEB SCH ×3 (09:37→20:35)
[2020-10-20] MEDS: TIOTROPIUM BROMIDE 2.5 MCG (SPIRIVA) RESPIMAT INHALER IH SCH (09:38)
[2020-10-20] MEDS ORDERED: AZITHROMYCIN IVPB 500 MG in DEXTROSE 5%-WATER - 250 ML IVPB ONE (13:00)
[2020-10-20] MEDS ORDERED: AZITHROMYCIN IVPB 500 MG/250 ML BAG IVPB ONE (13:00)
[2020-10-20] MEDS: ACETAMINOPHEN 325 MG TABLET (FP) PO PRN (16:59)
[2020-10-20] MEDS ORDERED: ACETAMINOPHEN 325 MG TABLET (FP) PO PRN (20:19)
[2020-10-20] MEDS ORDERED: traMADol HCL 50 MG TABLET PO PRN (20:19)
[2020-10-20] MEDS: ALPRAZolam 0.25 MG TABLET PO PRN (20:43)
[2020-10-20] MEDS: AMITRIPTYLINE HCL 10 MG TABLET PO SCH (21:17)
[2020-10-20] MEDS: DONEPEZIL HCL 10 MG TABLET (FP) PO SCH (21:17)
[2020-10-20] MEDS: ATORVASTATIN CA 80 MG TABLET (FP) PO SCH (21:17)
[2020-10-20] MEDS ORDERED: CARVEDILOL 6.25 MG TABLET (FP) PO SCH (22:00)
[2020-10-21] MEDS ORDERED: PT OWN MED DRAWER 7, Y5N ONE ×2 (06:32→21:18)
[2020-10-21 07:24] LABS: BASO % 0.2 % (0-2.0); EOS % 0.1 % (0-4.5); HEMOGLOBIN 9.8 GM/dL (10.7-15.3); LYMPH % 9.1 % (8-40); MCH 26.4 pg (25.7-33.7); MCHC 32.7 g/dl (32.0-36.0); MEAN CELL VOLUME 80.8 fl (80-96); MEAN PLT VOLUME 8.5 fl (7.5-11.1); MONO % 8.4 % (3.8-10.2); NEUT % 82.2 % (42.8-82.8); PLATELET COUNT 257 K/MM3 (134-434); RBC 3.72 M/mm3 (3.60-5.2); RDW 16.5 % (11.6-15.6); WHITE BLOOD COUNT 12.2 K/mm3 (4.0-10.0)
[2020-10-21 07:48] LABS: ALBUMIN 2.4 g/dl (3.4-5.0); BLOOD UREA NITROGEN 43.4 mg/dL (7-18); CALCIUM 7.5 mg/dL (8.5-10.1)
[2020-10-21 07:51] LABS: CREATININE 3.8 mg/dL (0.55-1.3); MAGNESIUM 1.6 mg/dL (1.8-2.4)
[2020-10-21 07:53] LABS: BILIRUBIN,TOTAL 0.4 mg/dL (0.2-1); TOT PROT 6.2 g/dl (6.4-8.2)
[2020-10-21] MEDS ORDERED: MAGNESIUM SULF 50% (8.12 MEQ/2 ML-1 GM VIAL) IVPB ONE (08:15)
[2020-10-21] MEDS: BUDESONIDE 0.5 MG/2 ML INH SUSP VIAL NEB SCH ×3 (08:30→20:52)
[2020-10-21] MEDS ORDERED: DEXTROSE 5%-WATER - 50 ML IVPB ONE (09:12)
[2020-10-21] MEDS ORDERED: cefTRIAXone SODIUM 1 GM VIAL ONE (09:12)
[2020-10-21] MEDS: MORPHINE SULFATE 2 MG/ML VIAL IVPUSH PRN ×2 (09:14→18:08)
[2020-10-21] MEDS: CEFTRIAXONE 1 GM in DEXTROSE 5%-WATER - 50 ML IVPB SCH (09:14)
[2020-10-21] MEDS: PANTOPRAZOLE 40 MG TABLET PO SCH (09:30)
[2020-10-21] MEDS: CLOPIDOGREL BISULFATE 75 MG TABLET (FP) PO SCH (09:30)
[2020-10-21] MEDS: TIOTROPIUM BROMIDE 2.5 MCG (SPIRIVA) RESPIMAT INHALER IH SCH (09:31)
[2020-10-21] MEDS ORDERED: INSULIN REGULAR HUMAN 100 UNITS/ML *VIAL IVPUSH ONE (09:42)
[2020-10-21] MEDS ORDERED: CALCIUM GLUCONATE 10% - 1,000 MG/10 ML VIAL IVPB ONE (09:43)
[2020-10-21] MEDS ORDERED: DEXTROSE 50%-WATER - 25 GM/50 ML VIAL IVPUSH ONE (09:43)
[2020-10-21] MEDS ORDERED: AZITHROMYCIN IVPB 250 MG in DEXTROSE 5%-WATER - 250 ML IVPB SCH (10:00)
[2020-10-21] MEDS ORDERED: amLODIPine BESYLATE 5 MG TABLET (FP) PO SCH (10:00)
[2020-10-21] MEDS ORDERED: CALCIUM GLUCONATE IN NACL 1 GM/50 ML BAG IVPB ONE (10:15)
[2020-10-21] MEDS ORDERED: DEXTROSE 50%-WATER - 25 GM/50 ML VIAL ONE (10:29)
[2020-10-21 10:38] LABS: PHOSPHOROUS 6.7 mg/dL (2.5-4.9)
[2020-10-21] MEDS: HEPARIN NA (PORCINE) 5,000 UNITS/ML 1ML VIAL SQ SCH ×2 (13:52→21:22)
[2020-10-21] MEDS ORDERED: SODIUM CHLORIDE 250 ML IV SCH (16:30)
[2020-10-21] MEDS ORDERED: SODIUM ZIRCONIUM CYCLOSILICATE (LOKELMA) 5 GM PACKET PO SCH (16:30)
[2020-10-21] MEDS: ALBUTEROL SO4 0.083% IH SOL 2.5 MG/3 ML VIAL.NEB. NEB PRN (17:44)
[2020-10-21] MEDS: DONEPEZIL HCL 10 MG TABLET (FP) PO SCH (21:22)
[2020-10-21] MEDS: ATORVASTATIN CA 80 MG TABLET (FP) PO SCH (21:22)
[2020-10-21] MEDS: AMITRIPTYLINE HCL 10 MG TABLET PO SCH (21:22)
[2020-10-22] MEDS: HEPARIN NA (PORCINE) 5,000 UNITS/ML 1ML VIAL SQ SCH ×3 (05:50→21:30)
[2020-10-22] MEDS: BUDESONIDE 0.5 MG/2 ML INH SUSP VIAL NEB SCH ×2 (07:37→20:45)
[2020-10-22 08:03] LABS: BASO % 0.6 % (0-2.0); EOS % 0.2 % (0-4.5); HEMATOCRIT 28.7 % (32.4-45.2); HEMOGLOBIN 9.5 GM/dL (10.7-15.3); MCH 26.8 pg (25.7-33.7); MCHC 33.1 g/dl (32.0-36.0); MEAN CELL VOLUME 80.8 fl (80-96); MEAN PLT VOLUME 8.6 fl (7.5-11.1); MONO % 10.6 % (3.8-10.2); NEUT % 80.6 % (42.8-82.8); PLATELET COUNT 306 K/MM3 (134-434); RBC 3.55 M/mm3 (3.60-5.2); RDW 16.5 % (11.6-15.6); WHITE BLOOD COUNT 14.8 K/mm3 (4.0-10.0)
[2020-10-22 08:46] LABS: BLOOD UREA NITROGEN 48.4 mg/dL (7-18)
[2020-10-22 08:50] LABS: ALBUMIN 2.2 g/dl (3.4-5.0); CALCIUM 8.2 mg/dL (8.5-10.1); CREATININE 3.4 mg/dL (0.55-1.3); MAGNESIUM 2.7 mg/dL (1.8-2.4); PHOSPHOROUS 5.4 mg/dL (2.5-4.9)
[2020-10-22 08:55] LABS: BILIRUBIN,TOTAL 0.3 mg/dL (0.2-1); TOT PROT 5.9 g/dl (6.4-8.2)
[2020-10-22] MEDS ORDERED: DEXTROSE 5%-WATER - 50 ML IVPB ONE (09:55)
[2020-10-22] MEDS ORDERED: cefTRIAXone SODIUM 1 GM VIAL ONE (09:55)
[2020-10-22] MEDS ORDERED: SODIUM ZIRCONIUM CYCLOSILICATE (LOKELMA) 10 GM PACKET PO SCH (10:00)
[2020-10-22] MEDS: CEFTRIAXONE 1 GM in DEXTROSE 5%-WATER - 50 ML IVPB SCH (10:06)
[2020-10-22] MEDS: PANTOPRAZOLE 40 MG TABLET PO SCH (10:08)
[2020-10-22] MEDS: CLOPIDOGREL BISULFATE 75 MG TABLET (FP) PO SCH (10:08)
[2020-10-22] MEDS ORDERED: CALCIUM GLUCONATE IN NACL 1 GM/50 ML BAG IVPB ONE (10:30)
[2020-10-22] MEDS ORDERED: INSULIN REGULAR HUMAN 100 UNITS/ML *VIAL IVPUSH ONE (10:30)
[2020-10-22] MEDS ORDERED: DEXTROSE 50%-WATER - 25 GM/50 ML VIAL IVPUSH ONE (10:35)
[2020-10-22] MEDS ORDERED: DEXTROSE 50%-WATER 25 GM/50 ML DISP.SYRIN IVPUSH ONE (10:45)
[2020-10-22] MEDS: TIOTROPIUM BROMIDE 2.5 MCG (SPIRIVA) RESPIMAT INHALER IH SCH (10:48)
[2020-10-22] MEDS ORDERED: SODIUM CHLORIDE 0.45% 1,000 ML IV SCH (11:30)
[2020-10-22] MEDS ORDERED: SODIUM BICARBONATE 8.4% 50 MEQ/50 ML VIAL IVPUSH ONE (11:45)
[2020-10-22] MEDS ORDERED: FUROSEMIDE 40 MG/4 ML INJECTABLE VIAL IVPUSH ONE (11:45)
[2020-10-22] MEDS: SODIUM ZIRCONIUM CYCLOSILICATE (LOKELMA) 10 GM PACKET PO SCH ×2 (11:54→21:35)
[2020-10-22] MEDS: ALBUTEROL SO4 0.083% IH SOL 2.5 MG/3 ML VIAL.NEB. NEB PRN (12:46)
[2020-10-22] MEDS ORDERED: AMPICILLIN NA/SULBACTAM NA 1.5 GM VIAL ONE (13:46)
[2020-10-22] MEDS ORDERED: SODIUM CHLORIDE 100 ML IVPB ONE (13:46)
[2020-10-22] MEDS: AMPICILLIN NA/SULBACTAM NA 1.5 GM in SODIUM CHLORIDE 100 ML IVPB SCH (13:57)
[2020-10-22] MEDS ORDERED: BISACODYL 10 MG SUPP.RECT PR ONE (14:00)
[2020-10-22] MEDS ORDERED: AMPICILLIN NA/SULBACTAM NA 1.5 GM in SODIUM CHLORIDE 100 ML IVPB SCH (14:00)
[2020-10-22] MEDS: ALPRAZolam 0.25 MG TABLET PO PRN (16:51)
[2020-10-22] MEDS ORDERED: PT OWN MED DRAWER 7, Y5N ONE ×2 (21:03→22:19)
[2020-10-22] MEDS: ATORVASTATIN CA 80 MG TABLET (FP) PO SCH (21:30)
[2020-10-22] MEDS: DONEPEZIL HCL 10 MG TABLET (FP) PO SCH (21:30)
[2020-10-22] MEDS: AMITRIPTYLINE HCL 10 MG TABLET PO SCH (21:31)
[2020-10-22] MEDS: hydrALAZINE HCL 10 MG TABLET PO PRN (21:34)
[2020-10-22 23:34] VITALS: BMI 23.4
[2020-10-23] MEDS: ALBUTEROL SO4 0.083% IH SOL 2.5 MG/3 ML VIAL.NEB. NEB PRN ×2 (03:57→20:20)
[2020-10-23] MEDS: HEPARIN NA (PORCINE) 5,000 UNITS/ML 1ML VIAL SQ SCH ×3 (06:11→21:42)
[2020-10-23] MEDS: BUDESONIDE 0.5 MG/2 ML INH SUSP VIAL NEB SCH ×2 (07:30→22:06)
[2020-10-23 08:34] LABS: BASO % 0.4 % (0-2.0); EOS % 0.9 % (0-4.5); HEMATOCRIT 28.7 % (32.4-45.2); HEMOGLOBIN 9.3 GM/dL (10.7-15.3); LYMPH % 13.7 % (8-40); MCH 26.2 pg (25.7-33.7); MCHC 32.4 g/dl (32.0-36.0); MEAN CELL VOLUME 80.8 fl (80-96); MEAN PLT VOLUME 8.3 fl (7.5-11.1); MONO % 15.5 % (3.8-10.2); NEUT % 69.5 % (42.8-82.8); PLATELET COUNT 300 K/MM3 (134-434); RBC 3.55 M/mm3 (3.60-5.2); RDW 16.8 % (11.6-15.6); WHITE BLOOD COUNT 12.1 K/mm3 (4.0-10.0)
[2020-10-23 08:55] LABS: BLOOD UREA NITROGEN 48.3 mg/dL (7-18)
[2020-10-23 08:56] LABS: MAGNESIUM 2.5 mg/dL (1.8-2.4)
[2020-10-23 08:58] LABS: CREATININE 2.3 mg/dL (0.55-1.3); PHOSPHOROUS 4.3 mg/dL (2.5-4.9)
[2020-10-23 09:00] LABS: BILIRUBIN,TOTAL 0.3 mg/dL (0.2-1); TOT PROT 5.4 g/dl (6.4-8.2)
[2020-10-23] MEDS ORDERED: DEXTROSE 5%-WATER - 50 ML IVPB ONE (10:22)
[2020-10-23] MEDS ORDERED: cefTRIAXone SODIUM 1 GM VIAL ONE (10:22)
[2020-10-23] MEDS ORDERED: AMPICILLIN NA/SULBACTAM NA 1.5 GM VIAL ONE (10:22)
[2020-10-23] MEDS ORDERED: SODIUM CHLORIDE 100 ML IVPB ONE (10:23)
[2020-10-23] MEDS: PANTOPRAZOLE 40 MG TABLET PO SCH (10:28)
[2020-10-23] MEDS: CLOPIDOGREL BISULFATE 75 MG TABLET (FP) PO SCH (10:28)
[2020-10-23] MEDS: AMPICILLIN NA/SULBACTAM NA 1.5 GM in SODIUM CHLORIDE 100 ML IVPB SCH (10:29)
[2020-10-23] MEDS: CEFTRIAXONE 1 GM in DEXTROSE 5%-WATER - 50 ML IVPB SCH (10:30)
[2020-10-23] MEDS: TIOTROPIUM BROMIDE 2.5 MCG (SPIRIVA) RESPIMAT INHALER IH SCH (11:31)
[2020-10-23] MEDS: SODIUM ZIRCONIUM CYCLOSILICATE (LOKELMA) 10 GM PACKET PO SCH ×2 (11:31→21:44)
[2020-10-23 16:36] LABS: BF WBC & OTHER NUCLEATED CELLS 2539 /mm3
[2020-10-23 16:37] LABS: BODY FLUID MACROPHAGES 4 %; BODY FLUID MONOCYTE 12 %
[2020-10-23] MEDS: morphine SULFATE 4 MG/ML VIAL IVPUSH PRN (18:31)
[2020-10-23] MEDS ORDERED: FUROSEMIDE 40 MG/4 ML INJECTABLE VIAL IVPUSH ONE (19:10)
[2020-10-23] MEDS ORDERED: PT OWN MED DRAWER 7, Y5N ONE ×2 (21:16→21:26)
[2020-10-23] MEDS: AMITRIPTYLINE HCL 10 MG TABLET PO SCH (21:42)
[2020-10-23] MEDS: DONEPEZIL HCL 10 MG TABLET (FP) PO SCH (21:43)
[2020-10-23] MEDS: ATORVASTATIN CA 80 MG TABLET (FP) PO SCH (21:43)
[2020-10-24] MEDS ORDERED: PT OWN MED DRAWER 7, Y5N ONE (05:51)
[2020-10-24] MEDS: morphine SULFATE 4 MG/ML VIAL IVPUSH PRN (06:07)
[2020-10-24] MEDS: HEPARIN NA (PORCINE) 5,000 UNITS/ML 1ML VIAL SQ SCH ×3 (06:08→22:58)
[2020-10-24] MEDS: BUDESONIDE 0.5 MG/2 ML INH SUSP VIAL NEB SCH ×2 (07:50→19:35)
[2020-10-24 08:21] LABS: BASO % 0.4 % (0-2.0); EOS % 0.9 % (0-4.5); HEMATOCRIT 28.5 % (32.4-45.2); HEMOGLOBIN 9.4 GM/dL (10.7-15.3); LYMPH % 12.6 % (8-40); MCH 26.3 pg (25.7-33.7); MCHC 32.9 g/dl (32.0-36.0); MEAN CELL VOLUME 79.9 fl (80-96); MEAN PLT VOLUME 8.1 fl (7.5-11.1); MONO % 13.2 % (3.8-10.2); NEUT % 72.9 % (42.8-82.8); PLATELET COUNT 314 K/MM3 (134-434); RBC 3.56 M/mm3 (3.60-5.2); RDW 17.4 % (11.6-15.6); WHITE BLOOD COUNT 11.3 K/mm3 (4.0-10.0)
[2020-10-24 08:40] LABS: ALBUMIN 1.9 g/dl (3.4-5.0); BLOOD UREA NITROGEN 47.1 mg/dL (7-18); CALCIUM 7.8 mg/dL (8.5-10.1); MAGNESIUM 2.2 mg/dL (1.8-2.4)
[2020-10-24 08:43] LABS: CREATININE 1.7 mg/dL (0.55-1.3)
[2020-10-24 08:44] LABS: PHOSPHOROUS 3.7 mg/dL (2.5-4.9)
[2020-10-24 08:45] LABS: BILIRUBIN,TOTAL 0.3 mg/dL (0.2-1); TOT PROT 5.5 g/dl (6.4-8.2)
[2020-10-24] MEDS ORDERED: SODIUM CHLORIDE 100 ML IVPB ONE (10:24)
[2020-10-24] MEDS ORDERED: AMPICILLIN NA/SULBACTAM NA 1.5 GM VIAL ONE (10:24)
[2020-10-24] MEDS: PANTOPRAZOLE 40 MG TABLET PO SCH (10:28)
[2020-10-24] MEDS: CLOPIDOGREL BISULFATE 75 MG TABLET (FP) PO SCH (10:28)
[2020-10-24] MEDS: SODIUM ZIRCONIUM CYCLOSILICATE (LOKELMA) 10 GM PACKET PO SCH (10:30)
[2020-10-24] MEDS: AMPICILLIN NA/SULBACTAM NA 1.5 GM in SODIUM CHLORIDE 100 ML IVPB SCH (10:30)
[2020-10-24] MEDS: TIOTROPIUM BROMIDE 2.5 MCG (SPIRIVA) RESPIMAT INHALER IH SCH (11:29)
[2020-10-24] MEDS ORDERED: morphine SULFATE 4 MG/ML VIAL IVPUSH ONE ×2 (15:00→21:18)
[2020-10-24] MEDS: metoPROLOL SUCCINATE 25 MG TAB.SR.24H (FP) PO SCH ×2 (15:25→23:02)
[2020-10-24] MEDS ORDERED: METOPROLOL TARTRATE 5 MG/5 ML VIAL IVPUSH ONE (21:18)
[2020-10-24] MEDS: ATORVASTATIN CA 80 MG TABLET (FP) PO SCH (22:58)
[2020-10-24] MEDS: DONEPEZIL HCL 10 MG TABLET (FP) PO SCH (22:58)
[2020-10-24] MEDS: AMITRIPTYLINE HCL 10 MG TABLET PO SCH (22:59)
[2020-10-25] MEDS ORDERED: CARVEDILOL 6.25 MG TABLET (FP) PO ONE (00:28)
[2020-10-25] MEDS: HEPARIN NA (PORCINE) 5,000 UNITS/ML 1ML VIAL SQ SCH ×3 (06:18→21:40)
[2020-10-25] MEDS: BUDESONIDE 0.5 MG/2 ML INH SUSP VIAL NEB SCH ×2 (08:00→20:46)
[2020-10-25 08:23] LABS: BASO % 0.4 % (0-2.0); EOS % 1.2 % (0-4.5); HEMATOCRIT 29.5 % (32.4-45.2); HEMOGLOBIN 9.4 GM/dL (10.7-15.3); LYMPH % 12.8 % (8-40); MEAN CELL VOLUME 81.3 fl (80-96); MONO % 12.3 % (3.8-10.2); NEUT % 73.3 % (42.8-82.8); PLATELET COUNT 338 K/MM3 (134-434); RBC 3.63 M/mm3 (3.60-5.2); RDW 17.2 % (11.6-15.6); WHITE BLOOD COUNT 12.1 K/mm3 (4.0-10.0)
[2020-10-25 08:35] LABS: ALBUMIN 1.9 g/dl (3.4-5.0); CALCIUM 8.3 mg/dL (8.5-10.1)
[2020-10-25 08:36] LABS: BLOOD UREA NITROGEN 40.4 mg/dL (7-18); MAGNESIUM 2.4 mg/dL (1.8-2.4)
[2020-10-25 08:39] LABS: CREATININE 1.3 mg/dL (0.55-1.3); PHOSPHOROUS 3.3 mg/dL (2.5-4.9)
[2020-10-25 08:40] LABS: BILIRUBIN,TOTAL 0.6 mg/dL (0.2-1); TOT PROT 5.7 g/dl (6.4-8.2)
[2020-10-25] MEDS ORDERED: SODIUM CHLORIDE 100 ML IVPB ONE (09:37)
[2020-10-25] MEDS ORDERED: AMPICILLIN NA/SULBACTAM NA 1.5 GM VIAL ONE (09:37)
[2020-10-25] MEDS: AMPICILLIN NA/SULBACTAM NA 1.5 GM in SODIUM CHLORIDE 100 ML IVPB SCH (09:40)
[2020-10-25] MEDS: CLOPIDOGREL BISULFATE 75 MG TABLET (FP) PO SCH (09:41)
[2020-10-25] MEDS: metoPROLOL SUCCINATE 25 MG TAB.SR.24H (FP) PO SCH ×2 (09:41→21:40)
[2020-10-25] MEDS: PANTOPRAZOLE 40 MG TABLET PO SCH (09:41)
[2020-10-25] MEDS: TIOTROPIUM BROMIDE 2.5 MCG (SPIRIVA) RESPIMAT INHALER IH SCH (09:41)
[2020-10-25] MEDS: morphine SULFATE 4 MG/ML VIAL IVPUSH PRN ×2 (11:23→17:30)
[2020-10-25] MEDS: ALBUTEROL SO4 0.083% IH SOL 2.5 MG/3 ML VIAL.NEB. NEB PRN (12:07)
[2020-10-25] MEDS: hydrALAZINE HCL 10 MG TABLET PO PRN (17:19)
[2020-10-25] MEDS: ATORVASTATIN CA 80 MG TABLET (FP) PO SCH (21:39)
[2020-10-25] MEDS: ALPRAZolam 0.25 MG TABLET PO PRN (21:40)
[2020-10-25] MEDS: DONEPEZIL HCL 10 MG TABLET (FP) PO SCH (21:40)
[2020-10-25] MEDS ORDERED: PT OWN MED DRAWER 7, Y5N ONE (21:41)
[2020-10-25] MEDS: AMITRIPTYLINE HCL 10 MG TABLET PO SCH (21:41)
[2020-10-25] MEDS: LIDOCAINE 5% TOPICAL PATCH TP SCH (21:56)
[2020-10-25] MEDS: LIDOCAINE PATCH REMOVAL MC SCH (21:57)
[2020-10-26] MEDS: HEPARIN NA (PORCINE) 5,000 UNITS/ML 1ML VIAL SQ SCH ×3 (05:44→21:43)
[2020-10-26] MEDS: BUDESONIDE 0.5 MG/2 ML INH SUSP VIAL NEB SCH ×2 (07:30→19:20)
[2020-10-26] MEDS: MORPHINE SULFATE 2 MG/ML VIAL IVPUSH PRN ×2 (08:21→14:35)
[2020-10-26] MEDS ORDERED: AMPICILLIN NA/SULBACTAM NA 1.5 GM VIAL ONE (10:02)
[2020-10-26] MEDS ORDERED: SODIUM CHLORIDE 100 ML IVPB ONE (10:02)
[2020-10-26] MEDS: metoPROLOL SUCCINATE 25 MG TAB.SR.24H (FP) PO SCH (10:06)
[2020-10-26] MEDS: amLODIPine BESYLATE 5 MG TABLET (FP) PO SCH (10:06)
[2020-10-26] MEDS: AMPICILLIN NA/SULBACTAM NA 1.5 GM in SODIUM CHLORIDE 100 ML IVPB SCH (10:06)
[2020-10-26] MEDS: CLOPIDOGREL BISULFATE 75 MG TABLET (FP) PO SCH (10:06)
[2020-10-26] MEDS: PANTOPRAZOLE 40 MG TABLET PO SCH (10:06)
[2020-10-26] MEDS: LIDOCAINE 5% TOPICAL PATCH TP SCH (10:07)
[2020-10-26] MEDS: TIOTROPIUM BROMIDE 2.5 MCG (SPIRIVA) RESPIMAT INHALER IH SCH (10:08)
[2020-10-26] MEDS: ALBUTEROL SO4 0.083% IH SOL 2.5 MG/3 ML VIAL.NEB. NEB PRN ×2 (11:10→19:20)
[2020-10-26] MEDS ORDERED: metoPROLOL SUCCINATE 25 MG TAB.SR.24H (FP) PO ONE (11:15)
[2020-10-26] MEDS: ATORVASTATIN CA 80 MG TABLET (FP) PO SCH (21:42)
[2020-10-26] MEDS: ALPRAZolam 0.25 MG TABLET PO PRN (21:42)
[2020-10-26] MEDS: DONEPEZIL HCL 10 MG TABLET (FP) PO SCH (21:42)
[2020-10-26] MEDS: AMITRIPTYLINE HCL 10 MG TABLET PO SCH (21:42)
[2020-10-26] MEDS: LIDOCAINE PATCH REMOVAL MC SCH (21:43)
[2020-10-27 00:06] LABS: BODY FLUID ALBUMIN 1.7 g/dL (Not Estab.)
[2020-10-27] MEDS: HEPARIN NA (PORCINE) 5,000 UNITS/ML 1ML VIAL SQ SCH ×3 (06:09→22:58)
[2020-10-27] MEDS: BUDESONIDE 0.5 MG/2 ML INH SUSP VIAL NEB SCH ×2 (07:16→20:32)
[2020-10-27] MEDS: ALBUTEROL SO4 0.083% IH SOL 2.5 MG/3 ML VIAL.NEB. NEB PRN (07:17)
[2020-10-27] MEDS: CLOPIDOGREL BISULFATE 75 MG TABLET (FP) PO SCH (10:10)
[2020-10-27] MEDS: LIDOCAINE 5% TOPICAL PATCH TP SCH (10:10)
[2020-10-27] MEDS: PANTOPRAZOLE 40 MG TABLET PO SCH (10:10)
[2020-10-27] MEDS: amLODIPine BESYLATE 5 MG TABLET (FP) PO SCH (10:10)
[2020-10-27] MEDS: TIOTROPIUM BROMIDE 2.5 MCG (SPIRIVA) RESPIMAT INHALER IH SCH (10:11)
[2020-10-27] MEDS ORDERED: cloNIDine-TTS 0.1 MG/24 HRS PATCH.TDWK TD SCH (11:00)
[2020-10-27] MEDS: ALBUTEROL SO4 0.042% IH SOL 1.25 MG/3 ML VIAL.NEB NEB SCH ×3 (11:59→20:34)
[2020-10-27] MEDS ORDERED: PT OWN MED DRAWER 7, Y5N ONE ×2 (12:56→22:54)
[2020-10-27] MEDS: MORPHINE SULFATE 2 MG/ML VIAL IVPUSH PRN ×3 (15:06→21:49)
[2020-10-27] MEDS: ALPRAZolam 0.25 MG TABLET PO PRN (22:59)
[2020-10-27] MEDS: AMITRIPTYLINE HCL 10 MG TABLET PO SCH (22:59)
[2020-10-27] MEDS: ATORVASTATIN CA 80 MG TABLET (FP) PO SCH (22:59)
[2020-10-27] MEDS: DONEPEZIL HCL 10 MG TABLET (FP) PO SCH (22:59)
[2020-10-27] MEDS: LIDOCAINE PATCH REMOVAL MC SCH (23:00)
[2020-10-28] MEDS: MORPHINE SULFATE 2 MG/ML VIAL IVPUSH PRN ×4 (01:10→21:55)
[2020-10-28] MEDS: HEPARIN NA (PORCINE) 5,000 UNITS/ML 1ML VIAL SQ SCH (06:32)
[2020-10-28] MEDS ORDERED: PT OWN MED DRAWER 7, Y5N ONE ×3 (08:20→21:39)
[2020-10-28] MEDS: BUDESONIDE 0.5 MG/2 ML INH SUSP VIAL NEB SCH ×2 (08:37→20:47)
[2020-10-28] MEDS: ALBUTEROL SO4 0.042% IH SOL 1.25 MG/3 ML VIAL.NEB NEB SCH ×4 (08:38→20:48)
[2020-10-28] MEDS: amLODIPine BESYLATE 5 MG TABLET (FP) PO SCH (12:09)
[2020-10-28] MEDS: PANTOPRAZOLE 40 MG TABLET PO SCH (12:09)
[2020-10-28] MEDS: LIDOCAINE 5% TOPICAL PATCH TP SCH (12:09)
[2020-10-28] MEDS: CLOPIDOGREL BISULFATE 75 MG TABLET (FP) PO SCH (12:09)
[2020-10-28] MEDS: TIOTROPIUM BROMIDE 2.5 MCG (SPIRIVA) RESPIMAT INHALER IH SCH (13:12)
[2020-10-28] MEDS ORDERED: METOPROLOL TARTRATE 5 MG/5 ML VIAL IVPUSH PRN (13:22)
[2020-10-28] MEDS ORDERED: ALBUTEROL SO4 0.083% IH SOL 2.5 MG/3 ML VIAL.NEB. NEB ONE (20:45)
[2020-10-28] MEDS: DONEPEZIL HCL 10 MG TABLET (FP) PO SCH (21:55)
[2020-10-28] MEDS: ATORVASTATIN CA 80 MG TABLET (FP) PO SCH (21:55)
[2020-10-28] MEDS: AMITRIPTYLINE HCL 10 MG TABLET PO SCH (21:56)
[2020-10-28] MEDS: LIDOCAINE PATCH REMOVAL MC SCH (21:56)
[2020-10-29] MEDS: MORPHINE SULFATE 2 MG/ML VIAL IVPUSH PRN ×4 (05:43→21:32)
[2020-10-29] MEDS: BUDESONIDE 0.5 MG/2 ML INH SUSP VIAL NEB SCH ×2 (09:10→20:50)
[2020-10-29] MEDS: ALBUTEROL SO4 0.042% IH SOL 1.25 MG/3 ML VIAL.NEB NEB SCH ×4 (09:10→20:50)
[2020-10-29] MEDS ORDERED: PT OWN MED DRAWER 7, Y5N ONE ×3 (09:22→21:06)
[2020-10-29] MEDS: TIOTROPIUM BROMIDE 2.5 MCG (SPIRIVA) RESPIMAT INHALER IH SCH (09:24)
[2020-10-29] MEDS: CLOPIDOGREL BISULFATE 75 MG TABLET (FP) PO SCH (09:25)
[2020-10-29] MEDS: amLODIPine BESYLATE 5 MG TABLET (FP) PO SCH (09:25)
[2020-10-29] MEDS: PANTOPRAZOLE 40 MG TABLET PO SCH (09:26)
[2020-10-29] MEDS: LIDOCAINE 5% TOPICAL PATCH TP SCH (09:26)
[2020-10-29] MEDS: LIDOCAINE PATCH REMOVAL MC SCH (21:33)
[2020-10-29] MEDS: ATORVASTATIN CA 80 MG TABLET (FP) PO SCH (21:33)
[2020-10-29] MEDS: AMITRIPTYLINE HCL 10 MG TABLET PO SCH (21:33)
[2020-10-29] MEDS: DONEPEZIL HCL 10 MG TABLET (FP) PO SCH (22:11)
[2020-10-30] MEDS: MORPHINE SULFATE 2 MG/ML VIAL IVPUSH PRN (03:20)
[2020-10-30] MEDS: BUDESONIDE 0.5 MG/2 ML INH SUSP VIAL NEB SCH ×2 (07:32→20:35)
[2020-10-30] MEDS: ALBUTEROL SO4 0.042% IH SOL 1.25 MG/3 ML VIAL.NEB NEB SCH (07:34)
[2020-10-30] MEDS ORDERED: PT OWN MED DRAWER 7, Y5N ONE (07:34)
[2020-10-30] MEDS ORDERED: ALBUTEROL SO4 0.042% IH SOL 1.25 MG/3 ML VIAL.NEB NEB PRN (10:36)
[2020-10-30] MEDS: LIDOCAINE 5% TOPICAL PATCH TP SCH (10:48)
[2020-10-30] MEDS: amLODIPine BESYLATE 5 MG TABLET (FP) PO SCH (10:48)
[2020-10-30] MEDS: TIOTROPIUM BROMIDE 2.5 MCG (SPIRIVA) RESPIMAT INHALER IH SCH (10:54)
[2020-10-30] MEDS: morphine SULFATE 4 MG/ML VIAL IVPUSH PRN ×5 (11:02→23:58)
[2020-10-30] MEDS: CLOPIDOGREL BISULFATE 75 MG TABLET (FP) PO SCH (11:02)
[2020-10-30] MEDS: PANTOPRAZOLE 40 MG TABLET PO SCH (11:02)
[2020-10-30] MEDS: DONEPEZIL HCL 10 MG TABLET (FP) PO SCH (22:35)
[2020-10-30] MEDS: AMITRIPTYLINE HCL 10 MG TABLET PO SCH (22:36)
[2020-10-30] MEDS: ATORVASTATIN CA 80 MG TABLET (FP) PO SCH (22:36)
[2020-10-30] MEDS: LIDOCAINE PATCH REMOVAL MC SCH (23:50)
[2020-10-31] MEDS: morphine SULFATE 4 MG/ML VIAL IVPUSH PRN ×2 (04:25→09:28)
[2020-10-31] MEDS: BUDESONIDE 0.5 MG/2 ML INH SUSP VIAL NEB SCH ×2 (08:07→20:55)
[2020-10-31] MEDS: LIDOCAINE 5% TOPICAL PATCH TP SCH (09:29)
[2020-10-31] MEDS: PANTOPRAZOLE 40 MG TABLET PO SCH (10:52)
[2020-10-31] MEDS: CLOPIDOGREL BISULFATE 75 MG TABLET (FP) PO SCH (10:52)
[2020-10-31] MEDS: amLODIPine BESYLATE 5 MG TABLET (FP) PO SCH (10:52)
[2020-10-31] MEDS: TIOTROPIUM BROMIDE 2.5 MCG (SPIRIVA) RESPIMAT INHALER IH SCH (10:52)
[2020-10-31] MEDS ORDERED: PCA PUMP NR ONE (11:47)
[2020-10-31] MEDS: MORPHINE SULFATE/0.9% NACL/PF 100 MG/100 ML BAG IVPB SCH ×2 (12:00→14:13)
[2020-10-31] MEDS: DONEPEZIL HCL 10 MG TABLET (FP) PO SCH (21:52)
[2020-10-31] MEDS: AMITRIPTYLINE HCL 10 MG TABLET PO SCH (21:52)
[2020-10-31] MEDS: ATORVASTATIN CA 80 MG TABLET (FP) PO SCH (21:52)
[2020-10-31] MEDS: LIDOCAINE PATCH REMOVAL MC SCH (21:53)
[2020-11-01 02:06] VITALS: TEMP 98.3
[2020-11-01 06:11] VITALS: BP 83/49; PULSE 112
[2020-11-01] MEDS: BUDESONIDE 0.5 MG/2 ML INH SUSP VIAL NEB SCH (07:45)
[2020-11-01] MEDS: LIDOCAINE 5% TOPICAL PATCH TP SCH (14:06)
[2020-11-01] MEDS: amLODIPine BESYLATE 5 MG TABLET (FP) PO SCH (14:07)
[2020-11-01] MEDS: PANTOPRAZOLE 40 MG TABLET PO SCH (14:07)
[2020-11-01] MEDS: CLOPIDOGREL BISULFATE 75 MG TABLET (FP) PO SCH (14:07)
[2020-11-01] MEDS: TIOTROPIUM BROMIDE 2.5 MCG (SPIRIVA) RESPIMAT INHALER IH SCH (14:08)
[2020-11-01] MEDS: morphine SULFATE 4 MG/ML VIAL IVPUSH PRN ×2 (14:13→17:05)
[2020-11-01] MEDS ORDERED: MORPHINE SULFATE/0.9% NACL/PF 100 MG/100 ML BAG IVPB SCH ×2 (16:45→17:00)
[2020-11-01] MEDS ORDERED: morphine SULFATE 4 MG/ML VIAL IVPUSH PRN (17:02)
[2020-11-01] MEDS ORDERED: PCA PUMP NR ONE (17:16)
== END 2020-11-02 02:15 | disposition expired | DRG 291 ==
LOC: FER 21:07 → FM/S 23:29 → UNDOADMIN 10-19 00:55 → FM/S 10-19 00:55 → J6S 10-20 18:35
PROVIDERS: ADMIT Internal Medicine; ATTEND Internal Medicine
PROC: 0W9B3ZZ Drainage of Left Pleural Cavity, Percutaneous Approach (ICD-10-PCS; principal; 2020-10-23)
DX: I13.0 Hypertensive heart and chronic kidney disease with heart failure and stage 1 through stage 4 chronic kidney disease, or unspecified chronic kidney disease (principal); J18.9 Pneumonia, unspecified organism; J96.01 Acute respiratory failure with hypoxia; N17.9 Acute kidney failure, unspecified; E87.1 Hypo-osmolality and hyponatremia; N39.0 Urinary tract infection, site not specified; J90 Pleural effusion, not elsewhere classified; K86.1 Other chronic pancreatitis; I71.2 Thoracic aortic aneurysm, without rupture; I71.4 Abdominal aortic aneurysm, without rupture; I25.10 Atherosclerotic heart disease of native coronary artery without angina pectoris; E78.5 Hyperlipidemia, unspecified; I73.9 Peripheral vascular disease, unspecified; I12.9 Hypertensive chronic kidney disease with stage 1 through stage 4 chronic kidney disease, or unspecified chronic kidney disease; N18.9 Chronic kidney disease, unspecified; E86.0 Dehydration; Z86.73 Personal history of transient ischemic attack (TIA), and cerebral infarction without residual deficits; E87.5 Hyperkalemia; F41.9 Anxiety disorder, unspecified; I95.9 Hypotension, unspecified; E83.42 Hypomagnesemia; Z99.81 Dependence on supplemental oxygen; I50.9 Heart failure, unspecified; I48.91 Unspecified atrial fibrillation; D64.9 Anemia, unspecified; J43.9 Emphysema, unspecified; K83.9 Disease of biliary tract, unspecified
CPT/HCPCS: 36415; 71045-TC-FY; 71250-TC; 76705-TC; 76775-TC; 76856-TC; 76942; 80048; 80053; 81003; 81015; 82042; 82150; 82436; 82465; 82550; 82570; 82945; 83615; 83735; 83880; 83930; 83935; 83986; 84100; 84133; 84157; 84300; 84478; 84484; 85025; 85610; 85730; 87040; 87070; 87075; 87086; 87102; 87116; 87205; 87206; 87210; 88108; 88305-TC; 93005; 93010; 93306-TC; 94640; 99285-25; C9803; J0131; J1644; U0003; U0005